=== PATIENT | male | born 1945 | race Caucasian/White ===

== ENCOUNTER 2024-03-04 07:29 | Inpatient (IN) ==
--- NOTE | 2024-03-04 07:42 | Emergency Department Note ---
Impression & Plan Acute hypoxic respiratory failure, Aspiration pneumonia, Sepsis ED Provider Note CHIEF COMPLAINT: Vomiting, shortness of breath. HISTORY OF PRESENT ILLNESS: This 78-year-old male patient with past medical history of Njuyrvt-Jgaar-Vcqqo syndrome, hypertension, aspiration, Coreas's esophagus presents emergency department with fever, nausea and vomiting. Patient states he was not feeling well yesterday, but began vomiting around 10 PM. Patient is state he was "hot" most of the night with a presumed fever. This morning the patient took the temperature and it was 101. Patient admits to shortness of breath with exertion, he does have some positional respiratory symptoms as well. He denies any recent cough. His denies recent illness. REVIEW OF SYSTEMS: A review of systems was performed with positives and pertinent negatives listed in the history of present illness. 10 systems were reviewed and are otherwise negative. ALLERGIES: see below MEDICATIONS: see below PMH: see below SOCIAL HISTORY: see below DDx: Aspiration pneumonia, community-acquired pneumonia, viral etiology such as COVID or influenza, PE, congestive heart failure, acute coronary syndrome among others. PHYSICAL EXAM: Vital signs reviewed. General: Elderly, chronically ill-appearing 78-year-old male, no significant distress. HEENT: No scleral icterus, PERRLA, neck supple. Moist mucous membranes Cardiovascular: Regular rate and rhythm, no extra sounds. Pulmonary: Coarse breath sounds at the bases to auscultation bilaterally, slightly increased work of breathing. Abdomen: Soft, nontender, nondistended, positive bowel sounds. Musculoskeletal: Atraumatic, no peripheral edema. Chronic distal joint changes of hands/feet. Neurologic: Patient awake alert and oriented x 3, speech is clear Skin: Warm, dry, no rash EMERGENCY DEPARTMENT COURSE/MDM: This patient was evaluated and appeared to be in no significant distress. Patient is noted to be febrile. IV access was obtained and laboratory work was drawn. Blood cultures, lactate and procalcitonin were ordered. Chest x-ray is consistent with a right lower lobe infiltrate, possibly aspiration secondary to the patient's recent vomiting. Laboratory work reveals a mild leukopenia with a WBC of 4, elevated procalcitonin with a normal lactate. Patient was given p.o. Tylenol, IV Zosyn and hydrated with normal saline solution. He was initially given a 750 mL bolus of normal saline solution and subsequently 200 mL/h based on ideal body weight. Patient did require nasal cannula oxygen supplementation to maintain oxygen saturations above 90%. Case was discussed with the hospitalist service to evaluate the patient for admission and further management. I did explain the findings and plan to the patient and his at the bedside. Hospitalist will be consulted for admission and further management. MONITORING: An order for cardiac monitoring was placed and the patient is noted to be in a normal sinus rhythm at 77 beats per minute. RADIOLOGY: Chest x-ray to my interpretation reveals evidence of focal lung consolidation at the right base consistent with aspiration. Please see radiologist over read below. EKG: To my interpretation reveals a normal sinus rhythm at 98 bpm. Right bundle branch block. Normal ST segments. QTc of 474. No PVC, no PAC. No previous EKGs available. DISPOSITION: Admission Past Med/Surg History Medical History (Updated 03/06/24 @ 05:19 by Alejandra Heller MD) Osteoarthritis Spinal stenosis Barretts esophagus GERD (gastroesophageal reflux disease) Charcot-Josselin disease Hypertension Anemia Surgical History History of left knee surgery tendon repair at age 12 History of right inguinal hernia repair History of left inguinal hernia repair with left orchiectomy History of colonoscopy History of esophagogastroduodenoscopy (EGD) History of tooth extraction all teeth Family History Other No family history of adverse response to anesthesia Social History Smoking Status: Former smoker Tobacco Type: Cigarettes Smoking End Date: 1969; Second Hand Exposure: No; Do You Dip or Chew Tobacco: No (quit ); Hx Alcohol Use: No Hx Substance Use: No Preferred Language: Welsh Communication Ability: Effective Court Interpreter Required: No Beliefs That Will Affect Care: None Current Living Situation: Family Current Living Situation Comment: Daughter, RAVIN, Feels Safe at Home: Yes Safety Concerns: Feels Safe At This Time Assistive Devices: CPAP, Glasses and Walker Assistive Devices Comment: BLE braces Allergies Allergies Allergy/AdvReac Type Severity Reaction Status Date / Time No Known Allergies Allergy Verified 03/04/24 08:50 Home Meds Home Medications Medication Instructions Recorded Confirmed ascorbic acid (vitamin C) 500 mg 500 mg PO BID 05/29/19 03/04/24 tablet (Vitamin C) atenolol 25 mg tablet 25 mg PO QAM 05/29/19 03/04/24 cholecalciferol (vitamin D3) 25 1,000 unit PO QPM 05/29/19 03/04/24 mcg (1,000 unit) tablet (Vitamin D3) lisinopril 20 1 tab PO QAM 05/29/19 03/04/24 mg-hydrochlorothiazide 25 mg tablet omeprazole 20 mg tablet,delayed 20 mg PO BID 05/29/19 03/04/24 release potassium chloride 10 mEq 10 meq PO BID 05/29/19 03/04/24 tablet,extended release tramadol 50 mg tablet 50 mg PO Q6H PRN Pain 05/29/19 03/04/24 amlodipine 10 mg tablet 10 mg PO QAM 11/30/19 03/04/24 atorvastatin 20 mg tablet 20 mg PO QAM 03/04/24 03/04/24 cyanocobalamin (vitamin B-12) 1,000 mcg IM MONTHLY 03/04/24 03/04/24 1,000 mcg/mL injection solution meloxicam 15 mg tablet 15 mg PO DAILY PRN Pain 03/04/24 03/04/24 pregabalin 75 mg capsule 75 mg PO TID 03/04/24 03/04/24 Results & Data (ED) Vital Signs Vital Signs - 24 hr 03/04/24 07:51 03/04/24 07:51 03/04/24 07:51 Temperature 38.5 C H 38.5 C H Temperature Source Oral Oral Pulse Rate 94 H Pulse Rate [Apical] 94 H Pulse Strength Normal Respiratory Rate 22 22 Respiratory Effort / Characteristics Non-Labored Non-Labored Respiratory Depth Normal Normal Blood Pressure 109/61 Blood Pressure [Right Arm] Blood Pressure Mean 77 Blood Pressure Mean [Right Arm] Pulse Oximetry 87 L 91 87 L Oxygen Delivery Method Room Air Nasal Cannula Room Air Nasal Cannula Oxygen Flow Rate 2 Sepsis Recent Fever Within 48 Hours Yes Sepsis New/Unexplained Change in Mental Status Yes Sepsis Action Taken by Nursing Physician Notified Oxygen Flow Rate - Titration 2 Pulse Oximetry Post Tiitration 91 03/04/24 07:51 03/04/24 08:20 03/04/24 08:34 Temperature Temperature Source Pulse Rate 83 Pulse Rate [Apical] 85 Pulse Strength Respiratory Rate 22 Respiratory Effort / Characteristics Non-Labored Respiratory Depth Normal Blood Pressure Blood Pressure [Right Arm] 123/59 L Blood Pressure Mean Blood Pressure Mean [Right Arm] 80 Pulse Oximetry 91 98 Oxygen Delivery Method Nasal Cannula Nasal Cannula Oxygen Flow Rate 2 2 Sepsis Recent Fever Within 48 Hours Sepsis New/Unexplained Change in Mental Status Sepsis Action Taken by Nursing Oxygen Flow Rate - Titration Pulse Oximetry Post Tiitration 03/04/24 09:17 03/04/24 10:15 Temperature 36.9 C Temperature Source Oral Pulse Rate Pulse Rate [Apical] 77 Pulse Strength Respiratory Rate 20 Respiratory Effort / Characteristics Non-Labored Respiratory Depth Normal Blood Pressure Blood Pressure [Right Arm] 109/57 L Blood Pressure Mean Blood Pressure Mean [Right Arm] 74 Pulse Oximetry 93 Oxygen Delivery Method Room Air Oxygen Flow Rate Sepsis Recent Fever Within 48 Hours Sepsis New/Unexplained Change in Mental Status Sepsis Action Taken by Nursing Oxygen Flow Rate - Titration Pulse Oximetry Post Tiitration Home Medications Current Medication List: was personally reviewed by me Laboratory Data Attestation: I reviewed the patient's lab results. 03/05/24 05:50 03/05/24 05:50 Lab Results 03/04/24 03/04/24 03/04/24 Range/Units 07:42 07:42 07:42 WBC 4.37 L (4.8-10.8) K/ul RBC 5.10 (4.70-6.10) M/uL Hgb 14.5 (14.0-18.0) g/dl Hct 42.1 (42.0-52.0) % MCV 82.5 (80.0-100.0) fL MCH 28.4 (25.0-34.0) pg MCHC 34.4 (32.0-36.0) g/dL RDW Std Deviation 42.8 (36.4-46.3) fL RDW Coeff of Daniel 14.2 (11.5-14.5) % Plt Count (130-400) K/uL MPV (9.4-12.4) fL Immature Gran % (Auto) 0.2 % Neut % (Auto) 83.3 % Lymph % (Auto) 10.3 % [place] % (Auto) 5.3 % Eos % (Auto) 0.2 % Baso % (Auto) 0.7 % Neut # (Auto) 3.64 (1.40-6.50) K/uL Lymph # (Auto) 0.45 L (1.20-3.40) K/uL [place] # (Auto) 0.23 (0.11-0.59) K/uL Eos # (Auto) 0.01 (0.00-0.50) K/uL Baso # (Auto) 0.03 (0.00-0.20) K/uL Immature Gran # (Auto) 0.01 (0.01-0.20) K/uL Platelet Estimate Normal (Normal) Plt Count ,Citrate (130-400) K/uL PT 11.7 (9.0-12.0) Seconds INR 1.1 (0.9-1.1) APTT 27 (21-31) Seconds PTT Ratio 1.0 Sodium 134 L (136-145) mmol/L Potassium 3.5 (3.5-5.1) mmol/L Chloride 101 (98-107) mmol/L Carbon Dioxide 27 (21-32) mmol/L Anion Gap 6 (3-11) BUN 30 H (6-23) mg/dl Creatinine 0.90 (0.6-1.4) mg/dl Est Cr Clr Drug Dosing 52.2 ml/min Est GFR ( Amer) 93.8 ml/min Est GFR (Non-Af Amer) 80.9 ml/min BUN/Creatinine Ratio 33.3 H (10-20) Glucose 84 (70-99(Fasting)) mg/dl Lactate (0.4-2.0) mmol/L Calcium 8.4 L (8.6-10.3) mg/dl Magnesium 1.3 L (1.7-2.4) mg/dl Total Bilirubin 0.9 (0.2-1.0) mg/dl AST 34 (13-39) U/L ALT 32 (7-52) U/L Alkaline Phosphatase 54 (34-104) U/L Troponin I High Sens 14.8 (0-20) pg/ml Total Protein 5.4 L (6.0-8.3) gm/dl Albumin 3.3 L (3.4-5.0) gm/dl Globulin 2.1 L (2.5-4.0) gm/dl Albumin/Globulin Ratio 1.6 (0.9-2) Procalcitonin 2.13 H (0-0.5) ng/ml Nasal Screen MRSA (PCR) (Negative) Adenovirus (PCR) Not Detected (NotDetected) B. pertussis DNA (PCR) Not Detected (NotDetected) B.parapertussis DNA PCR Not Detected (NotDetected) C. pneumoniae DNA (PCR) Not Detected (NotDetected) Coronavirus OC43 (PCR) Not Detected (NotDetected) Coronavirus HKU1 (PCR) Not Detected (NotDetected) Coronavirus 229E (PCR) Not Detected (NotDetected) SARS-CoV-2 (PCR) NEGATIVE Not Detected (Negative) Coronavirus NL63 (PCR) Not Detected (NotDetected) Human Metapneumovir PCR Not Detected (NotDetected) Influenza Type A (PCR) Negative Not Detected (Neg) Influenza Type B (PCR) Negative (Neg) M. pneumoniae (PCR) (NotDetected) Parainfluenza 1 (PCR) (NotDetected) Parainfluenza 2 (PCR) (NotDetected) Parainfluenza 3 (PCR) (NotDetected) Parainfluenza 4 (PCR) (NotDetected) RSV (RT-PCR) (Neg) RSV (PCR) (NotDetected) Entero/Rhino (PCR) (NotDetected) 03/04/24 03/04/24 03/04/24 Range/Units 07:42 09:13 09:40 WBC (4.8-10.8) K/ul RBC (4.70-6.10) M/uL Hgb (14.0-18.0) g/dl Hct (42.0-52.0) % MCV (80.0-100.0) fL MCH (25.0-34.0) pg MCHC (32.0-36.0) g/dL RDW Std Deviation (36.4-46.3) fL RDW Coeff of Daniel (11.5-14.5) % Plt Count (130-400) K/uL MPV (9.4-12.4) fL Immature Gran % (Auto) % Neut % (Auto) % Lymph % (Auto) % [place] % (Auto) % Eos % (Auto) % Baso % (Auto) % Neut # (Auto) (1.40-6.50) K/uL Lymph # (Auto) (1.20-3.40) K/uL [place] # (Auto) (0.11-0.59) K/uL Eos # (Auto) (0.00-0.50) K/uL Baso # (Auto) (0.00-0.20) K/uL Immature Gran # (Auto) (0.01-0.20) K/uL Platelet Estimate (Normal) Plt Count ,Citrate 105 L (130-400) K/uL PT (9.0-12.0) Seconds INR (0.9-1.1) APTT (21-31) Seconds PTT Ratio Sodium (136-145) mmol/L Potassium (3.5-5.1) mmol/L Chloride (98-107) mmol/L Carbon Dioxide (21-32) mmol/L Anion Gap (3-11) BUN (6-23) mg/dl Creatinine (0.6-1.4) mg/dl Est Cr Clr Drug Dosing ml/min Est GFR ( Amer) ml/min Est GFR (Non-Af Amer) ml/min BUN/Creatinine Ratio (10-20) Glucose (70-99(Fasting)) mg/dl Lactate 1.0 (0.4-2.0) mmol/L Calcium (8.6-10.3) mg/dl Magnesium (1.7-2.4) mg/dl Total Bilirubin (0.2-1.0) mg/dl AST (13-39) U/L ALT (7-52) U/L Alkaline Phosphatase (34-104) U/L Troponin I High Sens (0-20) pg/ml Total Protein (6.0-8.3) gm/dl Albumin (3.4-5.0) gm/dl Globulin (2.5-4.0) gm/dl Albumin/Globulin Ratio (0.9-2) Procalcitonin (0-0.5) ng/ml Nasal Screen MRSA (PCR) (Negative) Adenovirus (PCR) (NotDetected) B. pertussis DNA (PCR) (NotDetected) B.parapertussis DNA PCR (NotDetected) C. pneumoniae DNA (PCR) (NotDetected) Coronavirus OC43 (PCR) (NotDetected) Coronavirus HKU1 (PCR) (NotDetected) Coronavirus 229E (PCR) (NotDetected) SARS-CoV-2 (PCR) (Negative) Coronavirus NL63 (PCR) (NotDetected) Human Metapneumovir PCR (NotDetected) Influenza Type A (PCR) (Neg) Influenza Type B (PCR) Not Detected (Neg) M. pneumoniae (PCR) Not Detected (NotDetected) Parainfluenza 1 (PCR) Not Detected (NotDetected) Parainfluenza 2 (PCR) Not Detected (NotDetected) Parainfluenza 3 (PCR) Not Detected (NotDetected) Parainfluenza 4 (PCR) Not Detected (NotDetected) RSV (RT-PCR) Negative (Neg) RSV (PCR) Not Detected (NotDetected) Entero/Rhino (PCR) Not Detected (NotDetected) 03/04/24 Range/Units 10:12 WBC (4.8-10.8) K/ul RBC (4.70-6.10) M/uL Hgb (14.0-18.0) g/dl Hct (42.0-52.0) % MCV (80.0-100.0) fL MCH (25.0-34.0) pg MCHC (32.0-36.0) g/dL RDW Std Deviation (36.4-46.3) fL RDW Coeff of Daniel (11.5-14.5) % Plt Count (130-400) K/uL MPV (9.4-12.4) fL Immature Gran % (Auto) % Neut % (Auto) % Lymph % (Auto) % [place] % (Auto) % Eos % (Auto) % Baso % (Auto) % Neut # (Auto) (1.40-6.50) K/uL Lymph # (Auto) (1.20-3.40) K/uL [place] # (Auto) (0.11-0.59) K/uL Eos # (Auto) (0.00-0.50) K/uL Baso # (Auto) (0.00-0.20) K/uL Immature Gran # (Auto) (0.01-0.20) K/uL Platelet Estimate (Normal) Plt Count ,Citrate (130-400) K/uL PT (9.0-12.0) Seconds INR (0.9-1.1) APTT (21-31) Seconds PTT Ratio Sodium (136-145) mmol/L Potassium (3.5-5.1) mmol/L Chloride (98-107) mmol/L Carbon Dioxide (21-32) mmol/L Anion Gap (3-11) BUN (6-23) mg/dl Creatinine (0.6-1.4) mg/dl Est Cr Clr Drug Dosing ml/min Est GFR ( Amer) ml/min Est GFR (Non-Af Amer) ml/min BUN/Creatinine Ratio (10-20) Glucose (70-99(Fasting)) mg/dl Lactate (0.4-2.0) mmol/L Calcium (8.6-10.3) mg/dl Magnesium (1.7-2.4) mg/dl Total Bilirubin (0.2-1.0) mg/dl AST (13-39) U/L ALT (7-52) U/L Alkaline Phosphatase (34-104) U/L Troponin I High Sens (0-20) pg/ml Total Protein (6.0-8.3) gm/dl Albumin (3.4-5.0) gm/dl Globulin (2.5-4.0) gm/dl Albumin/Globulin Ratio (0.9-2) Procalcitonin (0-0.5) ng/ml Nasal Screen MRSA (PCR) Negative (Negative) Adenovirus (PCR) (NotDetected) B. pertussis DNA (PCR) (NotDetected) B.parapertussis DNA PCR (NotDetected) C. pneumoniae DNA (PCR) (NotDetected) Coronavirus OC43 (PCR) (NotDetected) Coronavirus HKU1 (PCR) (NotDetected) Coronavirus 229E (PCR) (NotDetected) SARS-CoV-2 (PCR) (Negative) Coronavirus NL63 (PCR) (NotDetected) Human Metapneumovir PCR (NotDetected) Influenza Type A (PCR) (Neg) Influenza Type B (PCR) (Neg) M. pneumoniae (PCR) (NotDetected) Parainfluenza 1 (PCR) (NotDetected) Parainfluenza 2 (PCR) (NotDetected) Parainfluenza 3 (PCR) (NotDetected) Parainfluenza 4 (PCR) (NotDetected) RSV (RT-PCR) (Neg) RSV (PCR) (NotDetected) Entero/Rhino (PCR) (NotDetected) Administered Medications Albuterol (Albut/Ipratrop 3mg/0.5mg Neb 3 Ml Vial) 3 ml NEB BIDR [facility]; Protocol Stop: 04/04/24 07:44 Last Admin: 03/05/24 19:06 Dose: 3 ml Documented By: Admin: 03/05/24 08:03 Dose: 3 ml Documented By: JORGE Atenolol (Atenolol 25 Mg Tablet) 25 mg PO [facility] Stop: 04/04/24 08:59 Last Admin: 03/05/24 07:30 Dose: 25 mg Documented By: AISSATOU Atorvastatin Calcium (Atorvastatin 20 Mg Tab) 20 mg PO [facility] Stop: 04/04/24 08:59 Last Admin: 03/05/24 07:30 Dose: 20 mg Documented By: AISSATOU Enoxaparin Sodium (Enoxaparin Inj 40 Mg/0.4 Ml Syr) 40 mg SQ Q24H [facility] Stop: 04/03/24 13:59 Last Admin: 03/05/24 12:49 Dose: 40 mg Documented By: Admin: 03/04/24 14:32 Dose: 40 mg Documented By: AZIZA Guaifenesin (Guaifenesin 600 Mg Tabcr) 600 mg PO Q12 [facility] Stop: 04/03/24 20:59 Last Admin: 03/05/24 19:59 Dose: 600 mg Documented By: JOSE ARMANDO Admin: 03/05/24 07:30 Dose: 600 mg Documented By: Admin: 03/04/24 20:48 Dose: 600 mg Documented By: JOSE ARMANDO Piperacillin Sod/Tazobactam (Sod 4.5 gm/ Dextrose) 100 mls @ 25 mls/hr IV Q8H [facility]; Protocol Stop: 03/11/24 09:59 Last Admin: 03/06/24 00:45 Dose: 25 mls/hr Documented By: JOSE ARMANDO Infusion: 03/05/24 19:47 Dose: Infused Documented By: JOSE ARMANDO Admin: 03/05/24 15:33 Dose: 25 mls/hr Documented By: Infusion: 03/05/24 11:46 Dose: Infused Documented By: Admin: 03/05/24 07:29 Dose: 25 mls/hr Documented By: Infusion: 03/05/24 05:12 Dose: Infused Documented By: JOSE ARMANDO Admin: 03/05/24 00:45 Dose: 25 mls/hr Documented By: JOSE ARMANDO Infusion: 03/04/24 20:48 Dose: Infused Documented By: JOSE ARMANDO Admin: 03/04/24 16:59 Dose: 25 mls/hr Documented By: AZIZA Ondansetron HCl (Ondansetron Inj 2 Mg/Ml 2 Ml Vial) 4 mg IV Q6H PRN PRN Reason: Nausea And Vomiting Stop: 04/03/24 12:56 Last Admin: 03/05/24 09:25 Dose: 4 mg Documented By: AISSATOU Pantoprazole Sodium (Pantoprazole 40 Mg Tab) 40 mg PO BID LILLIE Stop: 04/03/24 20:59 Last Admin: 03/05/24 19:59 Dose: 40 mg Documented By: JOSE ARMANDO Admin: 03/05/24 07:30 Dose: 40 mg Documented By: Admin: 03/04/24 20:48 Dose: 40 mg Documented By: JOSE ARMANDO Pregabalin (Pregabalin 75 Mg Cap) 75 mg PO TID [facility] Stop: 04/03/24 13:59 Last Admin: 03/05/24 19:58 Dose: 75 mg Documented By: JOSE ARMANDO Admin: 03/05/24 12:48 Dose: 75 mg Documented By: Admin: 03/05/24 07:32 Dose: 75 mg Documented By: Admin: 03/04/24 20:47 Dose: 75 mg Documented By: JOSE ARMANDO Admin: 03/04/24 14:33 Dose: 75 mg Documented By: AZIZA Sodium Chloride (Sodium Chlor 7% 4 Ml Neb) 4 ml NEB BIDR [facility] Stop: 04/04/24 07:39 Last Admin: 03/05/24 19:06 Dose: 4 ml Documented By: Admin: 03/05/24 08:03 Dose: 4 ml Documented By: JORGE Tramadol HCl (Tramadol Hcl 50 Mg Tablet) 50 mg PO Q6H PRN PRN Reason: Pain Stop: 04/03/24 10:44 Last Admin: 03/05/24 19:58 Dose: 50 mg Documented By: JOSE ARMANDO Admin: 03/05/24 09:27 Dose: 50 mg Documented By: Admin: 03/04/24 20:47 Dose: 50 mg Documented By: JOSE ARMANDO Vitamin D (Cholecalciferol 25 Mcg (1000 Units) Tab) 25 mcg PO QPM LILLIE Stop: 04/03/24 20:59 Last Admin: 03/05/24 19:59 Dose: 25 mcg Documented By: JOSE ARMANDO Admin: 03/04/24 20:48 Dose: 25 mcg Documented By: JOSE ARMANDO Discontinued Medications Acetaminophen (Acetaminophen 500 Mg Tab) 1,000 mg PO NOW [facility] Stop: 03/04/24 08:12 Last Admin: 03/04/24 08:20 Dose: 1,000 mg Documented By: BRYAN Atenolol (Atenolol 25 Mg Tablet) [facility] Stop: 03/04/24 11:01 Last Admin: 03/04/24 14:10 Dose: 25 mg Documented By: AZIZA Atorvastatin Calcium (Atorvastatin 20 Mg Tab) [facility] Stop: 03/04/24 11:01 Last Admin: 03/04/24 14:10 Dose: 20 mg Documented By: AZIZA Piperacillin Sod/Tazobactam Sod (Zosyn) 4.5 gm in 100 mls @ 200 mls/hr IV NOW ONE Stop: 03/04/24 10:05 Last Infusion: 03/04/24 10:09 Dose: Infused Documented By: Admin: 03/04/24 09:42 Dose: 200 mls/hr Documented By: BRYAN Sodium Chloride (Nss) 500 mls @ 999 mls/hr IV .Q31M ONE Stop: 03/04/24 10:07 Last Infusion: 03/04/24 10:08 Dose: Infused Documented By: Admin: 03/04/24 09:43 Dose: 999 mls/hr Documented By: BRYAN Sodium Chloride (Nss) 250 mls @ 999 mls/hr IV .Q16M ONE Stop: 03/04/24 09:52 Last Infusion: 03/04/24 10:09 Dose: Infused Documented By: Admin: 03/04/24 09:43 Dose: 999 mls/hr Documented By: BRYAN Sodium Chloride (Nss) 1,000 mls @ 200 mls/hr IV .Q5H [facility]ILLIE Stop: 04/03/24 09:44 Last Infusion: 03/04/24 14:00 Dose: Infused Documented By: AZIZA(2) Admin: 03/04/24 09:43 Dose: 200 mls/hr Documented By: BRYAN Magnesium Sulfate/Dextrose (Magnesium Sulfate / D5w) 1 gm in 100 mls @ 50 mls/hr IV Q2H [facility]ILLIE Stop: 03/04/24 16:14 Last Infusion: 03/04/24 16:27 Dose: Infused Documented By: AZIZA(2) Admin: 03/04/24 14:31 Dose: 50 mls/hr Documented By: Infusion: 03/04/24 14:26 Dose: Infused Documented By: AZIZA(2) Admin: 03/04/24 12:26 Dose: 50 mls/hr Documented By: Infusion: 03/04/24 12:15 Dose: Infused Documented By: AZIZA(2) Admin: 03/04/24 10:15 Dose: 50 mls/hr Documented By: BRYAN Lactated Ringer's (Lr) 1,000 mls @ 80 mls/hr IV .[id number] [facility]ILLIE Stop: 04/03/24 12:56 Last Infusion: 03/05/24 08:23 Dose: Infused Documented By: Admin: 03/05/24 01:03 Dose: 80 mls/hr Documented By: JOSE ARMANDO Infusion: 03/05/24 01:03 Dose: Infused Documented By: JOSE ARMANDO Admin: 03/04/24 14:15 Dose: 80 mls/hr Documented By: AZIZA Magnesium Sulfate/Dextrose (Magnesium Sulfate 1gm / D5w Bag) Confirm Administered Dose 1 gm IV .STK-MED ONE Stop: 03/04/24 10:15 Last Admin: 03/04/24 10:19 Dose: Not Given Documented By: BRYAN Pantoprazole Sodium (Pantoprazole 40 Mg Tab) 40 mg PO BID LILLIE Stop: 03/04/24 11:01 Last Admin: 03/04/24 14:10 Dose: 40 mg Documented By: AZIZA Potassium Chloride (Potassium Chloride Pwd 20 Meq Pack) 20 meq PO BID LILLIE Stop: 03/05/24 21:01 Last Admin: 03/05/24 19:59 Dose: 20 meq Documented By: Admin: 03/05/24 09:27 Dose: 20 meq Documented By: LRB Imaging Data Radiologist's Impression: Chest X-Ray 03/04/24 07:39 SINGLE VIEW CHEST CLINICAL HISTORY: Sepsis. FINDINGS: A PA chest radiograph is obtained. No prior studies are available for comparison at the time of dictation. The heart is enlarged noting atherosclerotic calcification of the thoracic aorta. The pulmonary vasculature is noncongested. A hiatal hernia is noted. Airspace consolidation is seen in the right lung base. No large pleural effusion or pneumothorax is seen. The skeletal structures are osteopenic. The bony thorax is grossly intact. Arthritic change is seen in the shoulders. Superior subluxation of the humeral heads suggests chronic bilateral rotator cuff injury. Tiny metallic foreign bodies project over the right lower neck and the left chest. IMPRESSION: 1. Airspace consolidation at the right lung base is typical for pneumonia/aspiration pneumonitis. Clinical correlation will be required and radiographic follow-up to resolution is recommended. 2. Cardiomegaly without radiographic evidence of congestive failure. 3. Hiatal hernia. ACT 112: Negative or not required by law. Electronically signed by: Jordi Gallo M.D. 03/04/2024 8:35 AM Discharge Plan Visit Data Chief Complaint: Illness Stated Complaint: ILLNESS, WEAKNESS, MILD SOB, FEVER, NAUSEA, ED Provider: Alejandra Heller Discharge Problem: Acute hypoxic respiratory failure, Aspiration pneumonia, Sepsis Patient Disposition: Admitted As Inpatient Discharge Instructions Interventions: ED Discharge Assessment Last Done: 03/04/24 12:54 Discharge Problem: Aspiration pneumonia Qualifiers: Aspiration pneumonia type: due to vomit Laterality: right Lung location: lower lobe of lung Qualified Code(s): J69.0 - Pneumonitis due to inhalation of food and vomit Sepsis Qualifiers: Sepsis type: sepsis due to unspecified organism Sepsis acute organ dysfunction status: with acute organ dysfunction Severe sepsis acute organ dysfunction type: acute respiratory failure Acute respiratory failure type: with hypoxia Severe sepsis shock status: without septic shock Qualified Code(s): A41.9 - Sepsis, unspecified organism; R65.20 - Severe sepsis without septic shock; J96.01 - Acute respiratory failure with hypoxia
[2024-03-04] MEDS: ACETAMINOPHEN 500 MG TAB PO STA (08:20)
[2024-03-04 08:25] LABS: Albumin Globulin Ratio 1.6 (0.9-2); Albumin Level 3.3 gm/dl (3.4-5.0); BUN Creatinine Ratio 33.3 (10-20); Bilirubin,Total 0.9 mg/dl (0.2-1.0); Calcium 8.4 mg/dl (8.6-10.3); Creatinine Clr Calc Pharmacy 52.2 ml/min; Est GFR (African American) 93.8 ml/min; Est GFR (Non-African American) 80.9 ml/min; Globulin 2.1 gm/dl (2.5-4.0); Magnesium 1.3 mg/dl (1.7-2.4); Potassium 3.5 mmol/L (3.5-5.1); Total Protein 5.4 gm/dl (6.0-8.3)
[2024-03-04 08:32] LABS: Troponin I High Sensitivity 14.8 pg/ml (0-20)
[2024-03-04 08:35] LABS: Influenza A virus by PCR Negative (Neg); Influenza B virus by PCR Negative (Neg); RSV by PCR Negative (Neg); SARS CoV2 RNA(COVID-19) Ceph NEGATIVE (Negative)
--- NOTE | 2024-03-04 08:37 | XRay Report ---
SINGLE VIEW CHEST CLINICAL HISTORY: Sepsis. FINDINGS: A PA chest radiograph is obtained. No prior studies are available for comparison at the erika e of dictation. The heart is enlarged noting atherosclerotic calcification of the thoracic aorta. The pulmonary vasculature is noncongested. A hiatal hernia is noted. Airspace consolidation is seen in t he right lung base. No large pleural effusion or pneumothorax is seen. The skeletal structures are os teopenic. The bony thorax is grossly intact. Arthritic change is seen in the shoulders. Superior subl uxation of the humeral heads suggests chronic bilateral rotator cuff injury. Tiny metallic foreign star dies project over the right lower neck and the left chest. IMPRESSION: 1. Airspace consolidation at the right lung base is typical for pneumonia/aspiration pneumonitis. Cli nical correlation will be required and radiographic follow-up to resolution is recommended. 2. Cardiomegaly without radiographic evidence of congestive failure. 3. Hiatal hernia. ACT 112: Negative or not required by law. Electronically signed by: Jordi Gallo M.D. 03/04/2024 8:35 AM
[2024-03-04 08:46] LABS: INR 1.1 (0.9-1.1); Partial Thromboplastin Time 27 Seconds (21-31); Prothrombin Time 11.7 Seconds (9.0-12.0)
[2024-03-04 08:58] LABS: Hematocrit (blood only) 42.1 % (42.0-52.0); Hemoglobin 14.5 g/dl (14.0-18.0); Mean Corpuscular Hemoglobin 28.4 pg (25.0-34.0); Mean Corpuscular Hgb Conc 34.4 g/dL (32.0-36.0); Mean Corpuscular Volume 82.5 fL (80.0-100.0); RDW Coefficient of Variation 14.2 % (11.5-14.5); RDW Standard Deviation 42.8 fL (36.4-46.3); White Blood Count 4.37 K/ul (4.8-10.8)
[2024-03-04 08:59] LABS: Basophils # (auto) 0.03 K/uL (0.00-0.20); Basophils % (auto) 0.7 %; Eosinophils # (auto) 0.01 K/uL (0.00-0.50); Eosinophils % (auto) 0.2 %; Immature Granulocytes # (auto) 0.01 K/uL (0.01-0.20); Immature Granulocytes % (auto) 0.2 %; Lymphocytes # (auto) 0.45 K/uL (1.20-3.40); Lymphocytes % (auto) 10.3 %; Monocytes # (auto) 0.23 K/uL (0.11-0.59); Monocytes % (auto) 5.3 %; Neutrophils # (auto) 3.64 K/uL (1.40-6.50); Neutrophils % (auto) 83.3 %; Platelet Estimate Normal (Normal)
[2024-03-04 09:33] LABS: Adenovirus PCR Not Detected (NotDetected); Bordetella parapertussis PCR Not Detected (NotDetected); Bordetella pertussis PCR Not Detected (NotDetected); Chlamydia pneumoniae PCR Not Detected (NotDetected); Coronavirus 229E PCR Not Detected (NotDetected); Coronavirus CoV-2 (COVID19)PCR Not Detected (NotDetected); Coronavirus HKU1 PCR Not Detected (NotDetected); Coronavirus NL63 PCR Not Detected (NotDetected); Coronavirus OC43PCR Not Detected (NotDetected); Human Metapneumovirus PCR Not Detected (NotDetected); Influenza A PCR Not Detected (NotDetected); Influenza B PCR Not Detected (NotDetected); Mycoplasma pneumoniae PCR Not Detected (NotDetected); Parainfluenza Virus 1 PCR Not Detected (NotDetected); Parainfluenza Virus 2 PCR Not Detected (NotDetected); Parainfluenza Virus 3 PCR Not Detected (NotDetected); Parainfluenza Virus 4 PCR Not Detected (NotDetected); Respiratory Syncytial VirusPCR Not Detected (NotDetected); Rhinovirus/Enterovirus PCR Not Detected (NotDetected)
[2024-03-04] MEDS: PIPERACILLIN/TAZOBACTAM 4.5 GM/100 ML BAG IV ONE (09:42)
[2024-03-04] MEDS: SODIUM CHLORIDE 0.9% 500 ML IV ONE (09:43)
[2024-03-04] MEDS: SODIUM CHLORIDE 0.9% 250 ML IV ONE (09:43)
[2024-03-04] MEDS: SODIUM CHLORIDE 0.9% 1,000 ML IV SCH (09:43)
[2024-03-04] MEDS: MAGNESIUM SULFATE / D5W 1 GM/100 ML BAG IV SCH (10:15)
[2024-03-04] MEDS: MAGNESIUM SULFATE 1GM / D5W BAG IV ONE (10:19)
--- NOTE | 2024-03-04 10:31 | History & Physical Report ---
Date of Service March 04, 2024 Assessment & Plan (1) Sepsis: (2) Aspiration pneumonia: (3) Hypertension: (4) CMT (Qtsuwtg-Emxpn-Rvtoh disease): Plan 78-year-old male who presented to ED from home with fever, nausea, vomiting, shortness of breath and found to have aspiration pneumonia Aspiration pneumonia with sepsis- Met SIRS criteria with fever tachycardia with pneumonia as source of infection. WBC 4.3, lactate 1, Procal 2.13. RVP negative. CXR with RLL aspiration PNA. Patient given fluid and antibiotic in the ED. Will continue IV Zosyn, IVF. Check MRSA nares, sputum culture if able to send, REGISTERED RADIOGRAPHER eval. IS/flutter valve, mucinex, nebs prn. If MRSA positive, add vanc. Follow blood clx. F/u imaging to ensure resolution. Hypomagnesemia-repleted IV, recheck in a.m. Hypertension- BP low normal. Continue atenolol. Hold home amlod, lisinopril- HCTZ. 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 PT OT eval. On pregablin tid along with tramadol prn for chronic pain. SONYA on CPAP- continue DVT prophylaxis-subcu Lovenox Code status- full. Discussed at bedside Disposition-admit to [facility] on telemetry Updated at bedside Time spent- approx 75 mins History of Present Illness Chief Complaint: fever, N/V, SOB Primary Care Provider: Julia Robert PA-C 78-year-old male with history of hypertension, Yygxlqjy-Yowfy-Dshwx disease, GERD/Coreas's esophagus, spinal stenosis, OA, SONYA on CPAP, who presents to the ED from home with fever, nausea vomiting and shortness of breath which started last night. States he was in his usual state of health until last night when he had nausea with multiple episodes of vomiting, felt hot and short of breath for which he came to the ED. In the ED, he was febrile and mildly tachycardic. WBC 4.3, procal 2, lactate 1. CXR with right aspiration PNA. Given IVF, zosyn and supplemental oxygen, and hospitalist service was consulted for admission. During my encounter, he was lying comfortably in bed with NC. No distress. at bedside. Denies any prior PNA. Denies any choking or aspiration episodes. Does not smoke or drink alcohol. Denies any known heart or lung disease. Denies any history of VTE or bleeding issues. Allergies Allergy/AdvReac Type Severity Reaction Status Date / Time No Known Allergies Allergy Verified 03/04/24 08:50 Home Medications Medication Instructions Recorded Confirmed Type ascorbic acid (vitamin C) 500 mg 500 mg PO BID 05/29/19 03/04/24 History tablet (Vitamin C) atenolol 25 mg tablet 25 mg PO QAM 05/29/19 03/04/24 History cholecalciferol (vitamin D3) 25 1,000 unit PO QPM 05/29/19 03/04/24 History mcg (1,000 unit) tablet (Vitamin D3) lisinopril 20 1 tab PO QAM 05/29/19 03/04/24 History mg-hydrochlorothiazide 25 mg tablet omeprazole 20 mg tablet,delayed 20 mg PO BID 05/29/19 03/04/24 History release potassium chloride 10 mEq 10 meq PO BID 05/29/19 03/04/24 History tablet,extended release tramadol 50 mg tablet 50 mg PO Q6H PRN Pain 05/29/19 03/04/24 History amlodipine 10 mg tablet 10 mg PO QAM 11/30/19 03/04/24 History atorvastatin 20 mg tablet 20 mg PO QAM 03/04/24 03/04/24 History cyanocobalamin (vitamin B-12) 1,000 mcg IM MONTHLY 03/04/24 03/04/24 History 1,000 mcg/mL injection solution meloxicam 15 mg tablet 15 mg PO DAILY PRN Pain 03/04/24 03/04/24 History pregabalin 75 mg capsule 75 mg PO TID 03/04/24 03/04/24 History Past Med/Surg History Medical History (Updated 03/04/24 @ 11:00 by German Quintanilla MD) Osteoarthritis Spinal stenosis Barretts esophagus GERD (gastroesophageal reflux disease) Charcot-Josselin disease Hypertension Anemia Surgical History History of left knee surgery tendon repair at age 12 History of right inguinal hernia repair History of left inguinal hernia repair with left orchiectomy History of colonoscopy History of esophagogastroduodenoscopy (EGD) History of tooth extraction all teeth Family History Other No family history of adverse response to anesthesia Social History Smoking Status: Never smoker Second Hand Exposure: No; Do You Dip or Chew Tobacco: No (quit 1990s); Hx Alcohol Use: No Hx Substance Use: No Preferred Language: Latvian Communication Ability: Effective Echo Technologist Required: No Beliefs That Will Affect Care: None Current Living Situation: Spouse Feels Safe at Home: Yes Assistive Devices: Denture - Upper, Denture - Lower and Glasses Review of Systems Review of Systems: All systems reviewed & are unremarkable except as noted in Subjective Physical Exam Physical Exam: General: Lying comfortably in bed, not in distress, on room air HEENT: EOMI, CELINE, MMM Chest: Fair breath sounds with crackles on lower half of lungs bilaterally CVS: Regular rate and rhythm, normal heart sounds, no murmur Abdomen: Soft, non tender, not distended, normal bowel sounds Neuro: Awake, alert, oriented, conversing well, non focal Extremities: Chronic LE edema. Deformities noted from his CMT Results & Data Results & Data Vital Signs (Past 12 Hours) Vital Signs Temp Pulse Pulse Resp BP BP Pulse Ox 03/04/24 10:15 77 20 109/57 L 93 03/04/24 09:17 36.9 C 03/04/24 08:34 83 03/04/24 08:20 85 22 123/59 L 98 03/04/24 07:51 91 03/04/24 07:51 87 L 03/04/24 07:51 38.5 C H 94 H 22 91 03/04/24 07:51 38.5 C H 94 H 22 109/61 87 L O2 Del Method O2 Flow Rate 03/04/24 10:15 Room Air 03/04/24 09:17 03/04/24 08:34 03/04/24 08:20 Nasal Cannula 2 03/04/24 07:51 Nasal Cannula 2 03/04/24 07:51 Room Air, Nasal Cannula 03/04/24 07:51 Nasal Cannula 2 03/04/24 07:51 Room Air Laboratory Results Short CBC 03/04/24 Range/Units 07:42 WBC 4.37 L (4.8-10.8) K/ul Hgb 14.5 (14.0-18.0) g/dl Hct 42.1 (42.0-52.0) % Plt Count (130-400) K/uL BMP 03/04/24 07:42 Sodium 134 L Potassium 3.5 Chloride 101 Carbon Dioxide 27 BUN 30 H Creatinine 0.90 Glucose 84 Calcium 8.4 L Liver Function 03/04/24 Range/Units 07:42 Total Bilirubin 0.9 (0.2-1.0) mg/dl AST 34 (13-39) U/L ALT 32 (7-52) U/L Alkaline Phosphatase 54 (34-104) U/L Albumin 3.3 L (3.4-5.0) gm/dl Diagnostic Findings Chest X-Ray 03/04/24 07:39 SINGLE VIEW CHEST CLINICAL HISTORY: Sepsis. FINDINGS: A PA chest radiograph is obtained. No prior studies are available for comparison at the time of dictation. The heart is enlarged noting atherosclerotic calcification of the thoracic aorta. The pulmonary vasculature is noncongested. A hiatal hernia is noted. Airspace consolidation is seen in the right lung base. No large pleural effusion or pneumothorax is seen. The skeletal structures are osteopenic. The bony thorax is grossly intact. Arthritic change is seen in the shoulders. Superior subluxation of the humeral heads suggests chronic bilateral rotator cuff injury. Tiny metallic foreign bodies project over the right lower neck and the left chest. IMPRESSION: 1. Airspace consolidation at the right lung base is typical for pneumonia/aspiration pneumonitis. Clinical correlation will be required and radiographic follow-up to resolution is recommended. 2. Cardiomegaly without radiographic evidence of congestive failure. 3. Hiatal hernia. ACT 112: Negative or not required by law. Electronically signed by: Jordi Gallo M.D. 03/04/2024 8:35 AM
[2024-03-04] MEDS ORDERED: ALBUT/IPRATROP 3MG/0.5MG NEB 3 ML VIAL NEB PRN (12:57)
[2024-03-04] MEDS ORDERED: ACETAMINOPHEN 325 MG TAB PO PRN (12:57)
[2024-03-04 13:08] LABS: Appearance Urine Clear (Clear); Bilirubin Urine Negative (Negative); Blood Urine Negative (Negative); Color Urine Yellow; Glucose Urine UA Negative (Negative); Ketones Urine Trace (Negative); Leukocyte Esterase Urine Negative (Negative); Nitrite Urine Negative (Negative); Protein Urine Negative (Negative); Specific Gravity Urine 1.019 (1.000-1.030); Urobilinogen Urine Negative (Negative)
[2024-03-04] MEDS: PANTOprazole 40 MG TAB PO SCH ×2 (14:10→20:48)
[2024-03-04] MEDS: ATORVASTATIN 20 MG TAB PO SCH (14:10)
[2024-03-04] MEDS: ATENOLOL 25 MG TABLET PO SCH (14:10)
[2024-03-04] MEDS: LACTATED RINGER'S 1,000 ML IV SCH (14:15)
[2024-03-04] MEDS: ENOXAPARIN INJ 40 MG/0.4 ML SYR SQ SCH (14:32)
[2024-03-04] MEDS: PREGABALIN 75 MG CAP PO SCH (14:33)
[2024-03-04] MEDS: PIPERACILLIN/TAZOBACTAM 4.5 GM in DEXTROSE 5% MINI-B 100 ML IV SCH (16:59)
[2024-03-04] MEDS: traMADol HCL 50 MG TABLET PO PRN (20:47)
[2024-03-04] MEDS: guaiFENesin 600 MG TABCR PO SCH (20:48)
[2024-03-04] MEDS: CHOLECALCIFEROL 25 MCG (1000 UNITS) TAB PO SCH (20:48)
--- OUTSIDE RECORDS SUMMARY | 2024-03-05 05:31 | External Medical Summary | Summary of Care ---
Author Name Unknown Organization [facility] Address [address] [facility] [place] [address] Phone [phone] Care Team Providers Care Adult Caregiver Name Role Phone Julia Robert PA-C Primary Care Provider + Reason for Visit * Reason Comments Medication Administration Encounter Details Date Type Department Care Team ([facility] Contact Info) Description 02/26/2024 11:00 AM EDT Nurse Only Ancillary [address] [phone] [place], Nurse [address] [address] Medication Administration Allergies No known active allergiesdocumented as of this encounter (statuses as of 02/26/2024) Medications Medication Sig Dispensed Refills Start Date End Date Status Cholecalciferol (VITAMIN D) 1000 units TabletIndications: from in clinic Take 1 Tablet by mouth every afternoon. 0 Active Aspirin EC 81 MG Oral Tablet Delayed Release Take 1 Tablet by mouth in the morning. 0 11/07/2022 Active amLODIPine Besylate 10 MG Oral Tablet (Norvasc)Indicatio ns:HTN, goal below 140/90 TAKE ONE TABLET BY MOUTH EVERY DAY 90 Tablet 2 04/30/2023 04/29/2024 Active Lisinopril-hydroCH LOROthiazide 20-25 MG Oral TabletIndications: HTN, goal below 140/90 TAKE ONE TABLET BY MOUTH EVERY MORNING 90 Tablet 3 09/27/2023 09/26/2024 Active CPAP every night at bedtime. 0 Active Atenolol 25 MG Oral Tablet (Tenormin)Indicati ons:HTN, goal below 140/90 TAKE ONE TABLET BY MOUTH EVERY MORNING 90 Tablet 3 11/25/2023 11/24/2024 Active Meloxicam 15 MG Oral Tablet (Mobic)Indications :Generalized osteoarthritis,Chr onic neck pain,Other spondylosis, lumbar region TAKE ONE TABLET BY MOUTH EVERY DAY NEEDED FOR MODERATE PAIN 100 Tablet 1 12/14/2023 12/13/2024 Active Atorvastatin Calcium 20 MG Oral Tablet (Lipitor)Indicatio ns:Hyperlipidemia with target LDL less than 100 TAKE ONE TABLET BY MOUTH EVERY MORNING 90 Tablet 3 01/14/2024 Active Pregabalin 75 MG Oral Capsule (Lyrica) Take 1 Capsule by mouth in the morning and 1 Capsule at noon and 1 Capsule before bedtime. 90 Capsule 2 02/17/2024 Active Omeprazole 20 MG Oral Capsule Delayed Release (PriLOSEC)Indicati ons:Coreas's esophagus without dysplasia TAKE ONE CAPSULE BY MOUTH TWICE A DAY ONE HOUR BEFORE A MEAL DIRECTED 180 Capsule 1 02/23/2024 02/22/2025 Active Potassium Chloride Tessa ER 10 MEQ Oral Tablet Extended ReleaseIndications :Hypokalemia TAKE ONE TABLET BY MOUTH TWICE A DAY 180 Tablet 1 02/23/2024 02/22/2025 Active traMADol HCl 50 MG Oral Tablet (Ultram)Indication s:Generalized osteoarthritis,Chr onic neck pain,Other spondylosis, lumbar region Take 1 Tablet by mouth every 6 hours as needed for Pain, Moderate. TAKE 1 TABLET BY MOUTH EVERY 6 HOURS, NEEDED FOR MODERATE PAIN. 60 Tablet 2 02/25/2024 Active Hospital, Clinic, or Other Facility Administered Medication Ordered Dose Route Frequency Start Date End Date Status vitamin b-12 (Cyanocobalamin) inj 1,000 mcgIndications:B12 deficiency 1000 mcg IM [id number] 10/30/2023 09/30/2024 Active vitamin b-12 (Cyanocobalamin) inj 1,000 mcgIndications:B12 deficiency 1000 mcg IM [id number] 10/30/2023 09/30/2024 Active documented as of this encounter (statuses as of 02/26/2024) Active Problems Problem Noted Date Diagnosed Date SONYA (obstructive sleep apnea) 01/25/2023 Aortic root enlargement 10/19/2022 Aortic valve regurgitation 10/19/2022 Hyperlipidemia with target LDL less than 100 Other spondylosis, lumbar region 05/03/2021 Generalized osteoarthritis 08/02/2020 Vitamin D deficiency 08/02/2020 B12 deficiency 11/19/2019 Chronic neck pain 07/30/2019 Charcot Josselin Tooth muscular atrophy 07/30/2019 Chronic blood loss anemia 03/01/2019 Coreas's esophagus without dysplasia 05/13/2018 AK (actinic keratosis) 04/17/2016 HTN, goal below 140/90 09/15/2009 Hereditary and idiopathic peripheral neuropathy 07/07/2003 Tabes dorsalis 05/29/2002 documented as of this encounter (statuses as of 02/26/2024) Resolved Problems Problem Noted Date Diagnosed Date Resolved Date Gastroesophageal reflux disease 08/02/2020 08/02/2020 Rheumatoid arthritis 07/30/2019 020 Personal history of other ma lignant neoplasm of skin 12/21/2014 07/30/2019 Overview: BCC (medial L upper chest) Ankle joint pain 09/01/2014 01/22/2019 Wrist pain 09/01/2014 01/22/2019 Hypokalemia 09/12/2012 08/16/2021 Personal history of malignan t neoplasm of skin 02/06/2010 04/17/2016 Overview: History Basal Cell Carcinoma L medial upper chest/173.5 Seborrheic dermatitis 02/01/20102018 Overview: ICD-10 update of inactive term ADVANCE DIRECTIVE INFORMATION 06/19/2005 07/30/2019 Overview: No, Advance Directive brochure given to patient at prior appointment. documented as of this encounter (statuses as of 02/26/2024) Immunizations Name Administration Dates Next Due COVID-19 mRNA, LNP-s, No Pre serve, 2-Dose Series (Moderna) 12/31/2020,11/24/2020 COVID-19, mRNA, LNP-s, PF, B ooster, 100mcg/0.5mg (Moderna) 05/04/2022,09/06/2021 Covid-19, Mrna, Lnp-s, Pf, B ivalent, 30 Mcg, IM, 12 yrs and above (Pfizer) 08/22/2022 Pneumococcal Conjugate Vacc, 13 Valent (Prevnar) 10/21/2015 Pneumococcal Polysaccharide PPV23 (Pneumovax) 05/29/2017,06/14/2006 Season Influenza, Quad, PF, Adjuvanted, 65+ Yrs, IM (FLUAD) 07/06/2020 Seasonal Influenza Virus Vac cine, Unspecified Formulation 08/08/2022,07/19/2021,07/06/2020,07/30,07/30/2018,09/04/2017,08/09/2016 ,07/27/2015,07/28/2014,08/04/2013,07/05,08/07/2011,07/24/2010, 9,08/13/2008,08/25/2007,09/27/2006,,08/07/2004,10/08/2003,08/18/19 96 Seasonal Influenza, PF, 6 M & above, IM , (FluLaval or Fluzone) 07/30/2018,09/04/2017 Seasonal Influenza, Quadriva lent Hd (Fluzone Hd) 07/31/2023,08/08/2022,07/19/2021 Seasonal Influenza, Quadriva lent, No Preserve, IM 08/09/2016 Seasonal Influenza, Split, I IV3, With Preserve, Inj 07/27/2015,07/28/2014,08/04/2013,07/18,08/07/2011,07/24/2010,08/15/2009 ,08/13/2008,08/25/2007,09/27/2006 Seasonal Influenza, Trivalen t, Adjuvanted, 65+ yrs 07/30/2019 TD, Preservative Free 01/20/2010 TDAP (age 10 and older)(Boostrix) 05/03/2015 Varicella Zoster Vaccine (Adult) 05/03/2014 Zoster Vaccine Recombinant (Shingrix) 04/20/2020 ,11/19/2019 documented as of this encounter Social History Tobacco Use Types Packs/Day Years Used Date Smoking Tobacco: Former Cigarettes 1 10 Smokeless Tobacco: Former Snuff Quit: 11/04/1973 Comments:quit cigarettes in 1973 Alcohol Use Standard Drinks/Week Comments No 0 (1 standard drink = 0.6 oz pur e alcohol) PHQ-2 Answer Date Recorded PHQ-2 Score 0 08/02/2020 Hunger Vital Sign Answer Date Recorded Within the past 12 months, y ou worried that your food would run out before you got the money to buy more. Never true 11/23/19 24 Within the past 12 months, t he food you bought just didn't last and you didn't have money to get more. Never true 11/23/2023 Sex and Gender Information Value Date Recorded Sex Assigned at Male 08/22/2020 9:21 AM EDT Gender Identity Male 08/22/2020 9:21 AM EDT Sexual Orientation Straight 08/22/2020 9: 21 AM EDT Job Start Date Occupation Industry Not on file Not on file Not on file documented as of this encounter Functional Status Functional Status Response Date of Assess ment Are you deaf or do you have serious difficulty h earing? No 05/12/2015 Are you blind or do you have serious difficulty seeing, even when wearing glasses? No 05/12/2015 Do you have serious difficul ty walking or climbing stairs? (5 years old or older) Yes 05/12/2015 Do you have difficulty dress ing or bathing? (5 years old or older) No 05/12/2015 Because of a physical, menta l, or emotional condition, do you have difficulty doing errands alone such as visiting a doctor s office or shopping? (15 years old or older) Yes 05/12/20 15 Cognitive Status Response Date of Assessm ent Because of a physical, menta l, or emotional condition, do you have serious difficulty concentrating, remembering, or making decisions? (5 years old or older) Yes 05/12/2015 documented as of this encounter Nursing Notes * Aislinn Chisholm LPN - 02/26/2024 11:08 AM EDT The patient has been properly identified by confirmation of name and date of . B-12 Pre-Administration Time Out Procedure Performed: Yes Patient Identified (Ask Name/Date of ): Yes Does the patient have a fever greater than 101 degrees today? No Patient allergic to latex? No Has the patient ever fainted after receiving an injection? No VFC Stock: No Injection(s) verified: Yes, Injection Name: b-12 Verified Side and Site: Yes Verified Shot(s) with Parent(s)/Patient: Yes documented in this encounter Plan of Treatment Upcoming Encounters Date Type Department Care Team (Late st Contact Info) Description 03/04/2024 11:00 AM EDT Telemedicine [facility] [address] [facility] [facility] [place] [address] Nessa Esposito PA-C [address] [facility] [place] [address] 03/06/2024 9:10 AM EDT Laboratory Laboratory Patient Service [address] [phone] [address] 03/11/2024 10:00 AM EDT [facility] [address] [place] [address] Akash Bauman MD [address] [place], [place] [id number] 03/13/2024 10:00 AM EDT Office Visit [facility] [address] [place] [phone] Julia Robert PA-C [address] [place] [address] 03/18/2024 1:00 PM EDT Office Visit [facility] [address] [facility] [place] [phone] Birgit Jeronimo, DO [address] [place] [address] Scheduled Procedures Name Priority Associated Diagnoses Date/Ti me ESOPHAGOGASTRODUODENOSCOPY ( EGD), FLEXIBLE, TRANSORAL, DIAGNOSTIC Recall Coreas's esophagus with esophagitis Health Maintenance Due Date Last Done Comments Depression Screening 08/02/2021 08/02/2020, 07/30/2018 (Course Completed) COVID-19 Vaccine (2022- season) 2023 08/22/2022, 05/04/2022, 09/06/2021, Additional history exists GFR 07/24/2024 07/24/2023, 12/2021, 10/04/2021, Additional history exists DTaP,Tdap,and Td Vaccines (2 - Td or Tdap) 05/03/2025 05/03/2015, 01/20/2010 Albumin/Creatinine Ratio 09/05/2025 022, 10/04/2021, 11/27/2017 Coreas's Esophagus Surveilance 11/13/2026 11/13/2023, 11/13/2023 Pneumococcal Vaccine: 65+ Years Completed 05/29/2017, 10/21/2015, 06/14/2006 Zoster Vaccines Completed 04/20/2020, 11/04, 05/03/2014 Influenza Vaccine (FLU shot) Completed , 08/08/2022, 08/08/2022, Additional history exists GARDASIL-HPV IMMUNIZATION SERIES Aged Out No longer eligible based on patient's age to complete this topic Hepatitis B Aged Out No longer eligi ble based on patient's age to complete this topic MENINGOCOCCAL (MENACTRA/MENVEO) Aged Out No longer eligible based on patient's age to complete this topic documented as of this encounter Medical Devices Not on filedocumented as of this encounter Administered Medications Active Administered Medications - up to 3 most recent administrations Medication Order MAR Action Action Date Dose Rate Site vitamin b-12 (Cyanocobalamin) inj 1,000 mcg 1,000 mcg, Intramuscular, [id number], First dose on Sat10/30/23 at 1115, Last dose on Sat09/02/24 at 1115, For 12 doses Given 02/26/2024 11:07 AM EDT 1,000 mcg Deltoid Left Upper Given 01/22/2024 10:51 AM EDT 1,000 mcg D eltoid Left Upper Given 12/18/2023 9:57 AM EST 1,000 mcg De ltoid Left Upper documented in this encounter Care Teams Adult Caregiver Relationship Specialty Start Date End Date Julia Robert PA-C [address] [place] [address] [place] [address] PCP - General Physician Wind Up Worker 05/11/19 documented as of this encounter
--- OUTSIDE RECORDS SUMMARY | 2024-03-05 05:31 | External Medical Summary | Summary of Care ---
Author Name Unknown Organization [facility] Address [address] [place] [address] Phone [phone] Care Team Providers Care Manager Culture Name Role Phone Lubna Mckeon PA-C Primary Care Provider + Reason for Referral * Medication Prior Authorization - Closed Specialty Diagnoses / Procedures Referred By Contleon t Referred To Contact Diagnoses Generalized osteoarthritis Chronic neck pain Other spondylosis, lumbar region Lubna Mckeon PA-C [address] [place] [address] Referral ID Status Reason Start Date Expiration Date Visits Re quested Visits Authorized [id number] Closed 999 999 Reason for Visit * Reason Onset Date Comments Medication Refill 02/23/2024 Encounter Details Date Type Department Care Team ([facility] st Contact Info) Description 02/23/2024 Refill Family Practice [facility] [address] [place] [phone] Lubna Mckeon PA-C [address] [place] [address] [place] [address] Generalized osteoarthritis; Chronic neck pain; Other spondylosis, lumbar region Allergies No known active allergiesdocumented as of this encounter (statuses as of 02/25/2024) Medications Medication Sig Dispensed Refills Start Date End Date Status Cholecalciferol (VITAMIN D) 1000 units TabletIndication s:from [place] clinic Take 1 Tablet by mouth every afternoon. 0 Active Aspirin EC 81 MG Oral Tablet Delayed Release Take 1 Tablet by mouth in the morning. 0 11/07/2022 Active amLODIPine Besylate 10 MG Oral Tablet (Norvasc)Indicat ions:HTN, goal below 140/90 TAKE ONE TABLET BY MOUTH EVERY DAY 90 Tablet 2 04/30/2023 04/29/2024 Active Lisinopril-hydro CHLOROthiazide 20-25 MG Oral TabletIndication s:HTN, goal below 140/90 TAKE ONE TABLET BY MOUTH EVERY MORNING 90 Tablet 3 09/27/2023 09/26/2024 Active CPAP every night at bedtime. 0 Active Atenolol 25 MG Oral Tablet (Tenormin)Indica tions:HTN, goal below 140/90 TAKE ONE TABLET BY MOUTH EVERY MORNING 90 Tablet 3 11/25/2023 11/24/2024 Active Meloxicam 15 MG Oral Tablet (Mobic)Indicatio ns:Generalized osteoarthritis,C hronic neck pain,Other spondylosis, lumbar region TAKE ONE TABLET BY MOUTH EVERY DAY NEEDED FOR MODERATE PAIN 100 Tablet 1 12/14/2023 12/13/2024 Active Atorvastatin Calcium 20 MG Oral Tablet (Lipitor)Indicat ions:Hyperlipide ajith with target LDL less than 100 TAKE ONE TABLET BY MOUTH EVERY MORNING 90 Tablet 3 01/14/2024 Active Pregabalin 75 MG Oral Capsule (Lyrica) Take 1 Capsule by mouth in the morning and 1 Capsule at noon and 1 Capsule before bedtime. 90 Capsule 2 02/17/2024 Active Omeprazole 20 MG Oral Capsule Delayed Release (PriLOSEC)Indica tions:Coreas's esophagus without dysplasia TAKE ONE CAPSULE BY MOUTH TWICE A DAY ONE HOUR BEFORE A MEAL DIRECTED 180 Capsule 1 02/23/2024 02/22/2025 Active Potassium Chloride Tessa ER 10 MEQ Oral Tablet Extended ReleaseIndicatio ns:Hypokalemia TAKE ONE TABLET BY MOUTH TWICE A DAY 180 Tablet 1 02/23/2024 02/22/2025 Active traMADol HCl 50 MG Oral Tablet (Ultram)Indicati ons:Generalized osteoarthritis,C hronic neck pain,Other spondylosis, lumbar region Take 1 Tablet by mouth every 6 hours as needed for Pain, Moderate. TAKE 1 TABLET BY MOUTH EVERY 6 HOURS, NEEDED FOR MODERATE PAIN. 60 Tablet 2 02/25/2024 Active traMADol HCl 50 MG Oral Tablet (Ultram)Indicati ons:Generalized osteoarthritis,C hronic neck pain,Other spondylosis, lumbar region Take 1 Tablet by mouth every 6 hours as needed for Pain, Moderate. TAKE 1 TABLET BY MOUTH EVERY 6 HOURS, NEEDED FOR MODERATE PAIN. 60 Tablet 2 12/26/2023 02/23/2024 Discontinued (Refill) Hospital, Clinic, or Other Facility Administered Medication Ordered Dose Route Frequency Start Date End Date Status vitamin b-12 (Cyanocobalamin) inj 1,000 mcgIndications:B12 deficiency 1000 mcg IM [id number] 10/30/2023 09/30/2024 Active vitamin b-12 (Cyanocobalamin) inj 1,000 mcgIndications:B12 deficiency 1000 mcg IM [id number] 10/30/2023 09/30/2024 Active documented as of this encounter (statuses as of 02/25/2024) Active Problems Problem Noted Date Diagnosed Date [...] as of this encounter (statuses as of 02/25/2024) Resolved Problems Problem Noted Date Diagnosed Date [...] as of this encounter (statuses as of 02/25/2024) Immunizations Name Administration Dates Next Due COVID-19 [...] Yes 05/12/2015 documented as of this encounter Miscellaneous Notes * Telephone Encounter - Lubna Mckeon PA-C - 02/25/2024 2:11 PM EDTSigned Prescriptions: Disp Refills traMADol HCl 50 MG Oral Tablet (Ultram) 60 Tab*2 Sig: Take 1 Tablet by mouth every 6 hours as needed for Pain, Moderate. TAKE 1 TABLET BY MOUTH EVERY 6 HOURS, NEEDED FOR MODERATE PAIN. Authorizing Provider: LUBNA MCKEON * Telephone Encounter - Michael Powell [facility] - 02/24/2024 5:47 PM EDT Pending Prescriptions: Disp Refills traMADol HCl 50 MG Oral Tablet (Ultram) 60 Tab*2 Sig: Take 1 Tablet by mouth every 6 hours as needed for Pain, Moderate. TAKE 1 TABLET BY MOUTH EVERY 6 HOURS, NEEDED FOR MODERATE PAIN. * Telephone Encounter - Michael Powell RPh - 02/24/2024 5:46 PM EDT I have reviewed the patients controlled substance dispensing history in the Prescription Drug Monitoring Program in compliance with the [facility] regulations before prescribing a controlled substance. PDMP checked on 02/24/2024. Pending Prescriptions: Disp Refills traMADol HCl 50 MG Oral Tablet (Ultram) 60 Tab*2 Sig: Take 1 Tablet by mouth every 6 hours as needed for Pain, Moderate. TAKE 1 TABLET BY MOUTH EVERY 6 HOURS, NEEDED FOR MODERATE PAIN. Last Visit: 11/27/2023 (in office), Visit date not found (telemedicine) Next Visit: 03/13/2024 Date medication was last filled: 02/07/2024 Date medication is due for refill: 02/21/2024 Pharmacy: [facility] [id number] Is this request for a controlled substance? Yes and Urine Drug Screen Not completed Toxicology results: Results for orders placed or performed in visit on 01/27/19 OPIOIDS/BENZO COMPLIANCE MONITORING W/INTERP Result Value COMPLIANCE INTERP (NOTE) URINE DRUG SCREEN RESULT Amphetamine NEGATIVE Barbiturates NEGATIVE Benzodiazepines NEGATIVE Cannabinoids NEGATIVE Cocaine Metabolite NEGATIVE METHADONE METABOLITE NEGATIVE Morphine / Codeine NEGATIVE OXYCODONE NEGATIVE COMMENT THE ABOVE SCREENING RESULTS ARE PRESUMPTIVE AND CAN ONLY BE USED FOR MEDICAL PURPOSES. CONFIRMATORY TESTING IS AVAILABLE UPON REQUEST. Cutoff Concentration URINE VALID INTERP NORMAL CREATININE GERSON 68 Please approve if appropriate. Thank you, Derick Powell, PharmD Clinical Pharmacist [facility] ([facility]) 02/24/24 5:47 PM [phone] documented in this encounter Plan of Treatment Upcoming Encounters Date Type Department Care Team ([facility] st Contact Info) Description 02/26/2024 11:00 AM EDT Nurse Only Ancillary [facility], [place] [address] [place] [address] [place] [address] Sabrina, Nurse [facility] [address] [address] 03/04/2024 11:00 AM EDT Telemedicine Interventional Pain Center, [facility] 132 [facility] [place] [address] Nessa Esposito PA-C 132 [facility] [place] [address] 03/06/2024 9:10 AM EDT Laboratory Laboratory Patient Service [facility] [address] [place] [address] [address] 03/11/2024 10:00 AM EDT Office Visit Neurology, [place] [address] [place] [address] Akash Bauman MD [address] [place] [address] 03/13/2024 10:00 AM EDT Office Visit Family [address] [address] Lubna Mckeon PA-C [address] [place] [address] 03/18/2024 1:00 PM EDT Office Visit Sleep Disorders Ctr [facility] 132 [facility] [place] [address] Birgit Jeronimo DO 132 [facility] [place] [address] Scheduled Procedures Name Priority Associated Diagnoses Date/Ti me ESOPHAGOGASTRODUODENOSCOPY ( EGD), FLEXIBLE, TRANSORAL, DIAGNOSTIC Recall Coreas's esophagus with esophagitis Health Maintenance Due Date Last Done Comments Depression Screening 08/02/2021 08/02/2020, 07/30/2018 (Course Completed) COVID-19 Vaccine ( season) 2023 08/22/2022, 05/04/2022, 09/06/2021, Additional history [...] Not on filedocumented as of this encounter Visit Diagnoses Diagnosis Generalized osteoarthritis Generalized osteoarthrosis, unspecified site Chronic neck pain Cervicalgia Other spondylosis, lumbar region documented in this encounter Care Teams Manager Culture Relationship Specialty Start Date End Date Lubna Mckeon PA-C [address] [place] [address] PCP - General Physician Counter Supply Worker 05/11/19 documented as of this encounter
--- OUTSIDE RECORDS SUMMARY | 2024-03-05 05:31 | External Medical Summary | Summary of Care ---
Author Name Unknown Organization [facility] Address [address] [facility] [address] Phone [phone] Care Team Providers Care Cafe Or Restaurant Manager Name Role Phone Julia Robert PA-C Primary Care Provider + Reason for Visit * Reason Onset Date Comments Follow Up 10/25/2023 Encounter Details Date Type Department Care Team (Late st Contact Info) Description 10/25/2023 Telephone Interventional [facility] [address] [place] [address] Nessa Esposito PA-C [address] [place] [address] Follow Up Allergies No known active allergiesdocumented as of this encounter (statuses as of 01/24/2024) Medications Medication Sig Dispensed Refills Start Date End Date Status Cholecalciferol (VITAMIN D) 1000 units TabletIndications: from tn clinic Take 1 Tablet by mouth every afternoon. 0 Active Aspirin EC 81 MG Oral Tablet Delayed Release Take 1 Tablet by mouth in the morning. 0 11/07/2022 Active amLODIPine Besylate 10 MG Oral Tablet (Norvasc)Indicatio ns:HTN, goal below 140/90 TAKE ONE TABLET BY MOUTH EVERY DAY 90 Tablet 2 04/30/2023 04/29/2024 Active Omeprazole 20 MG Oral Capsule Delayed Release (PriLOSEC)Indicati ons:Coreas's esophagus without dysplasia TAKE ONE CAPSULE BY MOUTH TWICE A DAY ONE HOUR BEFORE A MEAL DIRECTED 180 Capsule 1 08/26/2023 08/25/2024 Active Potassium Chloride Tessa ER 10 MEQ Oral Tablet Extended ReleaseIndications :Hypokalemia TAKE ONE TABLET BY MOUTH TWICE A DAY 180 Tablet 1 08/26/2023 08/25/2024 Active Lisinopril-hydroCH LOROthiazide 20-25 MG Oral TabletIndications: HTN, goal below 140/90 TAKE ONE TABLET BY MOUTH EVERY MORNING 90 Tablet 3 09/27/2023 09/26/2024 Active documented as of this encounter (statuses as of 01/24/2024) Active Problems Problem Noted Date Diagnosed Date [...] as of this encounter (statuses as of 01/24/2024) Resolved Problems Problem Noted Date Diagnosed Date [...] as of this encounter (statuses as of 01/24/2024) Immunizations Name Administration Dates Next Due COVID-19 mRNA, LNP-s, No Pre serve, 2-Dose Series (Moderna) 12/31/2020,11/24/2020 COVID-19, mRNA, LNP-s, PF, B ooster, 100mcg/0.5mg (Moderna) 05/04/2022,09/06/2021 Covid-19, Mrna, Lnp-s, Pf, B ivalent, 30 Mcg, IM, 12 yrs and above (Podotree) 08/22/2022 Pneumococcal Conjugate Vacc, 13 Valent (Prevnar) [...] encounter Miscellaneous Notes * Telephone Encounter - Nessa Clifton PA-C - 10/25/2023 1:02 PM EST Spoke to patient regarding possible LESI. CT from [facility] is available. Significant scoliotic curvature with diffuse DDD. Discussed MISHA using fluoroscopy. Risks including, but not limited to, bleeding, infection, worsening pain, failure to alleviate pain, nerve injury and possible steroid side effects were reviewed. 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 Can continue baby aspirin. Due to severity and duration of symptoms, will schedule right interlaminar MISHA L5/S1 versus caudal MISHA. Follow up six weeks after procedure. Continues PT. Total call duration four minutes. documented in this encounter Plan of Treatment Upcoming Encounters Date Type Department Care Team ([facility] st Contact Info) Description 02/26/2024 11:00 AM EDT Nurse Only Ancillary [address] [phone] Sabrina Nurse [address] [address] 03/04/2024 11:00 AM EDT Telemedicine Interventional [facility], [facility] [address] [place] [address] Nessa Esposito PA-C [address] [place] [address] 03/06/2024 9:10 AM EDT Laboratory Laboratory Patient Service [address] [phone] [place], Lab [address] [place] [address] 03/11/2024 10:00 AM EDT Office Visit Neurology, [place] [address] [place] [address] Akash Bauman MD [address] [place] [address] 03/13/2024 10:00 AM EDT Office Visit [facility] [address] [place] [address] Julia Robert PA-C [address] [place] [address] 03/18/2024 1:00 PM EDT Office Visit Sleep Disorders Ctr [facility] [address] [place] [address] Birgit Jeronimo DO [address] [place] [address] Scheduled Orders Name Type Priority Associated Diagnoses Orde r Schedule INJECT DX/THER SUBSTANCE INTERLAMINAR LUMBAR/SACRAL W IMAGE GUIDE Procedures Routine Lumbar radicular pain Scoliosis of thoracolumbar spine, unspecified scoliosis type Expected: 11/08/2023, Expires: 11/25/2024 Scheduled Procedures Name Priority Associated Diagnoses Date/Ti [...] as of this encounter Visit Diagnoses Diagnosis Lumbar radicular pain- Primary Thoracic or lumbosacral neuritis or radiculitis, unspecified Scoliosis of thoracolumbar spine, unspecified scoliosis type documented in this encounter Care Teams Cafe Or Restaurant Manager Relationship Specialty Start Date End Date Julia Robert PA-C [address] [place] [address] PCP - General Physician Insurance Claims Representative 05/11/19 documented as of this encounter
--- OUTSIDE RECORDS SUMMARY | 2024-03-05 05:31 | External Medical Summary | Summary of Care ---
Author Name Unknown Organization [facility] Address [address] [place] [address] Phone [phone] Care Team Providers Care Aviation Project Manager Name Role Phone Lubna Robert PA-C Primary Care Provider + Reason for Visit * Reason Comments Medication Refill Encounter Details Date Type Department Care Team ([facility] st Contact Info) Description 02/22/2024 Refill Family [facility] [address] [place] [address] Lubna Robert PA-C [address] [place] [phone] Coreas's esophagus without dysplasia; Hypokalemia Allergies No known active allergiesdocumented as of this encounter (statuses as of 02/23/2024) Medications Medication Sig Dispensed Refills Start Date End Date Status Cholecalciferol (VITAMIN D) 1000 units TabletIndication s:from [facility] clinic Take 1 Tablet by mouth every [...] PAIN 100 Tablet 1 12/14/2023 12/13/2024 Active traMADol HCl 50 MG Oral Tablet (Ultram)Indicati ons:Generalized osteoarthritis,C hronic neck pain,Other spondylosis, lumbar region Take 1 Tablet by mouth every 6 hours as needed for Pain, Moderate. TAKE 1 TABLET BY MOUTH EVERY 6 HOURS, NEEDED FOR MODERATE PAIN. 60 Tablet 2 12/26/2023 Active Atorvastatin Calcium 20 MG Oral Tablet [...] DAY 180 Tablet 1 02/23/2024 02/22/2025 Active Omeprazole 20 MG Oral Capsule Delayed Release (PriLOSEC)Indica tions:Coreas's esophagus without dysplasia TAKE ONE CAPSULE BY MOUTH TWICE A DAY ONE HOUR BEFORE A MEAL DIRECTED 180 Capsule 1 08/26/2023 02/22/2024 Discontinued (Refill) Potassium Chloride Tessa ER 10 MEQ Oral Tablet Extended ReleaseIndicatio ns:Hypokalemia TAKE ONE TABLET BY MOUTH TWICE A DAY 180 Tablet 1 08/26/2023 02/22/2024 Discontinued (Refill) Hospital, Clinic, or Other Facility Administered Medication Ordered Dose Route Frequency Start Date End Date Status vitamin b-12 (Cyanocobalamin) inj 1,000 mcgIndications:B12 deficiency 1000 mcg IM [id number] 10/30/2023 09/30/2024 Active vitamin b-12 (Cyanocobalamin) inj 1,000 mcgIndications:B12 deficiency 1000 mcg IM [id number] 10/30/2023 09/30/2024 Active documented as of this encounter (statuses as of 02/23/2024) Active Problems Problem Noted Date Diagnosed Date [...] as of this encounter (statuses as of 02/23/2024) Resolved Problems Problem Noted Date Diagnosed Date [...] as of this encounter (statuses as of 02/23/2024) Immunizations Name Administration Dates Next Due COVID-19 [...] encounter Miscellaneous Notes * Telephone Encounter - Jeni Moses RPh - 02/23/2024 8:28 AM EDT Signed Prescriptions: Disp Refills Omeprazole 20 MG Oral Capsule Delayed Rele*180 Ca*1 Sig: TAKE ONE CAPSULE BY MOUTH TWICE A DAY ONE HOUR BEFORE A MEAL DIRECTED Authorizing Provider: LUBNA ROBERT Ordering User: JENI MOSES Potassium Chloride Tessa ER 10 MEQ Oral Tab*180 Ta*1 Sig: TAKE ONE TABLET BY MOUTH TWICE A DAY Authorizing Provider: LUBNA ROSA Ordering User: JENI MOSES * Telephone Encounter - 02/22/2024 12:14 AM EDTPending Prescriptions: Disp Refills Omeprazole 20 MG Oral Capsule Delayed Rele*180 Ca*1 Sig: TAKE ONE CAPSULE BY MOUTH TWICE A DAY ONE HOUR BEFORE A MEAL DIRECTED Potassium Chloride Tessa ER 10 MEQ Oral Tab*180 Ta*1 Sig: TAKE ONE TABLET BY MOUTH TWICE A DAY documented in this encounter Plan of Treatment Upcoming Encounters Date Type Department Care Team ([facility] Contact Info) Description 02/26/2024 11:00 AM EDT Nurse Only Ancillary Meaghan Chakraborty [address] [place] [address] [place] [address] [place], Nurse [address] [address] 03/04/2024 11:00 AM EDT Telemedicine Interventional Pain Center, [facility] 132 [facility] [place] [address] Nessa Esposito PA-C 132 [facility] [place] [address] 03/06/2024 9:10 AM EDT Laboratory Laboratory Patient Service [address] [address] Sabrina, Lab [address] [address] 03/11/2024 10:00 AM EDT Office Visit Neurology, [place] [address] [place] [address] Akash Bauman MD [address] [place] [address] 03/13/2024 10:00 AM EDT Office Visit [address] [address] Lubna Robert PA-C [address] [place] [address] 03/18/2024 1:00 PM EDT Office Visit Sleep Disorders Ctr [facility] 132 [facility] [place] [address] Birgit Jeronimo DO 132 [facility] [place] [address] Scheduled Procedures Name Priority Associated Diagnoses Date/Ti [...] as of this encounter Visit Diagnoses Diagnosis Coreas's esophagus without dysplasia Coreas's esophagus Hypokalemia Hypopotassemia documented in this encounter Care Teams Aviation Project Manager Relationship Specialty Start Date End Date Lubna Robert PA-C [address] [place] [address] PCP - General Physician Grinder Operator Automatic 05/11/19 documented as of this encounter
--- OUTSIDE RECORDS SUMMARY | 2024-03-05 05:31 | External Medical Summary | Summary of Care ---
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 Or is this a follow up with established provider? Specialist Where should this appointment be scheduled? [facility] Reason for Visit * Reason Onset Date Comments Referral Requested by Specialist 02/26/2024 [facility] referral request Encounter Details Date Type Department Care Team ([facility] Contact Info) Description 02/26/[address] [phone] Julia Robert PA-C 68 [facility] [place] [address] Referral Requested by Specialist (Erasmo refe... Allergies No known active allergiesdocumented as of this encounter (statuses as of 02/26/2024) Medications Medication Sig Dispensed Refills Start Date End Date Status Cholecalciferol (VITAMIN D) 1000 units TabletIndications: from [facility] Take 1 Tablet by mouth every afternoon. [...] inj 1,000 mcgIndications:B12 deficiency 1000 mcg IM [id number] 10/30/2023 09/30/2024 Active vitamin b-12 (Cyanocobalamin) inj 1,000 mcgIndications:B12 deficiency 1000 mcg IM [id number] 10/30/2023 09/30/2024 Active documented as of this [...] encounter Miscellaneous Notes * Telephone Encounter - Erasmo Neuro Referral - 02/26/2024 8:05 AM EDT Your patient has an upcoming Neurology appointment. Their insurance requires an active referral be on file. Please sign pended referral order to ensure we comply with insurance requirements. Please do not reply to sender, this is an automated message. The mailbox is not monitored." documented in this encounter Plan of Treatment Upcoming Encounters Date Type Department Care Team ([facility] st Contact Info) Description 02/26/2024 11:00 AM EDT Nurse Only Ancillary [address] [address] Sabrina, Nurse [address] [address] 03/04/2024 11:00 AM EDT Telemedicine Interventional Pain Center, [facility] [address] [place] [address] Nessa Esposito PA-C [address] [place] [address] 03/06/2024 9:10 AM EDT Laboratory Laboratory Patient Service [address] [address] [place], Lab [address] [place] [address] 03/11/2024 10:00 AM EDT Office Visit Neurology, [place] [address] [place] [address] Akash Bauman MD [address] [place], [place] [phone] 03/13/2024 10:00 AM EDT Office Visit Family [facility] [address] [place] [address] Julia Robert PA-C [address] [place] [address] 03/18/2024 1:00 PM EDT Office Visit [facility] Disorders Ctr [facility] [place] [phone] Birgit Jeronimo, [address] [place] [address] Scheduled Procedures Name Priority Associated Diagnoses Date/Ti me ESOPHAGOGASTRODUODENOSCOPY ( EGD), FLEXIBLE, TRANSORAL, DIAGNOSTIC Recall Coreas's esophagus with esophagitis Scheduled Referrals Name Type Priority Associated Diagnoses Orde r Schedule NEUROLOGY REFERRAL OP Referral Within 30 days (routine) 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 Ordered: 02/26/2024 Health Maintenance Due Date Last Done Comments Depression Screening 08/02/2021 08/02/2020, 07/30/2018 (Course Completed) COVID-19 Vaccine ( season) 2023 08/22/2022, 05/04/2022, 09/06/2021, Additional history exists GFR 07/24/2024 07/24/2023, 1112/2021, 10/04/2021, Additional history exists DTaP,Tdap,and Td Vaccines [...] as of this encounter Visit Diagnoses Diagnosis Hereditary and idiopathic peripheral neuropathy- Primary Unspecified hereditary and idiopathic peripheral neuropathy 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
--- OUTSIDE RECORDS SUMMARY | 2024-03-05 05:32 | External Medical Summary | Summary of Care ---
Author Name Unknown Organization [facility] Address [address] [place] [address] Phone [phone] Care Team Providers Care Pick And Shovel Man Name Role Phone Julia Robert PA-C Primary Care Provider + Reason for Visit * Reason Onset Date Comments Advice 10/07/2023 Encounter Details Date Type Department Care Team ([facility] st Contact Info) Description 10/07/2023 Telephone Family [facility] [address] [place] [address] Julia Robert PA-C [address] [place] [address] [phone] Advice Allergies No known active allergiesdocumented as of this encounter (statuses as of 01/06/2024) Medications Medication Sig Dispensed Refills Start Date End Date Status Cholecalciferol (VITAMIN D) 1000 units TabletIndication s:from [place] [facility] Take 1 Tablet by mouth every afternoon. 0 Active Aspirin EC 81 MG Oral Tablet Delayed Release Take 1 Tablet by mouth in the morning. 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 To bilateral ankles for 4 weeks 45 g 0 2 12/16/19 24 Discontinued Meloxicam 15 MG Oral TabletIndication s:Generalized osteoarthritis,C hronic neck pain,Other spondylosis, lumbar region TAKE ONE TABLET BY MOUTH EVERY DAY NEEDED FOR MODERATE PAIN 100 Tablet 1 3 12/14/19 24 Discontinued(Ref ill) Atenolol 25 MG Oral Tablet (Tenormin)Indica tions:HTN, goal below 140/90 TAKE ONE TABLET BY MOUTH EVERY MORNING 90 Tablet 3 2 11/24/19 24 Discontinued(Ref ill) Pregabalin 50 MG Oral Capsule (Lyrica)Indicati ons:Charcot Josselin Tooth muscular atrophy,Chronic neck pain,Other spondylosis, lumbar region,Hereditar y and idiopathic peripheral neuropathy Take 1 Capsule by mouth in the morning and 1 Capsule at noon and 1 Capsule before bedtime. 90 Capsule 2 3 10/29/20 23 Discontinued(Ref ill) traMADol HCl 50 MG Oral Tablet (Ultram)Indicati ons:Generalized osteoarthritis,C hronic neck pain,Other spondylosis, lumbar region Take 1 Tablet by mouth every 6 hours as needed for Pain, Moderate. TAKE 1 TABLET BY MOUTH EVERY 6 HOURS, NEEDED FOR MODERATE PAIN. 60 Tablet 2 3 11/05/19 24 Discontinued(Ref ill) documented as of this encounter (statuses as of 01/06/2024) Active Problems Problem Noted Date Diagnosed Date [...] as of this encounter (statuses as of 01/06/2024) Resolved Problems Problem Noted Date Diagnosed Date [...] as of this encounter (statuses as of 01/06/2024) Immunizations Name Administration Dates Next Due COVID-19 [...] encounter Miscellaneous Notes * Telephone Encounter - Bere Brown OSA - 10/07/2023 11:53 AM EST Patient has been notified of the message. Patient has no further questions. documented in this encounter Plan of Treatment Upcoming Encounters Date Type Department Care Team (Latest Contact Info) Description 01/07/2024 11:20 AM EST Hospital Encounter OR [facility], Operating Room [facility] [address] [place] [phone] Rich Barriga, [address] [place] [phone] 01/07/2024 11:20 AM EST - 01/07/2024 11:45 AM EST Surgery OR [facility], Operating Room [facility] [address] [place] [phone] Rich Barriga, [address] [place] [phone] INJECTION SPINE LUMBAR OR SACRAL 03/06/2024 9:10 AM EDT Laboratory Laboratory Patient Service [address] [phone] [address] 03/11/2024 10:00 AM EDT Office Visit Neurology, [place] [address] [place] [address] Akash Bauman MD [address] [place] [address] 03/13/2024 10:00 AM EDT Office Visit [facility] [address] [place] [phone] Julia Robert PA-C [address] [place] [address] [phone] 03/18/2024 1:00 PM EDT Office Visit [facility] [address] [place] [address] Birgit Jeronimo DO [address] [place] [address] Scheduled Procedures Name Priority Associated Diagnoses Date/Ti me INJECTION SPINE LUMBAR OR SACRAL Lumbar radiculopathy 01/07/2024 11:20 AM EST ESOPHAGOGASTRODUODENOSCOPY ( EGD), FLEXIBLE, TRANSORAL, DIAGNOSTIC Recall [...] Not on filedocumented as of this encounter Care Teams Pick And Shovel Man Relationship Specialty Start Date End Date Julia Robert PA-C [address] [place], [place] [address] [phone] PCP - General Physician Welder/Installer 05/11/19 documented as of this encounter
--- OUTSIDE RECORDS SUMMARY | 2024-03-05 05:32 | External Medical Summary | Summary of Care ---
Author Name Unknown Organization [facility] Address [address] [place] [address] Phone [phone] Care Team Providers Care Manager Outreach Name Role Phone Julia Robert PA-C Primary Care Provider + Reason for Visit * Reason Comments Medication Administration B12 Encounter Details Date Type Department Care Team ([facility] Contact Info) Description 01/22/2024 11:00 AM EDT Nurse Only Ancillary [address] [address] Have, Nurse [address] [address] Medication Administration (B12) Allergies No known active allergiesdocumented as of this encounter (statuses as of 01/22/2024) Medications Medication Sig Dispensed Refills Start Date End Date Status Cholecalciferol (VITAMIN D) 1000 units TabletIndications: [place] [facility] Take 1 Tablet by mouth every [...] MORNING 90 Tablet 3 09/27/2023 09/26/2024 Active Pregabalin 50 MG Oral Capsule (Lyrica)Indication s:Charcot Josselin Tooth muscular atrophy,Chronic neck pain,Other spondylosis, lumbar region,Hereditary and idiopathic peripheral neuropathy Take 1 Capsule by mouth in the morning and 1 Capsule at noon and 1 Capsule before bedtime. 90 Capsule 2 10/30/2023 Active CPAP every night at bedtime. 0 [...] EVERY MORNING 90 Tablet 3 01/14/2024 Active Hospital, Clinic, or Other Facility Administered Medication Ordered Dose Route Frequency Start Date End Date Status vitamin b-12 (Cyanocobalamin) inj 1,000 mcgIndications:B12 deficiency 1000 mcg IM [id number] 10/30/2023 09/30/2024 Active vitamin b-12 (Cyanocobalamin) inj 1,000 mcgIndications:B12 deficiency 1000 mcg IM [id number] 10/30/2023 09/30/2024 Active documented as of this encounter (statuses as of 01/22/2024) Active Problems Problem Noted Date Diagnosed Date [...] as of this encounter (statuses as of 01/22/2024) Resolved Problems Problem Noted Date Diagnosed Date [...] as of this encounter (statuses as of 01/22/2024) Immunizations Name Administration Dates Next Due COVID-19 [...] on file documented as of this encounter Last Filed Vital Signs Vital Sign Reading Time Taken Comments Blood Pressure 110/62 01/22/2024 10:57 AM EDT Pulse - - Temperature - - Respiratory Rate - - Oxygen Saturation - - Inhaled Oxygen Concentration - - Weight - - Height - - Body Mass Index - - documented in this encounter Functional Status Functional Status Response [...] Yes 05/12/2015 documented as of this encounter Progress Notes * Khadra Jernigan LPN - 01/22/2024 10:59 AM EDT Patient was here for a B12 injection and asked to have his BP checked as his one at home has been saying it is high. Patient is having no symptoms. BP was in normal range. documented in this encounter Nursing Notes * Khadra Jernigan LPN - 01/22/2024 10:56 AM EDT The patient has been properly identified by confirmation of name and date of . Chief Complaint Patient presents with Medication Administration B12 Pre-Administration Time Out Procedure Performed: Yes Patient Identified (Ask Name/Date of ): Yes Does the patient have a fever greater than 101 degrees today? No Patient allergic to latex? No Has the patient ever fainted after receiving an injection? No VFC Stock: No Injection(s) verified: Yes, Injection Name: B12 Verified Side and Site: Yes Verified Shot(s) with Parent(s)/Patient: Yes documented in this encounter Plan of Treatment Upcoming Encounters Date Type Department Care Team ([facility] Contact Info) Description 02/26/2024 11:00 AM EDT [facility] [address] [place] [address] [place] [phone] Sabrina, Nurse [facility] [address] [place] [address] [place] [address] 03/04/2024 11:00 AM EDT Telemedicine Interventional Pain Center, [facility] [address] [place] [address] Nessa Esposito PA-C [address] [place] [address] 03/06/2024 9:10 AM EDT Laboratory Laboratory Patient Service [facility] [address] [place] [address] [place] [id number] [place] [address] 03/11/2024 10:00 AM EDT Office Visit Neurology, [place] [address] [place] [address] Akash Bauman MD [address] [place] [address] 03/13/2024 10:00 AM EDT Office Visit [facility] [address] [place] [address] Julia Robert PA-C [address] [place] [address] 03/18/2024 1:00 PM EDT Office Visit [facility] [address] [place] [address] Birgit Jeronimo DO [address] [place] [address] Scheduled Procedures Name Priority Associated Diagnoses Date/Ti [...] (Cyanocobalamin) inj 1,000 mcg 1,000 mcg, Intramuscular, [id number], First dose on Sat10/30/23 at 1115, Last dose on Sat09/02/24 at 1115, For 12 doses Given 01/22/2024 10:51 AM EDT 1,000 mcg Deltoid Left Upper Given 12/18/2023 9:57 AM EST 1,000 mcg De ltoid Left Upper Given 11/15/2023 9:53 AM EST 1,000 mcg De ltoid Left Upper documented in this encounter Care Teams Manager Outreach Relationship Specialty Start Date End Date Julia Robert PA-C [address] [place] [address] [phone] PCP - General Physician Sorter Lumber Straightener 05/11/19 documented as of this encounter
--- OUTSIDE RECORDS SUMMARY | 2024-03-05 05:32 | External Medical Summary | Summary of Care ---
Author Name Unknown Organization [facility] Address [address] [place] [address] Phone [phone] Care Team Providers Care Wood Strip Block Floor Installer Name Role Phone Lubna Mckeon PA-C Primary Care Provider + Reason for Visit * Reason Comments Medication Refill Encounter Details Date Type Department Care Team (Late st Contact Info) Description 01/22/2024 Refill Family Practice [address] [phone] Marianne Syed MD [address] [place] [phone] Charcot Josselin Tooth muscular atrophy; Chronic neck pain; Other spondylosis, lumbar region; Hereditary and idiopathic peripheral neuropathy Allergies No known active allergiesdocumented as of this encounter (statuses as of 01/22/2024) Medications Medication Sig Dispensed Refills Start Date End Date Status Cholecalciferol (VITAMIN D) 1000 units TabletIndication s:from ct clinic Take 1 Tablet by mouth every [...] DAY 180 Tablet 1 08/26/2023 08/25/2024 Active Lisinopril-hydro CHLOROthiazide 20-25 MG Oral TabletIndication [...] MORNING 90 Tablet 3 01/14/2024 Active Pregabalin 50 MG Oral Capsule (Lyrica)Indicati ons:Charcot Josselin Tooth muscular atrophy,Chronic neck pain,Other spondylosis, lumbar region,Hereditar y and idiopathic peripheral neuropathy Take 1 Capsule by mouth in the morning and 1 Capsule at noon and 1 Capsule before bedtime. 90 Capsule 2 01/22/2024 Active Pregabalin 50 MG Oral Capsule (Lyrica)Indicati ons:Charcot Josselin Tooth muscular atrophy,Chronic neck pain,Other spondylosis, lumbar region,Hereditar y and idiopathic peripheral neuropathy Take 1 Capsule by mouth in the morning and 1 Capsule at noon and 1 Capsule before bedtime. 90 Capsule 2 10/30/2023 01/22/2024 Discontinued (Refill) Hospital, Clinic, or Other Facility Administered Medication Ordered Dose Route Frequency Start Date End Date Status vitamin b-12 (Cyanocobalamin) inj 1,000 mcgIndications:B12 deficiency 1000 mcg IM [id number] 10/30/2023 09/30/2024 Active vitamin b-12 (Cyanocobalamin) inj 1,000 mcgIndications:B12 deficiency 1000 mcg IM [id number] 10/30/2023 09/30/2024 Active documented as of this [...] 30 Mcg, IM, 12 yrs and above ([place]) 08/22/2022 Pneumococcal Conjugate Vacc, 13 Valent (Prevnar) [...] Telephone Encounter - Lubna Mckeon PA-C - 01/22/2024 7:14 PM EDTSigned Prescriptions: Disp Refills Pregabalin 50 MG Oral Capsule (Lyrica) 90 Cap*2 Sig: Take 1 Capsule by mouth in the morning and 1 Capsule at noon and 1 Capsule before bedtime. Authorizing Provider: LUBNA MCKEON * Telephone Encounter - Derik Lara [facility] - 01/22/2024 3:53 PM EDTPending Prescriptions: Disp Refills Pregabalin 50 MG Oral Capsule (Lyrica) 90 Cap*2 Sig: Take 1 Capsule by mouth in the morning and 1 Capsule at noon and 1 Capsule before bedtime. * Telephone Encounter - Derik Lara [facility] - 01/22/2024 3:52 PM EDT I have reviewed the patients controlled substance dispensing history in the Prescription Drug Monitoring Program in compliance with the [facility] regulations before prescribing a controlled substance. PDMP checked on 01/22/2024. Pending Prescriptions: Disp Refills Pregabalin 50 MG Oral Capsule (Lyrica) 90 Cap*2 Sig: Take 1 Capsule by mouth in the morning and 1 Capsule at noon and 1 Capsule before bedtime. Last Visit: 11/27/2023 (in office), Visit date not found (telemedicine) Next Visit: 03/13/2024 Date medication was last filled: 12/25/23 Date medication is due for refill: 01/23/24 Pharmacy: [facility] Is this request for a controlled substance? [...] GERSON 68 Please approve if appropriate. Thank You, Derik Tafoya [facility] Clinical Pharmacist Centralized Clinical Pharmacy Services ([facility]PS) (formerly Telepharmacy) 01/22/2024, 3:52 PM documented in this encounter Plan of Treatment Upcoming Encounters Date Type Department Care Team ([facility] Contact Info) Description 02/26/2024 11:00 AM EDT Nurse Only Ancillary [address] [phone] [place], Nurse [address] [address] 03/04/2024 11:00 AM EDT Telemedicine Interventional Pain Center, [facility] 132 [facility] [place] [address] Nessa Esposito PA-C [address] [place] [address] 03/06/2024 9:10 AM EDT Laboratory Laboratory Patient Service Center, [place] [address] [place] [address] Sabrina, [place] [address] [place] [address] 03/11/2024 10:00 AM EDT Office Visit Neurology, [place] [address] [place] [address] Akash Bauman MD [address] [place] [address] 03/13/2024 10:00 AM EDT Office Visit [facility] [address] [place] [address] Lubna Mckeon PA-C [address] [place] [address] 03/18/2024 1:00 PM EDT Office Visit [facility] Disorders Ctr [facility] [address] [facility] [place] [address] Birgit Jeronimo DO [address] [facility] [place] [address] Scheduled Procedures Name Priority Associated Diagnoses Date/Ti [...] as of this encounter Visit Diagnoses Diagnosis 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
--- OUTSIDE RECORDS SUMMARY | 2024-03-05 05:32 | External Medical Summary | Summary of Care ---
Author Name Unknown Organization [facility] Address [address] [place] [address] Phone [phone] Care Team Providers Care Realty Loan Specialist Name Role Phone Lubna Mckeon PA-C Primary Care Provider + Reason for Visit * Reason Comments Medication Refill Encounter Details Date Type Department Care Team ([facility] st Contact Info) Description 01/13/2024 Refill Family [address] [address] Lubna Mckeon PA-C [address] [place] [phone] Hyperlipidemia with target LDL less than 100 Allergies No known active allergiesdocumented as of this encounter (statuses as of 01/14/2024) Medications Medication Sig Dispensed Refills Start Date End Date Status Cholecalciferol (VITAMIN D) 1000 units TabletIndication s:from [facility] Take 1 Tablet by mouth every [...] 09/26/2024 Active Pregabalin 50 MG Oral Capsule (Lyrica)Indicati [...] EVERY MORNING 90 Tablet 3 01/14/2024 Active Atorvastatin Calcium 20 MG Oral Tablet (Lipitor)Indicat ions:Hyperlipide ajith with target LDL less than 100 TAKE ONE TABLET BY MOUTH EVERY MORNING 90 Tablet 3 01/25/2023 01/13/2024 Discontinued (Refill) Hospital, Clinic, or Other Facility Administered Medication Ordered Dose Route Frequency Start Date End Date Status vitamin b-12 (Cyanocobalamin) inj 1,000 mcgIndications:B12 deficiency 1000 mcg IM [id number] 10/30/2023 09/30/2024 Active vitamin b-12 (Cyanocobalamin) inj 1,000 mcgIndications:B12 deficiency 1000 mcg IM [id number] 10/30/2023 09/30/2024 Active documented as of this encounter (statuses as of 01/14/2024) Active Problems Problem Noted Date Diagnosed Date [...] as of this encounter (statuses as of 01/14/2024) Resolved Problems Problem Noted Date Diagnosed Date [...] as of this encounter (statuses as of 01/14/2024) Immunizations Name Administration Dates Next Due COVID-19 [...] encounter Miscellaneous Notes * Telephone Encounter - Annie Atkins [facility] - 01/14/2024 8:20 AM EDTSigned Prescriptions: Disp Refills Atorvastatin Calcium 20 MG Oral Tablet (Li*90 Tab*3 Sig: TAKE ONE TABLET BY MOUTH EVERY MORNINGAuthorizing Provider: LUBNA MCKEON User: ANNIE ATKINS documented in this encounter Plan of Treatment Upcoming Encounters Date Type Department Care Team ([facility] st Contact Info) Description 01/22/2024 11:00 AM EDT Nurse Only Ancillary [address] [phone] Sabrina Nurse [address] [address] 02/26/2024 11:00 AM EDT Nurse Only Ancillary [address] [phone] Sabrina, Nurse [address] [address] 03/04/2024 11:00 AM EDT Telemedicine Interventional Pain Center, [facility] 132 [facility] [place] [address] Nessa Esposito PA-C [address] [place] [address] 03/06/2024 9:10 AM EDT Laboratory Laboratory Patient Service Center, [place] [address] [place] [address] [place], [address] [place] [address] 03/11/2024 10:00 AM EDT Office Visit Neurology, [place] [address] [place] [address] Akash Bauman MD [address] [place], [place] [phone] 03/13/2024 10:00 AM EDT Office Visit [facility] [address] [place] [address] Lubna Mckeon PA-C [address] [place] [address] 03/18/2024 1:00 PM EDT Office Visit Sleep Disorders [facility]tr [facility] [address] [place] [address] Birgit Jeronimo DO [address] [place] [address] Scheduled Procedures Name Priority Associated Diagnoses [...] as of this encounter Visit Diagnoses Diagnosis Hyperlipidemia with target LDL less than 100 Other and unspecified hyperlipidemia documented in this encounter Care Teams Realty Loan Specialist Relationship Specialty Start Date End Date Lubna Mckeon PA-C [address] [place] [address] [place] [address] PCP - General Physician Drywall Hanger Helper 05/11/19 documented as of this encounter
--- OUTSIDE RECORDS SUMMARY | 2024-03-05 05:32 | External Medical Summary | Summary of Care ---
Author Name Unknown Organization [facility] Address [address] [facility] [place] [address] Phone [phone] Care Team Providers Care Senior Center Manager Name Role Phone Julia Robert PA-C Primary Care Provider + Reason for Visit * Auth/Cert Specialty Diagnoses / Procedures Referred By Manish t Referred To Contact Diagnoses Lumbar radiculopathy Lumbar radiculopathy [M54.16] Procedures INJECT DX/THER SUBSTANCE INTERLAMINAR LUMBAR/SACRAL W IMAGE GUIDE INJECTION SPINE LUMBAR OR SACRAL Referral ID Status Reason Start Date Expiration Date Visits Re quested Visits Authorized [id number] Encounter Details Date Type Department Care Team (Latest Contact Info) Description 01/07/2024 10:27 AM EST - 01/07/2024 12:07 PM EST Hospital Encounter [facility], Operating Room [facility] [address] [place] [phone] Rich Barriga DO [address] [place] [address] Discharge Disposition: Home - Self Care Allergies No known active allergiesdocumented as of this encounter (statuses as of 01/08/2024) Medications Medication Sig Dispensed Refills Start Date End Date Status Cholecalciferol (VITAMIN D) 1000 units TabletIndications: from [facility] Take 1 Tablet by mouth every afternoon. 0 Active Aspirin EC 81 MG Oral Tablet Delayed Release Take 1 Tablet by mouth in the morning. 0 11/07/2022 Active amLODIPine Besylate 10 MG Oral Tablet (Norvasc)Indicatio ns:HTN, goal below 140/90 TAKE ONE TABLET BY MOUTH EVERY DAY 90 Tablet 2 04/30/2023 04/29/2024 Active Atorvastatin Calcium 20 MG Oral Tablet (Lipitor)Indicatio ns:Hyperlipidemia with target LDL less than 100 TAKE ONE TABLET BY MOUTH EVERY MORNING 90 Tablet 3 01/25/2023 01/25/2024 Active Omeprazole 20 MG Oral Capsule Delayed [...] MODERATE PAIN. 60 Tablet 2 12/26/2023 Active documented as of this encounter (statuses as of 01/08/2024) Active Problems Problem Noted Date Diagnosed Date [...] as of this encounter (statuses as of 01/08/2024) Resolved Problems Problem Noted Date Diagnosed Date [...] as of this encounter (statuses as of 01/08/2024) Immunizations Name Administration Dates Next Due COVID-19 [...] Sign Reading Time Taken Comments Blood Pressure 144/75 01/07/2024 11:59 AM EST Pulse 55 01/07/2024 11:59 AM EST Temperature 36.5 C (97.7 F) 01/07/2024 11:[address] Respiratory Rate 16 01/07/2024 11:59 AM EST Oxygen Saturation 98% 01/07/2024 11:59 AM EST Inhaled Oxygen Concentration - - Weight 55.8 kg (123 lb) 01/07/2024 10:48 AM EST Height 165.1 cm (5' 5") 01/07/2024 10:48 AM EST Body Mass Index 20.47 01/07/2024 10:48 AM EST documented in this encounter Functional Status Functional [...] Yes 05/12/2015 documented as of this encounter Discharge Instructions * Discharge Instr - AVS* Rich Barriga DO - 01/07/2024 11:55 AM EST [facility] [address] [place] [address] Discharge Date: 01/07/2024 You may call [facility] at [phone] during business hours. For after-hours emergencies call 911. Your attending physician at the time of your discharge was: Rich [facility]iga DO [address] [facility] [address] The information below provides you with the instructions and the list of medications you need to betaking following discharge from the hospital. If you have any questions, please ask before leaving.Please carry this letter with you when you see your doctor in the clinic. Diet: Resume your normal diet If you are diabetic, follow your blood sugars closely for next 2-3 days as they are likely to be elevated. If you are having difficulty controlling your blood sugars call your family doctor or the physician that treats your diabetes. Activity: Do not engage in strenuous activity today Resume your normal activities tomorrow Do not soak in water for 24 hours. No swimming, hot tub or bath but showering is allowed. Do not use heat on the injection site for 24 hours. If uncomfortable ice may be helpful. Some injections may make your arms or legs weak for a few hours. Be extremely careful when walking or changing positions that you do not fall. Have someone assist you for the next 6 hours. If weakness or numbness becomes progressive CALL IMMEDIATELY or GO TO THE NEAREST EMERGENCY ROOM Keep a diary of your pain until seen in the office to help us determine how effective the injectionwas Do not restart physical therapy or chiropractic manipulation until 48 hours after your injection Call : If weakness or numbness suddenly becomes worse or become progressive If the injection site becomes red, swollen, warm to the touch, begins to bleed or drain fluid, or is excessively painful. If you have any questions Medications: Resume all the medications you were taking prior to your injection. Resume your anticoagulants tomorrow unless otherwise instructed by your family physician, supervisor yard or the anticoagulation clinic. Additional Instructions: None Driving: You may resume driving in 12-24 hours if no weakness is noted . Date you may return to work or school: N/A Follow Up: Follow-up with Dr. Barriga or Nessa Esposito PA-C in 6-8 weeks via telehealth or in- person appointment per your preference. documented in this encounter Progress Notes * Rich Barriga DO - 01/07/2024 11:55 AM EST [facility] [place] [address] [facility] [phone] OUTPATIENT SURGERY DISCHARGE SUMMARY NOTE Name: Randall Purvis Location: OR [facility]/[place] Date: 01/07/2024 Time: 11:55 AM Surgery Date: 01/07/2024 Procedure: Procedure(s): INJECTION SPINE LUMBAR OR SACRAL No laterality found for procedure #1 Surgeon: Surgeon(s): Rich Barriga DO Discharge Diagnosis: lumbar radicular pain After examination of this patient, I have determined he is ready for discharge to home when the patient meets criteria. Discharge instructions were given to the patient. Rich Barriga DO OR [facility], Operating Room [facility] [address] [facility] [place] [phone] documented in this encounter H&P Notes * Rich Barriga DO - 01/07/2024 11:25 AM EST Interventional Pain H&P Subjective: History of Present Illness: Randall Purvis is a 78 year old year-old male with a past medical history significant for lumbar radicular pain who is presenting for caudal MISHA to improve his pain and function. his pain is essentially unchanged since our last office visit with him. ASA 3 AW nml Review of Systems: A focused 12-pt ROS were of reviewed with the patient including difficulty with sleep, snoring, aspiration history, dysphagia, stomach pain, nausea and vomiting, severe headaches, confusion, open skin lesions or wounds, chest pain, shortness of breath, excessive thirst, somnolence, dysuria, incomplete bladder emptying, easy bruising, recent clotting problems or bleeding, depression or rushed thoughts unless noted previously. Review of patient's allergies indicates: No Known Allergies Medications, Past Medical History, Past Surgical History reviewed and documented in Epic. See detailed report if needed. Pertinent Labs/Test Results: No results found for: "INR" No results found for: "CREATININE" Hemoglobin A1C (%) Date Value 08/22/2020 4.9 Lab Results Component Value Date/Time AMPHETAMINES - [facility] NEGATIVE 01/27/2019 09:22 AM BARBITURATES - [facility] NEGATIVE 01/27/2019 09:22 AM BENZODIAZEPINES - [facility] NEGATIVE 01/27/2019 09:22 AM METHADONE METABOLITE NEGATIVE 01/27/2019 09:22 AM OXYCODONE NEGATIVE 01/27/2019 09:22 AM CANNABINOIDS - [facility] NEGATIVE 01/27/2019 09:22 AM URINE DRUG SCREEN RESULT 01/27/2019 09:22 AM URINE VALID INTERP NORMAL 01/27/2019 09:22 AM Imaging: I personally reviewed the imaging and my findings were . RADIOLOGY EXAM - CT (IMAGES ONLY, NO REPORT) This is an imaging study not interpreted or resulted by a [employer] or [employer] contracted radiologist. Objective Physical Exam: Vital Signs: BP 132/66 | Pulse 58 | Temp 36.5 C (97.7 F) (Tympanic) | Resp 18 | Ht 1.651 m (5' 5") | Wt 55.8 kg (123 lb) | SpO2 98% | BMI 20.47 kg/m | BSA 1.6 m Body mass index is 20.47 kg/m. General: No apparent distress. Eyes: pupils equal and round, sclera white, pupils midsize. ENT: mucous membranes moist Resp: Non-labored breathing CV: Extremities warm and well-perfused. Psych: Oriented; affect warm, insight tgood. Skin: No rashes or lesions appreciated on exposed skin Neuromuscular Exam: Facet loading neg, SLR pos, TTT over lumbar spine Assessment: Randall is a 78 year old year-old male with: Lumbar radicular pain Plan: The patient is undergoing caudal MISHA today to alleviate his pain and improve his function. The risks, benefits and alternatives to the procedure were reviewed at length and the patient was provided the opportunity to ask questions which were answered to their voiced understanding. Following this comprehensive discussion, the patient opted to proceed. The patient was consented to the procedure following this comprehensive conversation. Rich Barriga DO OR [facility], Operating Room [address] [address] documented in this encounter Nursing Notes * Meghan Morris RN - 01/07/2024 12:06 PM EST Visited by Dr Barriga. Verbalized understanding of discharge directions. Ready for discharge to home. * Lisa Deng RN - 01/07/2024 11:55 AM EST Band aid applied to area. Patient transferred to PACU 11 via wheelchair * Lisa Deng RN - 01/07/2024 11:42 AM EST Patient tolerating pain management injection well. * Meghan Morris RN - 01/07/2024 11:02 AM EST Patient agrees with listed procedure, consent to be signed. documented in this encounter OR Notes * OR Surgeon - Rich Barriga DO - 01/07/2024 11:54 AM EST CAUDAL EPIDURAL STEROID INJECTION DATE: 01/07/2024 ATTENDING: Rich Barriga DO PREOPERATIVE DIAGNOSIS: Lumbosacral spondylosis and radiculopathy POSTOPERATIVE DIAGNOSIS: Lumbosacral spondylosis and radiculopathy PROCEDURE PERFORMED: Caudal epidural steroid injection. Fluoroscopic guidance for precise needle guidance. ANESTHESIA: Local anesthesia with 1% lidocaine. MONITORS: Automatic blood pressure cuff, pulse oximetry, and ECG INDICATIONS: As you know, Randall Purvis is a very pleasant 78 year old year-old patient with a history of lumbar radicular pain. I am providing him a caudal epidural steroid injection today to alleviate his pain and improve his function. There was no dental assistant instructor, EBL or drains placed during this procedure. MEDICATIONS: No current facility-administered medications for this encounter. ALLERGY: Review of patient's allergies indicates: No Known Allergies REVIEW OF SYSTEMS: Negative for fever, chills, chest pain, SOB, bleeding abnormalities, nausea, vomiting, diarrhea, edema, or new rashes. FOCUSED PHYSICAL EXAMINATION: The patient is awake, alert, oriented, and is in no acute distress. Vital signs are stable. The patient is afebrile. The rest of the physical examination is essentially unchanged from the patients recent visit to our office. We explained the procedure to the patient, including the risks, benefits and alternatives to the procedure. The patient verbalized understanding and was willing to proceed. PROCEDURE IN DETAIL: An informed consent was obtained. The patient was taken to the procedure room and was positively identified by the staff and the attending physician. The patient was positioned prone on the procedure bed. Vital signs were monitored as above and remained stable throughout the procedure. The skin over the sacral hiatus was prepped and draped in a standard sterile fashion. A surgical pause (time-out) was performed and was agreed upon by the members of the team. Fluoroscopy wasused to identify the sacral hiatus. The skin and subcutaneous tissues were anesthetized using 1% lidocaine and 25-gauge 1-1/2 inch needle. An 25-gauge 3.5-cm needle was inserted and advanced into thesacral hiatus under fluoroscopic guidance. After the needle passed through the sacrococcygeal ligament the hub of the needle was lowered and the needle was advanced into the sacral epidural space. After negative aspiration for blood and CSF, 3 mL of iohexol radiopaque dye was slowly injected. This demonstrated posterior epidural spread of radiopaque dye. After additional negative aspiration, 80 mg of Kenalog diluted in 1 mL of normal saline and 2 mL of 1% lidocaine were injected into the epidural space. All needles were withdrawn. The patient tolerated the procedure well. COMPLICATIONS: None. DISPOSITION: 1. Return to clinic in 1-2 months for follow-up evaluation, sooner as needed. 2. Resume activity as tolerated. 3. Patient can drive after 12-24 hours if no weakness noted. Rich Barriga DO OR [facility], Operating Room [facility] [address] [facility] [place] [address] documented in this encounter Plan of Treatment Upcoming Encounters Date Type Department Care Team (Late st Contact Info) Description 03/04/2024 11:00 AM EDT Telemedicine Interventional Pain Center, [facility] [address] [facility] [place] [address] Nessa Esposito PA-C [address] [facility] [place] [address] 03/06/2024 9:10 AM EDT Laboratory Laboratory Patient Service [address] [phone] [address] [address] 03/11/2024 10:00 AM EDT Office Visit Neurology, [place] [address] [place] [address] Akash Bauman MD [address] [place] [address] 03/13/2024 10:00 AM EDT Office Visit [facility] [address] [place] [phone] Julia Robert PA-C [address] [facility] [place] [address] 03/18/2024 1:00 PM EDT Office Visit [facility] [address] [place] [phone] Birgit Jeronimo, [address] [place] [address] Scheduled Procedures Name Priority Associated Diagnoses Date/Ti [...] Not on filedocumented as of this encounter Procedures Procedure Name Priority Date/Time Associated Diagnosis Comments FLUORO INTERVENTIONAL PAIN PROCEDURE NONBILLABLE Routine 01/07/2024 11:56 AM EST documented in this encounter Results * FLUORO INTERVENTIONAL PAIN PROCEDURE NONBILLABLE (01/07/2024 11:56 AM EST) Narrative Scheduling, Silent - 01/07/2024 11:57 AM EST This procedure will not be read by a Radiologist. Please see operative note. Rich DON FLUOROSCOPY documented in this encounter Administered Medications Inactive Administered Medications - up to 3 most recent administrations Medication Order MAR Action Action Date Dose Rate Site Iohexol (Omnipaque 180) inj 1 mL 1 mL, Intravenous, ONCE, On 01/07/24 at 1130, For 1 dose, Pre-Op Given 01/07/2024 11:43 AM EST 3 mL lidocaine 1 % inj 20 mg 20 mg (2 mL), Subcutaneous, ONCE, On 01/07/24 at 1130, For 1 dose, Pre-Op Given 01/07/2024 11:40 AM EST 5 mL Other-Specify Triamcinolone Acetonide (Kenalog) 40 MG/ML inj 40 mg 40 mg, Injection, ONCE, On 01/07/24 at 1130, For 1 dose, Pre-Op Given 01/07/2024 11:51 AM EST 80 mg documented in this encounter Active and Recently Administered Medications Times are shown in EST. Scheduled Medication Order 01/05/2024 01/06/2024 01/07/2024 Iohexol (Omnipaque 180) inj 1 mL (COMPLETED) 1 mL, Intravenous, ONCE, On 01/07/24 at 1130, For 1 dose, Pre-Op 1143 (Given - Provid er: Lisa Deng RN - Comment: CAUDAL) lidocaine 1 % inj 20 mg (COMPLETED) 20 mg (2 mL), Subcutaneous, ONCE, On 01/07/24 at 1130, For 1 dose, Pre-Op 1140 (Given - Provid er: Lisa Deng RN - Comment: CAUDAL) Triamcinolone Acetonide (Kenalog) 40 MG/ML inj 40 mg (COMPLETED) 40 mg, Injection, ONCE, On Sat01/07/24 at 1130, For 1 dose, Pre-Op 1151 (Given - Provid er: Lisa Deng RN) documented in this encounter Care Teams Senior Center Manager Relationship Specialty Start Date End Date Julia Robert PA-C [address] [place], [place] [address] [id number] PCP - General Physician Fryer Operator 05/11/19 documented as of this encounter
--- OUTSIDE RECORDS SUMMARY | 2024-03-05 05:33 | External Medical Summary | Summary of Care ---
Author Name Unknown Organization [facility] Address [address] [facility] [address] Phone [phone] Care Team Providers Care Ceramics Artist Name Role Phone Julia Robert PA-C Primary Care Provider + Encounter Details Date Type Department Care Team ([facility] st Contact Info) Description 01/03/2024 Documentation Physical Therapy [address] [place] [address] Guadalupe Hayden, PT [address] [place] [address] Allergies No known active allergiesdocumented as of this encounter (statuses as of 01/03/2024) Medications Medication Sig Dispensed Refills Start Date End Date Status Cholecalciferol (VITAMIN D) 1000 units TabletIndications: [facility] Take 1 Tablet by mouth every [...] MODERATE PAIN. 60 Tablet 2 12/26/2023 Active Hospital, Clinic, or Other Facility Administered Medication Ordered Dose Route Frequency Start Date End Date Status vitamin b-12 (Cyanocobalamin) inj 1,000 mcgIndications:B12 deficiency 1000 mcg IM [id number] 10/30/2023 09/30/2024 Active vitamin b-12 (Cyanocobalamin) inj 1,000 mcgIndications:B12 deficiency 1000 mcg IM [id number] 10/30/2023 09/30/2024 Active documented as of this encounter (statuses as of 01/03/2024) Active Problems Problem Noted Date Diagnosed Date [...] as of this encounter (statuses as of 01/03/2024) Resolved Problems Problem Noted Date Diagnosed Date [...] as of this encounter (statuses as of 01/03/2024) Immunizations Name Administration Dates Next Due COVID-19 [...] Yes 05/12/2015 documented as of this encounter Plan of Treatment Upcoming Encounters Date Type Department Care Team (Latest Contact Info) Description 01/07/2024 11:20 AM EST Hospital Encounter [facility], Operating Room [facility] [address] [place] [phone] Rich Barriga, DO [address] [place] [phone] 01/07/2024 11:20 AM EST - 01/07/2024 11:45 AM EST Surgery OR [facility], Operating Room [facility] [address] [place] [phone] Rich Barriga, DO [address] [place] [phone] INJECTION SPINE LUMBAR OR SACRAL 03/06/2024 9:10 AM EDT Laboratory Laboratory Patient Service [address] [phone] [address] 03/11/2024 10:00 AM EDT Office Visit Neurology, [place] [address] [place] [address] Akash Bauman MD [address] [place], [place] [id number] 03/13/2024 10:00 AM EDT Office Visit [address] [phone] Julia Robert PA-C [address] [place] [address] 03/18/2024 1:00 PM EDT [facility] [address] [place] [phone] Birgit Jeronimo, DO [address] [place] [address] Scheduled Procedures Name Priority Associated Diagnoses Date/Ti [...] filedocumented as of this encounter Care Teams Ceramics Artist Relationship Specialty Start Date End Date Julia Robert PA-C [address] [place] [address] [place] [address] PCP - General Physician Extrusion Die Repair Manager 05/11/19 documented as of this encounter
--- OUTSIDE RECORDS SUMMARY | 2024-03-05 05:33 | External Medical Summary | Summary of Care ---
Author Name Unknown Organization [facility] Address [address] [facility] [place] [address] Phone [phone] Care Team Providers Care Foot Specialist Name Role Phone Julia Robert PA-C Primary Care Provider + Reason for Referral * Precert (Within 10 days (routine)) - Authorized Specialty Diagnoses / Procedures Referred By Contleon t Referred To Contact Cardiac Studies Diagnoses Moderate aortic insufficiency Enlarged aorta (HCC) Procedures ECHO, COMPLETE (2D), TRANS-THORACIC Karina Vee CRNP [address] [place] [address] Referral ID Status Reason Start Date Expiration Date V isits Requested Visits Authorized [id number] Authorized Precert 01/04/2025 999 999 Reason for Visit * Reason Comments Follow Up Encounter Details Date Type Department Care Team (Late st Contact Info) Description 01/03/2024 11:00 AM EST Office Visit Cardiology, [facility] [address] [place] [address] Karina Vee CRNP [address] [place] [address] Moderate aortic insufficiency*; Enlarged aorta (HCC); Abnormal echocardiogram; HTN, goal below 140/90; RBBB (right bundle branch block); Dyslipidemia, goal LDL below 70; Charcot Josselin Tooth muscular atrophy Allergies No known active allergiesdocumented as of this encounter (statuses as of 01/03/2024) Medications Medication Sig Dispensed Refills Start Date End Date Status Cholecalciferol (VITAMIN D) 1000 units TabletIndications: [facility] Take 1 Tablet by mouth every [...] inj 1,000 mcgIndications:B12 deficiency 1000 mcg IM [id number] 10/30/2023 09/30/2024 Active vitamin b-12 (Cyanocobalamin) inj 1,000 mcgIndications:B12 deficiency 1000 mcg IM [id number] 10/30/2023 09/30/2024 Active documented as of this [...] 10 Smokeless Tobacco: Former Snuff Quit: 11/04/1973 Tobacco Cessation:Counseling Given: Not Answered Comments:quit cigarettes in 1973 Alcohol Use Standard [...] Sign Reading Time Taken Comments Blood Pressure 124/74 01/03/2024 10:42 AM EST Pulse 56 01/03/2024 10:42 AM EST Temperature - - Respiratory Rate - - Oxygen Saturation 99% 01/03/2024 10:42 AM EST Inhaled Oxygen Concentration - - Weight 55.8 kg (123 lb) 01/03/2024 10:42 AM EST Height - - Body Mass Index 20.47 12/06/2023 11:16 AM EST documented in this encounter Functional [...] as of this encounter Progress Notes * Karina Vee CRNP - 01/03/2024 11:00 AM EST Cardiology Outpatient Visit 01/03/2024 Primary Explosion Welder: WESLEY Past medical history: Abnormal echo with small-sized apical wall motion abnormality and RV dilation with normal systolic function, 10/2022 Improved imaging noted 01/01/2023- no WMA or RV dilation noted. Enlarged aortic root measuring 4.2 cm per echo 10/2022, 12/2022 Hypertension Moderate aortic insufficiency Coreas's esophagus Hyperlipidemia Charcot josselin tooth muscular atrophy RBBB SONYA, on CPAP. HPI 78-year-old male presenting to the cardiology office today in routine follow-up. Was last evaluatedby the undersigned approximately 1 year ago. Patient was initially referred due to findings of a new murmur. Echocardiogram revealed a normal LVEF of 55-59% however there was a small-sized apical wall motion abnormality with hypokinesis of the segments. The right ventricle was moderately dilated with normal systolic function. Moderate AI noted. Aortic root measuring at 4.2 cm, ascending aorta measuring up to 3.5 cm-- however imaging was poor and a repeat showed resolution in wall motion abnormalities. Most recent echo dated 12/27/2023 showed a normal LVEF without wall motion abnormalities. Aortic root was mildly enlarged at 4.3 cm, stable. Today the patient presents accompanied by his . From a cardiac standpoint he is feeling well. No chest pain, shortness of breath, palpitations, dizziness, syncope or near syncope. No orthopnea, PND, or increased lower extremity edema. No fever, chills, cough, hematochezia, melena, or hemoptysis. Ambulates with a wheeled walker or a cane. Wears braces on his legs. Patient is compliant with all medications, and offers no side effects. Current Outpatient Medications Medication Sig Dispense Refill Cholecalciferol (VITAMIN D) 1000 units Tablet Take 1 Tablet by mouth every afternoon. Aspirin EC 81 MG Oral Tablet Delayed Release Take 1 Tablet by mouth in the morning. amLODIPine Besylate 10 MG Oral Tablet (Norvasc) TAKE ONE TABLET BY MOUTH EVERY DAY 90 Tablet 2 Atorvastatin Calcium 20 MG Oral Tablet (Lipitor) TAKE ONE TABLET BY MOUTH EVERY MORNING 90 Tablet 3 Omeprazole 20 MG Oral Capsule Delayed Release (PriLOSEC) TAKE ONE CAPSULE BY MOUTH TWICE A DAY ONE HOUR BEFORE A MEAL DIRECTED 180 Capsule 1 Potassium Chloride Tessa ER 10 MEQ Oral Tablet Extended Release TAKE ONE TABLET BY MOUTH TWICE A [id number] Tablet 1 Lisinopril-hydroCHLOROthiazide 20-25 MG Oral Tablet TAKE ONE TABLET BY MOUTH EVERY MORNING 90 Tablet 3 Pregabalin 50 MG Oral Capsule (Lyrica) Take 1 Capsule by mouth in the morning and 1 Capsule at noonand 1 Capsule before bedtime. 90 Capsule 2 CPAP every night at bedtime. Atenolol 25 MG Oral Tablet (Tenormin) TAKE ONE TABLET BY MOUTH EVERY MORNING 90 Tablet 3 Meloxicam 15 MG Oral Tablet (Mobic) TAKE ONE TABLET BY MOUTH EVERY DAY NEEDED FOR MODERATE PAIN 100 Tablet 1 traMADol HCl 50 MG Oral Tablet (Ultram) Take 1 Tablet by mouth every 6 hours as needed for Pain, Moderate. TAKE 1 TABLET BY MOUTH EVERY 6 HOURS, NEEDED FOR MODERATE PAIN. 60 Tablet 2 Current Facility-Administered Medications Medication Dose Route Frequency Provider Last Rate Last Admin vitamin b-12 (Cyanocobalamin) inj 1,000 mcg 1,000 mcg Intramuscular Q4 Weeks Kaitlin Moseley PA-C 1,000 mcg at 10/30/23 1112 vitamin b-12 (Cyanocobalamin) inj 1,000 mcg 1,000 mcg Intramuscular Q4 Weeks Werner Sheppard PA-C1,000 mcg at 12/18/23 0957 Past Medical History: Diagnosis Date HTN, goal to be determined started meds in about 1993 Tabes dorsalis gidounw-Aunuk-Lpklg Past Surgical History: Procedure Laterality Date EGD, FLEXIBLE, DIAGNOSTIC 11/13/2023 large hiatal hernia/biopsies show Coreas's esophagitis/recall 1 year/ESOPHAGOGASTRODUODENOSCOPY (EGD), FLEXIBLE, TRANSORAL, DIAGNOSTIC performed by Jose Lovelace MD at ENDOSCOPY [facility] HEMORRHOIDECTOMY,EXTERNAL, 2 + COLUMNS 11/04/2002 L-/S-SPINE PARAVERTEBRAL FACET INJ,1 LEVEL 09/13/2023 L-/S-SPINE PARAVERTEBRAL FACET INJ, 1 LEVEL performed by Rich Barriga DO at OR [facility] L-/S-SPINE PARAVERTEBRL FACET INJ,2 LEVELS 09/13/2023 L-/S-SPINE PARAVERTEBRAL FACET INJ, 2 LEVELS performed by Rich Barriga DO at OR [facility] L-/S-SPINE PARAVERTEBRL FACET INJ,3 LEVELS 09/13/2023 L-/S-SPINE PARAVERTEBRAL FACET INJ, 3 OR MORE LEVELS performed by Rich Barriga DO at OR [facility] REMOVAL OF HYDROCELE, UNILATERAL 11/04/2001 and removal of testicle, on the right REPAIR OF HYDROCELE 11/04/1973 and hernia repair REPAIR OF KNEE LIGAMENTS 11/04/1956 Social History Tobacco Use Smoking status: Former Current packs/day: 1.00 Average packs/day: 1 pack/day for 10.0 years (10.0 ttl pk-yrs) Types: Cigarettes Smokeless tobacco: Former Types: Snuff Quit date: 11/04/1973 Tobacco comments: quit cigarettes in 1973 Vaping Use Vaping Use: Never used Substance Use Topics Alcohol use: No Drug use: No Review of patient's allergies indicates: No Known Allergies Review of Systems: See HPI for pertinent positives. All others negative, other than those noted in HPI. Physical Exam BP 124/74 | Pulse 56 | Wt 55.8 kg (123 lb) | SpO2 99% | BMI 20.47 kg/m | BSA 1.6 m General: No acute distress. A+Ox3. HEENT: Normocephalic. Atraumatic. Conjunctiva and sclera clear. NECK: No carotid bruits. No JVD. Carotid upstrokes are brisk. Heart: RRR. S1 and S2 noted. +2/6 diastolic murmur. Lungs: Clear to auscultation. No wheezes, rhonchi, rales. Abdomen: Normal bowel sounds. Soft. Nontender. No masses or organomegaly. No abdominal bruits. Extremities: No edema. BL foot braces. No clubbing or cyanosis. Pulses: radial=2/4, posterior tibial=2/4, dorsalis pedis = 2/4. NEURO: No focal deficits. PSYCH: Normal. Lab data/imaging study review: Echo 12/27/2023 The examination is adequate to evaluate the referral indication. The qualitative LV ejection fraction is 60-64% (normal). The left ventricular wall motion is normal. The left ventricular diastolic function is mildly abnormal (grade I). The aortic valve has three leaflets. Mild aortic valve sclerosis is present. Mild to moderate aortic regurgitation. Mild tricuspid regurgitation is present. There is no evidence of pulmonary hypertension. The aortic root is mildly enlarged, 4.3 cm. Compared to study dated January 01, 2023, aortic root diameter has mildly increased, previously measuring 4.2 cm Echo 01/01/2023 The examination is adequate to evaluate the referral indication. The left ventricular wall motion is normal. Left ventricular apical trabeculae are noted. Calculated LV ejection Fraction = 63% (bi-plane method of discs). The right ventricular systolic function is normal as assessed by tricuspid annular plane systolic excursion (TAPSE) (normal >1.7cm). The left ventricular diastolic function is mildly abnormal (grade I). The aortic valve has three leaflets. The aortic valve is mildly calcified. Aortic stenosis is absent. Moderate aortic valve regurgitation is present. Mild mitral regurgitation is present. Mild tricuspid regurgitation is present. The aortic root is mildly enlarged (4.2 cm). Compared to the images obtained at the time of the prior study dated 10/10/22, the left ventricular apex is better visualized in the present study. No wall motion abnormalities noted. Zio 11/07/2022 Patient had a min HR of 44 bpm, max HR of 139 bpm, and avg HR of 62 bpm. Predominant underlying rhythm was Sinus Rhythm. Bundle Branch Block/IVCD was present. 67 Supraventricular Tachycardia runs occurred, the run with the fastest interval lasting 9 beats with a max rate of 139 bpm, the longest lasting 12.3 secs with an avg rate of 124 bpm. Isolated SVEs were rare (<1.0%), SVE Couplets were rare (<1.0%), and SVE Triplets were rare (<1.0%). Isolated VEs were rare (<1.0%), and no VE Couplets or VE Triplet were present. The patient submitted two event markers which correlated with sensed atrial ectopic beats Echo 10/2022 The examination is adequate to evaluate the referral indication. The qualitative LV ejection fraction is 55-59% (normal). There is a small sized apical wall motion abnormality with hypokinesis of the segments. The right ventricular cavity is moderately dilated. The right ventricular systolic function is qualitatively normal. Moderate aortic valve regurgitation is present. The aortic root is mildly enlarged (4.2 cm). There is no previous study available for comparison. Impression/Plan: This is a 78 year old male who is being evaluated in the cardiology office for ongoing care/risk management for the below diagnoses. 1. Abnormal echocardiogram -Abnormal echo with small-sized apical wall motion abnormality and RV dilation with normal systolicfunction, 10/2022. -Results resolved per echo dated 01/01/2023, likely imaging discrepancy on prior echo 2. Moderate aortic insufficiency Moderate AI noted on echo, 10/2022- volume status well compensated. Stable per echo 12/2022 and 2023 1. Plan on repeating resting echocardiogram in 1 year prior to follow-up to reassess aortic insufficiency degree. 3. Enlarged aorta (HCC) The aortic root is mildly enlarged per echo (4.2 cm)- stable per echo 12/2022 Per current guidelines aortic root and ascending aortic aneurysm should be screened yearly 1 ranging between 3.5 and 4.4 cm. Once the aneurysm dilates between 4.5-5.[address] should be every 6 months. In the setting of asymptomatic sporadic thoracic aortic aneurysm, prophylactic repair is recommended when the end-diastolic aorta diameter is > 5.5 cm or aortic size index (aortic diameter [cm] divided by body surface area [m2]) =2.75 cm/m2. Another indication for elective thoracic aortic aneurysm repair would be any asymptomatic thoracic aortic aneurysm with rapid expansion =5 mm per year. To reduce the risk of aneurysm expansion good blood pressure control should be utilized. Goal bloodpressure should be between 105-120 systolic. 1. (+) RAMON/ARB, continue lisinopril-hydrochlorothiazide 20-25 mg daily 2. (+) BB, continue atenolol 25 mg daily 3. (+) statin, continue atorvastatin 20 mg daily 4. Avoid heavy lifting and baring down. 5. Will anticipate yearly aortic screenings via echo 4. HTN, goal below 140/90 Well controlled. Continue lisinopril-hydrochlorothiazide, amlodipine, and atenolol as ordered. 5. Dyslipidemia, goal LDL below 70 LDL 49. 1. Continue atorvastatin 20 mg daily 6. RBBB (right bundle branch block) 7. Charcot Josselin Tooth muscular atrophy There is clinical correlation between Yghdejm-Wxdjq-Ntnfp disease and conduction system abnormalities throughout the progression of the disease. -No concerning dysrhythmias noted on prior Zio monitor. 1. Patient educated on signs and symptoms of worsening conduction system disease and when to call the office versus go to the emergency department. The patient agrees to the above plan and will call with additional questions or concerns. ER with all emergencies advised. Follow-up: Return in about 1 year (around 01/02/2025). | Check-out note: Echo same day as follow up in 1 year. I spent a total of 30 minutes on the date of service in preparation, delivery, and documentation ofthe care provided to Randall Purvis excluding any time spent in the performance of separately billed services. YANDY Rosario, Department of Cardiology This chart was completed in part utilizing [employer] Speech Voice Recognition Software. Grammatical errors, random word insertions, prounoun errors, and incomplete sentences are an occasional consequence of this system due to software limitations, ambient noise, and hardware issues. Any formal questions or concerns about the content, text, or information contained within the body of this dictation should be directly addressed to the provider for clarification. documented in this encounter Nursing Notes * Yany Vail CMA - 01/03/2024 10:41 AM EST Examination Room: 3 Name: Randall Purvis Date of : (1945) Reason for Visit: 1 yr Interim Hospitalization(s): none Problems/Concerns: denied Chest Pain/SOB: denied My [facility] is a way you can talk to your provider online through e-mail. Would you like to sign up? I can activate it for you? ALREADY ACTIVE Patient was instructed to not get up on the exam table until directed and assisted by their provider; patient is to remain seated in the chair/ wheelchair/ exam table for fall prevention and safety reasons. Patient is aware to have assistance to step down off exam table with personnel. Patient voiced full comprehension of instructions. documented in this encounter Plan of Treatment Upcoming Encounters Date Type Department Care Team (Latest Contact Info) Description 01/03/2024 2:45 PM EST Rehab Services Physical Therapy [address] [place] [phone] Spring Puckett, [address] [place] [address] 01/07/2024 11:20 AM EST Hospital Encounter OR [facility], Operating Room [facility] [address] [place] [phone] Rich Barriga, [address] [place] [phone] 01/07/2024 11:20 AM EST - 01/07/2024 11:45 AM EST Surgery OR [facility], Operating Room [facility] [address] [place] [phone] Rich Barriga, [address] [place] [phone] INJECTION SPINE LUMBAR OR SACRAL 03/06/2024 9:10 AM EDT Laboratory Laboratory Patient Service [facility] [address] [place] [phone] Sabrina, [facility] [address] [place] [address] 03/11/2024 10:00 AM EDT Office Visit Neurology, [place] [address] [place] [address] Akash Bauman MD [address] [place], [place] [id number] 03/13/2024 10:00 AM EDT Office Visit [facility] [address] [place] [address] Julia Robert PA-C [address] [place] [address] 03/18/2024 1:00 PM EDT Office Visit [facility] [address] [facility] [place] [phone] Birgit Jeronimo DO [address] [facility] [place] [address] Scheduled Orders Name Type Priority Associated Diagnoses Orde r Schedule ECHO, COMPLETE (2D), TRANS-THORACIC Echocardiology Routine Moderate aortic insufficiency Enlarged aorta (HCC) Expected: 01/04/2025, Expires: 02/02/2026 Scheduled Procedures Name Priority Associated Diagnoses Date/Ti me INJECTION SPINE LUMBAR OR SACRAL Lumbar radiculopathy 01/07/2024 11:20 AM EST ESOPHAGOGASTRODUODENOSCOPY ( EGD), FLEXIBLE, TRANSORAL, DIAGNOSTIC Recall Coreas's esophagus with esophagitis Health Maintenance Due Date Last Done Comments Depression Screening 08/02/2021 08/02/2020, 07/30/2018 (Course Completed) COVID-19 Vaccine (6 - 2023- season) 2023 08/22/2022, 05/04/2022, 09/06/2021, Additional history [...] as of this encounter Visit Diagnoses Diagnosis Moderate aortic insufficiency- Primary Aortic valve disorders Enlarged aorta (HCC) Other specified disorders of arteries and arterioles Abnormal echocardiogram Nonspecific (abnormal) findings on radiological and other examination of other intrathoracic organs HTN, goal below 140/90 Unspecified essential hypertension RBBB (right bundle branch block) Right bundle branch block Dyslipidemia, goal LDL below 70 Other and unspecified hyperlipidemia Charcot Josselin Tooth muscular atrophy Peroneal muscular atrophy Lumbar radiculopathy Thoracic or lumbosacral neuritis or radiculitis, unspecified documented in this encounter Care Teams Foot Specialist Relationship Specialty Start Date End Date Julia Robert PA-C [address] [place] [address] PCP - General Physician Wrist Hemmer 05/11/19 documented as of this encounter"
--- OUTSIDE RECORDS SUMMARY | 2024-03-05 05:33 | External Medical Summary | Summary of Care ---
Author Name Unknown Organization [facility] Address [address] [place] [address] Phone [phone] Care Team Providers Care Can Maker Name Role Phone Julia Robert PA-C Primary Care Provider + Reason for Visit * Reason Comments Pain R hip Limited Range Of Motion R hip Muscle Weakness R hip * Evaluate & Treat - Unlimited Visits (Within 10 days (routine)) - Authorized Specialty Diagnoses / Procedures Referred By Manish hunt Referred To Contact Physical Medicine And Rehab Diagnoses Hamstring tendinitis at origin Instability of hip joint, right Yeison Mason MD [address] [place] [address] Referral ID Status Reason Start Date Expiration Date Visits Requested Visits Authorized [id number] Authorized Specialty Services Required 3 02/02/2024 999 [id number] Encounter Details Date Type Department Care Team (Latest Contact Info) Description 01/03/2024 2:45 PM EST Rehab Services Physical Therapy [address] [place] [address] Spring Puckett PTA [address] [place] [address] [address] [place] [address] Instability of right hip joint*; Enthesopathy of right hip region; Muscle weakness; Impaired functional mobility, balance, gait, and endurance Allergies No known active allergiesdocumented as of this encounter (statuses as of 01/03/2024) Medications Medication Sig Dispensed Refills Start Date End Date Status Cholecalciferol (VITAMIN D) 1000 units TabletIndications: from [facility] Take 1 Tablet by mouth every [...] inj 1,000 mcgIndications:B12 deficiency 1000 mcg IM [id number] 10/30/2023 09/30/2024 Active vitamin b-12 (Cyanocobalamin) inj 1,000 mcgIndications:B12 deficiency 1000 mcg IM [id number] 10/30/2023 09/30/2024 Active documented as of this [...] as of this encounter Progress Notes * Spring Puckett, BUDGET SPECIALIST - 01/03/2024 2:56 PM EST Outpatient Physical Therapy Daily Progress Note Physical Therapy [address] [address] Patient Name: Randall Purvis Date of : 1945 Age: [age] year old Date: 01/03/2024 Start of Care: 10/22/2023 Plan of Care Expiration Date: 01/03/2024 Visit Number: [id number] Subjective: Patient reports his right hip continues to bother him. States he has had a busy week with appts and feels more fatigued this afternoon. Pt rates his pain a 4/10 today. States he got a CT scan done earlier this week but is still not sure of the results. Pt states he hip pain increases depending on what he is doing. States he has increased pain with walking, standing, and ramp/uneven ping faces. Pt states he continues to work on his exercises at home. States he is going to have injection done next week and is hopeful this will help with his pain. Objective: Pt completed 55 minutes of B LE strengthening and balance training. See below for details. Performed today Exercise Sets/repetitions Part of HEP Comments N Hooklying clamshell: DL, SL 20x each, red Y N Supine marches 20x, red Y N Bridging 2x10 Y N SAQ 1.5#, 20x N N LAQ: alt L/R 2x10, green Y N Seated Marching 2x10, green Y N Seated Ball Squeeze 20x Y Y Seated hip abduction Green, 20x Y Y Sit to stands 17x Y Y Seated Hamstring Curl 2x10, green Y Y Standing hip flexion with knee extension: B 2x10 each Y Y Standing Marching: alt L/R 2x10 each Y Y Standing Hip Abd: B 2x10 each Y Y Standing Hip ext 2x10 each Y Y Romberg stance: EC on foam [id number] each Y w/ slight R toe out Y Step Ups 6", 15x Y Y TKEs 20x, green N Y Side Stepping at counter 4 x 10' Y Y Forward/Backward walking at counter 4 x 10' Y Y Tandem Walking at counter 4 x 10' Y Treatment completed under the in-direct supervision of Guadalupe Hayden PT. Assessment: Patient returns to PT with no new complaints. Pt has increased pain to the right hip today which could be related to busy week and appt being in the afternoon. Pt has instability and decreased strength of the hip that can contribute to sxs and pain. Pt has been doing well with standing exercises but does fatigue quickly. Pt requires rest breaks in between his exercises due to fatigue and soreness. Pt requires CG-min assist with standing and balance exercises for his safety. Pt has improved greatly with his exercises and has good carryover of exercises. Pts HEP was updated today. At this point pt has made good progress with PT but continues to have right hip pain. Pt has reached maximal PT improvements and is discharged to HEP for self maintenance. Pt is in agreement with plan. Plan: Discharge to HEP. UNTIMED SERVICES: 0 MINUTES TIMED SERVICES: 55 MINUTES TOTAL TIMES: 55 MINUTES Spring Puckett PTA 01/03/2024 2:56 PM documented in this encounter Plan of Treatment Upcoming Encounters Date Type Department Care Team (Latest Contact Info) Description 01/07/2024 11:20 AM EST Hospital Encounter [facility], Operating Room [facility] [address] [place] [phone] Rich Barriga, [address] [place] [phone] 01/07/2024 11:20 AM EST - 01/07/2024 11:45 AM EST Surgery OR [facility], Operating Room [facility] [address] [place] [phone] Rich Barriga, DO [address] [place] [address] INJECTION SPINE LUMBAR OR SACRAL 03/06/2024 9:10 AM EDT Laboratory Laboratory Patient Service [facility] [address] [place] [address] [place] [address] [place] [address] 03/11/2024 10:00 AM EDT Office Visit [facility] [address] [place] [address] Akash Bauman MD [address] [place], [place] [phone] 03/13/2024 10:00 AM EDT Office Visit [facility] [address] [place] [address] Julia Robert PA-C [address] [place] [address] 03/18/2024 1:00 PM EDT Office Visit [facility] [address] [place] [phone] Birgit Jeronimo, DO [address] [place] [address] Scheduled Procedures Name Priority Associated Diagnoses Date/Ti [...] as of this encounter Visit Diagnoses Diagnosis Instability of right hip joint- Primary Enthesopathy of right hip region Muscle weakness Muscle weakness (generalized) Impaired functional mobility, balance, gait, and endurance Lumbar radiculopathy Thoracic or lumbosacral neuritis or radiculitis, unspecified documented in this encounter Care Teams Can Maker Relationship Specialty Start Date End Date Julia Robert PA-C [address] [place] [address] [place] [address] PCP - General Physician Razor Sharpener 05/11/19 documented as of this encounter
--- OUTSIDE RECORDS SUMMARY | 2024-03-05 05:33 | External Medical Summary | Summary of Care ---
Author Name Unknown Organization [facility] Address [address] [place] [address] Phone [phone] Care Team Providers Care Full Roll Inspector Name Role Phone Julia Robert PA-C Primary Care Provider + Encounter Details Date Type Department Care Team (Late st Contact Info) Description 01/02/2024 Telephone Neurology [facility] [address] [place] [address] Akash Bauman MD [address] [place] [address] Allergies No known active allergiesdocumented as of this encounter (statuses as of 01/06/2024) Medications Medication Sig Dispensed Refills Start Date End Date Status Cholecalciferol (VITAMIN D) 1000 units TabletIndications: from [facility] Take 1 Tablet by mouth every [...] inj 1,000 mcgIndications:B12 deficiency 1000 mcg IM [id number] 10/30/2023 09/30/2024 Active vitamin b-12 (Cyanocobalamin) inj 1,000 mcgIndications:B12 deficiency 1000 mcg IM [id number] 10/30/2023 09/30/2024 Active documented as of this [...] encounter Miscellaneous Notes * Telephone Encounter - Marsha Jain LPN - 01/02/2024 8:[address] report received in [place]. Faxed to [place] at [phone]. documented in this encounter Plan of Treatment Upcoming Encounters Date Type Department Care Team (Latest Contact Info) Description 01/07/2024 11:20 AM EST Hospital Encounter OR O[facility], Operating Room [facility] [address] [place] [phone] Rich Barriga, DO [address] [place] [phone] 01/07/2024 11:20 AM EST - 01/07/2024 11:45 AM EST Surgery OR O[facility], Operating Room [facility] [address] [place] [phone] Rich Barriga, DO [address] [place] [phone] INJECTION SPINE LUMBAR OR SACRAL 03/06/2024 9:10 AM EDT Laboratory Laboratory Patient Service [address] [phone] [address] 03/11/2024 10:00 AM EDT Office Visit Neurology, [place] [address] [place] [address] Akash Bauman MD [address] [place] [address] 03/13/2024 10:00 AM EDT Office Visit [address] [phone] Julia Robert PA-C [address] [place] [address] 03/18/2024 1:00 PM EDT Office Visit Sleep Disorders Ctr [facility] [address] [place] [phone] Birgit Jeronimo, [address] [place] [address] Scheduled Procedures Name Priority Associated Diagnoses Date/Ti [...] filedocumented as of this encounter Care Teams Full Roll Inspector Relationship Specialty Start Date End Date Julia Robert PA-C [address] [place] [phone] PCP - General Physician Adjustment Examiner 05/11/19 documented as of this encounter
--- OUTSIDE RECORDS SUMMARY | 2024-03-05 05:33 | External Medical Summary | Summary of Care ---
Author Name Unknown Organization [facility] Address [address] [facility] [place] [address] Phone [phone] Care Team Providers Care Assistant To The Ceo Name Role Phone Julia Robert PA-C Primary Care Provider + Encounter Details Date Type Department Care Team (Late st Contact Info) Description 01/01/2024 Result Scan Unspecified Department <No scans attached> Allergies No known active allergiesdocumented as of this encounter (statuses as of 01/02/2024) Medications Medication Sig Dispensed Refills Start Date End Date Status Cholecalciferol (VITAMIN D) 1000 units TabletIndications: from [facility] Take 1 Tablet by mouth every [...] inj 1,000 mcgIndications:B12 deficiency 1000 mcg IM [id number] 10/30/2023 09/30/2024 Active vitamin b-12 (Cyanocobalamin) inj 1,000 mcgIndications:B12 deficiency 1000 mcg IM [id number] 10/30/2023 09/30/2024 Active documented as of this encounter (statuses as of 01/02/2024) Active Problems Problem Noted Date Diagnosed Date [...] as of this encounter (statuses as of 01/02/2024) Resolved Problems Problem Noted Date Diagnosed Date [...] as of this encounter (statuses as of 01/02/2024) Immunizations Name Administration Dates Next Due COVID-19 [...] Care Team (Latest Contact Info) Description 01/03/2024 11:00 AM EST Office Visit Cardiology, [facility] [address] [place] [address] Karina Vee CRNP [address] [place] [address] 01/03/2024 2:45 PM EST Rehab Services Physical Therapy [facility] [address] [facility] [address] [place] [address] Spring Puckett PTA [address] [facility] [place] [address] [place] [address] 01/07/2024 11:20 AM EST Hospital Encounter OR [facility], Operating Room [facility] [address] [place] [phone] Rich Barriga, DO [address] [place] [phone] 01/07/2024 11:20 AM EST - 01/07/2024 11:45 AM EST Surgery OR [facility], Operating Room [facility] [address] [place] [phone] Rich Barriga, DO [address] [place] [address] INJECTION SPINE LUMBAR OR SACRAL 03/06/2024 9:10 AM EDT Laboratory Laboratory [facility], [address] [address] [facility] [address] [place] [address] 03/11/2024 10:00 AM EDT Office Visit Neurology, [place] [address] [place] [address] Akash Bauman MD [address] [place], [place] [phone] 03/13/2024 10:00 AM EDT Office Visit [facility] [address] [place] [phone] Julia Robert PA-C [address] [place] [address] 03/18/2024 1:00 PM EDT Office Visit Sleep Disorders Ctr [facility] [address] [place] [phone] Kandace Birgit Higginbothamt, [address] [place] [address] Scheduled Procedures Name Priority Associated Diagnoses Date/Ti [...] Procedure Name Priority Date/Time Associated Diagnosis Comments RADIOLOGY SCANNED RESULT 01/01/2024 documented in this encounter Results * RADIOLOGY SCANNED RESULT (01/01/2024) 01/01/2024 No Physician Data Unknown DIAGNOSTIC RAD IOLOGY SERVICES documented in this encounter Care Teams Assistant To The Ceo Relationship Specialty Start Date End Date Julia Robert PA-C [address] [place] [address] PCP - General Physician Hospital Chief Executive Officer 05/11/19 documented as of this encounter
--- OUTSIDE RECORDS SUMMARY | 2024-03-05 05:34 | External Medical Summary | Summary of Care ---
Author Name Unknown Organization [facility] Address [address] [place] [address] Phone [phone] Care Team Providers Care Early Childhood Education Instructor Name Role Phone Julia Robert PA-C Primary [...] of hip joint, right Yeison Mason MD [address] [place] [id number] Referral ID Status Reason Start Date Expiration Date Visits Requested Visits Authorized [id number] Authorized Specialty Services Required 3 02/02/2024 [id number] Encounter Details Date Type Department Care Team (Latest Contact Info) Description 01/01/2024 10:45 AM EST Rehab Services Physical Therapy [address] [place] [phone] Spring Puckett PTA [address] [place] [address] [address] [place] [address] Instability of right hip joint*; Enthesopathy of right hip region; Muscle weakness; Impaired functional mobility, balance, gait, and endurance Allergies No known active allergiesdocumented as of this encounter (statuses as of 01/01/2024) Medications Medication Sig Dispensed Refills Start Date End Date Status Cholecalciferol (VITAMIN D) 1000 units TabletIndications: from [facility] Take 1 Tablet by mouth every afternoon. [...] inj 1,000 mcgIndications:B12 deficiency 1000 mcg IM [id number] 10/30/2023 09/30/2024 Active vitamin b-12 (Cyanocobalamin) inj 1,000 mcgIndications:B12 deficiency 1000 mcg IM [id number] 10/30/2023 09/30/2024 Active documented as of this encounter (statuses as of 01/01/2024) Active Problems Problem Noted Date Diagnosed Date [...] as of this encounter (statuses as of 01/01/2024) Resolved Problems Problem Noted Date Diagnosed Date [...] as of this encounter (statuses as of 01/01/2024) Immunizations Name Administration Dates Next Due COVID-19 [...] this encounter Progress Notes * Spring Puckett, [employer] COMMUNICATIONS SERGEANT - 01/01/2024 10:50 AM EST Outpatient Physical Therapy Daily Progress Note Physical Therapy [address] [address] Patient Name: Randall Purvis Date of : 1945 Age: [age] year old Date: 01/01/2024 Start of Care: 10/22/2023 Plan of Care Expiration Date: 01/03/2024 Visit Number: [id number] Subjective: Patient states his R hip pain is a 3/10 today and is feeling pretty good. States he feels like he has been walking better with his cane. States he continues to get sore after PT appts butfeels better after he rests at home. Pt states he has been working on his exercises at home. Stateshe will be getting a CT scan of his R hip today. Objective: Pt completed 55 minutes of B [...] Y Y Standing Hip ext 2x10 each N Y Romberg stance: EC on foam [id number] each Y w/ slight R toe out Y Step Ups 6", 15x Y Y TKEs 20x, green N Y Side Stepping at counter 4 x 10' N Y Forward/Backward walking at counter 4 x 10' N Y Tandem Walking at counter 4 x 10' N Treatment completed under the in-direct supervision of Guadalupe Hayden PT. Assessment: Patient presents to PT with continued right hip pain and weakness. 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 Pt has made good improvements since starting PT. Pt is walking better with his cane around the house and seems to have improved endurance. Pt still lacking strength and stability of the R hip. Pt challenged with standing exercises due to fatigue and soreness. Pt requires rest breaks throughout his exercises. Progressed exercises with tandem walking. Pt was challenged with this when holding on to the counter top with his right hand. Pt requires spv-min assist with standing and balance exercises for his safety. Pt had soreness at the end of treatment. Pt will have one more visit of PT and then discharge to [facility]. Plan: Discharge next visit. UNTIMED SERVICES: 0 MINUTES TIMED SERVICES: 55 MINUTES TOTAL TIMES: 55 MINUTES Spring Puckett PTA 01/01/2024 10:53 AM documented in this encounter Plan of Treatment Upcoming Encounters Date Type Department Care Team (Latest Contact Info) Description 01/03/2024 11:00 AM EST Office Visit Cardiology, [facility] [place] [address] Karina Vee CRNP [address] [place] [address] 01/03/2024 2:45 PM EST Rehab Services Physical Therapy [address] [place] [address] Spring Puckett PTA [address] [place] [address] 01/07/2024 11:20 AM EST Hospital Encounter OR [facility], Operating Room [facility] [address] [place] [phone] Rich Barriga, DO [address] [place] [phone] 01/07/2024 11:20 AM EST - 01/07/2024 11:45 AM EST Surgery OR [facility], Operating Room [facility] [address] [place] [phone] Rich Barriga, DO [address] [place] [phone] INJECTION SPINE LUMBAR OR SACRAL 03/06/2024 9:10 AM EDT Laboratory Laboratory Patient Service [address] [phone] [address] 03/11/2024 10:00 AM EDT Office Visit Neurology, [place] [address] [place] [address] Akash Bauman MD [address] [place], [place] [phone] 03/13/2024 10:00 AM EDT Office Visit [facility] [address] [place] [phone] Julia Robert PA-C [address] [place] [address] 03/18/2024 1:00 PM EDT Office Visit Sleep Disorders Ctr [facility] [address] [place] [phone] Birgit Jeronimo, DO [address] [place] [address] Scheduled Procedures Name Priority Associated Diagnoses Date/Ti [...] unspecified documented in this encounter Care Teams Early Childhood Education Instructor Relationship Specialty Start Date End Date Julia Robert PA-C [address] [place], [place] [address] [phone] PCP - General Physician Aviation Technician 05/11/19 documented as of this encounter
[2024-03-05 06:28] LABS: Hemoglobin 11.8 g/dl (14.0-18.0); Mean Corpuscular Hemoglobin 28.2 pg (25.0-34.0); Mean Corpuscular Hgb Conc 33.7 g/dL (32.0-36.0); Mean Corpuscular Volume 83.5 fL (80.0-100.0); Mean Platelet Volume 10.4 fL (9.4-12.4); Platelet Count 99 K/uL (130-400); RDW Coefficient of Variation 14.6 % (11.5-14.5); RDW Standard Deviation 44.2 fL (36.4-46.3); Red Blood Count 4.19 M/uL (4.70-6.10); White Blood Count 8.65 K/ul (4.8-10.8)
[2024-03-05 07:20] LABS: BUN Creatinine Ratio 24.4 (10-20); Calcium 7.8 mg/dl (8.6-10.3); Est GFR (African American) 95.6 ml/min; Est GFR (Non-African American) 82.5 ml/min; Magnesium 1.8 mg/dl (1.7-2.4); Potassium 3.1 mmol/L (3.5-5.1)
[2024-03-05] MEDS: ATORVASTATIN 20 MG TAB PO SCH (07:30)
[2024-03-05] MEDS: ATENOLOL 25 MG TABLET PO SCH (07:30)
[2024-03-05] MEDS: ALBUT/IPRATROP 3MG/0.5MG NEB 3 ML VIAL NEB SCH (08:03)
[2024-03-05] MEDS: SODIUM CHLOR 7% 4 ML NEB NEB SCH (08:03)
[2024-03-05] MEDS: ONDANSETRON INJ 2 MG/ML 2 ML VIAL IV PRN (09:25)
[2024-03-05] MEDS: POTASSIUM CHLORIDE PWD 20 MEQ PACK PO SCH (09:27)
--- NOTE | 2024-03-05 13:33 | Hospitalist Progress Note ---
Date of Service March 05, 2024 Assessment & Plan (1) Sepsis: (2) Aspiration pneumonia: (3) Hypertension: (4) CMT (Zlhsfnz-Ivaey-Ryrom disease): Plan 78-year-old male who presented to ED from home with fever, nausea, vomiting, shortness of breath and found to have aspiration pneumonia Aspiration pneumonia with sepsis Met SIRS criteria with fever tachycardia with pneumonia as source of infection. WBC 4.3, lactate 1, Procal 2.13. RVP negative. CXR on admission personally reviewed; right lower lobe infiltrate. MRSA nares -ve Continue with Zosyn Swallow evaluation Hypertonic saline and DuoNebs for airway clearance. IS/flutter valve, mucinex, Nebs prn PT OT eval Hypomagnesemia-serum magnesium of 1.3. Repleted. Hypertension- BP low normal. Continue atenolol. Holding home amlod, lisinopril- HCTZ. 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 PT OT eval. On pregablin tid along with tramadol prn for chronic pain. SONYA on CPAP- continue DVT prophylaxis-subcu Lovenox Code status- full. Disposition-admit to [facility] on telemetry Time spent evaluating patient, direct bedside care, chart review, placing orders, interpretation of diagnostic studies, discussion with consultants, patient, and family members, as well as other required patient management activities is 50 minutes Please note the above document was generated using voice recognition software. It may contain grammatical, syntax or spelling errors. Any formal questions or concerns about the content, text or information contained within the body of this dictation should be directly addressed to the provider for clarification Admission and Anticipated Discharge Date Admission Date: March 04, 2024 Subjective Patient seen and examined at bedside. He is saturating well in room air presently Reports tiredness and fatigue. Review of Systems Review of Systems: All systems reviewed & are unremarkable except as noted in Subjective Physical Exam Physical Exam: General: Lying comfortably in bed, not in distress, on room air HEENT: EOMI, CELINE, MMM Chest: left lung crackles CVS: Regular rate and rhythm, normal heart sounds, no murmur Abdomen: Soft, non tender, not distended, normal bowel sounds Neuro: Awake, alert, oriented, conversing well, non focal Extremities: Chronic LE edema. Deformities noted from his CMT Results & Data Results & Data Vital Signs (Past 12 Hours) Vital Signs Temp Pulse Pulse Pulse Resp BP Pulse Ox 03/05/24 11:46 37.1 C 74 17 97/59 L 90 03/05/24 08:04 71 18 89 L 03/05/24 08:03 36.7 C 65 17 140/63 90 03/05/24 03:09 36.7 C 68 18 114/68 99 03/05/24 02:44 64 21 98 O2 Del Method O2 Flow Rate 03/05/24 11:46 Room Air 03/05/24 08:04 Room Air 03/05/24 08:03 Room Air 03/05/24 03:09 CPAP 03/05/24 02:44 2
[2024-03-06 08:02] LABS: Basophils # (auto) 0.01 K/uL (0.00-0.20); Basophils % (auto) 0.1 %; Eosinophils # (auto) 0.04 K/uL (0.00-0.50); Eosinophils % (auto) 0.6 %; Hematocrit (blood only) 34.2 % (42.0-52.0); Hemoglobin 11.6 g/dl (14.0-18.0); Immature Granulocytes # (auto) 0.04 K/uL (0.01-0.20); Immature Granulocytes % (auto) 0.6 %; Lymphocytes # (auto) 1.15 K/uL (1.20-3.40); Mean Corpuscular Hemoglobin 28.2 pg (25.0-34.0); Mean Corpuscular Hgb Conc 33.9 g/dL (32.0-36.0); Mean Corpuscular Volume 83.2 fL (80.0-100.0); Mean Platelet Volume 10.6 fL (9.4-12.4); Monocytes # (auto) 0.44 K/uL (0.11-0.59); Monocytes % (auto) 6.1 %; Neutrophils # (auto) 5.49 K/uL (1.40-6.50); Neutrophils % (auto) 76.6 %; Platelet Count 87 K/uL (130-400); RDW Coefficient of Variation 14.6 % (11.5-14.5); RDW Standard Deviation 44.2 fL (36.4-46.3); Red Blood Count 4.11 M/uL (4.70-6.10); White Blood Count 7.17 K/ul (4.8-10.8)
[2024-03-06 08:57] LABS: Calcium 8.2 mg/dl (8.6-10.3); Est GFR (Non-African American) 66.4 ml/min; Potassium 3.5 mmol/L (3.5-5.1)
[2024-03-06 09:03] LABS: BUN Creatinine Ratio 18.9 (10-20)
[2024-03-06] MEDS: LISINOPRIL/HCTZ 20/25MG 1 TAB PO SCH (10:35)
[2024-03-06] MEDS: POTASSIUM CHLORIDE CRTAB 20 MEQ TABCR PO STA (10:35)
[2024-03-06] MEDS: AMPICILLIN/SULBACTAM SOD 3,000 MG in SODIUM CHLOR 0.9% MINI-B 100 ML IV SCH (16:11)
--- NOTE | 2024-03-06 16:44 | Hospitalist Progress Note ---
Date of Service March 06, 2024 Assessment & Plan (1) Sepsis: (2) Aspiration pneumonia: (3) Hypertension: (4) CMT (Sxktjqk-Tukzg-Uxgsk disease): Plan 78-year-old male who presented to ED from home with fever, nausea, vomiting, shortness of breath and found to have aspiration pneumonia Aspiration pneumonia with sepsis Met SIRS criteria with fever tachycardia with pneumonia as source of infection. WBC 4.3, lactate 1, Procal 2.13. RVP negative. CXR on admission - right lower lobe infiltrate. MRSA nares -ve Continue with Zosyn 5 --> unasyn 5/. Swallow evaluation, appreciate recs. Hypertonic saline and DuoNebs for airway clearance. IS/flutter valve, mucinex, Nebs prn PT OT eval Hypomagnesemia-monitor and replete. Hypertension- BP low normal. Continue atenolol. Held home amlod, lisinopril- HCTZ. Resume HCTZ lisinopril today, gradually resume other medication. 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 PT OT eval. On pregablin tid along with tramadol prn for chronic pain. SONYA on CPAP- continue DVT prophylaxis-subcu Lovenox Code status- full. Disposition-admit to [facility] on telemetry, cm assisting w/ dc plan. Please note the above document was generated using voice recognition software. It may contain grammatical, syntax or spelling errors. Any formal questions or concerns about the content, text or information contained within the body of this dictation should be directly addressed to the provider for clarification Admission and Anticipated Discharge Date Admission Date: March 04, 2024 Subjective Patient seen and examined at bedside. He is saturating well in room air presently Reports feeling better. denies any complaints. Physical Exam Physical Exam: General: Lying comfortably in bed, not in distress, on room air HEENT: EOMI, CELINE, MMM Chest: left lung crackles CVS: Regular rate and rhythm, normal heart sounds, no murmur Abdomen: Soft, non tender, not distended, normal bowel sounds Neuro: Awake, alert, oriented, conversing well, non focal Extremities: Chronic LE edema. Deformities noted from his CMT Results & Data Results & Data Vital Signs (Past 12 Hours) Vital Signs Temp Pulse Pulse Resp BP Pulse Ox O2 Del Method 03/06/24 15:35 80 03/06/24 15:10 36.7 C 74 18 150/71 H 92 Room Air 03/06/24 10:56 36.9 C 77 18 110/68 92 Room Air 03/06/24 07:38 36.6 C 67 18 145/69 H 100 Room Air 03/06/24 07:13 75 14 99 Room Air 03/06/24 07:00 80 (1) Sepsis Acute respiratory failure type: with hypoxia Sepsis acute organ dysfunction status: with acute organ dysfunction Sepsis type: sepsis due to unspecified organism Severe sepsis acute organ dysfunction type: acute respiratory failure Severe sepsis shock status: without septic shock Qualified Code(s): A41.9 - Sepsis, unspecified organism; R65.20 - Severe sepsis without septic shock; J96.01 - Acute respiratory failure with hypoxia (2) Aspiration pneumonia Aspiration pneumonia type: due to vomit Laterality: right Lung location: lower lobe of lung Qualified Code(s): J69.0 - Pneumonitis due to inhalation of food and vomit
--- OUTSIDE RECORDS SUMMARY | 2024-03-06 20:39 | External Medical Summary | Summary of Care ---
Author Name Unknown Organization [facility] [address] [facility] [address] Phone [phone] Care Team Providers Care Allocations Clerk Name Role Phone Julia Robert PA-C Primary Care Provider + Reason for Visit * Reason Comments Follow Up LESI Encounter Details Date Type Department Care Team (Late st Contact Info) Description 03/04/2024 11:00 AM EDT Telemedicine Interventional Pain Center, [facility] [address] [place] [address] Nessa Esposito PA-C [address] [place] [address] Lumbar radicular pain* Allergies No known active allergiesdocumented as of this encounter (statuses as of 03/04/2024) Medications Medication Sig Dispensed Refills Start Date End Date Status Cholecalciferol (VITAMIN D) 1000 units TabletIndications: from [facility] Take 1 Tablet by mouth every afternoon. 0 Active Aspirin EC 81 MG Oral Tablet Delayed Release Take 1 Tablet by mouth in the morning. 0 11/07/2022 Active Lisinopril-hydroCH LOROthiazide 20-25 MG Oral TabletIndications: [...] MODERATE PAIN. 60 Tablet 2 02/25/2024 Active amLODIPine Besylate 10 MG Oral Tablet (Norvasc)Indicatio ns:HTN, goal below 140/90 TAKE ONE TABLET BY MOUTH EVERY DAY 90 Tablet 2 02/28/2024 02/27/2025 Active Hospital, Clinic, or Other Facility Administered Medication Ordered Dose Route Frequency Start Date End Date Status vitamin b-12 (Cyanocobalamin) inj 1,000 mcgIndications:B12 deficiency 1000 mcg IM [id number] 10/30/2023 09/30/2024 Active vitamin b-12 (Cyanocobalamin) inj 1,000 mcgIndications:B12 deficiency 1000 mcg IM [id number] 10/30/2023 09/30/2024 Active documented as of this encounter (statuses as of 03/04/2024) Active Problems Problem Noted Date Diagnosed Date [...] as of this encounter (statuses as of 03/04/2024) Resolved Problems Problem Noted Date Diagnosed Date [...] as of this encounter (statuses as of 03/04/2024) Immunizations Name Administration Dates Next Due COVID-19 [...] as of this encounter Progress Notes * Nessa Esposito PA-C - 03/04/2024 11:03 AM EDT Name: Randall Purvis Date: 03/04/2024 Patient schedule for telephone follow up regarding caudal MISHA on 01/07/24. Unable to connect with patient as he is being admitted for pneumonia. Spoke briefly with family member. Will try to reconnectwith him next week hopefully once discharged. Nessa Esposito PA-C 03/04/2024 documented in this encounter Plan of Treatment Upcoming Encounters Date Type Department Care Team ([facility] st Contact Info) Description 03/06/2024 9:10 AM EDT Laboratory Laboratory Patient Service [address] [address] [address] [address] 03/11/2024 10:00 AM EDT Office Visit Neurology, [place] [address] [place] [phone] Akash Bauman MD [address] [place], [place] [phone] 03/13/2024 10:00 AM EDT Office Visit [address] [phone] Julia Robert PA-C [address] [place] [address] 03/18/2024 1:00 PM EDT Office Visit Sleep Disorders Ctr [facility] [address] [place] [phone] Birgit Jeronimo, [address] [place] [phone] 04/01/2024 10:40 AM EDT Nurse Only Ancillary [address] [phone] Sabrina, Nurse [address] [address] 05/06/2024 10:00 AM EDT Nurse Only Ancillary [facility] [address] [facility] [place] [phone] [place], Nurse [facility] [address] [place] [address] Scheduled Procedures Name Priority Associated Diagnoses Date/Ti [...] unspecified documented in this encounter Care Teams Allocations Clerk Relationship Specialty Start Date End Date Julia Robert PA-C [address] [place] [address] [place] [address] PCP - General Physician [place] A Driver 05/11/19 documented as of this encounter
--- NOTE | 2024-03-06 21:58 | Communication Note ---
Date of Service: March 06, 2024 Patient had a fall after losing balance as per RN. No head trauma, no syncope, LOC. Skin tear on right arm with small amount of bleeding. No deep pain on right arm as per RN. Ap Traumatic right arm wound Hold Lovenox for now
[2024-03-06 22:50] LABS: Basophils # (auto) 0.02 K/uL (0.00-0.20); Basophils % (auto) 0.2 %; Eosinophils # (auto) 0.01 K/uL (0.00-0.50); Eosinophils % (auto) 0.1 %; Hematocrit (blood only) 35.4 % (42.0-52.0); Hemoglobin 11.8 g/dl (14.0-18.0); Immature Granulocytes # (auto) 0.07 K/uL (0.01-0.20); Immature Granulocytes % (auto) 0.8 %; Lymphocytes # (auto) 0.74 K/uL (1.20-3.40); Lymphocytes % (auto) 8.3 %; Mean Corpuscular Hemoglobin 28.1 pg (25.0-34.0); Mean Corpuscular Hgb Conc 33.3 g/dL (32.0-36.0); Mean Corpuscular Volume 84.3 fL (80.0-100.0); Mean Platelet Volume 10.7 fL (9.4-12.4); Monocytes # (auto) 0.69 K/uL (0.11-0.59); Monocytes % (auto) 7.8 %; Neutrophils # (auto) 7.36 K/uL (1.40-6.50); Neutrophils % (auto) 82.8 %; Platelet Count 110 K/uL (130-400); RDW Coefficient of Variation 14.4 % (11.5-14.5); RDW Standard Deviation 44.2 fL (36.4-46.3); White Blood Count 8.89 K/ul (4.8-10.8)
[2024-03-06] MEDS: MAGNESIUM SULFATE / D5W 1 GM/100 ML BAG IV ONE (22:50)
[2024-03-06] MEDS: NSS + 20MEQ KCL 20 MEQ/1,000 ML BAG IV ONE (23:27)
[2024-03-07] MEDS: MAGNESIUM SULFATE / D5W 1 GM/100 ML BAG IV ONE (00:43)
[2024-03-07 06:58] LABS: Hematocrit (blood only) 35.2 % (42.0-52.0); Hemoglobin 11.7 g/dl (14.0-18.0); Mean Corpuscular Hgb Conc 33.2 g/dL (32.0-36.0); Mean Corpuscular Volume 84.2 fL (80.0-100.0); Mean Platelet Volume 10.8 fL (9.4-12.4); Platelet Count 102 K/uL (130-400); RDW Coefficient of Variation 14.5 % (11.5-14.5); RDW Standard Deviation 44.2 fL (36.4-46.3); Red Blood Count 4.18 M/uL (4.70-6.10); White Blood Count 5.81 K/ul (4.8-10.8)
[2024-03-07 07:40] LABS: BUN Creatinine Ratio 16.2 (10-20); Calcium 8.1 mg/dl (8.6-10.3); Creatinine Clr Calc Pharmacy 49.9 ml/min; Est GFR (African American) 83.6 ml/min; Est GFR (Non-African American) 72.1 ml/min; Phosphorus 2.5 mg/dl (2.5-4.9); Potassium 4.1 mmol/L (3.5-5.1)
[2024-03-07] MEDS: amLODIPine BESYLATE 5 MG TAB PO SCH (10:30)
[2024-03-07] MEDS ORDERED: CALCIUM CARBONATE 500 MG CHEWABLE TAB PO PRN (13:21)
--- NOTE | 2024-03-07 16:37 | Hospitalist Progress Note ---
Date of Service March 07, 2024 Assessment & Plan (1) Sepsis: (2) Aspiration pneumonia: (3) Hypertension: (4) CMT (Snqaqwe-Hlzgq-Uxgix disease): Plan 78-year-old male who presented to ED from home with fever, nausea, vomiting, shortness of breath and found to have aspiration pneumonia Aspiration pneumonia with sepsis Met SIRS criteria with fever tachycardia with pneumonia as source of infection. WBC 4.3, lactate 1, Procal 2.13. RVP negative. CXR on admission - right lower lobe infiltrate. MRSA nares -ve Continue with Zosyn 03/04 --> unasyn 03/06. Swallow evaluation, appreciate recs. Hypertonic saline and DuoNebs for airway clearance. IS/flutter valve, mucinex, Nebs prn PT OT eval Hypomagnesemia-monitor and replete. Hypertension- c/w home meds. 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 PT OT eval. On pregablin tid along with tramadol prn for chronic pain. SONYA on CPAP- continue DVT prophylaxis-subcu Lovenox on hold, will likely rsume in am if HnH stable (fall 03/06 evenign). Code status- full. Disposition-admit to [facility] on telemetry, cm assisting w/ dc plan. pt would like to go to rehab. Please note the above document was generated using voice recognition software. It may contain grammatical, syntax or spelling errors. Any formal questions or concerns about the content, text or information contained within the body of this dictation should be directly addressed to the provider for clarification Admission and Anticipated Discharge Date Admission Date: March 04, 2024 Subjective Patient seen and examined at bedside. He is saturating well in room air presently Reports feeling better. denies any complaints. Overnight had a fall, reports soft landing on buttocks, denies hitting head or loss of consciousness. Denies increased pain in his hips. Physical Exam Physical Exam: General: Lying comfortably in bed, not in distress, on room air HEENT: EOMI, CELINE, MMM Chest: left lung crackles CVS: Regular rate and rhythm, normal heart sounds, no murmur Abdomen: Soft, non tender, not distended, normal bowel sounds Neuro: Awake, alert, oriented, conversing well, non focal Extremities: Chronic LE edema. Deformities noted from his CMT Results & Data Results & Data Vital Signs (Past 12 Hours) Vital Signs Temp Pulse Pulse Resp BP Pulse Ox O2 Del Method 03/07/24 16:04 84 03/07/24 15:14 36.7 C 78 18 134/67 92 Room Air 03/07/24 12:18 37.0 C 90 18 134/72 93 Room Air 03/07/24 08:00 Room Air 03/07/24 07:49 36.6 C 80 18 158/73 H 96 Room Air 03/07/24 07:30 67 16 98 Room Air 03/07/24 07:27 71 (1) Sepsis Acute respiratory failure type: with hypoxia Sepsis acute organ dysfunction status: with acute organ dysfunction Sepsis type: sepsis due to unspecified organism Severe sepsis acute organ dysfunction type: acute respiratory failure Severe sepsis shock status: without septic shock Qualified Code(s): A41.9 - Sepsis, unspecified organism; R65.20 - Severe sepsis without septic shock; J96.01 - Acute respiratory failure with hypoxia (2) Aspiration pneumonia Aspiration pneumonia type: due to vomit Laterality: right Lung location: lower lobe of lung Qualified Code(s): J69.0 - Pneumonitis due to inhalation of food and vomit
[2024-03-08 03:59] LABS: Hematocrit (blood only) 32.6 % (42.0-52.0); Hemoglobin 10.9 g/dl (14.0-18.0); Mean Corpuscular Hemoglobin 27.9 pg (25.0-34.0); Mean Corpuscular Hgb Conc 33.4 g/dL (32.0-36.0); Mean Corpuscular Volume 83.6 fL (80.0-100.0); Platelet Count 135 K/uL (130-400); RDW Coefficient of Variation 14.2 % (11.5-14.5); RDW Standard Deviation 43.6 fL (36.4-46.3); White Blood Count 5.62 K/ul (4.8-10.8)
[2024-03-08 04:21] LABS: Creatinine Clr Calc Pharmacy 58.8 ml/min; Est GFR (African American) 96.5 ml/min; Est GFR (Non-African American) 83.3 ml/min
--- NOTE | 2024-03-08 16:20 | Hospitalist Progress Note ---
Date of Service March 08, 2024 Assessment & Plan (1) Sepsis: (2) Aspiration pneumonia: (3) Hypertension: (4) CMT (Ntfjocj-Qlkod-Zlonk disease): Plan 78-year-old male who presented to ED from home with fever, nausea, vomiting, shortness of breath and found to have aspiration pneumonia Aspiration pneumonia with sepsis Met SIRS criteria with fever tachycardia with pneumonia as source of infection. WBC 4.3, lactate 1, Procal 2.13. RVP negative. CXR on admission - right lower lobe infiltrate. MRSA nares -ve Continue with Zosyn 03/04 --> unasyn 5/. Swallow evaluation, appreciate recs. Hypertonic saline and DuoNebs for airway clearance. IS/flutter valve, mucinex, Nebs prn PT OT eval Hypomagnesemia-monitor and replete. Hypertension- c/w home meds. 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 PT OT eval. On pregablin tid along with tramadol prn for chronic pain. SONYA on CPAP- continue DVT prophylaxis-subcu Lovenox Code status- full. Disposition-to [facility], assisting w/ dc plan. pt would like to go to rehab. Please note the above document was generated using voice recognition software. It may contain grammatical, syntax or spelling errors. Any formal questions or concerns about the content, text or information contained within the body of this dictation should be directly addressed to the provider for clarification Admission and Anticipated Discharge Date Admission Date: March 04, 2024 Subjective Patient seen and examined at bedside. He is saturating well in room air presently Reports feeling better. denies any complaints. Denies increased pain in his hips. Physical Exam Physical Exam: General: Lying comfortably in bed, not in distress, on room air HEENT: EOMI, CELINE, MMM Chest: left lung crackles CVS: Regular rate and rhythm, normal heart sounds, no murmur Abdomen: Soft, non tender, not distended, normal bowel sounds Neuro: Awake, alert, oriented, conversing well, non focal Extremities: Chronic LE edema. Deformities noted from his CMT Results & Data Results & Data Vital Signs (Past 12 Hours) Vital Signs Temp Pulse Pulse Resp BP Pulse Ox O2 Del Method 03/08/24 15:30 Room Air 03/08/24 15:23 36.8 C 73 14 154/84 H 96 Room Air 03/08/24 11:23 36.5 C 75 18 149/70 H 95 Room Air 03/08/24 08:00 Room Air 03/08/24 07:42 36.7 C 83 18 157/67 H 94 Room Air 03/08/24 07:37 70 03/08/24 07:09 70 16 95 Room Air (1) Sepsis Acute respiratory failure type: with hypoxia Sepsis acute organ dysfunction status: with acute organ dysfunction Sepsis type: sepsis due to unspecified organism Severe sepsis acute organ dysfunction type: acute respiratory failure Severe sepsis shock status: without septic shock Qualified Code(s): A41.9 - Sepsis, unspecified organism; R65.20 - Severe sepsis without septic shock; J96.01 - Acute respiratory failure with hypoxia (2) Aspiration pneumonia Aspiration pneumonia type: due to vomit Laterality: right Lung location: lower lobe of lung Qualified Code(s): J69.0 - Pneumonitis due to inhalation of food and vomit
[2024-03-08] MEDS: ADVANCED PROBIOTIC 625 MG CAPSULE PO SCH (18:11)
--- NOTE | 2024-03-08 18:43 | Electrocardiogram Report ---
Test Reason : Blood Pressure : / mmHG Vent. Rate : 098 BPM Atrial Rate : 098 BPM P-R Int : 184 ms QRS Dur : 144 ms QT Int : 372 ms P-R-T Axes : 070 083 060 degrees QTc Int : 474 ms Normal sinus rhythm Right bundle branch block Abnormal ECG No previous ECGs available Confirmed by Gerardo Danielson ([id number]) on 03/08/2024 6:42:47 PM Referred By: Julia Robert Confirmed By:Gerardo Danielson
[2024-03-09 07:22] LABS: Hematocrit (blood only) 32.9 % (42.0-52.0); Mean Corpuscular Hemoglobin 27.9 pg (25.0-34.0); Mean Corpuscular Hgb Conc 33.4 g/dL (32.0-36.0); Mean Corpuscular Volume 83.5 fL (80.0-100.0); Mean Platelet Volume 10.1 fL (9.4-12.4); Platelet Count 140 K/uL (130-400); RDW Standard Deviation 43.2 fL (36.4-46.3); Red Blood Count 3.94 M/uL (4.70-6.10); White Blood Count 5.34 K/ul (4.8-10.8)
--- NOTE | 2024-03-09 09:36 | XRay Report ---
XR chest 1V portable HISTORY: follow up CXR. SOB . COMPARISON: Chest 03/04/2024. FINDINGS: No pneumothorax. The cardiac silhouette remains mildly enlarged. There is a large hiatus he rnia again noted. Small bilateral pleural effusions and bibasilar densities are noted. The right lung airspace opacity has improved. No evidence for pulmonary edema. No acute fractures. Degenerative darren nges again noted within the shoulders. IMPRESSION: 1. Improved aeration within the right lung suggestive of a resolving pneumonia or asymmetric edema. 2. Small bilateral pleural effusions have slightly progressed. 3. Patchy bibasilar densities are noted. This may represent atelectasis or pneumonia. 4. Hiatal hernia again noted. ACT 112: Negative or not required by law. Electronically signed by: Corby Eden M.D. 03/09/2024 9:35 AM
--- NOTE | 2024-03-09 15:05 | Discharge Summary ---
Date of Service March 09, 2024 Admission HPI Per Admitting Provider 78-year-old male with history of hypertension, Zipsslvj-Zbcgu-Kfubf disease, GERD/Coreas's esophagus, spinal stenosis, OA, SONYA on CPAP, who presents to the ED from home with fever, nausea vomiting and shortness of breath which started last night. States he was in his usual state of health until last night when he had nausea with multiple episodes of vomiting, felt hot and short of breath for which he came to the ED. In the ED, he was febrile and mildly tachycardic. WBC 4.3, procal 2, lactate 1. CXR with right aspiration PNA. Given IVF, zosyn and supplemental oxygen, and hospitalist service was consulted for admission. During my encounter, he was lying comfortably in bed with NC. No distress. at bedside. Denies any prior PNA. Denies any choking or aspiration episodes. Does not smoke or drink alcohol. Denies any known heart or lung disease. Denies any history of VTE or bleeding issues. Admission Exam Per Admitting Provider General: Lying comfortably in bed, not in distress, on room air HEENT: EOMI, CELINE, MMM Chest: Fair breath sounds with crackles on lower half of lungs bilaterally CVS: Regular rate and rhythm, normal heart sounds, no murmur Abdomen: Soft, non tender, not distended, normal bowel sounds Neuro: Awake, alert, oriented, conversing well, non focal Extremities: Chronic LE edema. Deformities noted from his [facility] Principal Diagnosis Aspiration pneumonia with sepsis Discharge Exam General: sitting up comfortably in bed, not in distress, on room air HEENT: EOMI, CELINE, MMM Chest: left lung crackles improved CVS: Regular rate and rhythm, normal heart sounds, no murmur Abdomen: Soft, non tender, not distended, normal bowel sounds Neuro: Awake, alert, oriented, conversing well, non focal Extremities: Chronic LE edema. Deformities noted from his [facility] Discharge Data Allergies Allergy/AdvReac Type Severity Reaction Status Date / Time No Known Allergies Allergy Verified 03/04/24 08:50 Consultations 03/04/24 10:30 ED Decision to Admit Stat Hospital Course (1) Sepsis: (2) Aspiration pneumonia: (3) Hypertension: (4) CMT (Nsetruj-Ktauu-Goups disease): Plan 78-year-old male who presented to ED from home with fever, nausea, vomiting, shortness of breath and found to have aspiration pneumonia. He was managed for the following: Aspiration pneumonia with sepsis Met SIRS criteria with fever tachycardia with pneumonia as source of infection. WBC 4.3, lactate 1, Procal 2.13. RVP negative. CXR on admission - right lower lobe infiltrate. MRSA nares -ve Continue with Zosyn 5/ --> unasyn 5/3. Swallow evaluation, appreciate recs. Repeat CXR with improvement. Continue with Mucinex, p.o. antibiotic on discharge. Continue with home health. Hypomagnesemia-monitor and replete. Hypertension- c/w home meds. 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 PT OT eval. On pregablin tid along with tramadol prn for chronic pain. SONYA on CPAP- continue DVT prophylaxis-subcu Lovenox Code status- full. Patient was declined rehab by his insurance. Patient would like to go home with home health. He is being discharged with following instructions at the point of discharge: Follow-up with your primary care physician within a week time and likely you will need labs CBC/CMP/magnesium/phosphorus. You will be discharged on antibiotic to complete the course for aspiration pneumonia. Probiotics will be added. Continue with home health PT/OT. Take your medications as prescribed. Please make sure that you are able to get your medications today by calling your pharmacy before you leave the hospital so that your treatment continuity is not broken. Please note the above document was generated using voice recognition software. It may contain grammatical, syntax or spelling errors. Any formal questions or concerns about the content, text or information contained within the body of th is dictation should be directly addressed to the provider for clarification Home Health Attestation I certify that this patient is under my care and that I, or a physicians hotel assistant manager working with me, had a face to-face encounter that meets the home health [id number] encounter requirements with this patient. The encounter with the patient was in whole, or in part, for the following medical condition, which is the primary reason for home health care (list medical condition): I certify that, based on my findings, the following services are medically necessary home health services: My clinical findings support the need for the above services because: Further, I certify that my clinical findings support that this patient is homebound (i.e. absences from home require considerable and taxing effort and are for medical reasons or buddhism services or infrequently or of short duration when for other reasons) because: Certification for Home Health Services: Based on the above findings, I certify that this patient is confined to the home and needs intermittent fdc care, physical therapy and/or speech therapy or continues to need occupational therapy. The patient is under my care, and I have initiated the establishment of the plan of care. This patient will be followed by a physician who will periodically review the plan of care. Total Time Total Time Spent Total Time Spent (In Minutes): 45 Discharge Plan Discharge Items Patient Disposition: Home - Home Health Services Reason For Visit: FEVER, N/V, SOB Discharge Diagnosis: Aspiration pneumonia with sepsis Activity: Resume your previous activity Non-emergency contact: Primary Care Provider Call non-emergency contact if: you have any medication questions Follow-up/Referrals: Julia Robert PA-C [Primary Care Provider] - Diet: Regular Addtl Attending Provider Instructions: Follow-up with your primary care physician within a week time and likely you will need labs CBC/CMP/magnesium/phosphorus. You will be discharged on antibiotic to complete the course for aspiration pneumonia. Probiotics will be added. Continue with home health PT/OT. Take your medications as prescribed. Please make sure that you are able to get your medications today by calling your pharmacy before you leave the hospital so that your treatment continuity is not broken. Pending Studies at Discharge: No Stand-Alone Forms: My [facility], Smoking Cessation Medications and DC Order Prescriptions: New Advanced Probiotic 625 mg (10 billion cell) Capsule 1 cap PO DAILY 7 Days Qty: 7 0RF guaifenesin [Mucinex] 600 mg Tablet Extended Release 12hr 600 mg PO Q12 5 Days Qty: 10 0RF amoxicillin-pot clavulanate 875-125 mg tablet 1 tab PO BID 3 Days Qty: 6 0RF Continued atenolol 25 mg Tablet 25 mg PO QAM potassium chloride 10 mEq Tablet Extended Release 10 meq PO BID tramadol 50 mg Tablet 50 mg PO Q6H PRN (Reason: Pain) ascorbic acid (vitamin C) [Vitamin C] 500 mg Tablet 500 mg PO BID lisinopril-hydrochlorothiazide 20-25 mg Tablet 1 tab PO QAM cholecalciferol (vitamin D3) [Vitamin D3] 1,000 unit Tablet 1,000 unit PO QPM omeprazole 20 mg Tablet,Delayed Release (Dr/Ec) 20 mg PO BID amlodipine 10 mg Tablet 10 mg PO QAM atorvastatin 20 mg tablet 20 mg PO QAM meloxicam 15 mg tablet 15 mg PO DAILY PRN (Reason: Pain) cyanocobalamin (vitamin B-12) [Vitamin B-12] 1,000 mcg/mL Solution 1,000 mcg IM MONTHLY pregabalin 75 mg capsule 75 mg PO TID Discharge Orders: Discharge Order (Routine); Ordered 03/09/24 Ordered By: Иван Jules Admission Data Admit Date/Time: 03/04/24 10:18 Attending Provider: Иван Jules Admit Provider: German Quintanilla Primary Care Provider: Julia Robert Other Providers: [facility]; [facility]; German Quintanilla
== END 2024-03-09 16:09 | disposition home health service (06) | DRG 871 ==
LOC: ED 07:29 → SUATTDRO 10:18 → EDINP 10:18 → 2W 12:54 → 3N 03-08 15:21

== ENCOUNTER 2024-12-20 11:13 | Inpatient (IN) ==
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
--- OUTSIDE RECORDS SUMMARY | 2024-12-20 11:20 | External Medical Summary | Summary of Care ---
Author Name Unknown Organization [facility] Address [address] [place] [address] Phone [phone] Care Team Providers Care Lean Leader Name Role Phone Lubna Robert PA-C Primary Care Provider + Reason for Visit * Reason Comments Medication Refill Encounter Details Date Type Department Care Team ([facility] st Contact Info) Description 11/20/2024 Refill Family [address] [phone] Lubna Robert PA-C [address] [place] [id number] HTN, goal below 140/90 Allergies No known active allergiesdocumented as of this encounter (statuses as of 11/20/2024) Medications Cholecalciferol (VITAMIN D) 1000 units TabletIndicatio ns:from ct clinic Take 1 Tablet by mouth every afternoon. Active Aspirin EC 81 MG Oral Tablet Delayed Release Take 1 Tablet by mouth in the morning. Active CPAP every night at bedtime. Active Atorvastatin Calcium 20 MG Oral Tablet (Lipitor)Indica tions:Hyperlipi demia with target LDL less than 100 TAKE ONE TABLET BY MOUTH EVERY MORNING 90 Tablet 3 10/06/2024 6:20 PM EST 4 Active Meloxicam 15 MG Oral Tablet (Mobic)Indicati ons:Generalized osteoarthritis, Chronic neck pain,Other spondylosis, lumbar region TAKE ONE TABLET BY MOUTH EVERY DAY NEEDED FOR MODERATE PAIN 100 Tablet 1 10/06/2024 6:20 PM EST 4 06/29/20 25 Active Omeprazole 20 MG Oral Capsule Delayed Release (PriLOSEC)Indic ations:Coreas' s esophagus without dysplasia TAKE ONE CAPSULE BY MOUTH TWICE A DAY ONE HOUR BEFORE A MEAL DIRECTED 180 Capsule 1 11/16/2024 10:44 AM EST 4 08/17/20 25 Active Potassium Chloride Tessa ER 10 MEQ Oral Tablet Extended ReleaseIndicati ons:Hypokalemia TAKE ONE TABLET BY MOUTH TWICE A DAY 180 Tablet 1 11/16/2024 10:44 AM EST 4 08/17/20 25 Active Atenolol 25 MG Oral Tablet (Tenormin) Take 1 Tablet by mouth in the morning. 90 Tablet 1 09/04/2024 2:10 PM EDT 4 Active Lisinopril-hydr oCHLOROthiazide 20-25 MG Oral TabletIndicatio ns:HTN, goal below 140/90 TAKE ONE TABLET BY MOUTH EVERY MORNING 90 Tablet 3 09/18/2024 11:00 AM EST 4 09/16/20 25 Active Pregabalin 75 MG Oral Capsule (Lyrica) Take 1 Capsule by mouth in the morning and 1 Capsule at noon and 1 Capsule before bedtime. 90 Capsule 2 10/26/2024 11:12 AM EST 4 Active traMADol HCl 50 MG Oral Tablet (Ultram)Indicat ions:Generalize d osteoarthritis, Chronic neck pain,Other spondylosis, lumbar region Take 1 Tablet by mouth every 6 hours as needed for Pain, Moderate. TAKE 1 TABLET BY MOUTH EVERY 6 HOURS, NEEDED FOR MODERATE PAIN. 60 Tablet 2 5 Active amLODIPine Besylate 10 MG Oral Tablet (Norvasc)Indica tions:HTN, goal below 140/90 TAKE ONE TABLET BY MOUTH EVERY DAY 90 Tablet 2 5 11/20/19 26 Active amLODIPine Besylate 10 MG Oral Tablet (Norvasc)Indica tions:HTN, goal below 140/90 TAKE ONE TABLET BY MOUTH EVERY DAY 90 Tablet 2 08/24/2024 1:11 PM EDT 4 11/20/19 25 Discontinu ed(Refill) Hospital, Clinic, or Other Facility Administered Medication Ordered Dose Route Frequency Start Date End Date Status Vitamin B-12 (Cyanocobalamin) inj 1,000 mcgIndications:B12 deficiency 1000 mcg IM [id number] 09/16/2024 08/18/2025 Active documented as of this encounter (statuses as of 11/20/2024) Active Problems Problem Noted Date Diagnosed Date [...] as of this encounter (statuses as of 11/20/2024) Resolved Problems Problem Noted Date Diagnosed Date [...] as of this encounter (statuses as of 11/20/2024) Immunizations Name Administration Dates Next Due COVID-19 [...] No 07/03/2024 Does the household have a [facility] source of income? (Household - for ages [...] Assessment Author Yes 05/12/2015 1:00 PM EDT Angela Driver NA * Do you have difficulty [...] of Assessment Author Yes 05/12/2015 1:00 PM EDAngela Chan NA documented as of this encounter Mental Status * Because of a physical, mental, or emotional condition, do you have serious difficulty concentrating, remembering, or making decisions? (5 years old or older) Answer Entry Date Author Yes 05/12/2015 1:00 PM EDT Angela Driver NA documented in this encounter Miscellaneous Notes * Telephone Encounter - Nichole Campbell RPh - 11/20/2024 8:06 AM ESTSigned Prescriptions: Disp Refills amLODIPine Besylate 10 MG Oral Tablet (Nor*90 Tab*2 Sig: TAKE ONE TABLET BY MOUTH EVERY DAYAuthorizing Provider: LUBNA ROBERT User: NICHOLE CAMPBELL---- documented in this encounter Plan of Treatment Upcoming Encounters Date Type Department Care Team (Latest Contact Info) Description 01/06/2025 10:30 AM EST Appointment Cardiac Studies [facility], [facility] [address] [place] [address] 01/15/2025 11:00 AM EDT Office Visit Cardiology, [facility] [address] [place] [address] Nevin King CRNP [address] [place] [address] 01/29/2025 12:00 PM EDT Office Visit Family [facility] [address] [place] [phone] Lubna Robert PA-C [address] [place] [address] 02/03/2025 10:30 AM EDT Office Visit Sleep Disorders [facility] [address] [facility] [place] [phone] Denise Pulido CRNP [address] [place] [address] 02/12/2025 8:35 AM EDT Hospital Encounter [facility], Operating Room [facility] [address] [place] [address] Rich Barriga, DO [address] [place] [phone] 02/12/2025 8:35 AM EDT - 02/12/2025 9:08 AM EDT Surgery [facility], Operating Room [facility] [address] [place] [phone] Rich Barriga, DO [address] [place] [address] INJECTION TRANSFORAMINAL EPIDURAL LUMBAR OR SACRAL 03/17/2025 3:00 PM EDT Office Visit Neurology [address] [phone] Akash Bauman MD [address] [facility] [place] [address] Scheduled Procedures Name Priority Associated Diagnoses Date/Ti [...] this encounter Medical Devices Implanted Type Area Shearing Machine Feeder Device Identifier Shelf Expiration Date Model / Serial / Lot Mesh Macro 6cm X 11 Cm Keyhole - [id number] Implanted:Qty: 1 on 07/16/2024 by Johann Benoit MD at OR [facility] Left: Abdomen COVIDIEN : [employer] SURG[employer] 09/03/2028 [id number] / / [id number] documented as of this encounter Visit Diagnoses Diagnosis HTN, goal below 140/90 Unspecified essential hypertension Lumbar radiculopathy Thoracic or lumbosacral neuritis or radiculitis, unspecified documented in this encounter Care Teams Lean Leader Relationship Specialty Start Date End Date Lubna Robert PA-C [address] [place], [place] [address] [address] PCP - General Physician Medical Parasitologist 05/11/19 documented as of this encounter
--- OUTSIDE RECORDS SUMMARY | 2024-12-20 11:20 | External Medical Summary | Summary of Care ---
Author Name Unknown Organization [facility] Address [address] [facility] [place] [address] Phone [phone] Care Team Providers Care Case Assembler Name Role Phone Julia Robert PA-C Primary Care Provider + Encounter Details Date Type Department Care Team (Late st Contact Info) Description 11/25/2024 Population Health External Data Unspecified Department Allergies No known active allergiesdocumented as of this encounter (statuses as of 11/25/2024) Medications Cholecalciferol (VITAMIN D) 1000 units TabletIndicatio ns:from [facility] clinic Take 1 Tablet by mouth every [...] 3 10/06/2024 6:20 PM EST 01/14/2024 Active Meloxicam 15 MG Oral Tablet (Mobic)Indicati [...] 180 Capsule 1 11/16/2024 10:44 AM EST 08/17/2024 08/17/20 25 Active Potassium Chloride Tessa ER 10 MEQ Oral Tablet Extended ReleaseIndicati ons:Hypokalemia TAKE ONE TABLET BY MOUTH TWICE A DAY 180 Tablet 1 11/16/2024 10:44 AM EST 08/17/2024 08/17/20 25 Active Atenolol 25 MG [...] 1 Capsule before bedtime. 90 Capsule 2 11/23/2024 8:13 AM EST 09/25/2024 Active traMADol HCl 50 MG Oral Tablet (Ultram)Indicat ions:Generalize d osteoarthritis, Chronic neck pain,Other spondylosis, lumbar region Take 1 Tablet by mouth every 6 hours as needed for Pain, Moderate. TAKE 1 TABLET BY MOUTH EVERY 6 HOURS, NEEDED FOR MODERATE PAIN. 60 Tablet 2 11/05/2024 Active amLODIPine Besylate 10 MG Oral Tablet (Norvasc)Indica tions:HTN, goal below 140/90 TAKE ONE TABLET BY MOUTH EVERY DAY 90 Tablet 2 11/25/2024 9:50 AM EST 11/20/2024 11/20/19 26 Active Hospital, Clinic, or Other Facility Administered Medication Ordered Dose Route Frequency Start Date End Date Status Vitamin B-12 (Cyanocobalamin) inj 1,000 mcgIndications:B12 deficiency 1000 mcg IM [id number] 09/16/2024 08/18/2025 Active documented as of this encounter (statuses as of 11/25/2024) Active Problems Problem Noted Date Diagnosed Date [...] as of this encounter (statuses as of 11/25/2024) Resolved Problems Problem Noted Date Diagnosed Date [...] as of this encounter (statuses as of 11/25/2024) Immunizations Name Administration Dates Next Due COVID-19 [...] 07/03/2024 Does the household have a re gular source of income? (Household - for ages [...] 1:00 PM EDT Angela Driver NA documented as of this encounter Mental Status * Because of a physical, mental, or emotional condition, do you have serious difficulty concentrating, remembering, or making decisions? (5 years old or older) Answer Entry Date Author Yes 05/12/2015 1:00 PM EDT Angela Driver NA documented in this encounter Plan of Treatment Upcoming Encounters Date Type Department Care Team (Latest Contact Info) Description 01/06/2025 10:30 AM EST Appointment Cardiac Studies [address] [place] [address] [address] [place] [address] 01/15/2025 11:00 AM EDT Office Visit Cardiology, [facility] [address] [place] [address] Nevin King CRNP [address] [place] [address] 01/29/2025 12:00 PM EDT Office Visit [facility] [address] [place] [phone] Julia Robert PA-C [address] [place] [address] 02/03/2025 10:30 AM EDT Office Visit Sleep Disorders Ctr [facility] [address] [place] [phone] Denise Pulido CRNP [address] [place] [address] 02/12/2025 8:35 AM EDT Hospital Encounter [facility], Operating Room [facility] [address] [place] [phone] Rich Barriga, [address] [place] [phone] 02/12/2025 8:35 AM EDT - 02/12/2025 9:08 AM EDT Surgery OR [facility], Operating Room [facility] [address] [place] [phone] Rich Barriga, DO [address] [place] [phone] INJECTION TRANSFORAMINAL EPIDURAL LUMBAR OR SACRAL 03/17/2025 3:00 PM EDT Office Visit Neurology [address] [place], [place] [phone] Akash Bauman MD [address] [facility] [place] [phone] Scheduled Procedures Name Priority Associated Diagnoses Date/Ti [...] Monitoring 07/01/2025 07/01/2024, 05/2018, 11/27/2017 Albumin/Creatinine Ratio 09/05/202509/05/2 022, 10/04/2021, 11/27/2017 Coreas's Esophagus Surveilance 11/13/2026 [...] this encounter Medical Devices Implanted Type Area Structural Engineer Device Identifier Shelf Expiration Date Model / Serial / Lot Mesh Macro 6cm X 11 Cm Keyhole - [id number] Implanted:Qty: 1 on 07/16/2024 by Johann Benoit MD at OR [facility] Left: Abdomen COVIDIEN : US SURGICAL 09/03/2028 [id number] / / [id number] documented as of this encounter Care Teams Case Assembler Relationship Specialty Start Date End Date Julia Robert PA-C [address] [place], [place] [address] [phone] PCP - General Physician Tool Room Attendant 05/11/19 documented as of this encounter
--- OUTSIDE RECORDS SUMMARY | 2024-12-20 11:20 | External Medical Summary | Summary of Care ---
Author Name Unknown Organization [facility] Address [address] [facility] [place] [address] Phone [phone] Care Team Providers Care Compounding Technician Name Role Phone Lubna Robert PA-C Primary Care Provider + Reason for Visit * Reason Comments Medication Refill Encounter Details Date Type Department Care Team ([facility] st Contact Info) Description 12/19/2024 Refill Family [address] [phone] Lubna Robert PA-C [address] [place] [phone] Allergies No known active allergiesdocumented as of this encounter (statuses as of 12/20/2024) Medications Cholecalciferol (VITAMIN D) 1000 units TabletIndicatio ns:from [facility] Take 1 Tablet by mouth every afternoon. Active Aspirin EC 81 MG Oral Tablet Delayed Release Take 1 Tablet by mouth in the morning. 3 Active CPAP every night at bedtime. Active [...] mouth in the morning. 90 Tablet 1 12/02/2024 9:08 AM EST 4 Active Lisinopril-hydr oCHLOROthiazide 20-25 MG Oral TabletIndicatio ns:HTN, goal below 140/90 TAKE ONE TABLET BY MOUTH EVERY MORNING 90 Tablet 3 12/16/2024 4:16 PM EST 4 09/16/20 25 Active traMADol HCl 50 MG Oral Tablet [...] 90 Tablet 2 11/25/2024 9:50 AM EST 5 11/20/19 26 Active Pregabalin 75 MG Oral Capsule (Lyrica) Take 1 Capsule by mouth in the morning and 1 Capsule at noon and 1 Capsule before bedtime. 90 Capsule 2 5 Active Pregabalin 75 MG Oral Capsule (Lyrica) Take 1 Capsule by mouth in the morning and 1 Capsule at noon and 1 Capsule before bedtime. 90 Capsule 2 11/23/2024 8:13 AM EST 4 12/19/19 25 Discontinu ed(Refill) Hospital, Clinic, or Other Facility Administered Medication Ordered Dose Route Frequency Start Date End Date Status Vitamin B-12 (Cyanocobalamin) inj 1,000 mcgIndications:B12 deficiency 1000 mcg IM [id number] 09/16/2024 08/18/2025 Active documented as of this encounter (statuses as of 12/20/2024) Active Problems Problem Noted Date Diagnosed Date [...] as of this encounter (statuses as of 12/20/2024) Resolved Problems Problem Noted Date Diagnosed Date [...] as of this encounter (statuses as of 12/20/2024) Immunizations Name Administration Dates Next Due COVID-19 mRNA, LNP-s, No Pre serve, 2-Dose Series (Moderna) 12/31/2020,11/24/2020 COVID-19, mRNA, LNP-s, PF, B ooster, 100mcg/0.5mg (Moderna) 05/04/2022,09/06/2021 Covid-19, Mrna, Lnp-s, Pf, B ivalent, 30 Mcg, IM, 12 yrs and above ([employer] 08/18/2024,08/22/2022 Pneumococcal Conjugate Vacc, 13 Valent (Prevnar) [...] No 07/03/2024 Does the household have a [facility] source of income? (Household - for ages [...] 07/03/2024 Transportation Needs Answer Date Record ed Do you have trouble getting a ride to medical visits or work? (Adult - for ages 18 years and over) Not on file 07/03/2024 Does your family have a hard [...] place to sleep at night? No 07/03/2024 Do you think you are at risk of becoming homeless? (Adult - for ages 18 years and over) Not on file 07/03/2024 Does your family worry about paying [...] ages 0-17 years) Not on file 07/03/2024 Food Insecurity Answer Date Recorded Within the past 12 months, y ou worried that your food would run out before you got the money to buy more. Never true 07/03/20 24 Within the past 12 months, t he food you bought just didn't last and you didn't have money to get more. Never true 07/03/2024 Do you need food for this week? No 07/03/2024 Sex and Gender Information Value Date [...] Miscellaneous Notes * Telephone Encounter - Lubna Robert PA-C - 12/20/2024 8:28 AM ESTSigned Prescriptions: Disp Refills Pregabalin 75 MG Oral Capsule (Lyrica) 90 Cap*2 Sig: Take 1 Capsule by mouth in the morning and 1 Capsule at noon and 1 Capsule before bedtime. Authorizing Provider: LUBNA ROBERT * Telephone Encounter - China Schultz RPh - 12/19/2024 3:08 PM ESTPending Prescriptions: Disp Refills Pregabalin 75 MG Oral Capsule (Lyrica) 90 Cap*2 Sig: Take 1 Capsule by mouth in the morning and 1 Capsule at noon and 1 Capsule before bedtime. * Telephone Encounter - China Schultz RPh - 12/19/2024 3:07 PM EST I have reviewed the patients controlled substance dispensing history in the Prescription Drug Monitoring Program in compliance with the [facility] regulations before prescribing a controlled substance. PDMP checked on 12/19/2024. Pending Prescriptions: Disp Refills Pregabalin 75 MG Oral Capsule (Lyrica) 90 Cap*2 Sig: Take 1 Capsule by mouth in the morning and 1 Capsule at noon and 1 Capsule before bedtime. Last Visit: 09/16/2024 (in office), Visit date not found (telemedicine) Next Visit: 01/29/2025 Date medication was last filled: 11/23/24 Date medication is due for refill: 12/22/24 Pharmacy: [facility] Is this request for a controlled substance? Yes and Urine Drug Screen Not completed Toxicology results: Results for orders placed or performed in visit on 01/27/19 OPIOIDS/BENZO COMPLIANCE MONITORING W/INTERP Result Value Pain Management Interpretation (NOTE) URINE DRUG SCREEN RESULT Amphetamine NEGATIVE Barbiturates NEGATIVE Benzodiazepines NEGATIVE THC-COOH Confirmation, U NEGATIVE Cocaine Metabolite NEGATIVE METHADONE METABOLITE NEGATIVE Morphine / Codeine NEGATIVE OXYCODONE NEGATIVE COMMENT THE ABOVE SCREENING RESULTS ARE PRESUMPTIVE AND CAN ONLY BE USED FOR MEDICAL PURPOSES. CONFIRMATORY TESTING IS AVAILABLE UPON REQUEST. Cutoff Concentration URINE VALID INTERP NORMAL CREATININE GERSON 68 *Note: Due to a large number of results and/or encounters for the requested time period, some results have not been displayed. A complete set of results can be found in Results Review. Please approve if appropriate. Thanks, China Schultz, PharmD Clinical Pharmacist [facility] ([facility]) [phone] 12/19/2024, 3:08 PM documented in this encounter Plan of Treatment Upcoming Encounters Date Type Department Care Team (Latest Contact Info) Description 01/06/2025 10:30 AM EST Appointment Cardiac Studies [facility] [address] [place] [address] 01/15/2025 11:00 AM EDT Office Visit Cardiology, [facility] 132 [facility] [place] [address] Nevin King CRNP 400 [facility] [place] [address] 01/29/2025 12:00 PM EDT Office Visit [facility] [address] [place] [phone] Lubna Robert PA-C [address] [place] [address] 02/03/2025 10:30 AM EDT Office Visit Sleep Disorders Ctr [facility] [address] [place] [phone] Denise Pulido CRNP [address] [place] [address] 02/12/2025 8:35 AM EDT Hospital Encounter OR [facility], Operating Room [facility] [address] [place] [phone] Rich Barriga, [address] [place] [phone] 02/12/2025 8:35 AM EDT - 02/12/2025 9:08 AM EDT Surgery OR [facility], Operating Room [facility] [address] [place] [phone] Rich Barriga, [address] [place] [phone] INJECTION TRANSFORAMINAL EPIDURAL LUMBAR OR SACRAL 03/17/2025 3:00 PM EDT Office Visit Neurology [address] [place], [place] [phone] Akash Bauman MD [address] [facility] [place] [address] Scheduled Procedures Name Priority [...] on patient's age to complete this topic Meningitis B Vaccine (Bexsero/Trumemba) Aged Out No longer eligible based on patient's age to complete this topic documented as of this encounter Medical Devices Implanted Type Area Administrative Processor Device Identifier Shelf Expiration Date Model / Serial / Lot Mesh Macro 6cm X 11 Cm [employer] - [id number] Implanted:Qty: 1 on 07/16/2024 by Johann Benoit MD at OR [facility] Left: Abdomen COVIDIEN : US SURGICAL 09/03/2028 [id number] / / [id number] documented as of this encounter Care Teams Compounding Technician Relationship Specialty Start Date End Date Lubna Robert PA-C [address] [place] [phone] PCP - General Physician Executive Assistant 05/11/19 documented as of this encounter
--- OUTSIDE RECORDS SUMMARY | 2024-12-20 11:20 | External Medical Summary | Summary of Care ---
Author Name Unknown Organization [facility] Address [address] [facility] [address] Phone [phone] Care Team Providers Care Furnace Fitter Name Role Phone Julia Robert PA-C Primary Care Provider + Reason for Visit * Reason Onset Date Comments Appointment 12/11/2024 Encounter Details Date Type Department Care Team (Late st Contact Info) Description 12/11/2024 Telephone Interventional Pain Center, [facility] [address] [place] [phone] Rich Barriga, [address] [place] [phone] Appointment Allergies No known active allergiesdocumented as of this encounter (statuses as of 12/11/2024) Medications Cholecalciferol (VITAMIN D) 1000 units TabletIndicatio [...] 90 Tablet 1 12/02/2024 9:08 AM EST 09/04/2024 Active Lisinopril-hydr oCHLOROthiazide 20-25 MG Oral [...] inj 1,000 mcgIndications:B12 deficiency 1000 mcg IM [id number] 09/16/2024 08/18/2025 Active documented as of this encounter (statuses as of 12/11/2024) Active Problems Problem Noted Date Diagnosed Date [...] as of this encounter (statuses as of 12/11/2024) Resolved Problems Problem Noted Date Diagnosed Date [...] as of this encounter (statuses as of 12/11/2024) Immunizations Name Administration Dates Next Due COVID-19 [...] 07/03/2024 Does the household have a [facility] source of income? (Household - for ages [...] encounter Miscellaneous Notes * Telephone Encounter - Julia Bond OSA - 12/11/2024 10:18 AM EST Left a voicemail to reschedule injection due to Dr. Barriga only doing procedures in the [place] office starting 02/02. documented in this encounter Plan of Treatment Upcoming Encounters Date Type Department Care Team (Latest Contact Info) Description 01/06/2025 10:30 AM EST Appointment Cardiac Studies [address] [place] [address] [address] [place] [address] 01/15/2025 11:00 AM EDT Office Visit Cardiology, [facility] 132 [facility] [place] [address] Nevin King CRNP [address] [place] [address] [place] [address] 01/29/2025 12:00 PM EDT Office Visit Family [facility] 68 [place] [phone] Julia Robert PA-C [address] [place] [address] 02/03/2025 10:30 AM EDT Office Visit Sleep Disorders [facility] 132 [facility] [place] [phone] Denise Pulido CRNP 132 [facility] [place] [address] 02/12/2025 8:35 AM EDT Hospital Encounter OR [facility], Operating Room [facility] [address] [place] [phone] Rich Barriga, DO [address] [place] [phone] 02/12/2025 8:35 AM EDT - 02/12/2025 9:08 AM EDT Surgery OR [facility], Operating Room [facility] [address] [place] [phone] Rich Barriga, DO [address] [place] [phone] INJECTION TRANSFORAMINAL EPIDURAL LUMBAR OR [facility]AL 03/17/2025 3:00 PM EDT Office Visit Neurology [address] [place] [phone] Akash Bauman MD [address] [facility] [place] [phone] Scheduled Procedures Name Priority Associated Diagnoses Date/Ti [...] this encounter Medical Devices Implanted Type Area Photographic Laboratory Technician Device Identifier Shelf Expiration Date Model / Serial / Lot Mesh Macro 6cm X 11 Cm Keyhole - [id number] Implanted:Qty: 1 on 07/16/2024 by Johann Benoit MD at OR [facility] Left: Abdomen COVIDIEN : US SURGICAL 09/03/2028 [id number] / / [id number] documented as of this encounter Care Teams Furnace Fitter Relationship Specialty Start Date End Date Julia Robert PA-C [address] [place] [address] [place] [address] PCP - General Physician Dual Hose Cementer 05/11/19 documented as of this encounter
--- NOTE | 2024-12-20 11:33 | Emergency Department Note ---
Impression & Plan GIB (gastrointestinal bleeding), Acute blood loss anemia, Generalized weakness ED Provider Note NAME: LINDA PAREKH AGE: 79 SEX: M : 1945 ARRIVES VIA: Ambulance INFORMANT: Patient ED PROVIDER(S): Alek Malcolm MD CHIEF COMPLAINT: Bloody diarrhea. PLAN: Disposition: Admit MEDICAL DECISION MAKING: The patient is a 79-year-old gentleman with a past medical history of hypertension, Dzldybi-Pobov-Ulvhq disease, GERD/Coreas's esophagus, spinal stenosis, OA, SONYA on CPAP who presents to the emergency department via EMS from home for 2 days of black/maroon-colored bloody diarrhea. He reports developing sore throat and mild congestion yesterday. Denies any fevers, chills, abdominal pain, vomiting. Patient is not on anticoagulation. On evaluation the patient is fatigued appearing no acute distress, afebrile with stable vital signs. He appears clinically dry. He exhibits moderate pallor. Rectal exam demonstrates black/maroon-colored stool that is Hemoccult positive. The patient was consented for blood transfusion on initial assessment. EKG without overt acute ischemia. CXR negative for acute cardiopulmonary process per my personal preliminary review/interpretation. WBC within normal limits. H/H 6.8/21.5 with MCV of 81. Platelets 119K. Similar to prior range values. Chemistry without metabolic acidosis. BUN is elevated 61 with normal creatinine consistent with suspected upper GI bleeding. LFTs are unremarkable. Initial high styptic troponin 31.2, nonspecific. Lipase is normal. UA without evidence of infection. Given the patient's acute blood loss anemia 2 units of PRBCs ordered for transfusion. Protonix bolus and drip initiated. CT of the abdomen/pelvis performed and was negative for acute abnormalities. Large hiatal hernia is present. Stable infrarenal AAA is noted. Patient agrees with plan for admission for further management. [facility], with Dr. Schmidt [facility] hospitalist who will evaluate the patient for admission. Further management per admitting team. Triage Nursing notes reviewed and agree them. Prior/external medical records reviewed Vital Signs: reviewed Differential diagnosis: Diverticulosis, AVM, coagulopathy, colitis, inflammatory bowel disease, malignancy, Farhana-Brower tear, esophagitis, peptic ulcer disease, variceal bleed, gastritis, epistaxis, fissure, hemorrhoids, as well as other pathologies. ER treatment provided: See below. Diagnostics interpreted by me: ECG: Normal sinus rhythm, 74 bpm, right bundle branch block, no ectopy, no overt ST elevation or depression, QTc 470, QRS 144. Cardiac Monitoring: An order for continuous cardiac monitoring was placed and demonstrated Normal sinus rhythm, 74 bpm, no ectopy. Laboratory studies: See below Imaging studies: See below Consultation(s): Dr. Schmidt [facility] hospitalist. HPI: The patient is a 79-year-old gentleman with a past medical history of hypertension, Yxjkfmn-Mhnez-Atopf disease, GERD/Coreas's esophagus, spinal stenosis, OA, SONYA on CPAP who presents to the emergency department via EMS from home for 2 days of black/maroon-colored bloody diarrhea. He reports developing sore throat and mild congestion yesterday. Denies any fevers, chills, abdominal pain, vomiting. Patient is not on anticoagulation. ROS: See above HPI for pertinent positives & negatives. A total of 10 systems reviewed and were otherwise negative. VITALS:See Below PHYSICAL EXAMINATION: GENERAL: Awake, alert, fatigued-appearing, in no distress HENT: Normocephalic, atraumatic. Oropharynx with dry mucous membranes and otherwise unremarkable. EYES: Normal conjunctiva. Sclera non-icteric. NECK: Supple. No nuchal rigidity. FROM. No JVD. RESPIRATORY: Clear to auscultation. CARDIAC: Regular rate, normal rhythm. Extremities warm and well perfused. Pulses equal. ABDOMEN: Soft, non-distended. No tenderness to palpation. No rebound or guarding. No masses. RECTAL: Black/maroon-colored stools are Hemoccult positive. MUSCULOSKELETAL: Chest examination reveals no tenderness. The back is symmetrical on inspection without obvious abnormality. There is no CVA tenderness to palpation. No joint edema. LOWER EXTREMITIES: Calves are equal size bilaterally and non-tender. No edema. No discoloration. NEURO: Normal sensorium. No sensory or motor deficits noted. SKIN: Moderate pallor. No rash or jaundice noted. ED COURSE: Critical Care: I have personally spent greater than 35 minutes of critical care time in the direct management of this patient. This includes bedside care, interpretation of diagnostic studies, and testing, discussion with consultants, patient, and family members, and other required patient management activities. This 35 minutes is in excess of all separately billable procedures. Alek Malcolm MD Past Med/Surg History Problem List Venous stasis dermatitis of both lower extremities Bilateral lower extremity edema Elevated troponin Peripheral neuropathy Chronic right hip pain Chronic neck pain SONYA on CPAP Coreas's esophagus Moderate aortic insufficiency Aortic root enlargement Acute blood loss anemia Acute GI bleeding Anemia (Acute) GIB (gastrointestinal bleeding) (Acute) Acute hypoxic respiratory failure (Acute) CMT (Fielywl-Nvyrn-Iawql disease) Sepsis (Acute) Hypertension SIRS (systemic inflammatory response syndrome) Aspiration pneumonia (Acute) Coreas esophagus Medical History Osteoarthritis Spinal stenosis Barretts esophagus GERD (gastroesophageal reflux disease) Charcot-Josselin disease Anemia Surgical History History of left knee surgery tendon repair at age 12 History of right inguinal hernia repair History of left inguinal hernia repair with left orchiectomy History of colonoscopy History of esophagogastroduodenoscopy (EGD) History of tooth extraction all teeth Family History Other No family history of adverse response to anesthesia Social History Smoking Status: Former smoker Tobacco Type: Cigarettes Second Hand Exposure: No; Do You Dip or Chew Tobacco: No; Tobacco Cessation Education Requested by Patient: No Hx Alcohol Use: No Hx Substance Use: No Preferred Language: Kuwaiti Communication Ability: Effective Closing Manager Required: No Beliefs That Will Affect Care: None Current Living Situation: Spouse Current Living Situation Comment: Daughter, RAVIN, Other Information That Helps Us Care for You: No Feels Safe at Home: Yes Safety Concerns: Feels Safe At This Time Assistive Devices: CPAP, Glasses and Walker Allergies Allergies Allergy/AdvReac Type Severity Reaction Status Date / Time No Known Allergies Allergy Verified 06/23/24 15:43 Home Meds Home Medications Medication Instructions Recorded Confirmed atenolol 25 mg tablet 25 mg PO QAM 05/29/19 12/20/24 cholecalciferol (vitamin D3) 25 1,000 unit PO QPM 05/29/19 12/20/24 mcg (1,000 unit) tablet (Vitamin D3) lisinopril 20 1 tab PO QAM 05/29/19 12/20/24 mg-hydrochlorothiazide 25 mg tablet omeprazole 20 mg tablet,delayed 20 mg PO BID 05/29/19 12/20/24 release potassium chloride 10 mEq 10 meq PO BID 05/29/19 12/20/24 tablet,extended release tramadol 50 mg tablet 50 mg PO Q6H PRN Pain 05/29/19 12/20/24 amlodipine 10 mg tablet 10 mg PO QAM 11/30/19 12/20/24 atorvastatin 20 mg tablet 20 mg PO QAM 03/04/24 12/20/24 cyanocobalamin (vitamin B-12) 1,000 mcg IM UD 03/04/24 12/20/24 1,000 mcg/mL injection solution meloxicam 15 mg tablet 15 mg PO DAILY Pain 03/04/24 12/20/24 pregabalin 75 mg capsule 75 mg PO TID 03/04/24 12/20/24 Results & Data (ED) Vital Signs Vital Signs - 24 hr 12/20/24 11:17 12/20/24 11:17 12/20/24 11:31 Temperature 36.7 C Temperature Source Oral Pulse Rate 73 Pulse Rate [Apical] 74 Pulse Strength Respiratory Rate 16 17 Respiratory Effort / Characteristics Non-Labored Spontaneous Respiratory Depth Normal Normal Respiratory Pattern Regular Blood Pressure 126/57 L Blood Pressure [Right Arm] 126/57 L Blood Pressure Mean 80 Blood Pressure Mean [Right Arm] 80 Blood Pressure Position Pulse Oximetry 95 94 94 Oxygen Delivery Method Room Air Room Air Room Air Sepsis Recent Fever Within 48 Hours No Sepsis New/Unexplained Change in Mental Status No Sepsis Action Taken by Nursing No Action Required 12/20/24 12:07 12/20/24 13:01 12/20/24 13:19 Temperature 36.7 C 36.6 C Temperature Source Oral Oral Pulse Rate 74 75 76 Pulse Rate [Apical] Pulse Strength Respiratory Rate 16 20 Respiratory Effort / Characteristics Respiratory Depth Respiratory Pattern Blood Pressure 125/69 131/72 Blood Pressure [Right Arm] Blood Pressure Mean 87 91 Blood Pressure Mean [Right Arm] Blood Pressure Position Pulse Oximetry 94 97 Oxygen Delivery Method Sepsis Recent Fever Within 48 Hours Sepsis New/Unexplained Change in Mental Status Sepsis Action Taken by Nursing 12/20/24 13:34 12/20/24 13:34 Temperature 36.8 C Temperature Source Oral Pulse Rate 78 80 Pulse Rate [Apical] Pulse Strength Normal Respiratory Rate 21 16 Respiratory Effort / Characteristics Respiratory Depth Respiratory Pattern Blood Pressure 100/69 120/66 Blood Pressure [Right Arm] Blood Pressure Mean 79 84 Blood Pressure Mean [Right Arm] Blood Pressure Position Lying Pulse Oximetry 94 96 Oxygen Delivery Method Sepsis Recent Fever Within 48 Hours Sepsis New/Unexplained Change in Mental Status Sepsis Action Taken by Nursing Laboratory Data Attestation: I reviewed the patient's lab results. 12/20/24 23:00 12/20/24 11:25 Lab Results 12/20/24 12/20/24 12/20/24 Range/Units 11:12 11:25 11:28 WBC 6.32 (4.8-10.8) K/ul RBC 2.65 L (4.70-6.10) M/uL Hgb 6.8 L* (14.0-18.0) g/dl POC Hgb (14.0-18.0) g/dl Hct 21.5 L (42.0-52.0) % POC Hct (42-52) % MCV 81.1 (80.0-100.0) fL MCH 25.7 (25.0-34.0) pg MCHC 31.6 L (32.0-36.0) g/dL RDW Std Deviation 43.5 (36.4-46.3) fL RDW Coeff of Daniel 14.8 H (11.5-14.5) % Plt Count 119 L (130-400) K/uL MPV 11.5 (9.4-12.4) fL Immature Gran % (Auto) 0.3 % Neut % (Auto) 68.9 % Lymph % (Auto) 24.5 % [place] % (Auto) 5.2 % Eos % (Auto) 0.5 % Baso % (Auto) 0.6 % Reticulocyte % (Auto) 1.98 (0.50-2.00) % Neut # (Auto) 4.35 (1.40-6.50) K/uL Lymph # (Auto) 1.55 (1.20-3.40) K/uL [place] # (Auto) 0.33 (0.11-0.59) K/uL Eos # (Auto) 0.03 (0.00-0.50) K/uL Baso # (Auto) 0.04 (0.00-0.20) K/uL Reticulocyte # 0.050 (0.020-0.100) 10^6/uL Immature Gran # (Auto) 0.02 (0.01-0.20) K/uL Polychromasia 1+ PT 11.8 (9.0-12.0) Seconds INR 1.1 (0.9-1.1) POC Sodium (135-144) mmol/L Sodium 143 (136-145) mmol/L POC Potassium (3.3-5.0) mmol/L Potassium 3.8 (3.5-5.1) mmol/L POC Chloride (101-112) mmol/L Chloride 109 H (98-107) mmol/L Carbon Dioxide 30 (21-32) mmol/L POC Total CO2 (24-31) mmol/L Anion Gap 4 (3-11) POC Anion Gap (16-25) mmol/L POC BUN (7-18) mg/dl BUN 61 H (6-23) mg/dl Creatinine 0.92 (0.6-1.4) mg/dl POC Creatinine (0.6-1.3) mg/dl Est Cr Clr Drug Dosing 51.0 ml/min eGFR 84.09 BUN/Creatinine Ratio 66.3 H (10-20) Glucose 100 H (70-99(Fasting)) mg/dl POC Glucose (other) (70-99) mg/dl Calcium 8.3 L (8.6-10.3) mg/dl POC Ioniz Calcium Eva (1.12-1.32) mmol/l Phosphorus 2.8 (2.5-4.9) mg/dl Magnesium 1.9 (1.7-2.4) mg/dl Iron (35-175) mcg/dl Unsaturated IBC (155-355) mcg/dl Transferrin (200-360) mg/dl Ferritin (8-388) ng/ml Total Bilirubin 0.3 (0.2-1.0) mg/dl Direct Bilirubin 0.1 (0-0.2) mg/dl AST 19 (13-39) U/L ALT 15 (7-52) U/L Alkaline Phosphatase 65 (34-104) U/L Troponin I High Sens 31.2 H (0-20) pg/ml Total Protein 4.9 L (6.0-8.3) gm/dl Albumin 2.8 L (3.4-5.0) gm/dl Globulin 2.1 L (2.5-4.0) gm/dl Albumin/Globulin Ratio 1.3 (0.9-2) Lipase 13 (11-82) U/L Urine Color Urine Appearance (Clear) Urine pH (4.5-7.5) Ur Specific [place] (1.000-1.030) Urine Protein (Negative) Urine Glucose (UA) (Negative) Urine Ketones (Negative) Urine Blood (Negative) Urine Nitrite (Negative) Urine Bilirubin (Negative) Urine Urobilinogen (Negative) Ur Leukocyte Esterase (Negative) Adenovirus (PCR) Not Detected (NotDetected) B. pertussis DNA (PCR) Not Detected (NotDetected) B.parapertussis DNA PCR Not Detected (NotDetected) C. pneumoniae DNA (PCR) Not Detected (NotDetected) Coronavirus OC43 (PCR) Not Detected (NotDetected) Coronavirus HKU1 (PCR) Not Detected (NotDetected) Coronavirus 229E (PCR) Not Detected (NotDetected) SARS-CoV-2 (PCR) Not Detected (NotDetected) Coronavirus NL63 (PCR) Not Detected (NotDetected) Human Metapneumovir PCR Not Detected (NotDetected) Influenza Type A (PCR) Not Detected (NotDetected) Influenza Type B (PCR) Not Detected (NotDetected) M. pneumoniae (PCR) Not Detected (NotDetected) Parainfluenza 1 (PCR) Not Detected (NotDetected) Parainfluenza 2 (PCR) Not Detected (NotDetected) Parainfluenza 3 (PCR) Not Detected (NotDetected) Parainfluenza 4 (PCR) Not Detected (NotDetected) RSV (PCR) Not Detected (NotDetected) Entero/Rhino (PCR) Not Detected (NotDetected) Blood Type O Negative Antibody Screen NEGATIVE Crossmatch See Detail 02/16/25 02/16/25 02/16/25 Range/Units 11:53 12:01 13:29 WBC (4.8-10.8) K/ul RBC (4.70-6.10) M/uL Hgb (14.0-18.0) g/dl POC Hgb 6.5 L* (14.0-18.0) g/dl Hct (42.0-52.0) % POC Hct 19 L* (42-52) % MCV (80.0-100.0) fL MCH (25.0-34.0) pg MCHC (32.0-36.0) g/dL RDW Std Deviation (36.4-46.3) fL RDW Coeff of Daniel (11.5-14.5) % Plt Count (130-400) K/uL MPV (9.4-12.4) fL Immature Gran % (Auto) % Neut % (Auto) % Lymph % (Auto) % [place] % (Auto) % Eos % (Auto) % Baso % (Auto) % Reticulocyte % (Auto) (0.50-2.00) % Neut # (Auto) (1.40-6.50) K/uL Lymph # (Auto) (1.20-3.40) K/uL [place] # (Auto) (0.11-0.59) K/uL Eos # (Auto) (0.00-0.50) K/uL Baso # (Auto) (0.00-0.20) K/uL Reticulocyte # (0.020-0.100) 10^6/uL Immature Gran # (Auto) (0.01-0.20) K/uL Polychromasia PT (9.0-12.0) Seconds INR (0.9-1.1) POC Sodium 143 (135-144) mmol/L Sodium (136-145) mmol/L POC Potassium 3.7 (3.3-5.0) mmol/L Potassium (3.5-5.1) mmol/L POC Chloride 105 (101-112) mmol/L Chloride (98-107) mmol/L Carbon Dioxide (21-32) mmol/L POC Total CO2 24 (24-31) mmol/L Anion Gap (3-11) POC Anion Gap 18.0 (16-25) mmol/L POC BUN 52 H (7-18) mg/dl BUN (6-23) mg/dl Creatinine (0.6-1.4) mg/dl POC Creatinine 1.1 (0.6-1.3) mg/dl Est Cr Clr Drug Dosing ml/min eGFR BUN/Creatinine Ratio (10-20) Glucose (70-99(Fasting)) mg/dl POC Glucose (other) 101 H (70-99) mg/dl Calcium (8.6-10.3) mg/dl POC Ioniz Calcium Eva 1.16 (1.12-1.32) mmol/l Phosphorus (2.5-4.9) mg/dl Magnesium (1.7-2.4) mg/dl Iron 39 (35-175) mcg/dl Unsaturated IBC 150 L (155-355) mcg/dl Transferrin 162 L (200-360) mg/dl Ferritin 46.4 (8-388) ng/ml Total Bilirubin (0.2-1.0) mg/dl Direct Bilirubin (0-0.2) mg/dl AST (13-39) U/L ALT (7-52) U/L Alkaline Phosphatase (34-104) U/L Troponin I High Sens 30.8 H (0-20) pg/ml Total Protein (6.0-8.3) gm/dl Albumin (3.4-5.0) gm/dl Globulin (2.5-4.0) gm/dl Albumin/Globulin Ratio (0.9-2) Lipase (11-82) U/L Urine Color Yellow Urine Appearance Clear (Clear) Urine pH 7.5 (4.5-7.5) Ur Specific [place] 1.015 (1.000-1.030) Urine Protein Negative (Negative) Urine Glucose (UA) Negative (Negative) Urine Ketones Negative (Negative) Urine Blood Negative (Negative) Urine Nitrite Negative (Negative) Urine Bilirubin Negative (Negative) Urine Urobilinogen Negative (Negative) Ur Leukocyte Esterase Negative (Negative) Adenovirus (PCR) (NotDetected) B. pertussis DNA (PCR) (NotDetected) B.parapertussis DNA PCR (NotDetected) C. pneumoniae DNA (PCR) (NotDetected) Coronavirus OC43 (PCR) (NotDetected) Coronavirus HKU1 (PCR) (NotDetected) Coronavirus 229E (PCR) (NotDetected) SARS-CoV-2 (PCR) (NotDetected) Coronavirus NL63 (PCR) (NotDetected) Human Metapneumovir PCR (NotDetected) Influenza Type A (PCR) (NotDetected) Influenza Type B (PCR) (NotDetected) M. pneumoniae (PCR) (NotDetected) Parainfluenza 1 (PCR) (NotDetected) Parainfluenza 2 (PCR) (NotDetected) Parainfluenza 3 (PCR) (NotDetected) Parainfluenza 4 (PCR) (NotDetected) RSV (PCR) (NotDetected) Entero/Rhino (PCR) (NotDetected) Blood Type Antibody Screen Crossmatch Administered Medications Pantoprazole Sodium 40 mg/ (Dextrose) 100 mls @ 20 mls/hr IV Q5H [facility] Stop: 01/19/25 11:44 Last Admin: 12/20/24 22:48 Dose: 8 mg/hr, 20 mls/hr Documented By: Infusion: 12/20/24 22:37 Dose: Infused Documented By: Admin: 12/20/24 17:37 Dose: 8 mg/hr, 20 mls/hr Documented By: Infusion: 12/20/24 17:37 Dose: Infused Documented By: Admin: 12/20/24 12:42 Dose: 8 mg/hr, 20 mls/hr Documented By: VLADIMIR Sodium Chloride (Nss) 1,000 mls @ 80 mls/hr IV .[id number] LILLIE Stop: 12/21/24 07:44 Last Admin: 12/20/24 19:37 Dose: 80 mls/hr Documented By: NAJMA Lactic Acid (Ammonium Lactate 12% Lotion 225 Gm Btl) 1 gm EXT TID LILLIE Stop: 01/19/25 20:59 Last Admin: 12/20/24 21:32 Dose: 1 gm Documented By: NAJMA Discontinued Medications Sodium Chloride (Nss) 500 mls @ 999 mls/hr IV .Q31M ONE Stop: 12/20/24 11:58 Last Infusion: 12/20/24 12:34 Dose: Infused Documented By: Admin: 12/20/24 11:58 Dose: 999 mls/hr Documented By: MADELEINE Pantoprazole Sodium 80 mg/ (Dextrose) 120 mls @ 480 mls/hr IV NOW ONE Stop: 12/20/24 11:43 Last Infusion: 12/20/24 12:34 Dose: Infused Documented By: Admin: 12/20/24 11:59 Dose: 480 mls/hr Documented By: MADELEINE Ioversol (Optiray 320 100ml) 95 ml IV ONCE ONE Stop: 12/20/24 12:38 Last Admin: 12/20/24 12:37 Dose: 95 ml Documented By: AMANDA Morphine Sulfate (Morphine Sulfate 2 Mg/Ml Carp) 2 mg IV NOW STA Stop: 12/20/24 15:32 Last Admin: 12/20/24 15:37 Dose: 2 mg Documented By: MADELEINE Pantoprazole Sodium (Pantoprazole Bolus/Drip) 1 each IV NOW STA Stop: 12/20/24 11:30 Last Admin: 12/20/24 12:00 Dose: Not Given Documented By: MADELEINE Imaging Data Radiologist's Impression: Abdomen/Pelvis CT 12/20/24 11:29 CT OF THE ABDOMEN AND PELVIS WITH CONTRAST CLINICAL HISTORY: GI bleed. COMPARISON STUDY: CTA of the abdomen and pelvis July 01, 2024. Abdominal aortic ultrasound November 12, 2024. TECHNIQUE: Following IV administration of 95 mL of Optiray, axial images of the abdomen and pelvis were obtained from the lung bases to the proximal femurs. Images were reviewed in the axial, sagittal, and coronal planes. IV contrast was administered without complication. Automated exposure control was utilized for the study. A dose lowering technique was utilized adhering to the principles of ALARA. CT DOSE: 307.09 mGy.cm FINDINGS: There are trace bilateral pleural effusions. Large hiatal hernia with intrathoracic stomach is present. A portion of the transverse colon extends into the hernia. There are several hepatic cysts. There are no suspicious hepatic lesions. No biliary or pancreatic ductal dilatation is present. Exam is compromised given a paucity of intra-abdominal fat. Spleen, adrenal glands and kidneys are unremarkable. There is a right lower pole renal cyst. No hydronephrosis. 3.2 cm infrarenal abdominal aortic aneurysm is again noted. There is extensive aortoiliac atherosclerotic plaque. There is no evidence for a bowel obstruction. There is extensive sigmoid diverticulosis without evidence for acute diverticulitis. No intraluminal contrast is identified to suggest active GI bleed by CT. There is no lymphadenopathy. There are no fluid collections. IMPRESSION: 1. No acute process within the abdomen or pelvis. 2. Sigmoid diverticulosis. No evidence for acute diverticulitis. 3. No bowel obstruction. 4. Large hiatal hernia. 5. No change in a 3.2 cm infrarenal abdominal aortic aneurysm. ACT 112: Negative or not required by law. Electronically signed by: David Jensen M.D. 12/20/2024 1:09 PM Discharge Plan Visit Data Chief Complaint: GI Bleed Stated Complaint: GI BLEED ED Provider: Alek Malcolm Discharge Problem: GIB (gastrointestinal bleeding), Acute blood loss anemia, Generalized weakness Patient Disposition: Admitted As Inpatient Discharge Instructions Interventions: ED Discharge Assessment Last Done: 12/20/24 18:53 Discharge Problem: GIB (gastrointestinal bleeding) Qualifiers: GI bleed type/associated pathology: unspecified gastrointestinal hemorrhage type Qualified Code(s): K92.2 - Gastrointestinal hemorrhage, unspecified
[2024-12-20 11:58] LABS: Hematocrit (blood only) 21.5 % (42.0-52.0); Hemoglobin 6.8 g/dl (14.0-18.0); INR 1.1 (0.9-1.1); Mean Corpuscular Hemoglobin 25.7 pg (25.0-34.0); Mean Corpuscular Hgb Conc 31.6 g/dL (32.0-36.0); Mean Corpuscular Volume 81.1 fL (80.0-100.0); Mean Platelet Volume 11.5 fL (9.4-12.4); Platelet Count 119 K/uL (130-400); Prothrombin Time 11.8 Seconds (9.0-12.0); RDW Coefficient of Variation 14.8 % (11.5-14.5); RDW Standard Deviation 43.5 fL (36.4-46.3); Red Blood Count 2.65 M/uL (4.70-6.10); White Blood Count 6.32 K/ul (4.8-10.8)
[2024-12-20] MEDS: SODIUM CHLORIDE 0.9% 500 ML IV ONE (11:58)
[2024-12-20] MEDS: PANTOprazole 80 MG in DEXTROSE 5% 100 ML IV ONE (11:59)
[2024-12-20] MEDS: PANTOPRAZOLE BOLUS/DRIP IV STA (12:00)
[2024-12-20 12:04] LABS: Appearance Urine Clear (Clear); Bilirubin Urine Negative (Negative); Blood Urine Negative (Negative); Color Urine Yellow; Glucose Urine UA Negative (Negative); Ketones Urine Negative (Negative); Leukocyte Esterase Urine Negative (Negative); Nitrite Urine Negative (Negative); Protein Urine Negative (Negative); Specific Gravity Urine 1.015 (1.000-1.030); Urobilinogen Urine Negative (Negative); pH Urine 7.5 (4.5-7.5)
[2024-12-20 12:11] LABS: Basophils # (auto) 0.04 K/uL (0.00-0.20); Basophils % (auto) 0.6 %; Eosinophils # (auto) 0.03 K/uL (0.00-0.50); Eosinophils % (auto) 0.5 %; Immature Granulocytes # (auto) 0.02 K/uL (0.01-0.20); Immature Granulocytes % (auto) 0.3 %; Lymphocytes # (auto) 1.55 K/uL (1.20-3.40); Lymphocytes % (auto) 24.5 %; Monocytes # (auto) 0.33 K/uL (0.11-0.59); Monocytes % (auto) 5.2 %; Neutrophils # (auto) 4.35 K/uL (1.40-6.50); Neutrophils % (auto) 68.9 %; Polychromasia 1+
[2024-12-20 12:13] LABS: iSTAT Creatinine 1.1 mg/dl (0.6-1.3); iSTAT Hemoglobin 6.5 g/dl (14.0-18.0); iSTAT Ionized Calcium 1.16 mmol/l (1.12-1.32); iSTAT Potassium 3.7 mmol/L (3.3-5.0)
[2024-12-20] MEDS ORDERED: SODIUM CHLORIDE 0.9% 50 ML IV PRN ×2 (12:17→23:54)
[2024-12-20] MEDS ORDERED: SODIUM CHLORIDE 0.9% 100 ML IV PRN ×2 (12:17→23:54)
[2024-12-20 12:18] LABS: Albumin Globulin Ratio 1.3 (0.9-2); Albumin Level 2.8 gm/dl (3.4-5.0); BUN Creatinine Ratio 66.3 (10-20); Bilirubin Direct 0.1 mg/dl (0-0.2); Bilirubin,Total 0.3 mg/dl (0.2-1.0); Calcium 8.3 mg/dl (8.6-10.3); Globulin 2.1 gm/dl (2.5-4.0); Magnesium 1.9 mg/dl (1.7-2.4); Phosphorus 2.8 mg/dl (2.5-4.9); Potassium 3.8 mmol/L (3.5-5.1); Total Protein 4.9 gm/dl (6.0-8.3)
--- NOTE | 2024-12-20 12:21 | XRay Report ---
XR chest 1V portable CLINICAL HISTORY: Chest pain, nonspecific COMPARISON STUDY: Chest radiograph June 23, 2024. FINDINGS: There is no pneumothorax or pleural effusion. No consolidation or evidence for pulmonary ed baldemar. Moderate cardiomegaly is unchanged. A large hiatal hernia is again noted. Patient is rotated. El evation of both humeral heads with degenerative changes within the shoulders are incidentally noted. IMPRESSION: 1. No acute cardiopulmonary findings. No change in appearance of the chest. 2. Large hiatal hernia. ACT 112: Negative or not required by law. Electronically signed by: David Jensen M.D. 12/20/2024 12:20 PM
[2024-12-20 12:23] LABS: Troponin I High Sensitivity 31.2 pg/ml (0-20)
[2024-12-20 12:35] LABS: Adenovirus PCR Not Detected (NotDetected); Bordetella parapertussis PCR Not Detected (NotDetected); Bordetella pertussis PCR Not Detected (NotDetected); Chlamydia pneumoniae PCR Not Detected (NotDetected); Coronavirus 229E PCR Not Detected (NotDetected); Coronavirus CoV-2 (COVID19)PCR Not Detected (NotDetected); Coronavirus HKU1 PCR Not Detected (NotDetected); Coronavirus NL63 PCR Not Detected (NotDetected); Coronavirus OC43PCR Not Detected (NotDetected); Human Metapneumovirus PCR Not Detected (NotDetected); Influenza A PCR Not Detected (NotDetected); Influenza B PCR Not Detected (NotDetected); Mycoplasma pneumoniae PCR Not Detected (NotDetected); Parainfluenza Virus 1 PCR Not Detected (NotDetected); Parainfluenza Virus 2 PCR Not Detected (NotDetected); Parainfluenza Virus 3 PCR Not Detected (NotDetected); Parainfluenza Virus 4 PCR Not Detected (NotDetected); Respiratory Syncytial VirusPCR Not Detected (NotDetected); Rhinovirus/Enterovirus PCR Not Detected (NotDetected)
[2024-12-20] MEDS: OPTIRAY 320 100ml IV ONE (12:37)
[2024-12-20] MEDS: PANTOprazole 40 MG in DEXTROSE 5% MINI-B 100 ML IV SCH (12:42)
--- NOTE | 2024-12-20 13:12 | CT Scan Report ---
CT OF THE ABDOMEN AND PELVIS WITH CONTRAST CLINICAL HISTORY: GI bleed. COMPARISON STUDY: CTA of the abdomen and pelvis July 01, 2024. Abdominal aortic ultrasound November 12, 2024. TECHNIQUE: Following IV administration of 95 mL of Optiray, axial images of the abdomen and pelvis we re obtained from the lung bases to the proximal femurs. Images were reviewed in the axial, sagittal, and coronal planes. IV contrast was administered without complication. Automated exposure control wa s utilized for the study. A dose lowering technique was utilized adhering to the principles of ALARA . CT DOSE: 307.09 mGy.cm FINDINGS: There are trace bilateral pleural effusions. Large hiatal hernia with intrathoracic stomach is present. A portion of the transverse colon extends into the hernia. There are several hepatic cys ts. There are no suspicious hepatic lesions. No biliary or pancreatic ductal dilatation is present. E xam is compromised given a paucity of intra-abdominal fat. Spleen, adrenal glands and kidneys are unr emarkable. There is a right lower pole renal cyst. No hydronephrosis. 3.2 cm infrarenal abdominal aor tic aneurysm is again noted. There is extensive aortoiliac atherosclerotic plaque. There is no eviden ce for a bowel obstruction. There is extensive sigmoid diverticulosis without evidence for acute dive rticulitis. No intraluminal contrast is identified to suggest active GI bleed by CT. There is no lymp hadenopathy. There are no fluid collections. IMPRESSION: 1. No acute process within the abdomen or pelvis. 2. Sigmoid diverticulosis. No evidence for acute diverticulitis. 3. No bowel obstruction. 4. Large hiatal hernia. 5. No change in a 3.2 cm infrarenal abdominal aortic aneurysm. ACT 112: Negative or not required by law. Electronically signed by: David Jensen M.D. 12/20/2024 1:09 PM
--- NOTE | 2024-12-20 13:43 | History & Physical Report ---
Date of Service December 20, 2024 Assessment & Plan (1) Acute GI bleeding: (2) Coreas's esophagus: (3) Acute blood loss anemia: Plan: Randall Purvis is an 79y/o M with PMHx significant for HTN, HLD, aortic root enlargement, moderate aortic insufficiency, infrarenal abdominal aortic aneurysm, RBBB, SONYA on CPAP, GERD, Coreas's esophagus, vitamin D deficiency, vitamin B12 deficiency, peripheral neuropathy, generalized osteoarthritis, peripheral neuropathy, chronic back pain, chronic right hip pain, Fobqizb-Aaknc-Wjkli disease and rheumatoid arthritis who presented to the ED via EMS from home due to melena x 2 days and is being admitted with an acute GI bl eed. EGD done in November 2023 which revealed a large hiatal hernia and esophageal mucosal changes classified as Coreas's stage C8-M8 per [place] criteria which were biopsied. Biopsies were consistent with Barretts esophagus and negative for dysplasia. FOBT positive. Hgb 6.8 on presentation. Type/crossed for 2U PRBCs. 1U PRBCs currently being transfused. NPO for now. S/p 0.5L NSS in ED. GI consult. Protonix bolus + drip started in ED - will continue. Continue to monitor H/H Q8H and 1 hour after each transfusion. Gentle IVF x 1 bag for now. (4) Elevated troponin: Plan: Likely demand ischemia ISO above. EKG reviewed and reassuring - chronic RBBB, no acute ST changes. Continue to trend troponin Q6H until flat. EKG with chest pain PRN. (5) Hypertension: Plan: Relatively hypotensive on admission ISO above. Hold home amlodipine, atenolol and lisinopril-HCTZ for now. Currently NPO status. (6) Aortic root enlargement: (7) Moderate aortic insufficiency: Plan: Resting echocardiogram done December 2023 with LVEF=60-64%, normal LV wall motion, grade I DD, mild to moderate AR, mild TR and mildly enlarged aortic root of 4.3cm. (8) Peripheral neuropathy: (9) CMT (Mkyfwtp-Hwkut-Kplrv disease): Plan: No recent falls or trauma although patient endorses feeling quite dizzy and lightheaded with ambulation since yesterday ISO above. Patient uses a cane for ambulation with BLE braces at baseline given history of Zbsasjx-Bxljv-Uhqsk disease. Will obtain PT/OT evaluations. Hold home Lyrica for now ISO NPO status. (10) Bilateral lower extremity edema: (11) Venous stasis dermatitis of both lower extremities: Plan: Noted mild BLE edema with venous stasis changes/dermatitis on exam. Patient endorses this is chronic and appears unchanged from baseline. Also notes edema bullae on BLE which have been monitored by his outpatient spiral gear generator. Wound care consulted. AmLactin ordered. Encourage TEDs use. (12) Chronic neck pain: (13) Chronic right hip pain: Plan: On Tramadol PRN at home - holding for now ISO NPO status. PRN IV morphine ordered for moderate-severe pain. (14) SONYA on CPAP: Plan: Chronic, stable. Continue CPAP HS. Can use home CPAP device. DVT Prophylaxis: SCDs/TEDs ISO acute blood loss anemia as per above. Code Status: FULL CODE PCP: Julia Robert PA-C Disposition: Admit to PCU/Telemetry for further inpatient evaluation and management. Patient seen in collaboration with Dr. Schmidt. Please see addendum. I spent a total of 50 minutes coordinating, documenting, and providing care for this patient excluding time spent in the performance of separately billed services or time spent by another provider/QHP. This included personally reviewing all current laboratories and imaging studies, medical reconciliation, outpatient chart review and discussion with specialists. This chart was completed in part utilizing Speech Voice Recognition Software. Grammatical errors, random word insertions, pronoun errors, and incomplete sentences are an occasional consequence of this system due to software limitations, ambient noise, and hardware issues. Any formal questions or concerns about the content, text, or information contained within the body of this dictation should be directly addressed to the provider for clarification. History of Present Illness Chief Complaint: Blood in Stools Primary Care Provider: uJlia Robert PA-C Randall Purvis is an 79y/o M with PMHx significant for HTN, HLD, aortic root enlargement, moderate aortic insufficiency, infrarenal abdominal aortic aneurysm, RBBB, SONYA on CPAP, GERD, Coreas's esophagus, vitamin D deficiency, vitamin B12 deficiency, peripheral neuropathy, generalized osteoarthritis, peripheral neuropathy, chronic back pain, chronic right hip pain, Xhfmmnl-Karzq-Dumfj disease and rheumatoid arthritis who presented to the ED via EMS from home due to melena x 2 days. History obtained from the patient, patient's son at bedside, discussion with ED provider and associated chart review. Patient endorses acute onset of dark stools yesterday morning. Notes stools are quite loose in consistency. Noticed some flecks of bright red blood in his sto ols this morning but they are overall quite dark, if not black, in coloration. Reports feeling somewhat short of breath since yesterday as well. No supplemental oxygen use at home. Uses CPAP at bedtime for SONYA. He feels significantly fatigued and "worn out" with notable generalized weakness. Endorses an intermittent, dry cough but otherwise denies any recorded fevers, chills or body aches. Patient currently lives at home with his whom recently underwent a knee replacement last Saturday. He has another son and his who are currently staying with them to assist his . Son at bedside notes he was quite pale in coloration this morning. No recent falls or trauma although patient endorses feeling quite dizzy and lightheaded with ambulation since yesterday. Patient uses a cane for ambulation with BLE braces at baseline given history of Bwzebbp-Cykkn-Xbfml disease. Denies any abdominal pain, nausea or vomiting. Patient recalls having to receive 2U of PRBCs back in 2018 after it was discovered his Hgb trended down to 7 at the [facility] unexpectedly. Patient was not having a GI bleed at the time. Does not recall any prior history of GI bleeds. Mentions he had a video capsule study and colonscopy done at that time which were completely unremarkable. Known history of Coreas's esophagus. He was started on iron supplement and he notes his Hgb had improved b ack to 14 where it has been until now. Has been off an iron supplement for approximately 2 years now. EGD done in November 2023 which revealed a large hiatal hernia and esophageal mucosal changes classified as Coreas's stage C8-M8 per [place] criteria which were biopsied. Biopsies were consistent with Barretts esophagus and negative for dysplasia. Resting echocardiogram done December 2023 with LVEF=60-64%, normal LV wall motion, grade I DD, mild to moderate AR, mild TR and mildly enlarged aortic root of 4.3cm. Allergies Allergy/AdvReac Type Severity Reaction Status Date / Time No Known Allergies Allergy Verified 06/23/24 15:43 Home Medications Medication Instructions Recorded Confirmed Type atenolol 25 mg tablet 25 mg PO QAM 05/29/19 12/20/24 History cholecalciferol (vitamin D3) 25 1,000 unit PO QPM 05/29/19 12/20/24 History mcg (1,000 unit) tablet (Vitamin D3) lisinopril 20 1 tab PO QAM 05/29/19 12/20/24 History mg-hydrochlorothiazide 25 mg tablet omeprazole 20 mg tablet,delayed 20 mg PO BID 05/29/19 12/20/24 History release potassium chloride 10 mEq 10 meq PO BID 05/29/19 12/20/24 History tablet,extended release tramadol 50 mg tablet 50 mg PO Q6H PRN Pain 05/29/19 12/20/24 History amlodipine 10 mg tablet 10 mg PO QAM 11/30/19 12/20/24 History atorvastatin 20 mg tablet 20 mg PO QAM 03/04/24 12/20/24 History cyanocobalamin (vitamin B-12) 1,000 mcg IM UD 03/04/24 12/20/24 History 1,000 mcg/mL injection solution meloxicam 15 mg tablet 15 mg PO DAILY Pain 03/04/24 12/20/24 History pregabalin 75 mg capsule 75 mg PO TID 03/04/24 12/20/24 History Past Med/Surg History Problem List Venous stasis dermatitis of both lower extremities Bilateral lower extremity edema Elevated troponin Peripheral neuropathy Chronic right hip pain Chronic neck pain SONYA on CPAP Coreas's esophagus Moderate aortic insufficiency Aortic root enlargement Acute blood loss anemia Acute GI bleeding Anemia (Acute) GIB (gastrointestinal bleeding) (Acute) Acute hypoxic respiratory failure (Acute) CMT (Bvtdoub-Jnarv-Kjxxp disease) Sepsis (Acute) Hypertension SIRS (systemic inflammatory response syndrome) Aspiration pneumonia (Acute) Coreas esophagus Medical History Osteoarthritis Spinal stenosis Barretts esophagus GERD (gastroesophageal reflux disease) Charcot-Josselin disease Anemia Surgical History History of left knee surgery tendon repair at age 12 History of right inguinal hernia repair History of left inguinal hernia repair with left orchiectomy History of colonoscopy History of esophagogastroduodenoscopy (EGD) History of tooth extraction all teeth Family History Other No family history of adverse response to anesthesia Social History Smoking Status: Never smoker Tobacco Type: Cigarettes Second Hand Exposure: No; Do You Dip or Chew Tobacco: No (quit 1990s); Hx Alcohol Use: No Hx Substance Use: No Preferred Language: Eritrean Communication Ability: Effective Vehicle Service Agent Required: No Beliefs That Will Affect Care: None Current Living Situation: Family Current Living Situation Comment: Daughter, RAVIN, Feels Safe at Home: Yes Assistive Devices: CPAP, Glasses and Walker Review of Systems Review of Systems: At least ten systems reviewed and negative, except as noted in the HPI. Physical Exam Physical Exam: General: WD/WN, NAD, sitting up in bed, very pleasant, conversing appropriately. A+Ox3. Fatigued-appearing. HEENT: Normocephalic, atraumatic. Conjunctivae normal. External ear and nose normal, oropharynx dry. Respiratory: Normal respiratory effort, lungs clear to auscultation, no wheeze/rales/rhonchi. No accessory muscle use. Cardiovascular: Regular rate, rhythm, normal peripheral pulses, non-pitting mild BLE edema. Vessels: No JVD. Abdomen/GI: Normal bowel sounds, soft, nondistended, nontender to palpation in all quadrants. Extremities/Musculoskeletal: No cyanosis or clubbing, extremities motor strength intact, moves all extremities. Neurologic: No overt focal deficits, CN's II-XI not formally tested but appear grossly intact bilaterally. Skin: Pale coloration, warm/dry. Petechiae noted on BLE. Few purpuric spots noted on central chest wall. Results & Data Results & Data Vital Signs (Past 12 Hours) Vital Signs Temp Pulse Pulse Resp BP BP Pulse Ox 12/20/24 13:34 36.8 C 78 21 100/69 94 12/20/24 13:19 36.6 C 76 20 131/72 97 12/20/24 13:01 36.7 C 75 16 125/69 94 12/20/24 12:07 74 12/20/24 11:31 94 12/20/24 11:17 74 17 126/57 L 94 12/20/24 11:17 36.7 C 73 16 126/57 L 95 O2 Del Method 12/20/24 13:34 12/20/24 13:19 12/20/24 13:01 12/20/24 12:07 12/20/24 11:31 Room Air 12/20/24 11:17 Room Air 12/20/24 11:17 Room Air Laboratory Results Short CBC 12/20/24 Range/Units 11:25 WBC 6.32 (4.8-10.8) K/ul Hgb 6.8 L* (14.0-18.0) g/dl Hct 21.5 L (42.0-52.0) % Plt Count 119 L (130-400) K/uL BMP 12/20/24 11:25 Sodium 143 Potassium 3.8 Chloride 109 H Carbon Dioxide 30 BUN 61 H Creatinine 0.92 Glucose 100 H Calcium 8.3 L Liver Function 12/20/24 Range/Units 11:25 Total Bilirubin 0.3 (0.2-1.0) mg/dl Direct Bilirubin 0.1 (0-0.2) mg/dl AST 19 (13-39) U/L ALT 15 (7-52) U/L Alkaline Phosphatase 65 (34-104) U/L Albumin 2.8 L (3.4-5.0) gm/dl Urine 12/20/24 Range/Units 11:53 Urine Color Yellow Urine Appearance Clear (Clear) Urine pH 7.5 (4.5-7.5) Ur Specific [place] 1.015 (1.000-1.030) Urine Protein Negative (Negative) Urine Glucose (UA) Negative (Negative) Diagnostic Findings Chest X-Ray 12/20/24 11:27 XR chest 1V portable CLINICAL HISTORY: Chest pain, nonspecific COMPARISON STUDY: Chest radiograph June 23, 2024. FINDINGS: There is no pneumothorax or pleural effusion. No consolidation or evid ence for pulmonary edema. Moderate cardiomegaly is unchanged. A large hiatal hernia is again noted. Patient is rotated. Elevation of both humeral heads with degenerative changes within the shoulders are incidentally noted. IMPRESSION: 1. No acute cardiopulmonary findings. No change in appearance of the chest. 2. Large hiatal hernia. ACT 112: Negative or not required by law. Electronically signed by: David Jensen M.D. 12/20/2024 12:20 PM Abdomen/Pelvis CT 12/20/24 11:29 CT OF THE ABDOMEN AND PELVIS WITH CONTRAST CLINICAL HISTORY: GI bleed. COMPARISON STUDY: CTA of the abdomen and pelvis July 01, 2024. Abdominal aortic ultrasound November 12, 2024. TECHNIQUE: Following IV administration of 95 mL of Optiray, axial images of the abdomen and pelvis were obtained from the lung bases to the proximal femurs. Images were reviewed in the axial, sagittal, and coronal planes. IV contrast was administered without complication. Automated exposure control was utilized for the study. A dose lowering technique was utilized adhering to the principles of ALARA. CT DOSE: 307.09 mGy.cm FINDINGS: There are trace bilateral pleural effusions. Large hiatal hernia with intrathoracic stomach is present. A portion of the transverse colon extends into the hernia. There are several hepatic cysts. There are no suspicious hepatic lesions. No biliary or pancreatic ductal dilatation is present. Exam is compromised given a paucity of intra-abdominal fat. Spleen, adrenal glands and kidneys are unremarkable. There is a right lower pole renal cyst. No hydronephrosis. 3.2 cm infrarenal abdominal aortic aneurysm is again noted. There is extensive aortoiliac atherosclerotic plaque. There is no evidence for a bowel obstruction. There is extensive sigmoid diverticulosis without evidence for acute diverticulitis. No intraluminal contrast is identified to suggest active GI bleed by CT. There is no lymphadenopathy. There are no fluid collectio ns. IMPRESSION: 1. No acute process within the abdomen or pelvis. 2. Sigmoid diverticulosis. No evidence for acute diverticulitis. 3. No bowel obstruction. 4. Large hiatal hernia. 5. No change in a 3.2 cm infrarenal abdominal aortic aneurysm. ACT 112: Negative or not required by law. Electronically signed by: David Jensen M.D. 12/20/2024 1:09 PM Medications Administered Pantoprazole Sodium 40 mg/ (Dextrose) 100 mls @ 20 mls/hr IV Q5H LILLIE Stop: 01/19/25 11:44 Last Admin: 12/20/24 12:42 Dose: 8 mg/hr, 20 mls/hr Documented By: SNS Discontinued Medications Sodium Chloride (Nss) 500 mls @ 999 mls/hr IV .Q31M ONE Stop: 12/20/24 11:58 Last Infusion: 12/20/24 12:34 Dose: Infused Documented By: Admin: 12/20/24 11:58 Dose: 999 mls/hr Documented By: MADELEINE Pantoprazole Sodium 80 mg/ (Dextrose) 120 mls @ 480 mls/hr IV NOW ONE Stop: 12/20/24 11:43 Last Infusion: 12/20/24 12:34 Dose: Infused Documented By: Admin: 12/20/24 11:59 Dose: 480 mls/hr Documented By: MADELEINE Ioversol (Optiray 320 100ml) 95 ml IV ONCE ONE Stop: 12/20/24 12:38 Last Admin: 12/20/24 12:37 Dose: 95 ml Documented By: AMANDA Morphine Sulfate (Morphine Sulfate 2 Mg/Ml Carp) 2 mg IV NOW STA Stop: 12/20/24 15:32 Last Admin: 12/20/24 15:37 Dose: 2 mg Documented By: MADELEINE Pantoprazole Sodium (Pantoprazole Bolus/Drip) 1 each IV NOW STA Stop: 12/20/24 11:30 Last Admin: 12/20/24 12:00 Dose: Not Given Documented By: MADELEINE Code Status & VTE Plan Code Status FULL CODE Supervising Physician Co-Signing Physician Notes Patient seen and examined at bedside. Patient states he is he had bright red blood per rectum this morning, blood-filled most of the toilet bowl. Before that he had been having black stools. Has been feeling more fatigued as of late. Patient appears comfortable on examination, still perhaps a bit dehydrated. Differential includes upper and lower GI bleeds. History suggestive of an upper GI bleed and perhaps a separate lower GI bleed. AVMs would be a further consideration. Treatment includes Protonix, blood transfusion with goal of hemoglobin of 7, GI consulted for consideration of EGD and subsequent colonoscopy. Fluid resuscitation will be for performed in light of need for blood products. Rest of plan per excellent OSMANY documentation. I have seen and discussed the case with the collaborating advanced practitioner. I agree with the above H&P. I have reviewed and confirmed the patients medical history, the findings on physical examination, and the patients diagnosis and treatment plan with Deidre SANTOS and agree with the information documented. I spent a total of 20 minutes coordinating, documenting, and providing care for this patient excluding time spent in the performance of separately billed ser vices. All of the aforementioned completed outside of collaborating with the assigned advanced practitioner for a full treatment plan. I have reviewed the advanced practitioner's documentation, and I agree with, and take responsibility for the plan of care (2) Coreas's esophagus Coreas's esophagus type: without dysplasia Qualified Code(s): K22.70 - Coreas's esophagus without dysplasia (5) Hypertension Hypertension type: unspecified Qualified Code(s): I10 - Essential (primary) hypertension (8) Peripheral neuropathy Peripheral neuropathy type: polyneuropathy, unspecified Qualified Code(s): G62.9 - Polyneuropathy, unspecified
[2024-12-20 14:13] LABS: Reticulocyte % 1.98 % (0.50-2.00); Reticulocytes # 0.05 10^6/uL (0.020-0.100)
[2024-12-20 14:22] LABS: Troponin I High Sensitivity 30.8 pg/ml (0-20)
[2024-12-20 14:34] LABS: Ferritin 46.4 ng/ml (8-388)
[2024-12-20] MEDS: MoRPHine SULFATE 2 MG/ML CARP IV STA (15:37)
[2024-12-20 17:01] LABS: Hematocrit (blood only) 20.6 % (42.0-52.0)
[2024-12-20] MEDS ORDERED: ACETAMINOPHEN 325 MG TAB PO PRN (19:22)
[2024-12-20] MEDS ORDERED: POLYETHYLENE (MIRALAX) 17 GM PACK PO PRN (19:22)
[2024-12-20] MEDS ORDERED: MoRPHine SULFATE 2 MG/ML CARP IV PRN (19:22)
[2024-12-20] MEDS ORDERED: MAGNESIUM HYDROXIDE SUSP 30 ML UDC PO PRN (19:22)
[2024-12-20] MEDS: SODIUM CHLORIDE 0.9% 1,000 ML IV SCH (19:37)
[2024-12-20 20:16] LABS: Hematocrit (blood only) 22.5 % (42.0-52.0); Hemoglobin 7.3 g/dl (14.0-18.0)
[2024-12-20] MEDS: AMMONIUM LACTATE 12% LOTION 225 GM BTL EXT SCH (21:32)
[2024-12-20 22:58] LABS: Adenovirus F 40/41 PCR Not Detected (NotDetected); Astrovirus PCR Not Detected (NotDetected); Campylobacter PCR Not Detected (NotDetected); Cryptosporidium PCR Not Detected (NotDetected); Cyclospora cayetanensis PCR Not Detected (NotDetected); Entamoeba histolytica PCR Not Detected (NotDetected); Enteroaggregative E.coli(EAEC) Not Detected (NotDetected); Enteropathogenic E.coli (EPEC) Not Detected (NotDetected); Enterotoxigenic E.coli (ETEC) Not Detected (NotDetected); Giardia lamblia PCR Not Detected (NotDetected); Norovirus GI/GII PCR Not Detected (NotDetected); Plesiomonas shigelloides PCR Not Detected (NotDetected); Rotavirus A PCR Not Detected (NotDetected); Salmonella PCR Not Detected (NotDetected); Sapovirus PCR Not Detected (NotDetected); Shiga-like Toxin E.coli (STEC) Not Detected (NotDetected); Shigella/Enteroinvasive E.coli Not Detected (NotDetected); Vibrio cholerae PCR Not Detected (NotDetected); Vibrio species PCR Not Detected (NotDetected); Yersinia enterocolitica PCR Not Detected (NotDetected)
[2024-12-20 23:31] LABS: Hematocrit (blood only) 19.2 % (42.0-52.0); Hemoglobin 6.3 g/dl (14.0-18.0)
--- NOTE | 2024-12-21 00:21 | Critical Care Consultation ---
Date of Consultation December 21, 2024 Assessment & Plan (1) GIB (gastrointestinal bleeding): (2) Acute blood loss anemia: (3) Hypertension: (4) SONYA on CPAP: (5) Elevated troponin: Plan Reason Critically Ill: 79 YOM presents to the hospital for concerns of UGIB, continued to have melanic stools on the floor and noted drop in HGB and blood pressure earlier, transferred to ICU for resuscitation and monitoring of hemodynamics and symptomatology. Neuro - No acute needs, HX Chronic pain with OA/RA CAM ICU: NEGATIVE - Patient denies any increase in NSAID use- states he has only been taking Tramadol - for his pain here, continue with Tylenol +/- adjuvants or narcotics if needed Cardiac - Blood loss anemia, elevated HsCTNI, HX: HTN, HLD, AAA - Hypotension reported following melanic BM on the floor- arrival BP in ICU 130/66- 106/61 - Patient with likely suspected UGIB with elevated BUN and Melanic stools- he currently denies abd pain and has not had any emesis - No noted history of hepatic failure or varices: + hx of Coreas's esophagitis - Obtain 18 G iV for access - Transfuse 2 units PRBC - Check iCA, Fibrinogen/INR, and Platelet count - Following transfusion of PRBC will check HGB to ensure not continuing to drop - IF becomes unstable or further evidence of shock/brisk bleed, will place NGT as well as obtain CTA of the abd/pelvis - Continue Protonix infusion - GI consultation walter Velez 13 - Elevated HsCTNI likely secondary to demand type II from anemia Respiratory - No acute needs at this time- HX of SONYA - Continue CPAP autoPAP GI - GI bleed unspecified, Hx GERD, Coreas's Esophagus - GI bleed unspecified suspected at this time as upper- see above for plan- GI coming in to scope patient now. - Last EGD , last colo- 2018 RENAL/LYTES - Elevated BUN - BUN elevated likely secondary to likely UGIB - No acute needs ENDO - NO acute needs HEME - acute blood loss anemia, HX STEVEN on iron - support as above - transfuse in setting of acute blood loss goal HGB > 8 - Platelets transfuse 1 unit with acute drop and likely acute bleed- transfuse 1 unit Platelet - Consider FFP to a 2:1 ratio if more PRBCs are needed - Fibrinogen 149- give 1 pool of cryo (7 units) ID - No concern for infectious etiology at this time LINES/IV ACCESS - PIV x4, suero Continue use of these lines DVT PROPHYLAXIS - SCDS, hold chemoprophylaxis in the setting of acute blood loss DISPO: ICU until hemodynamics and acute blood loss proven stable I have personally spent 40 minutes of critical care time in the direct management of this patient. This is a life/limb threatening event. This includes time spent evaluating patient, direct bedside care, chart review, placing orders, interpretation of diagnostic studies, discussion with consultants, patient, and family members, as well as other required patient management activities. This time is exclusive of all separately billable procedures, and teaching time and separate from and in addition to any other critical care service time. Thank you for allowing us to participate in the care of this patient. Please refer to my attending physician's documentation for any further recommendations. Supervising Physician Co-Signing Physician Notes I have personally evaluated and examined this patient. I agree with assessment and plan of Simeon KEBEDE. Please see clinical update note for additional details. This note represents my management after signout at 0 700. Patient has ongoing active gastrointestinal hemorrhage. Additional blood product given and trending labs, remains hemodynamically stable. Update 1115. Patient underwent colonoscopy. Discussed with GI they feel the ulcers are not indicative of patient's significant ongoing blood loss. Blood loss felt to be decreasing. Recommending transfer for IR for ongoing oozing and unable to localize source of bleeding as well as blood bank limitations at this institution. Updated 1145 [address] [facility] Dr. Muñoz with triage of patient, curent labs, vitals, and service line needs; [facility] to return our call when logistics developed. Update 1645: awaiting bed at the present time. Continuing close observation I have personally spent 40 minutes of critical care time in the direct management of this patient. This is a life/limb threatening event. This includes time spent evaluating patient, direct bedside care, chart review, placing orders, interpretation of diagnostic studies, discussion with consultants, patient, and/or family members regarding treatment decisions, as well as other required patient management activities. This time is exclusive of all separately billable procedures, and teaching time and separate from and in addition to any other critical care service time. 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 Initially admitted on 12/20/24 at 1330 for anemia in setting of suspected UGIB. Review of H&P notes reported melena/dark loose stools x2 days prior to admission. He was noted to anemic to 6.8 on arrival to the ER- he received 2units PRBC with increase in his HGB to 7.3 by 20:03 this evening. However was called by admitting hospitalist team for patient having 2 more melanic BMS with clots and subsequent drop in HGB to 6.3 and drop in blood pressure from previous 100-110s to 99/61. He is on a Protonix infusion at this time. GI was notified by primary service with request to transfer to ICU and follow hemodynamics and symptoms. Patient will receive 2 units PRBC now, will evaluate CA, as well as coags and Fibrinogen. He had a CT with IV contrast on admission which noted large hiatal hernia and AAA noted above at 3.2cm. No other acute process noted. CODE: FULL Allergies Allergy/AdvReac Type Severity Reaction Status Date / Time No Known Allergies Allergy Verified 06/23/24 15:43 Home Medications Medication Instructions Recorded Confirmed Type atenolol 25 mg tablet 25 mg PO QAM 05/29/19 12/20/24 History cholecalciferol (vitamin D3) 25 1,000 unit PO QPM 05/29/19 12/20/24 History mcg (1,000 unit) tablet (Vitamin D3) lisinopril 20 1 tab PO QAM 05/29/19 12/20/24 History mg-hydrochlorothiazide 25 mg tablet omeprazole 20 mg tablet,delayed 20 mg PO BID 05/29/19 12/20/24 History release potassium chloride 10 mEq 10 meq PO BID 05/29/19 12/20/24 History tablet,extended release tramadol 50 mg tablet 50 mg PO Q6H PRN Pain 05/29/19 12/20/24 History amlodipine 10 mg tablet 10 mg PO QAM 11/30/19 12/20/24 History atorvastatin 20 mg tablet 20 mg PO QAM 03/04/24 12/20/24 History cyanocobalamin (vitamin B-12) 1,000 mcg IM UD 03/04/24 12/20/24 History 1,000 mcg/mL injection solution meloxicam 15 mg tablet 15 mg PO DAILY Pain 03/04/24 12/20/24 History pregabalin 75 mg capsule 75 mg PO TID 03/04/24 12/20/24 History Patient History Medical History Osteoarthritis Spinal stenosis Barretts esophagus GERD (gastroesophageal reflux disease) Charcot-Josselin disease Anemia Surgical History History of left knee surgery tendon repair at age 12 History of right inguinal hernia repair History of left inguinal hernia repair with left orchiectomy History of colonoscopy History of esophagogastroduodenoscopy (EGD) History of tooth extraction all teeth Family History Other No family history of adverse response to anesthesia Social History Smoking Status: Former smoker Tobacco Type: Cigarettes Second Hand Exposure: No; Do You Dip or Chew Tobacco: No; Tobacco Cessation Education Requested by Patient: No Hx Alcohol Use: No Hx Substance Use: No Preferred Language: Urdu Communication Ability: Effective [employer] Required: No Beliefs That Will Affect Care: None Current Living Situation: Spouse Current Living Situation Comment: Daughter, RAVIN, Other Information That Helps Us Care for You: No Feels Safe at Home: Yes Safety Concerns: Feels Safe At This Time Assistive Devices: CPAP, Glasses and Walker Review of Systems Review of Systems: REVIEW OF SYSTEMS: Constitutional: No fever, sweats or chills Eyes: No diplopia, no worsening or blurred vision ENT: normal hearing, no trouble swallowing Respiratory: No cough, sputum, dyspnea at rest or on exertion Cardiovascular: No chest pain, tightness or palpitations Abdomen:(+) dark melanic stools, No pain, nausea, vomiting, Musculoskeletal: (+) chronic back and hip pain, NO calf pain, swelling Neurologic: (+) walks with walker No weakness, numbness/tingling, or balance problems Psychiatric: No anxiety or depression Skin: No rash or itch Physical Exam Physical Exam: PHYSICAL EXAM: General: awake, alert, no apparent distress Head: Normocephalic, atraumatic ENT: PERRLA, EOMI, no pharyngeal exudate, mucous membranes dry Neuro: AAO x 3, speech clear and appropriate, strength intact bilaterally 5/5, sensation intact and equal all extremities and dermatomes, no pronator drift Chest: equal rise and fall of the chest, no accessory muscle use, no heaves or thrills, Clear to auscultation, on room air, Cardiac: Regular rate and rhythm, telemetry reviewed- NSR no ectopy, skin warm dry, cap refill <3 seconds, peripheral pulses +2 no JVD, no murmur, + 2 edema to lower extremities GI: NABS x 4 quadrants, soft, nontender to palpation, no rebound, guarding or tenderness : Suero to gravity Extremities: Normal inspection, no peripheral edema or erythema, calfs nontender to palpation Psych: Normal mood and affect Skin: no rash or erythema Results & Data Results & Data Vital Signs (Past 12 Hours) Vital Signs Temp Pulse Pulse Resp BP BP Pulse Ox 12/20/24 23:05 79 12/20/24 22:53 36.4 C L 90 18 99/61 L 95 12/20/24 18:36 36.8 C 108 H 19 111/65 94 12/20/24 18:06 36.8 C 80 17 110/60 97 12/20/24 17:51 36.9 C 88 18 114/62 98 12/20/24 17:33 36.9 C 80 16 104/54 L 96 12/20/24 16:19 83 12/20/24 16:00 36.8 C 81 18 109/60 97 12/20/24 15:04 36.8 C 85 15 129/62 96 12/20/24 15:00 79 20 129/62 97 12/20/24 14:04 36.9 C 76 20 125/89 98 12/20/24 13:34 80 16 120/66 96 12/20/24 13:34 36.8 C 78 21 100/69 94 12/20/24 13:19 36.6 C 76 20 131/72 97 12/20/24 13:01 36.7 C 75 16 125/69 94 O2 Del Method 12/20/24 23:05 12/20/24 22:53 Nasal Cannula 12/20/24 18:36 12/20/24 18:06 12/20/24 17:51 12/20/24 17:33 12/20/24 16:19 12/20/24 16:00 12/20/24 15:04 12/20/24 15:00 Room Air 12/20/24 14:04 12/20/24 13:34 12/20/24 13:34 12/20/24 13:19 12/20/24 13:01 Laboratory Results Abnormal lab results 12/20/24 12/20/24 12/20/24 Range/Units 11:25 11:28 12:01 RBC 2.65 L (4.70-6.10) M/uL Hgb 6.8 L* (14.0-18.0) g/dl POC Hgb 6.5 L* (14.0-18.0) g/dl Hct 21.5 L (42.0-52.0) % POC Hct 19 L* (42-52) % MCHC 31.6 L (32.0-36.0) g/dL RDW Coeff of Daniel 14.8 H (11.5-14.5) % Plt Count 119 L (130-400) K/uL Chloride 109 H (98-107) mmol/L POC BUN 52 H (7-18) mg/dl BUN 61 H (6-23) mg/dl BUN/Creatinine Ratio 66.3 H (10-20) Glucose 100 H (70-99(Fasting)) mg/dl POC Glucose (other) 101 H (70-99) mg/dl Calcium 8.3 L (8.6-10.3) mg/dl Unsaturated IBC (155-355) mcg/dl Transferrin (200-360) mg/dl Troponin I High Sens 31.2 H (0-20) pg/ml Total Protein 4.9 L (6.0-8.3) gm/dl Albumin 2.8 L (3.4-5.0) gm/dl Globulin 2.1 L (2.5-4.0) gm/dl Crossmatch See Detail 12/20/24 12/20/24 12/20/24 Range/Units 13:29 15:07 16:03 RBC (4.70-6.10) M/uL Hgb 7.0 L (14.0-18.0) g/dl POC Hgb (14.0-18.0) g/dl Hct 20.6 L* (42.0-52.0) % POC Hct (42-52) % MCHC (32.0-36.0) g/dL RDW Coeff of Daniel (11.5-14.5) % Plt Count (130-400) K/uL Chloride (98-107) mmol/L POC BUN (7-18) mg/dl BUN (6-23) mg/dl BUN/Creatinine Ratio (10-20) Glucose (70-99(Fasting)) mg/dl POC Glucose (other) (70-99) mg/dl Calcium (8.6-10.3) mg/dl Unsaturated IBC 150 L (155-355) mcg/dl Transferrin 162 L (200-360) mg/dl Troponin I High Sens 30.8 H 26.3 H (0-20) pg/ml Total Protein (6.0-8.3) gm/dl Albumin (3.4-5.0) gm/dl Globulin (2.5-4.0) gm/dl Crossmatch 12/20/24 12/20/24 Range/Units 20:03 23:00 RBC (4.70-6.10) M/uL Hgb 7.3 L 6.3 L* (14.0-18.0) g/dl POC Hgb (14.0-18.0) g/dl Hct 22.5 L 19.2 L* (42.0-52.0) % POC Hct (42-52) % MCHC (32.0-36.0) g/dL RDW Coeff of Daniel (11.5-14.5) % Plt Count (130-400) K/uL Chloride (98-107) mmol/L POC BUN (7-18) mg/dl BUN (6-23) mg/dl BUN/Creatinine Ratio (10-20) Glucose (70-99(Fasting)) mg/dl POC Glucose (other) (70-99) mg/dl Calcium (8.6-10.3) mg/dl Unsaturated IBC (155-355) mcg/dl Transferrin (200-360) mg/dl Troponin I High Sens 30.3 H (0-20) pg/ml Total Protein (6.0-8.3) gm/dl Albumin (3.4-5.0) gm/dl Globulin (2.5-4.0) gm/dl Crossmatch Diagnostic Findings Chest X-Ray 12/20/24 11:27 XR chest 1V portable CLINICAL HISTORY: Chest pain, nonspecific COMPARISON STUDY: Chest radiograph June 23, 2024. FINDINGS: There is no pneumothorax or pleural effusion. No consolidation or evidence for pulmonary edema. Moderate cardiomegaly is unchanged. A large hiatal hernia is again noted. Patient is rotated. Elevation of both humeral heads with degenerative changes within the shoulders are incidentally noted. IMPRESSION: 1. No acute cardiopulmonary findings. No change in appearance of the chest. 2. Large hiatal hernia. ACT 112: Negative or not required by law. Electronically signed by: David Jensen M.D. 12/20/2024 12:20 PM Abdomen/Pelvis CT 12/20/24 11:29 CT OF THE ABDOMEN AND PELVIS WITH CONTRAST CLINICAL HISTORY: GI bleed. COMPARISON STUDY: CTA of the abdomen and pelvis July 01, 2024. Abdominal aortic ultrasound November 12, 2024. TECHNIQUE: Following IV administration of 95 mL of Optiray, axial images of the abdomen and pelvis were obtained from the lung bases to the proximal femurs. Images were reviewed in the axial, sagittal, and coronal planes. IV contrast was administered without complication. Automated exposure control was utilized for the study. A dose lowering technique was utilized adhering to the principles of ALARA. CT DOSE: 307.09 mGy.cm FINDINGS: There are trace bilateral pleural effusions. Large hiatal hernia with intrathoracic stomach is present. A portion of the transverse colon extends into the hernia. There are several hepatic cysts. There are no suspicious hepatic lesions. No biliary or pancreatic ductal dilatation is present. Exam is compromised given a paucity of intra-abdominal fat. Spleen, adrenal glands and kidneys are unremarkable. There is a right lower pole renal cyst. No hydronephrosis. 3.2 cm infrarenal abdominal aortic aneurysm is again noted. There is extensive aortoiliac atherosclerotic plaque. There is no evidence for a bowel obstruction. There is extensive sigmoid diverticulosis without evidence for acute diverticulitis. No intraluminal contrast is identified to suggest active GI bleed by CT. There is no lymphadenopathy. There are no fluid collections. IMPRESSION: 1. No acute process within the abdomen or pelvis. 2. Sigmoid diverticulosis. No evidence for acute diverticulitis. 3. No bowel obstruction. 4. Large hiatal hernia. 5. No change in a 3.2 cm infrarenal abdominal aortic aneurysm. ACT 112: Negative or not required by law. Electronically signed by: David Jensen M.D. 12/20/2024 1:09 PM Medications Administered Pantoprazole Sodium 40 mg/ (Dextrose) 100 mls @ 20 mls/hr IV Q5H LILLIE Stop: 01/19/25 11:44 Last Admin: 12/20/24 22:48 Dose: 8 mg/hr, 20 mls/hr Documented By: Infusion: 12/20/24 22:37 Dose: Infused Documented By: Admin: 12/20/24 17:37 Dose: 8 mg/hr, 20 mls/hr Documented By: Infusion: 12/20/24 17:37 Dose: Infused Documented By: Admin: 12/20/24 12:42 Dose: 8 mg/hr, 20 mls/hr Documented By: VLADIMIR Sodium Chloride (Nss) 1,000 mls @ 80 mls/hr IV .[id number] LILLIE Stop: 12/21/24 07:44 Last Admin: 12/20/24 19:37 Dose: 80 mls/hr Documented By: NAJMA Lactic Acid (Ammonium Lactate 12% Lotion 225 Gm Btl) 1 gm EXT TID LILLIE Stop: 01/19/25 20:59 Last Admin: 12/20/24 21:32 Dose: 1 gm Documented By: NAJMA Discontinued Medications Sodium Chloride (Nss) 500 mls @ 999 mls/hr IV .Q31M ONE Stop: 12/20/24 11:58 Last Infusion: 12/20/24 12:34 Dose: Infused Documented By: Admin: 12/20/24 11:58 Dose: 999 mls/hr Documented By: MADELEINE Pantoprazole Sodium 80 mg/ (Dextrose) 120 mls @ 480 mls/hr IV NOW ONE Stop: 12/20/24 11:43 Last Infusion: 12/20/24 12:34 Dose: Infused Documented By: Admin: 12/20/24 11:59 Dose: 480 mls/hr Documented By: MADELEINE Ioversol (Optiray 320 100ml) 95 ml IV ONCE ONE Stop: 12/20/24 12:38 Last Admin: 12/20/24 12:37 Dose: 95 ml Documented By: AMANDA Morphine Sulfate (Morphine Sulfate 2 Mg/Ml Carp) 2 mg IV NOW STA Stop: 12/20/24 15:32 Last Admin: 12/20/24 15:37 Dose: 2 mg Documented By: MADELEINE Pantoprazole Sodium (Pantoprazole Bolus/Drip) 1 each IV NOW STA Stop: 12/20/24 11:30 Last Admin: 12/20/24 12:00 Dose: Not Given Documented By: MADELEINE Coding Level of Care Code 85501 CRITICAL CARE 1ST 30-74M Additional Critical Care Time Additional 30min Critical Care Time: Yes - 31652 Diagnoses GIB (gastrointestinal bleeding) K92.2 Acute blood loss anemia D62 Hypertension, unspecified type I10 Hypertension type: unspecified SONYA on CPAP G47.33 Elevated troponin R79.89 Additional Codes Critical Care Time - Additional 30min Critical Care Time: Yes - ([id number]) (3) Hypertension Hypertension type: unspecified Qualified Code(s): I10 - Essential (primary) hypertension
[2024-12-21 00:44] LABS: Platelet Count 84 K/uL (130-400)
--- NOTE | 2024-12-21 00:54 | Anesthesiology Consultation ---
Date of Service December 21, 2024 Assessment & Plan Chart Review Chart Review: Acceptable Risk for Surgery and Patient NOT seen in Pre Admission Testing Consults Requested none History Surgery Operation Date: 12/21/24 01:00 Proposed Procedures p Esophagogastroduodenoscopy - Otis Holt MD Height/Weight Height: 5 ft 5 in Weight: 56.3 kg Allergies Allergy/AdvReac Type Severity Reaction Status Date / Time No Known Allergies Allergy Verified 06/23/24 15:43 Medications Home Medications Medication Instructions Recorded Confirmed Last Taken atenolol 25 mg tablet 25 mg PO QAM 05/29/19 12/20/24 03/03/24 cholecalciferol (vitamin D3) 25 1,000 unit PO QPM 05/29/19 12/20/24 03/03/24 mcg (1,000 unit) tablet (Vitamin D3) lisinopril 20 1 tab PO QAM 05/29/19 12/20/24 03/03/24 mg-hydrochlorothiazide 25 mg tablet omeprazole 20 mg tablet,delayed 20 mg PO BID 05/29/19 12/20/24 03/03/24 release potassium chloride 10 mEq 10 meq PO BID 05/29/19 12/20/24 03/03/24 tablet,extended release tramadol 50 mg tablet 50 mg PO Q6H PRN Pain 05/29/19 12/20/24 12/09/19 05:30 amlodipine 10 mg tablet 10 mg PO QAM 11/30/19 12/20/24 03/03/24 atorvastatin 20 mg tablet 20 mg PO QAM 03/04/24 12/20/24 03/03/24 cyanocobalamin (vitamin B-12) 1,000 mcg IM UD 03/04/24 12/20/24 Unknown 1,000 mcg/mL injection solution meloxicam 15 mg tablet 15 mg PO DAILY Pain 03/04/24 12/20/24 Unknown pregabalin 75 mg capsule 75 mg PO TID 03/04/24 12/20/24 03/03/24 Active Medications Generic Name Dose Route Start Last Admin Trade Name Freq PRN Reason Stop Dose Admin Pantoprazole Sodium 40 mg/ 100 mls @ 20 mls/hr 12/20/24 11:45 12/20/24 22:48 Dextrose IV 01/19/25 11:44 8 mg/hr Q5H LILLIE 20 mls/hr Administration 8 MG/HR Sodium Chloride 1,000 mls @ 80 mls/hr 12/20/24 19:15 12/20/24 19:37 Nss IV 12/21/24 07:44 80 mls/hr .[id number] LILLIE Administration Lactic Acid 1 gm 12/20/24 21:00 12/20/24 21:32 Ammonium Lactate 12% Lotion 225 Gm Btl EXT 01/19/25 20:59 1 gm TID LILLIE Administration Past Medical History Medical History Osteoarthritis Spinal stenosis Barretts esophagus GERD (gastroesophageal reflux disease) Charcot-Josselin disease Anemia Past Family History Family History Other No family history of adverse response to anesthesia Past Surgical History Surgical History History of left knee surgery tendon repair at age 12 History of right inguinal hernia repair History of left inguinal hernia repair with left orchiectomy History of colonoscopy History of esophagogastroduodenoscopy (EGD) History of tooth extraction all teeth Social History Smoking Status: Former smoker Do You Dip or Chew Tobacco: No Hx Alcohol Use: No Hx Substance Use: No substance use type: does not use Physical Exam Vital Signs Last Vital Signs Temp 36.8 C 12/21/24 00:50 Pulse 92 H 12/21/24 00:50 Resp 24 12/21/24 00:50 BP 130/66 12/21/24 00:50 Pulse Ox 95 12/21/24 00:50 O2 Del Method Nasal Cannula 12/20/24 22:53 Testing Laboratory Results 12/20/24 23:00 12/20/24 11:25 PT 11.8 Seconds (9.0-12.0) 12/20/24 11:25 INR 1.1 (0.9-1.1) 12/20/24 11:25 Urine Color Yellow 12/20/24 11:53 Urine Appearance Clear (Clear) 12/20/24 11:53 Urine pH 7.5 (4.5-7.5) 12/20/24 11:53 Ur Specific [place] 1.015 (1.000-1.030) 12/20/24 11:53 Urine Protein Negative (Negative) 12/20/24 11:53 Urine Glucose (UA) Negative (Negative) 12/20/24 11:53 Urine Ketones Negative (Negative) 12/20/24 11:53 Urine Nitrite Negative (Negative) 12/20/24 11:53 Ur Leukocyte Esterase Negative (Negative) 12/20/24 11:53 Blood Type O Negative 12/20/24 11:28 Antibody Screen NEGATIVE 12/20/24 11:28
[2024-12-21] MEDS ORDERED: PROPOFOL IV EMULSION 10 MG/ML 20 ML VIAL IV ONE ×2 (00:56→10:10)
[2024-12-21] MEDS ORDERED: fentaNYL citrate PF 100 MCG/2 ML VIAL ONE (00:56)
[2024-12-21] MEDS ORDERED: SODIUM CHLORIDE 0.9% 100 ML IV PRN ×3 (00:57→18:28)
[2024-12-21] MEDS ORDERED: SODIUM CHLORIDE 0.9% 50 ML IV PRN ×3 (00:57→18:28)
[2024-12-21] MEDS ORDERED: SUCCINYLCHOLINE CHLORIDE 20 MG/ML 10 ML VIAL IV ONE (00:58)
[2024-12-21] MEDS ORDERED: PHENYLEPHRINE HCL 10 MG/ML VIAL ONE (01:00)
[2024-12-21 01:03] LABS: Fibrinogen 149 mg/dl (184-400); INR 1.2 (0.9-1.1)
[2024-12-21] MEDS ORDERED: ARTIFICIAL TEARS OP OINT 3.5 GM TUBE ONE (01:03)
[2024-12-21] MEDS: CALCIUM GLUCONATE 1,000 MG/60 ML BAG IV SCH (01:09)
--- NOTE | 2024-12-21 01:18 | Gastrointestinal Consultation ---
Date of Consultation December 21, 2024 Assessment & Plan (1) Acute blood loss anemia: Active gastrointestinal bleeding. Continues to be unstable despite blood products. Has red blood and clots per rectum. All consistent with active bleeding. he has an elevated BUN to creatinine consistent with upper GI bleeding source. Platelets are falling consistent with consumption No known varices. Usual situation for peptic disease and patient on twice daily PPI therapy no blood thinners or regular NSAIDs. Differential would be a Dula Adeline's type lesion neoplasia less likely an AVM. Plan urgent endoscopy. (2) GERD (gastroesophageal reflux disease): (3) Barretts esophagus: (4) Moderate aortic insufficiency: (5) Acute GI bleeding: Plan Urgent endoscopy. He risks benefits explained informed consent obtained. Did discuss with patient's Zeina by phone the need for endoscopy tonight History of Present Illness Reason for Consultation: Gastrointestinal bleeding with hypotension Attending Physician: Saúl Schmidt MD History of Present Illness 79-year-old gentleman admitted earlier today with melanotic stools hemoglobin in the 6. Had a CTA done which did not show active bleeding. He was transfused admitted to the floor.On the floor he began to develop further melanotic and red stools per rectum with drop in his blood pressure and a fall and his H&H. With hemodynamic instability he was transferred to intensive care unit. GI is notified. Will plan urgent endoscopy Patient is not on blood thinners. And takes PPI omeprazole twice a day unusual situation evaluate for bleeding AVMs Dula Adeline's type lesions neoplasia Allergies Allergy/AdvReac Type Severity Reaction Status Date / Time No Known Allergies Allergy Verified 06/23/24 15:43 Home Medications Medication Instructions Recorded Confirmed Type atenolol 25 mg tablet 25 mg PO QAM 05/29/19 12/20/24 History cholecalciferol (vitamin D3) 25 1,000 unit PO QPM 05/29/19 12/20/24 History mcg (1,000 unit) tablet (Vitamin D3) lisinopril 20 1 tab PO QAM 05/29/19 12/20/24 History mg-hydrochlorothiazide 25 mg tablet omeprazole 20 mg tablet,delayed 20 mg PO BID 05/29/19 12/20/24 History release potassium chloride 10 mEq 10 meq PO BID 05/29/19 12/20/24 History tablet,extended release tramadol 50 mg tablet 50 mg PO Q6H PRN Pain 05/29/19 12/20/24 History amlodipine 10 mg tablet 10 mg PO QAM 11/30/19 12/20/24 History atorvastatin 20 mg tablet 20 mg PO QAM 03/04/24 12/20/24 History cyanocobalamin (vitamin B-12) 1,000 mcg IM UD 03/04/24 12/20/24 History 1,000 mcg/mL injection solution meloxicam 15 mg tablet 15 mg PO DAILY Pain 03/04/24 12/20/24 History pregabalin 75 mg capsule 75 mg PO TID 03/04/24 12/20/24 History Patient History Medical History Osteoarthritis Spinal stenosis Barretts esophagus GERD (gastroesophageal reflux disease) Charcot-Josselin disease Anemia Surgical History History of left knee surgery tendon repair at age 12 History of right inguinal hernia repair History of left inguinal hernia repair with left orchiectomy History of colonoscopy History of esophagogastroduodenoscopy (EGD) History of tooth extraction all teeth Family History Other No family history of adverse response to anesthesia Social History Smoking Status: Former smoker Tobacco Type: Cigarettes Second Hand Exposure: No; Do You Dip or Chew Tobacco: No; Tobacco Cessation Education Requested by Patient: No Hx Alcohol Use: No Hx Substance Use: No Preferred Language: French Communication Ability: Effective Export Freight 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 Notes leg pain. Currently denies chest pain increase shortness of breath. Review of systems otherwise as per admitting H&P Physical Exam Physical Exam: He patient examined intensive care unit. He appears quite pale and complains of feeling weak. ICU BP 101/60 Heart rate 99, O2 sats good. The eyes feel no jaundice Chest and heart exam as per admitting H&P no change Abdomen no surgical scars benign Exam otherwise negative Results & Data Vital Signs (Past 12 Hours) Vital Signs Temp Pulse Pulse Resp BP BP Pulse Ox 12/21/24 01:05 36.8 C 89 25 H 106/61 95 12/21/24 00:50 36.8 C 92 H 24 130/66 95 12/20/24 23:05 79 12/20/24 22:53 36.4 C L 90 18 99/61 L 95 12/20/24 18:36 36.8 C 108 H 19 111/65 94 12/20/24 18:06 36.8 C 80 17 110/60 97 12/20/24 17:51 36.9 C 88 18 114/62 98 12/20/24 17:33 36.9 C 80 16 104/54 L 96 12/20/24 16:19 83 12/20/24 16:00 36.8 C 81 18 109/60 97 12/20/24 15:04 36.8 C 85 15 129/62 96 12/20/24 15:00 79 20 129/62 97 12/20/24 14:04 36.9 C 76 20 125/89 98 12/20/24 13:34 80 16 120/66 96 12/20/24 13:34 36.8 C 78 21 100/69 94 12/20/24 13:19 36.6 C 76 20 131/72 97 O2 Del Method 12/21/24 01:05 12/21/24 00:50 12/20/24 23:05 12/20/24 22:53 Nasal Cannula 12/20/24 18:36 12/20/24 18:06 12/20/24 17:51 12/20/24 17:33 12/20/24 16:19 12/20/24 16:00 12/20/24 15:04 12/20/24 15:00 Room Air 12/20/24 14:04 12/20/24 13:34 12/20/24 13:34 12/20/24 13:19 PG Care Time/CCT Total # of Minutes Spent Total Time Spent with Patient: Total time spent is greater than 50% in coordination of care (as documented) at patient's floor/unit and/or counseling patient: Coding Level of Care Code 85925 INT INP/OBS CARE 2MIN Diagnoses Acute blood loss anemia D62 GERD (gastroesophageal reflux disease) K21.9 Barretts esophagus K22.70 Moderate aortic insufficiency I35.1 Acute GI bleeding K92.2
[2024-12-21] MEDS ORDERED: ROCURONIUM BROMIDE 10 MG/ML 5 ML VIAL IV ONE ×3 (01:28→10:14)
[2024-12-21] MEDS ORDERED: ETOMIDATE 2 MG/ML 20 ML VIAL IV ONE (01:35)
[2024-12-21] MEDS ORDERED: SUGAMMADEX SODIUM 200 MG/2 ML VIAL IV ONE ×2 (02:17→10:56)
--- NOTE | 2024-12-21 02:39 | Communication Note ---
Date of Service: December 21, 2024 EGD Large hiatal hernia. Long segment Coreas's. Small superficial ulcer at the GE junction. No stigmata of bleeding. Remainder the upper GI tract was normal. There was no blood or altered heme within the entirety upper GI tract including the duodenum out to the ligament of Treitz. An attempt was made to do a unprepped colonoscopy to see if we could get to the right colon intubate the TI to decide if this was right colon or small bowel origin unsuccessful due to black-maroon blood and stool. No visualization. Impression no definite source for bleeding in the upper GI tract. Prep for colonoscopy. If persistent or active hemorrhage consider repeat CTA
--- NOTE | 2024-12-21 02:46 | GI REPORT ---
[facility] Patient: LINDA PAREKH : 1945 Sex at : Male Age: 79 Years Procedure: Upper GI endoscopy Date: 12/21/2024 Attending Physician: Otis Holt MD Referring MD: Referred Self; Saúl Schmidt MD Indications: - Active GI bleeding, melena hematochezia Medications: - General Anesthesia Complications: - No immediate complications. Estimated Blood Loss: - No blood loss related to procedure Procedure: - The egd scope was introduced through the mouth and advanced to the third part of the duodenum. - The upper GI endoscopy was accomplished without difficulty. - The patient tolerated the procedure well. Findings: - There were esophageal mucosal changes present in the middle third of the esophagus and in the lower third of the esophagus suspicious for long-segment Coreas's esophagus. No biopsies this patient with bleeding - One superficial esophageal ulcer with no stigmata of recent bleeding was found at the gastroesophageal junction. The lesion was 3 mm in largest dimension. - A large hiatal hernia was present. - The entire examined stomach was normal. - The third portion of the duodenum was normal. - As there is no bleeding in the upper GI tract. We did attempt a lower endoscopy on prep. This did not reach much beyond the rectosigmoid junction due to very poor preparation stool dark blood adherent to the wall hampering lavage. Procedure abandoned Impression: - As there is no bleeding in the upper GI tract. We did attempt a lower endoscopy on prep. This did not reach much beyond the rectosigmoid junction due to very poor preparation stool dark blood adherent to the wall hampering lavage. Procedure abandoned - Esophageal mucosal changes suspicious for long-segment Coreas's esophagus. - No biopsies this patient with bleeding - Esophageal ulcer with no stigmata of recent bleeding. - Large hiatal hernia. - Normal stomach. - Normal third portion of the duodenum. - No specimens collected. - No clear source of bleeding. Potentially right colon or small bowel. Recommendation: - Prepping for potential colonoscopy. If evidence of continued active hemorrhage repeat CTA Procedure Code(s): - 11103, Esophagogastroduodenoscopy, flexible, transoral; diagnostic, including collection of specimen(s) by brushing or washing, when performed (separate procedure) Diagnosis Code(s): - K22.10, Ulcer of esophagus without bleeding - K44.9, Diaphragmatic hernia without obstruction or gangrene - K22.89, Other specified disease of esophagus CPT(R) - 2022 copyright [employer]. All Rights Reserved. The CPT codes, CCI edits and ICD codes generated are intended as suggestions and were generated based on input data. These codes are preliminary and upon invoice coder review may be revised to meet current compliance and payer requirements. The provider is responsible for the final determination of appropriate codes, and modifiers. Otis Holt MD This document has been electronically signed. Note Initiated:12/21/2024 Note Completed:12/21/2024 2:45 AM \\[id number]
--- NOTE | 2024-12-21 02:47 | Anesthesiology Progress Note ---
Date of Service December 21, 2024 Anesthesia Post Procedure Vital Signs Vital Signs: Temp Pulse Pulse Resp BP BP Pulse Ox 12/21/24 01:58 36.2 C L 12/21/24 01:47 36.3 C L 84 14 130/65 96 12/21/24 01:45 146/85 H 12/21/24 01:45 87 24 12/21/24 01:33 74 18 96 12/21/24 01:31 136/59 L 12/21/24 01:31 136/59 L 12/21/24 01:31 136/59 L 12/21/24 01:21 85 17 96 12/21/24 01:15 101/56 L 12/21/24 01:15 101/56 L 12/21/24 01:15 101/56 L 12/21/24 01:06 90 21 96 12/21/24 01:05 36.8 C 89 25 H 106/61 95 12/21/24 01:05 36.8 C 89 25 H 106/61 95 12/21/24 01:00 106/61 12/21/24 00:50 36.8 C 92 H 24 130/66 95 12/21/24 00:48 94 H 21 95 12/21/24 00:42 95 H 20 96 12/21/24 00:37 130/66 12/21/24 00:37 130/66 12/21/24 00:37 130/66 12/21/24 00:36 89 28 H 96 12/21/24 00:30 36.8 C 12/20/24 23:05 79 12/20/24 22:53 36.4 C L 90 18 99/61 L 95 12/20/24 18:36 36.8 C 108 H 19 111/65 94 12/20/24 18:06 36.8 C 80 17 110/60 97 12/20/24 17:51 36.9 C 88 18 114/62 98 12/20/24 17:33 36.9 C 80 16 104/54 L 96 12/20/24 16:19 83 12/20/24 16:00 36.8 C 81 18 109/60 97 12/20/24 15:04 36.8 C 85 15 129/62 96 12/20/24 15:00 79 20 129/62 97 12/20/24 14:04 36.9 C 76 20 125/89 98 12/20/24 13:34 80 16 120/66 96 12/20/24 13:34 36.8 C 78 21 100/69 94 12/20/24 13:19 36.6 C 76 20 131/72 97 12/20/24 13:01 36.7 C 75 16 125/69 94 12/20/24 12:07 74 12/20/24 11:31 94 12/20/24 11:17 74 17 126/57 L 94 12/20/24 11:17 36.7 C 73 16 126/57 L 95 O2 Del Method 12/21/24 01:58 12/21/24 01:47 12/21/24 01:45 12/21/24 01:45 12/21/24 01:33 12/21/24 01:31 12/21/24 01:31 12/21/24 01:31 12/21/24 01:21 12/21/24 01:15 12/21/24 01:15 12/21/24 01:15 12/21/24 01:06 12/21/24 01:05 12/21/24 01:05 12/21/24 01:00 12/21/24 00:50 12/21/24 00:48 12/21/24 00:42 12/21/24 00:37 12/21/24 00:37 12/21/24 00:37 12/21/24 00:36 12/21/24 00:30 12/20/24 23:05 12/20/24 22:53 Nasal Cannula 12/20/24 18:36 12/20/24 18:06 12/20/24 17:51 12/20/24 17:33 12/20/24 16:19 12/20/24 16:00 12/20/24 15:04 12/20/24 15:00 Room Air 12/20/24 14:04 12/20/24 13:34 12/20/24 13:34 12/20/24 13:19 12/20/24 13:01 12/20/24 12:07 12/20/24 11:31 Room Air 12/20/24 11:17 Room Air 12/20/24 11:17 Room Air Transfer of Care Handoff Completed per policy Notes Mental Status: alert / awake / arousable Patient Amnestic to Procedure: Yes Nausea / Vomiting: adequately controlled Pain: adequately controlled Airway Patency, RR, SpO2: stable & adequate BP & HR: stable & adequate Hydration State: stable & adequate Anesthetic Complications: no major complications apparent and Pt Satisfied with anesthetic care
[2024-12-21 04:25] LABS: Hematocrit (blood only) 24.5 % (42.0-52.0); Hemoglobin 8.2 g/dl (14.0-18.0); Mean Corpuscular Hemoglobin 28.2 pg (25.0-34.0); Mean Corpuscular Hgb Conc 33.5 g/dL (32.0-36.0); Mean Corpuscular Volume 84.2 fL (80.0-100.0); Mean Platelet Volume 11.2 fL (9.4-12.4); Platelet Count 82 K/uL (130-400); RDW Coefficient of Variation 15.1 % (11.5-14.5); RDW Standard Deviation 46.3 fL (36.4-46.3); Red Blood Count 2.91 M/uL (4.70-6.10); White Blood Count 8.33 K/ul (4.8-10.8)
[2024-12-21] MEDS: ONDANSETRON INJ 2 MG/ML 2 ML VIAL IV PRN (04:47)
[2024-12-21] MEDS: LAVAGE SOLUTION 4000ML PO SCH (04:48)
--- NOTE | 2024-12-21 06:38 | Communication Note ---
Date of Service: December 21, 2024 0630- Patient with another maroon colored liquid BM without clots. Patient has started his bowel prep, however this no clearing and he is about 1/2 through his prep. With the consistency of the color of the stools, will send for CTA of the abdomen and pelvis. - HGB level post EGD was reflexive of 2 units PRBC, will have another at 0700. Sumit KEBEDE ([facility]) CTA completed, reviewed report, requesting additional review, d/w radiology area concerning for possible active bleeding. H/H dropped, transfusing 2 additional units of pRBC.
[2024-12-21] MEDS: OPTIRAY 320 125ml IV ONE (07:08)
--- NOTE | 2024-12-21 07:44 | CT Scan Report ---
EXAM: CT angio abdomen pelvis w con CLINICAL HISTORY: eval for lower GI hemorrhage TECHNIQUE: Contrast enhanced thin slice CT angiography scan of the abdominal aorta was performed with intravenous contrast. Angiographic images were processed, 3D MIP images were acquired for interpretation. Contiguous axial images were obtained. Reformatted coronal and sagittal images were also reviewed. If IV contrast material had not been administered, the likelihood of detecting abnormalities relevant to the patients condition would have been substantially decreased. CT scan was performed according to ALARA (as low as reasonable achievable). COMPARISON: 01 Jul 2024 FINDINGS: Diffuse atherosclerotic calcifications are noted involving abdominal aorta and its major branches.-stable. Redemonstration of focal intraluminal hypodense septum is noted involving infrarenal abdominal aorta dividing the aortic lumen - suggest possibility of intimal tear/focal dissection.-stable. 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 Abdominal aorta is normal in course, calibre and opacification. Origin of coeliac artery, superior mesenteric artery , bilateral main renal and lumbar arteries are normal with no hemodynamically significant ostial stenosis noted. Bilateral common, external and internal iliac arteries are normal in course, caliber and opacification. Solid abdominal organs including liver, spleen, pancreas and bilateral kidneys reveal no significant abnormality. Bowel loops are grossly unremarkable. No evidence of ascites. Multiple small diverticula arising from anterior and left lateral wall of urinary bladder. Large rolling hiatus hernia-stable. Stable hepatic cyst. Colonic fecal and gaseous distension. Bilateral mild pleural effusion. IMPRESSION: 1. Diffuse atherosclerotic calcifications are noted involving abdominal aorta and its major branches.-stable. 2. Redemonstration of focal intraluminal hypodense septum is noted involving infrarenal abdominal aorta dividing the aortic lumen - suggest possibility of intimal tear/focal dissection.-stable. 3. 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 4. Large rolling hiatus hernia-stable. 5. Stable hepatic cyst. 6. Multiple urinary bladder diverticuli. 7. Bilateral mild pleural effusion -new finding. Electronically signed by Femi Bazzi 12-21-2024 07:43 AM
[2024-12-21 08:00] LABS: Total Protein 3.4 gm/dl (6.0-8.3)
[2024-12-21 08:01] LABS: Albumin Globulin Ratio 1.4 (0.9-2); BUN Creatinine Ratio 62.8 (10-20); Bilirubin,Total 0.7 mg/dl (0.2-1.0); Calcium 7.5 mg/dl (8.6-10.3); Creatinine Clr Calc Pharmacy 53.4 ml/min; Globulin 1.4 gm/dl (2.5-4.0); Magnesium 1.6 mg/dl (1.7-2.4); Phosphorus 3.2 mg/dl (2.5-4.9); Potassium 3.6 mmol/L (3.5-5.1)
--- NOTE | 2024-12-21 08:42 | Communication Note ---
Date of Service: December 21, 2024 Patient having significant bloody clots from rectum. Hb dropped again to 6.5 after 2units of prbc. Ordered another 2 more units of prbc. Notified GI and recommended ICU transfer. ICU accepted patient for transfer.
--- NOTE | 2024-12-21 09:55 | History & Physical Bridge Note ---
Date of Service December 21, 2024 History & Physical Bridge Note I have examined the patient, reviewed the History & Physical and in the interval since the performance of the History & Physical I have noted the following changes of clinical significance: patient had ongoing rectal bleeding overnight. Patient had CTA with rectal bleeding. - Reviewed case with Dr. Fernandez, Dr. Jensen, and Dr. Collazo. Will place patient on for an emergent colonoscopy today. Further recommendations to follow. Supervising Physician Co-Signing Physician Notes Patient is emergently bleeding at with bright red blood per rectum and needs an BERENICE flexible sigmoidoscopy. The CTA shows extravasation of blood right in the rectum. He does report constipation. High suspicion for stercoral ulcer with visible vessel that is bleeding. Plan for flex sig with APC versus clip versus Hemospray. [facility].
--- NOTE | 2024-12-21 10:05 | Anesthesiology Consultation ---
Date of Service December 21, 2024 Assessment & Plan Chart Review Chart Review: Acceptable Risk for Surgery and Patient NOT seen in Pre Admission Testing Consults Requested none ASA [id number] Proposed Anesthesia Anesthesia Type: General and MAC Risk / Benefits Reviewed With: PT / POA / Parent / Guardian, Accepts Plan and Informed Consent Obtained History Surgery Operation Date: 12/21/24 01:00 Proposed Procedures p Esophagogastroduodenoscopy - Otis Holt MD Operation Date: 12/21/24 08:00 Proposed Procedures p Colonoscopy - Kofi Collazo MD Height/Weight Height: 5 ft 5 in Weight: 55.1 kg Allergies Allergy/AdvReac Type Severity Reaction Status Date / Time No Known Allergies Allergy Verified 06/23/24 15:43 Medications Home Medications Medication Instructions Recorded Confirmed Last Taken atenolol 25 mg tablet 25 mg PO QAM 05/29/19 12/20/24 03/03/24 cholecalciferol (vitamin D3) 25 1,000 unit PO QPM 05/29/19 12/20/24 03/03/24 mcg (1,000 unit) tablet (Vitamin D3) lisinopril 20 1 tab PO QAM 05/29/19 12/20/24 03/03/24 mg-hydrochlorothiazide 25 mg tablet omeprazole 20 mg tablet,delayed 20 mg PO BID 05/29/19 12/20/24 03/03/24 release potassium chloride 10 mEq 10 meq PO BID 05/29/19 12/20/24 03/03/24 tablet,extended release tramadol 50 mg tablet 50 mg PO Q6H PRN Pain 05/29/19 12/20/24 12/09/19 05:30 amlodipine 10 mg tablet 10 mg PO QAM 11/30/19 12/20/24 03/03/24 atorvastatin 20 mg tablet 20 mg PO QAM 03/04/24 12/20/24 03/03/24 cyanocobalamin (vitamin B-12) 1,000 mcg IM UD 03/04/24 12/20/24 Unknown 1,000 mcg/mL injection solution meloxicam 15 mg tablet 15 mg PO DAILY Pain 03/04/24 12/20/24 Unknown pregabalin 75 mg capsule 75 mg PO TID 03/04/24 12/20/24 03/03/24 Active Medications Generic Name Dose Route Start Last Admin Trade Name Freq PRN Reason Stop Dose Admin Pantoprazole Sodium 40 mg/ 100 mls @ 20 mls/hr 12/20/24 11:45 12/21/24 04:35 Dextrose IV 01/19/25 11:44 8 mg/hr Q5H LILLIE 20 mls/hr Administration 8 MG/HR Lactic Acid 1 gm 12/20/24 21:00 12/21/24 07:56 Ammonium Lactate 12% Lotion 225 Gm Btl EXT 01/19/25 20:59 1 gm TID LILLIE Administration Ondansetron HCl 4 mg 12/20/24 19:22 12/21/24 04:47 Ondansetron Inj 2 Mg/Ml 2 Ml Vial IV 01/19/25 19:21 4 mg Q6H PRN Administration Nausea NPO Date Last Intake of Fluids: 12/19/24 Time Last Intake of Fluids: 08:00 Last Intake of Fluids Comment: NA Date Last Intake of Solids: 12/20/24 Last Intake of Solids Comment: NA Past Medical History Medical History Osteoarthritis Spinal stenosis Barretts esophagus GERD (gastroesophageal reflux disease) Charcot-Josselin disease Anemia Exercise / Class Metabolic Activity III < 4 Walking/Shop/Light housework Past Family History Family History Other No family history of adverse response to anesthesia Past Surgical History Surgical History History of left knee surgery tendon repair at age 12 History of right inguinal hernia repair History of left inguinal hernia repair with left orchiectomy History of colonoscopy History of esophagogastroduodenoscopy (EGD) History of tooth extraction all teeth Past Anesthesia History No Hx of Anesthesia Complications and No Family Hx of Anesthesia Complications History of PONV No Hx of PONV and No Hx of Motion Sickness Social History Smoking Status: Former smoker Do You Dip or Chew Tobacco: No Hx Alcohol Use: No Hx Substance Use: No substance use type: does not use Review of Systems ROS Unobtainable: All systems reviewed & are unremarkable except as noted in HPI & below Physical Exam Vital Signs Last Vital Signs Temp 36.8 C 12/21/24 09:11 Pulse 107 H 12/21/24 09:11 Resp 18 12/21/24 09:11 BP 116/59 L 12/21/24 09:11 Pulse Ox 92 12/21/24 09:11 O2 Del Method Room Air 12/21/24 03:05 ENMT Mouth: no TMJ abnormality Thyromental Distance: > or= 3.5 Finger Breadths Mallampati Class: II Neck normal visual inspection and trachea midline; neck extension not limited Respiratory normal respiratory effort Auscultation: lungs clear to auscultation bilaterally Cardiovascular Rate/Rhythm: regular rate and regular rhythm Heart Sounds: no murmur Musculoskeletal Spine: normal cervical ROM Extremities: full ROM of extremities Neurologic moves all extremities Psychiatric Orientation: alert and oriented x 3 Testing Laboratory Results 12/21/24 07:17 12/21/24 07:17 PT 13.0 Seconds (9.0-12.0) H 12/21/24 00:35 INR 1.2 (0.9-1.1) H 12/21/24 00:35 Urine Color Yellow 12/20/24 11:53 Urine Appearance Clear (Clear) 12/20/24 11:53 Urine pH 7.5 (4.5-7.5) 12/20/24 11:53 Ur Specific [place] 1.015 (1.000-1.030) 12/20/24 11:53 Urine Protein Negative (Negative) 12/20/24 11:53 Urine Glucose (UA) Negative (Negative) 12/20/24 11:53 Urine Ketones Negative (Negative) 12/20/24 11:53 Urine Nitrite Negative (Negative) 12/20/24 11:53 Ur Leukocyte Esterase Negative (Negative) 12/20/24 11:53 Blood Type O Negative 12/20/24 11:28 Antibody Screen NEGATIVE 12/20/24 11:28 Electrocardiogram Date: 12/20/24 Findings: + NSR @ and + RBBB
[2024-12-21] MEDS: MAGNESIUM SULFATE / D5W 1 GM/100 ML BAG IV ONE (10:06)
[2024-12-21] MEDS: ONDANSETRON INJ 2 MG/ML 2 ML VIAL IV STA (10:07)
[2024-12-21] MEDS ORDERED: LIDOCAINE 2% 2 ML VIAL/AMP(20MG/ML) INFIL ONE (10:10)
[2024-12-21] MEDS ORDERED: fentaNYL citrate PF 100 MCG/2 ML VIAL IV PRN (10:18)
[2024-12-21] MEDS ORDERED: ePHEDrine sulfate 50 MG/ML AMP IV PRN (10:18)
[2024-12-21] MEDS ORDERED: ATROPINE SULFATE 0.1 MG/ML 10ML SYR IV PRN (10:18)
[2024-12-21] MEDS ORDERED: ONDANSETRON INJ 2 MG/ML 2 ML VIAL IV PRN (10:18)
[2024-12-21] MEDS ORDERED: VASOPRESSIN 20 UNIT/ML VIAL ONE (10:46)
[2024-12-21] MEDS ORDERED: CALCIUM CHLORIDE 10% 10 ML SYR IV ONE (10:56)
[2024-12-21] MEDS ORDERED: PHENYLEPHRINE 100MCG/ML 5ML SYR ONE (10:58)
[2024-12-21] MEDS ORDERED: SODIUM CHLORIDE 0.9% PF INJ 10 ML VIAL ONE ×2 (10:58)
[2024-12-21] MEDS ORDERED: ePHEDrine sulfate 50 MG/5 ML SYR ONE (10:58)
[2024-12-21] MEDS ORDERED: ONDANSETRON INJ 2 MG/ML 2 ML VIAL ONE (11:00)
--- NOTE | 2024-12-21 11:06 | Communication Note ---
Date of Service: December 21, 2024 Colonoscopy done emergently as active bleeding and a positive CTA scan. There was maroon blood with clots that was most prominent in the left colon and rectum. Much of it was suctioned. In the left colon especially in the sigmoid and descending colon multiple diverticulosis with old clots were noted. The right colon appeared normal and the cecum appeared normal some blood had refluxed to the right colon. The appendiceal orifice was identified and looked normal the terminal ileum was completely normal and no blood was noted. On the way back, in the rectum, 3 small ulcers were seen in the rectum. 1 had a small vessel on it but these 3 ulcers were tiny 3 to 4 mm. Due to his significant amount of bleeding, decision was made to clip all 3 ulcers. At the end of the procedure no active bleeding was noted. Unfortunately, I am not convinced that this is a stercoral ulcer bleed from these 3 small ulcers. He does have sigmoid and descending diverticulosis with quite a bit of old blood around him. This bleeding could also be coming from left-sided diverticulosis. The good news is he stopped bleeding and I was able to suction most of the old blood out. I do think he needs transfer to a facility that has IR backup in case he rebleeds and needs to undergo IR guided embolization. [facility]
--- NOTE | 2024-12-21 11:13 | GI REPORT ---
[facility] Patient: LINDA PAREKH : 1945 Sex at : Male Age: 79 Years Procedure: Colonoscopy Date: 12/21/2024 Attending Physician: Kofi Collazo MD Referring MD: Referred Self Indications: - Rectal bleeding - + CTA and hematochezia with hypotension Medications: - Monitored Anesthesia Care Complications: - No immediate complications., No immediate complications. Estimated blood loss: Minimal. Estimated Blood Loss: - Estimated blood loss: None. - Estimated blood loss was minimal. Procedure: - Prior to the procedure, a History and Physical was performed, and patient medications and allergies were reviewed. The patient's tolerance of previous anesthesia was also reviewed. The risks and benefits of the procedure and the sedation options and risks were discussed with the patient. All questions were answered, and informed consent was obtained. Prior Anticoagulants: The patient has taken no anticoagulant or antiplatelet agents. ASA Grade Assessment: IV - A patient with severe systemic disease that is a constant threat to life. After reviewing the risks and benefits, the patient was deemed in satisfactory condition to undergo the procedure. - The pediatric colonoscope was introduced through the anus and advanced to the terminal ileum, with identification of the appendiceal orifice and ileocecal valve. - The colonoscopy was performed without difficulty. - The patient tolerated the procedure well. - The quality of the bowel preparation was fair. - The terminal ileum, ileocecal valve, appendiceal orifice, and rectum were photographed. - The colonoscopy was performed with ease. Findings: - The terminal ileum appeared normal. - The exam was otherwise without abnormality on direct and retroflexion views. - Clotted blood was found in the entire colon. Fluid aspiration was performed. Most blood noted around Left colon but some old blood in right colon. - A few 4 mm ulcers were found in the rectum. No bleeding was present. Stigmata of recent bleeding were present. 1 ulcer with visible vessel, other two were clean based. For hemostasis, three hemostatic clips were successfully placed. There was no bleeding during, or at the end, of the procedure. Impression: - Preparation of the colon was fair. - The examined portion of the ileum was normal. - The examination was otherwise normal on direct and retroflexion views. - Blood in the entire examined colon. Fluid aspiration performed. - Most blood noted around Left colon but some old blood in right colon. - A few ulcers in the rectum. Clips were placed. - 1 ulcer with visible vessel, other two were clean based. Recommendation: - Discharge patient to home (ambulatory). - Resume previous diet. - Continue present medications. - Return to referring physician as previously scheduled. - Patient has a contact number available for emergencies. The signs and symptoms of potential delayed complications were discussed with the patient. Return to normal activities tomorrow. Written discharge instructions were provided to the patient. - No repeat colonoscopy due to current age (66 years or older). - NO active bleeding but amount of blood appears too much for just rectal ulcer bleeding. Suspect diverticulosis. Suggest transfer to facility with IR in case rebleeds. Procedure Code(s): - 99355, Colonoscopy, flexible; with control of bleeding, any method Diagnosis Code(s): - K62.5, Hemorrhage of anus and rectum - K92.2, Gastrointestinal hemorrhage, unspecified - K62.6, Ulcer of anus and rectum CPT(R) - 2022 copyright [employer]. All Rights Reserved. The CPT codes, CCI edits and ICD codes generated are intended as suggestions and were generated based on input data. These codes are preliminary and upon winter intern review may be revised to meet current compliance and payer requirements. The provider is responsible for the final determination of appropriate codes, and modifiers. Kofi Collazo MD This document has been electronically signed. Note Initiated:12/21/2024 Note Completed:12/21/2024 11:12 AM \\[email or web address]\[email or web address]\[id number]
--- NOTE | 2024-12-21 11:37 | Anesthesiology Progress Note ---
Date of Service December 21, 2024 Anesthesia Post Procedure Vital Signs Vital Signs: Temp Pulse Pulse Resp BP BP Pulse Ox 12/21/24 11:25 36.7 C 85 18 140/79 96 12/21/24 11:15 36.5 C 82 17 150/63 H 98 12/21/24 10:12 37.7 C H 99 H 18 132/65 100 12/21/24 09:42 37.7 C H 110 H 18 106/79 93 12/21/24 09:27 37.7 C H 124 H 18 125/74 97 12/21/24 09:11 36.8 C 107 H 18 116/59 L 92 12/21/24 08:23 37.3 C 12/21/24 08:18 107 H 22 94 12/21/24 08:00 122/61 12/21/24 07:39 85 19 92 12/21/24 07:33 86 24 94 12/21/24 07:30 120/59 L 12/21/24 07:25 111/63 12/21/24 07:24 91 H 20 95 12/21/24 05:30 36.9 C 110 H 22 139/71 98 12/21/24 05:24 36.9 C 106 H 19 144/69 H 100 12/21/24 05:23 36.9 C 106 H 19 144/69 H 100 12/21/24 05:03 36.8 C 98 H 22 114/71 94 12/21/24 04:54 36.8 C 98 H 22 114/71 94 12/21/24 04:39 37 C 94 H 23 110/85 95 12/21/24 04:24 37.1 C 100 H 21 132/67 95 12/21/24 04:23 36.7 C 94 H 16 132/67 98 12/21/24 04:14 36.6 C 82 24 136/68 97 12/21/24 04:08 36.6 C 82 24 136/68 97 12/21/24 04:06 82 24 97 12/21/24 04:00 114/74 12/21/24 03:57 93 H 24 12/21/24 03:54 81 24 12/21/24 03:51 106/67 12/21/24 03:51 106/67 12/21/24 03:50 36.7 C 80 18 114/74 95 12/21/24 03:35 36.7 C 79 18 132/68 94 12/21/24 03:30 81 24 96 12/21/24 03:30 126/93 12/21/24 03:20 140/83 12/21/24 03:20 140/83 12/21/24 03:19 36.7 C 79 18 132/68 94 12/21/24 03:18 82 21 95 12/21/24 03:10 132/68 12/21/24 03:10 132/68 12/21/24 03:05 36.8 C 73 15 132/68 95 12/21/24 03:00 128/66 12/21/24 02:55 36.7 C 77 16 128/66 95 12/21/24 02:45 132/61 12/21/24 02:45 132/61 12/21/24 02:45 36.7 C 77 23 133/67 95 12/21/24 02:43 133/67 12/21/24 02:43 133/67 12/21/24 01:58 36.2 C L 12/21/24 01:53 36.3 C L 84 14 130/65 96 12/21/24 01:47 36.3 C L 84 14 130/65 96 12/21/24 01:45 146/85 H 12/21/24 01:45 87 24 12/21/24 01:33 74 18 96 12/21/24 01:31 136/59 L 12/21/24 01:31 136/59 L 12/21/24 01:31 136/59 L 12/21/24 01:21 85 17 96 12/21/24 01:15 101/56 L 12/21/24 01:15 101/56 L 12/21/24 01:15 101/56 L 12/21/24 01:06 90 21 96 12/21/24 01:05 36.8 C 89 25 H 106/61 95 12/21/24 01:05 36.8 C 89 25 H 106/61 95 12/21/24 01:00 106/61 12/21/24 00:50 36.8 C 92 H 24 130/66 95 12/21/24 00:48 94 H 21 95 12/21/24 00:42 95 H 20 96 12/21/24 00:37 130/66 02/17/25 00:37 130/66 12/21/24 00:37 130/66 12/21/24 00:36 89 28 H 96 12/21/24 00:30 36.8 C 12/20/24 23:05 79 12/20/24 22:53 36.4 C L 90 18 99/61 L 95 12/20/24 18:36 36.8 C 108 H 19 111/65 94 12/20/24 18:06 36.8 C 80 17 110/60 97 12/20/24 17:51 36.9 C 88 18 114/62 98 12/20/24 17:33 36.9 C 80 16 104/54 L 96 12/20/24 16:19 83 12/20/24 16:00 36.8 C 81 18 109/60 97 12/20/24 15:04 36.8 C 85 15 129/62 96 12/20/24 15:00 79 20 129/62 97 12/20/24 14:04 36.9 C 76 20 125/89 98 12/20/24 13:34 80 16 120/66 96 12/20/24 13:34 36.8 C 78 21 100/69 94 12/20/24 13:19 36.6 C 76 20 131/72 97 12/20/24 13:01 36.7 C 75 16 125/69 94 12/20/24 12:07 74 O2 Del Method O2 Flow Rate 12/21/24 11:25 Oxymask 4 12/21/24 11:15 Oxymask 8 12/21/24 10:12 12/21/24 09:42 12/21/24 09:27 12/21/24 09:11 12/21/24 08:23 12/21/24 08:18 12/21/24 08:00 12/21/24 07:39 12/21/24 07:33 12/21/24 07:30 12/21/24 07:25 12/21/24 07:24 12/21/24 05:30 12/21/24 05:24 12/21/24 05:23 12/21/24 05:03 12/21/24 04:54 12/21/24 04:39 12/21/24 04:24 12/21/24 04:23 12/21/24 04:14 12/21/24 04:08 12/21/24 04:06 12/21/24 04:00 12/21/24 03:57 12/21/24 03:54 12/21/24 03:51 12/21/24 03:51 12/21/24 03:50 12/21/24 03:35 12/21/24 03:30 12/21/24 03:30 12/21/24 03:20 12/21/24 03:20 12/21/24 03:19 12/21/24 03:18 12/21/24 03:10 12/21/24 03:10 12/21/24 03:05 Room Air 12/21/24 03:00 12/21/24 02:55 Room Air 12/21/24 02:45 12/21/24 02:45 12/21/24 02:45 Room Air 12/21/24 02:43 12/21/24 02:43 12/21/24 01:58 12/21/24 01:53 12/21/24 01:47 12/21/24 01:45 12/21/24 01:45 12/21/24 01:33 12/21/24 01:31 12/21/24 01:31 12/21/24 01:31 12/21/24 01:21 12/21/24 01:15 12/21/24 01:15 12/21/24 01:15 12/21/24 01:06 12/21/24 01:05 12/21/24 01:05 12/21/24 01:00 12/21/24 00:50 12/21/24 00:48 12/21/24 00:42 12/21/24 00:37 12/21/24 00:37 12/21/24 00:37 12/21/24 00:36 12/21/24 00:30 12/20/24 23:05 12/20/24 22:53 Nasal Cannula 12/20/24 18:36 12/20/24 18:06 12/20/24 17:51 12/20/24 17:33 12/20/24 16:19 12/20/24 16:00 12/20/24 15:04 12/20/24 15:00 Room Air 12/20/24 14:04 12/20/24 13:34 12/20/24 13:34 12/20/24 13:19 12/20/24 13:01 12/20/24 12:07 Transfer of Care Handoff Completed per policy Notes Mental Status: alert / awake / arousable Patient Amnestic to Procedure: Yes Nausea / Vomiting: adequately controlled Pain: adequately controlled Airway Patency, RR, SpO2: stable & adequate BP & HR: stable & adequate Hydration State: stable & adequate Anesthetic Complications: no major complications apparent and Pt Satisfied with anesthetic care
--- NOTE | 2024-12-21 12:03 | Hospitalist Progress Note ---
Date of Service December 21, 2024 Assessment & Plan (1) Acute GI bleeding: (2) Coreas's esophagus: (3) Acute blood loss anemia: Plan: Randall Purvis is an 79y/o M with PMHx significant for HTN, HLD, aortic root enlargement, moderate aortic insufficiency, infrarenal abdominal aortic aneurysm, RBBB, SONYA on CPAP, GERD, Coreas's esophagus, vitamin D deficiency, vitamin B12 deficiency, peripheral neuropathy, generalized osteoarthritis, peripheral neuropathy, chronic back pain, chronic right hip pain, Hbmkjnp-Guosp-Rfpuc disease and rheumatoid arthritis who presented to the ED via EMS from home due to melena x 2 days and is being admitted with an acute GI bl eed. EGD done in November 2023 which revealed a large hiatal hernia and esophageal mucosal changes classified as Coreas's stage C8-M8 per [place] criteria which were biopsied. Biopsies were consistent with Barretts esophagus and negative for dysplasia. Plan: -transfer to higher level of care -transfusion target Hgb>7 -continue protonix drip -appreciate ICU care (4) Elevated troponin: Plan: Likely demand ischemia ISO above. EKG reviewed and reassuring - chronic RBBB, no acute ST changes. Plan: -Continue to trend troponin Q6H until flat. EKG with chest pain PRN. (5) Hypertension: Plan: -hold home BP meds (6) Aortic root enlargement: (7) Moderate aortic insufficiency: Plan: Resting echocardiogram done December 2023 with LVEF=60-64%, normal LV wall motion, grade I DD, mild to moderate AR, mild TR and mildly enlarged aortic root of 4.3cm. (8) Peripheral neuropathy: (9) CMT (Pufldxu-Vmshr-Utpfg disease): Plan: -No recent falls or trauma although patient endorses feeling quite dizzy and lightheaded with ambulation since yesterday ISO above. Patient uses a cane for ambulation with BLE braces at baseline given history of Uedxtno-Qaqdh-Xhsnl disease Plan: -PT/OT evaluations. Hold home Lyrica for now ISO NPO status. (10) Bilateral lower extremity edema: (11) Venous stasis dermatitis of both lower extremities: Plan: Noted mild BLE edema with venous stasis changes/dermatitis on exam. Patient endorses this is chronic and appears unchanged from baseline. 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 Plan: -Wound care consulted. AmLactin ordered. Encourage TEDs use. (12) Chronic neck pain: (13) Chronic right hip pain: Plan: -On Tramadol PRN at home Plan: -holding for now ISO NPO status. PRN IV morphine ordered for moderate-severe pain. (14) SONYA on CPAP: Plan: Chronic, stable. Continue CPAP HS. Can use home CPAP device. Plan 1. Family updated on plan of care 2x today. I spent a total of 60 minutes in direct patient care, including qpws-ii-vrwf time with the patient and/or family, reviewing medical records, ordering and reviewing diagnostic tests, and coordinating care with other healthcare providers. This time includes: history taking, physical examination, medical decision making, counseling, ECG interpretation, imaging interpretation, lab interpretation, orders, and education, excluding time spent in the performance of separately billed services. Admission and Anticipated Discharge Date Admission Date: December 20, 2024 Subjective Patient seen and examined at bedside. Transferred to ICU overnight due to frequency of blood transfusions and active bleed. Received EGD without finding source of bleed, colonoscopy attempted but unable to be completed due to no bowel prep. Patient states he does not feel well overall. Continues to bleed. Of note, patient requires higher level of care for more advanced interventions per ICU and GI teams. Engaging transfer process. Review of Systems Review of Systems: CONSTITUTIONAL: fatigue, weakness, cold EYES: Patient denies any visual symptoms. EARS, NOSE, AND THROAT: No difficulties with hearing. No symptoms of rhinitis or sore throat. CARDIOVASCULAR: Patient denies chest pains, palpitations, orthopnea and paroxysmal nocturnal dyspnea. RESPIRATORY: No dyspnea on exertion, no wheezing or cough. GI: No nausea, vomiting, diarrhea, constipation, abdominal pain, hematochezia or melena. : No urinary hesitancy or dribbling. No nocturia or urinary frequency. No abnormal urethral discharge. MUSCULOSKELETAL: No myalgias or arthralgias. NEUROLOGIC: No chronic headaches, no seizures. Patient denies numbness, tingling or weakness. PSYCHIATRIC: Patient denies problems with mood disturbance. No problems with anxiety. ENDOCRINE: No excessive urination or excessive thirst. DERMATOLOGIC: Patient denies any rashes or skin changes. Physical Exam Physical Exam: Gen: A&O 3 NAD HEENT: NCAT, EOMI, not icteric. External ears normal. No rhinorrhea. Moist mucous membranes. Neck: Supple, full range of motion, no observable masses, No meningeal sign. Lungs: No Respiratory distress. CV: RRR, no edema. Abdomen: Soft, nondistended, No rebound tenderness. MSK: No joint swelling, no redness. Skin: very pale, poor cap refill noted Neuro: Normal Gait, Grossly intact. Psych: Appropriate for situation. Results & Data Results & Data Vital Signs (Past 12 Hours) Vital Signs Temp Pulse Pulse Resp BP BP Pulse Ox 12/21/24 11:36 36.8 C 90 20 151/64 H 99 12/21/24 11:25 36.7 C 85 18 140/79 96 12/21/24 11:15 36.5 C 82 17 150/63 H 98 12/21/24 10:12 37.7 C H 99 H 18 132/65 100 12/21/24 09:42 37.7 C H 110 H 18 106/79 93 12/21/24 09:27 37.7 C H 124 H 18 125/74 97 12/21/24 09:11 36.8 C 107 H 18 116/59 L 92 12/21/24 08:23 37.3 C 12/21/24 08:18 107 H 22 94 12/21/24 08:00 122/61 12/21/24 07:39 85 19 92 12/21/24 07:33 86 24 94 12/21/24 07:30 120/59 L 12/21/24 07:25 111/63 12/21/24 07:24 91 H 20 95 12/21/24 05:30 36.9 C 110 H 22 139/71 98 12/21/24 05:24 36.9 C 106 H 19 144/69 H 100 12/21/24 05:23 36.9 C 106 H 19 144/69 H 100 12/21/24 05:03 36.8 C 98 H 22 114/71 94 12/21/24 04:54 36.8 C 98 H 22 114/71 94 12/21/24 04:39 37 C 94 H 23 110/85 95 12/21/24 04:24 37.1 C 100 H 21 132/67 95 12/21/24 04:23 36.7 C 94 H 16 132/67 98 02/17/25 04:14 36.6 C 82 24 136/68 97 12/21/24 04:08 36.6 C 82 24 136/68 97 12/21/24 04:06 82 24 97 12/21/24 04:00 114/74 12/21/24 03:57 93 H 24 12/21/24 03:54 81 24 12/21/24 03:51 106/67 12/21/24 03:51 106/67 12/21/24 03:50 36.7 C 80 18 114/74 95 12/21/24 03:35 36.7 C 79 18 132/68 94 12/21/24 03:30 81 24 96 12/21/24 03:30 126/93 12/21/24 03:20 140/83 12/21/24 03:20 140/83 12/21/24 03:19 36.7 C 79 18 132/68 94 12/21/24 03:18 82 21 95 12/21/24 03:10 132/68 12/21/24 03:10 132/68 12/21/24 03:05 36.8 C 73 15 132/68 95 12/21/24 03:00 128/66 12/21/24 02:55 36.7 C 77 16 128/66 95 12/21/24 02:45 132/61 12/21/24 02:45 132/61 12/21/24 02:45 36.7 C 77 23 133/67 95 12/21/24 02:43 133/67 12/21/24 02:43 133/67 12/21/24 01:58 36.2 C L 12/21/24 01:53 36.3 C L 84 14 130/65 96 12/21/24 01:47 36.3 C L 84 14 130/65 96 12/21/24 01:45 146/85 H 12/21/24 01:45 87 24 12/21/24 01:33 74 18 96 12/21/24 01:31 136/59 L 12/21/24 01:31 136/59 L 12/21/24 01:31 136/59 L 12/21/24 01:21 85 17 96 12/21/24 01:15 101/56 L 12/21/24 01:15 101/56 L 12/21/24 01:15 101/56 L 12/21/24 01:06 90 21 96 12/21/24 01:05 36.8 C 89 25 H 106/61 95 12/21/24 01:05 36.8 C 89 25 H 106/61 95 12/21/24 01:00 106/61 12/21/24 00:50 36.8 C 92 H 24 130/66 95 12/21/24 00:48 94 H 21 95 12/21/24 00:42 95 H 20 96 12/21/24 00:37 130/66 12/21/24 00:37 130/66 12/21/24 00:37 130/66 12/21/24 00:36 89 28 H 96 12/21/24 00:30 36.8 C O2 Del Method O2 Flow Rate 12/21/24 11:36 Oxymask 2 12/21/24 11:25 Oxymask 4 12/21/24 11:15 Oxymask 8 12/21/24 10:12 12/21/24 09:42 12/21/24 09:27 12/21/24 09:11 12/21/24 08:23 12/21/24 08:18 12/21/24 08:00 12/21/24 07:39 12/21/24 07:33 12/21/24 07:30 12/21/24 07:25 12/21/24 07:24 12/21/24 05:30 12/21/24 05:24 12/21/24 05:23 12/21/24 05:03 12/21/24 04:54 12/21/24 04:39 12/21/24 04:24 12/21/24 04:23 12/21/24 04:14 12/21/24 04:08 12/21/24 04:06 12/21/24 04:00 12/21/24 03:57 12/21/24 03:54 12/21/24 03:51 12/21/24 03:51 12/21/24 03:50 12/21/24 03:35 12/21/24 03:30 12/21/24 03:30 12/21/24 03:20 12/21/24 03:20 12/21/24 03:19 12/21/24 03:18 12/21/24 03:10 12/21/24 03:10 12/21/24 03:05 Room Air 12/21/24 03:00 12/21/24 02:55 Room Air 12/21/24 02:45 12/21/24 02:45 12/21/24 02:45 Room Air 12/21/24 02:43 12/21/24 02:43 12/21/24 01:58 12/21/24 01:53 12/21/24 01:47 12/21/24 01:45 12/21/24 01:45 12/21/24 01:33 12/21/24 01:31 12/21/24 01:31 12/21/24 01:31 12/21/24 01:21 12/21/24 01:15 12/21/24 01:15 12/21/24 01:15 12/21/24 01:06 12/21/24 01:05 12/21/24 01:05 12/21/24 01:00 12/21/24 00:50 12/21/24 00:48 12/21/24 00:42 12/21/24 00:37 12/21/24 00:37 12/21/24 00:37 12/21/24 00:36 12/21/24 00:30 Laboratory Results -personally reviewed, Hgb continues to drop despite frequent transfusions Diagnostic Findings Abdomen/Pelvis CTA 12/21/24 06:35 EXAM: CT angio abdomen pelvis w con CLINICAL HISTORY: eval for lower GI hemorrhage TECHNIQUE: Contrast enhanced thin slice CT angiography scan of the abdominal aorta was performed with intravenous contrast. Angiographic images were processed, 3D MIP images were acquired for interpretation. Contiguous axial images were obtained. Reformatted coronal and sagittal images were also reviewed. If IV contrast material had not been administered, the likelihood of detecting abnormalities relevant to the patients condition would have been substantially decreased. CT scan was performed according to ALARA (as low as reasonable achievable). COMPARISON: 01 Jul 2024 FINDINGS: Diffuse atherosclerotic calcifications are noted involving abdominal aorta and its major branches.-stable. Redemonstration of focal intraluminal hypodense septum is noted involving infrarenal abdominal aorta dividing the aortic lumen - suggest possibility of intimal tear/focal dissection.-stable. 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 Abdominal aorta is normal in course, calibre and opacification. Origin of coeliac artery, superior mesenteric artery , bilateral main renal and lumbar arteries are normal with no hemodynamically significant ostial stenosis noted. Bilateral common, external and internal iliac arteries are normal in course, caliber and opacification. Solid abdominal organs including liver, spleen, pancreas and bilateral kidneys reveal no significant abnormality. Bowel loops are grossly unremarkable. No evidence of ascites. Multiple small diverticula arising from anterior and left lateral wall of urinary bladder. Large rolling hiatus hernia-stable. Stable hepatic cyst. Colonic fecal and gaseous distension. Bilateral mild pleural effusion. IMPRESSION: 1. Diffuse atherosclerotic calcifications are noted involving abdominal aorta and its major branches.-stable. 2. Redemonstration of focal intraluminal hypodense septum is noted involving infrarenal abdominal aorta dividing the aortic lumen - suggest possibility of intimal tear/focal dissection.-stable. 3. 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 4. Large rolling hiatus hernia-stable. 5. Stable hepatic cyst. 6. Multiple urinary bladder diverticuli. 7. Bilateral mild pleural effusion -new finding. Electronically signed by Femi Bazzi 12-21-2024 07:43 AM Medications Administered Pantoprazole Sodium 40 mg/ (Dextrose) 100 mls @ 20 mls/hr IV Q5H LILLIE Stop: 01/19/25 11:44 Last Admin: 12/21/24 10:22 Dose: 8 mg/hr, 20 mls/hr Documented By: Infusion: 12/21/24 09:35 Dose: Infused Documented By: Admin: 12/21/24 04:35 Dose: 8 mg/hr, 20 mls/hr Documented By: Infusion: 12/21/24 03:48 Dose: Infused Documented By: Admin: 12/20/24 22:48 Dose: 8 mg/hr, 20 mls/hr Documented By: Infusion: 12/20/24 22:37 Dose: Infused Documented By: Admin: 12/20/24 17:37 Dose: 8 mg/hr, 20 mls/hr Documented By: Infusion: 12/20/24 17:37 Dose: Infused Documented By: Admin: 12/20/24 12:42 Dose: 8 mg/hr, 20 mls/hr Documented By: VLADIMIR Lactic Acid (Ammonium Lactate 12% Lotion 225 Gm Btl) 1 gm EXT TID LILLIE Stop: 01/19/25 20:59 Last Admin: 12/21/24 07:56 Dose: 1 gm Documented By: Admin: 12/20/24 21:32 Dose: 1 gm Documented By: NAJMA Ondansetron HCl (Ondansetron Inj 2 Mg/Ml 2 Ml Vial) 4 mg IV Q6H PRN PRN Reason: Nausea Stop: 01/19/25 19:21 Last Admin: 12/21/24 04:47 Dose: 4 mg Documented By: MIGUEL (2) Coreas's esophagus Coreas's esophagus type: without dysplasia Qualified Code(s): K22.70 - Coreas's esophagus without dysplasia (5) Hypertension Hypertension type: unspecified Qualified Code(s): I10 - Essential (primary) hypertension (8) Peripheral neuropathy Peripheral neuropathy type: polyneuropathy, unspecified Qualified Code(s): G62.9 - Polyneuropathy, unspecified
--- NOTE | 2024-12-21 12:54 | Electrocardiogram Report ---
Test Reason : Blood Pressure : */* mmHG Vent. Rate : 74 BPM Atrial Rate : 74 BPM P-R Int : 188 ms QRS Dur : 144 ms QT Int : 424 ms P-R-T Axes : 82 82 57 degrees QTcB Int : 470 ms Normal sinus rhythm Right bundle branch block Abnormal ECG When compared with ECG of 01-Jul-2024 13:46, No significant change was found Confirmed by Michael Fox ([id number]) on 12/21/2024 12:54:17 PM Referred By: REFERRED SELF Confirmed By: Michael Fox
--- NOTE | 2024-12-21 18:37 | Communication Note ---
Date of Service: December 21, 2024 1800- patient had another large bowel movement that was again maroon, liquid without any clots. This was followed again by tachycardia with HR increased to 125 from 90 bpm. BP decreased from 130s to 110/70s and HGB drawn before BM was downtrending to 7.6. Patient denies any pain. with this information, request has been made for life flight air. I have spoken to DR. Donaldson who did speak to ICU accepting and ICU accepting will be Dr. Aditya Abdalla for ICU and patient has been accepted to [facility], we are awaiting bed and ETA information at this time. Patient will receive another unit of PRBC at this time. 1924: Ground transport being arranged with ETA ~2129. 2049: Ground assets diverted, will re-evaluate air and ground when available and expect update following for ETA. Patient with no further episodes of Bleeding or changes in hemodynamics at this time. 2117: [facility] via air will be transferring patient ETA 38 minutes. - No further change in status. Primary medical service updated and discharge order will be placed by them. Total transfusions at this time since admission- 7 units PRBC, 2 GM CA, 1 sixpack platelet, 1 dose (7unit) cryoprecipitate Sumit KEBEDE ([facility])
[2024-12-21] MEDS: ACETAMINOPHEN 1,000 MG/100 ML VIAL IV STA (20:13)
--- NOTE | 2024-12-21 21:22 | Discharge Summary ---
Date of Service December 21, 2024 Admission HPI Per Admitting Provider Randall Purvis is an 79y/o M with PMHx significant for HTN, HLD, aortic root enlargement, moderate aortic insufficiency, infrarenal abdominal aortic aneurysm, RBBB, SONYA on CPAP, GERD, Coreas's esophagus, vitamin D deficiency, vitamin B12 deficiency, peripheral neuropathy, generalized osteoarthritis, peripheral neuropathy, chronic back pain, chronic right hip pain, Lbaywkm-Egaev-Pncmw disease and rheumatoid arthritis who presented to the ED via EMS from home due to melena x 2 days. History obtained from the patient, patient's son at bedside, discussion with ED provider and associated chart review. Patient endorses acute onset of dark stools yesterday morning. Notes stools are quite loose in consistency. Noticed some flecks of bright red blood in his stools this morning but they are overall quite dark, if not black, in coloration. Reports feeling somewhat short of breath since yesterday as well. No supplemental oxygen use at home. Uses CPAP at bedtime for SONYA. He feels significantly fatigued and "worn out" with notable generalized weakness. Endorses an intermittent, dry cough but otherwise denies any recorded fevers, chills or body aches. Patient currently lives at home with his whom recently underwent a knee replacement last Saturday. He has another son and his who are currently staying with them to assist his . Son at bedside notes he was quite pale in coloration this morning. No recent falls or trauma although patient endorses feeling quite dizzy and lightheaded with ambulation since yesterday. Patient uses a cane for ambulation with BLE braces at baseline given history of Puxotta-Ymlkp-Fydll disease. Denies any abdominal pain, nausea or vomiting. Patient recalls having to receive 2U of PRBCs back in 2018 after it was discovered his Hgb trended down to 7 at the [facility] unexpectedly. Patient was not having a GI bleed at the time. Does not recall any prior history of GI bleeds. Mentions he had a video capsule study and colonscopy done at that time which were completely unremarkable. Known history of Coreas's esophagus. He was started on iron supplement and he notes his Hgb had improved back to 14 where it has been until now. Has been off an iron supplement for approximately 2 years now. EGD done in November 2023 which revealed a large hiatal hernia and esophageal mucosal changes classified as Coreas's stage C8-M8 per [place] criteria which were biopsied. Biopsies were consistent with Barretts esophagus and negative for dysplasia. Resting echocardiogram done December 2023 with LVEF=60-64%, normal LV wall motion, grade I DD, mild to moderate AR, mild TR and mildly enlarged aortic root of 4.3cm. Principal Diagnosis Acute GI bleed Discharge Data Allergies Allergy/AdvReac Type Severity Reaction Status Date / Time No Known Allergies Allergy Verified 06/23/24 15:43 Consultations 12/20/24 13:33 ED Decision to Admit Stat 12/20/24 13:44 Consult Gastroenterology Routine 12/21/24 00:29 Consult Field Seismologist Routine Procedures Performed Operation Date: 12/21/24 08:00 Actual Procedures p Colonoscopy Hemostasis - Kofi Collazo MD Ordered Studies 12/20/24 11:29 CT abd pelvis IV con only Stat 12/21/24 06:35 CT angio abdomen pelvis w con Stat Hospital Course (1) Acute GI bleedinM was admitted for acute GI bleeding yesterday Dec 20 2024..Initial Hb 6.8 . received 2 units prbc Hb came up to 7.3. Patient was passing lot of bloody clots from rectum and recheck hb dropped to 6.3. Ordered two more units prbc and after discussing with GI transferred to ICU. Repeat labs showed platelets dropping to 82. PT 13.0, INR 1.2 Fibrinogen 149.GI came in last night and did EGD. GI NOtes after EGD: "Large hiatal hernia. Long segment Coreas's. Small superficial ulcer at the GE junction. No stigmata of bleeding. Remainder the upper GI tract was normal. There was no blood or altered heme within the entirety upper GI tract including the duodenum out to the ligament of Treitz. An attempt was made to do a unprepped colonoscopy to see if we could get to the right colon intubate the TI to decide if this was right colon or small bowel origin unsuccessful due to black-maroon blood and stool. No visualization. Impression no definite source for bleeding in the upper GI tract. Prep for colonoscopy. If persistent or active hemorrhage consider repeat CTA." Patient continue to bleed and repeat hb today am was 6.6. Gi decided for emergent colonoscopy for active bleeding and positive CTA scan. GI Notes after colonoscopy: "There was maroon blood with clots that was most prominent in the left colon and rectum. Much of it was suctioned. In the left colon especially in the sigmoid and descending colon multiple diverticulosis with old clots were noted. The right colon appeared normal and the cecum appe ared normal some blood had refluxed to the right colon. The appendiceal orifice was identified and looked normal the terminal ileum was completely normal and no blood was noted. On the way back, in the rectum, 3 small ulcers were seen in the rectum. 1 had a small vessel on it but these 3 ulcers were tiny 3 to 4 mm. Due to his significant amount of bleeding, decision was made to clip all 3 ulce rs. At the end of the procedure no active bleeding was noted. Unfortunately, I am not convinced that this is a stercoral ulcer bleed from these 3 small ulcers. He does have sigmoid and descending diverticulosis with quite a bit of old blood around him. This bleeding could also be coming from left-sided diverticulosis. The good news is he stopped bleeding and I was able to suction most of the old blood out. I do think he needs transfer to a facility that has IR backup in case he rebleeds and needs to undergo IR guided embolization." At 1800 today 12/21/24 patient seemed to had large maroon colored bowel movement associated with tachycardia. Before Bowel movement Hb was down trending from 8.5 to 7.6. ICU then called [facility] and was accepted in transfer. Patient will be life flighted. So Far received 7 units PRBC, 2 GM CA, 1 sixpack platelet, 1 dose (7unit) cryoprecipitate during this admission. Appreciate Critical care Help. Last Progress Notes by Am provider : 1) Acute GI bleeding: (2) Coreas's esophagus: (3) Acute blood loss anemia: Plan: Randall Purvis is an 79y/o M with PMHx significant for HTN, HLD, aortic root enlargement, moderate aortic insufficiency, infrarenal abdominal aortic aneurysm, RBBB, SONYA on CPAP, GERD, Coreas's esophagus, vitamin D deficiency, vitamin B12 deficiency, peripheral neuropathy, generalized osteoarthritis, peripheral neuropathy, chronic back pain, chronic right hip pain, Nlmmxxz-Tysrp-Eheln disease and rheumatoid arthritis who presented to the ED via EMS from home due to melena x 2 days and is being admitted with an acute GI bleed. EGD done in November 2023 which revealed a large hiatal hernia and esophageal mucosal changes classified as Coreas's stage C8-M8 per [place] criteria which were biopsied. Biopsies were consistent with Barretts esophagus and negative for dysplasia. Plan: -transfer to higher level of care -transfusion target Hgb>7 -continue protonix drip -appreciate ICU care (4) Elevated troponin: Plan: Likely demand ischemia ISO above. EKG reviewed and reassuring - chronic RBBB, no acute ST changes. Plan: -Continue to trend troponin Q6H until flat. EKG with chest pain PRN. (5) Hypertension: Plan: -hold home BP meds (6) Aortic root enlargement: (7) Moderate aortic insufficiency: Plan: Resting echocardiogram done December 2023 with LVEF=60-64%, normal LV wall motion, grade I DD, mild to moderate AR, mild TR and mildly enlarged aortic root of 4.3cm. (8) Peripheral neuropathy: (9) CMT (Qqzlmln-Txfgh-Ekens disease): Plan: -No recent falls or trauma although patient endorses feeling quite dizzy and lightheaded with ambulation since yesterday ISO above. Patient uses a cane for ambulation with BLE braces at baseline given history of Rcodwug-Ltazn-Ennrm disease Plan: -PT/OT evaluations. Hold home Lyrica for now ISO NPO status. (10) Bilateral lower extremity edema: (11) Venous stasis dermatitis of both lower extremities: Plan: Noted mild BLE edema with venous stasis changes/dermatitis on exam. Patient endorses this is chronic and appears unchanged from baseline. Also notes edema bullae on BLE which have been monitored by his outpatient land resource specialist. Plan: -Wound care consulted. AmLactin ordered. Encourage TEDs use. (12) Chronic neck pain: (13) Chronic right hip pain: Plan: -On Tramadol PRN at home Plan: -holding for now ISO NPO status. PRN IV morphine ordered for moderate-severe pain. (14) SONYA on CPAP: Plan: Chronic, stable. Continue CPAP HS. Can use home CPAP device. Total Time Total Time Spent Total Time Spent (In Minutes): 25minutes Discharge Plan Discharge Items Patient Disposition: Transfer Acute Care Hospital Reason For Visit: GI BLEED Discharge Diagnosis: 1. Acute Blood Loss Anemia 2. Rectal Ulcers 3. Upper GI Bleed, not resolved 4. Acute Hypoxic Respiratory Failure 2/2 fluid resuscitation Activity: Per Instructions section Lifting: Gradually increase as tolerated Exercise/Sports: Gradually increase as tolerated Non-emergency contact: Primary Care Provider and Hand Spinner Call non-emergency contact if: you have any medication questions Follow-up/Referrals: Julia Robert, DANIELLE [Primary Care Provider] - Diet: Clear liquid Addtl Attending Provider Instructions: 1. Transfer to [facility] for further workup and stabilization. Pending Studies at Discharge: Yes Studies:: GI procedures Stand-Alone Forms: [employer] [facility] [place] [employer], Smoking Cessation Skilled Items Patient informed of condition?: Yes DNR: No Discharge Level of Care: Other Communicable Disease: No Discharge Prognosis: Stable Lines: Peripheral IV Urinary Catheter: No Medications and DC Order Prescriptions: Continued tramadol 50 mg Tablet 50 mg PO Q6H PRN (Reason: Pain) cholecalciferol (vitamin D3) [Vitamin D3] 1,000 unit Tablet 1,000 unit PO QPM atorvastatin 20 mg tablet 20 mg PO QAM cyanocobalamin (vitamin B-12) 1,000 mcg/mL Solution 1,000 mcg IM UD Rx Instructions: monthly. Hasnt had shot in awhile pregabalin 75 mg capsule 75 mg PO TID Rx Instructions: needs to get filled Held atenolol 25 mg Tablet 25 mg PO QAM Hold Instructions: Resume on 12/26/24. lisinopril-hydrochlorothiazide 20-25 mg Tablet 1 tab PO QAM Hold Instructions: Resume on 12/26/24. omeprazole 20 mg Tablet,Delayed Release (Dr/Ec) 20 mg PO BID Hold Instructions: Resume on 12/26/24. amlodipine 10 mg Tablet 10 mg PO QAM Hold Instructions: Resume on 12/26/24. Discontinued potassium chloride 10 mEq Tablet Extended Release 10 meq PO BID meloxicam 15 mg tablet 15 mg PO DAILY Discharge Orders: Discharge Order (Routine); Ordered 12/21/24 Ordered By: Pedro Pablo Gastelum Admission Data Admit Date/Time: 12/20/24 13:44 Attending Provider: Saúl Schmidt Admit Provider: Saúl Schmidt Primary Care Provider: Julia Robert Other Providers: Saúl Schmidt; Otis Holt; Jeremy Osborn; [facility]
[2024-12-21 22:24] VITALS: RESP 20; TEMP 100.2; O2SAT 97
[2024-12-21 23:44] VITALS: BP 151/64; PULSE 90
--- NOTE | 2024-12-23 08:50 | Coding Query ---
PRESENT ON ADMISSION QUERY To promote full compliance with coding requirements relating to pateint care, physician participation is requested in all cases of marketing operations associate uncertainty. Please assist us with the question(s) below: Please place an X within the parenthesis (x). The following diagnosis listed in this patient's medical record require physician assistance to determine if they were present on admission (POA) or not. Please advise for each diagnosis whether it was present on admission, not present on admission, or if it was clinically undetermined. 1. Acute Hypoxic Respiratory Failure 2/2 fluid resuscitation - (documented on Discharge Summary) ( ) Present On Admission (x ) Not Present On Admission ( ) Clinically Undetermined Thank you Ayleen Montoya *Definition of the present on admission (POA)-Present on admission is defined as present at the time the order for inpatient admission occurs. Conditions that develop during an outpatient encounter prior to a written order for inpatient admission (including emergency department, observation, or outpatient surgery) are considered present on admission. MTDD
== END 2024-12-21 22:20 | disposition short-term general hospital (02) | DRG 344 ==
LOC: ED 11:13 → 2S 13:44 → 1E 12-21 00:27

== ENCOUNTER 2025-07-27 07:28 | Inpatient (IN) ==
--- NOTE | 2025-07-27 08:39 | XRay Report ---
XR chest 1V portable CLINICAL HISTORY: weakness COMPARISON STUDY: 12/20/2024 FINDINGS: There is stable cardiomegaly with mild pulmonary vascular congestion. There is interval keli ateral lung base opacity with blunting of the costophrenic angles. No pneumothorax. IMPRESSION: 1. CHF with possible small bilateral pleural effusions. 2. Associated lung base consolidation could represent atelectasis or pneumonia. ACT 112: Negative or not required by law. Electronically signed by: Yonatan Diego M.D. 07/27/2025 8:37 AM
[2025-07-27 08:58] LABS: Alanine Aminotransferase 14 U/L (7-52); Albumin Globulin Ratio 1.1 (0.9-2); Albumin Level 3.7 gm/dl (3.4-5.0); Alkaline Phosphatase 116 U/L (34-104); Anion Gap 11 (3-11); Bilirubin,Total 1.0 mg/dl (0.2-1.0); Blood Urea Nitrogen 27 mg/dl (6-23); Calcium 9.3 mg/dl (8.6-10.3); Carbon Dioxide 26 mmol/L (21-32); Chloride 106 mmol/L (98-107); Globulin 3.3 gm/dl (2.5-4.0); Glucose 104 mg/dl (70-99(Fasting)); Potassium 4.1 mmol/L (3.5-5.1); Sodium 143 mmol/L (136-145); Total Protein 7.0 gm/dl (6.0-8.3)
[2025-07-27 09:13] LABS: Thyroid Stimulating Hormone 2.101 uIu/ml (0.300-4.500)
[2025-07-27 09:28] LABS: Anisocytosis Present; Hematocrit (blood only) 40.7 % (42.0-52.0); Hemoglobin 12.3 g/dl (14.0-18.0); Immature Granulocytes # (auto) 0.03 K/uL (0.01-0.20); Immature Granulocytes % (auto) 0.3 %; Mean Corpuscular Hemoglobin 22.2 pg (25.0-34.0); Mean Corpuscular Volume 73.3 fL (80.0-100.0); RDW Standard Deviation 49.6 fL (36.4-46.3); Red Blood Count 5.55 M/uL (4.70-6.10); White Blood Count 9.03 K/ul (4.8-10.8)
--- NOTE | 2025-07-27 10:32 | Emergency Department Note ---
Impression & Plan Acute CHF ED Provider Note NAME: LINDA PAREKH AGE: 80 SEX: M : 1945 ARRIVES VIA: Walk-In INFORMANT: Patient, ED PROVIDER(S): Nelia Smart MD CHIEF COMPLAINT: Shortness of breath HPI: This is a 80-year-old male presenting for shortness of breath, chest tightness. Patient notes that he has had chest tightness with the past 1 day. He notes his lower abdomen feels somewhat tight. No pain. Reports no previous chest pain. Reports no nausea or vomiting. No pleurisy. No leg swelling. He does report taking fluid pills occasionally. He states he is shortness of breath with exertion specifically. It is occasionally positional as well, worse with laying flat. ROS: See above HPI for pertinent positives & negatives. A total of 10 systems reviewed and were otherwise negative. PAST MEDICAL HISTORY: See Below PAST SURGICAL HISTORY: See Below FAMILY HISTORY: See Below SOCIAL HISTORY: See Below HOME MEDICATIONS: See Below ALLERGIES: See Below VITALS: See Below PHYSICAL EXAMINATION: General: resting comfortably in no acute distress Head: Normocephalic and atraumatic Eyes: Normal inspection, extraocular muscles intact Ear, nose, throat: Normal external exam Neck: Normal range of motion Respiratory: lungs clear to auscultation bilaterally Cardiovascular: Regular rate/rhythm, no murmur GI: soft, nontender, no guarding or rebound Extremities: nontender, moves all extremities Neuro: The patient awake and alert, appropriately conversive, no focal deficits, symmetric faces Skin: Warm, dry, and intact MEDICAL DECISION MAKING: This is a an 80-year-old male presenting for shortness of breath/chest tightness. Patient is clinically well, will do screening ACS workup. Consider CHF, pneumonia, PE. -Bloodwork is reviewed showing no significant leukocytosis, anemia, electrolyte or creatinine abnormality -Troponin is elevated at over 73 -Chest x-ray with signs of CHF. The patient's current symptoms, will admit the patient due to his hypoxia, CHF and need for fluid diuresis Differential diagnosis: CHF, pneumonia, PE, URI Diagnostics interpreted by me: ECG: ECG independently interpreted by me with sinus tachycardia, rate of 101, right bundle branch block normal MO, normal QRS, normal QTc, no ST segment elevations consistent with STEMI criteria Cardiac Monitoring: An order was placed for continuous cardiac monitoring. The monitor shows a rate of 103 with sinus rhythm. Past Med/Surg History Problem List (Updated 07/27/25 @ 16:57 by Nelia Smart MD) RBBB Aortic root dilatation Aortic insufficiency SVT (supraventricular tachycardia) Pleural effusion Systolic dysfunction Heart failure, systolic, with acute decompensation Acute CHF (Acute) Elevated troponin Coreas's esophagus Moderate aortic insufficiency Aortic root enlargement CMT (Aryjkhx-Jyeym-Lkfgw disease) Medical History Coreas esophagus Aspiration pneumonia SIRS (systemic inflammatory response syndrome) Hypertension Sepsis Acute hypoxic respiratory failure GIB (gastrointestinal bleeding) Acute blood loss anemia Chronic right hip pain Peripheral neuropathy Bilateral lower extremity edema Acute GI bleeding Venous stasis dermatitis of both lower extremities Chronic neck pain SONYA on CPAP Osteoarthritis Spinal stenosis Barretts esophagus GERD (gastroesophageal reflux disease) Charcot-Josselin disease Anemia Surgical History History of left knee surgery tendon repair at age 12 History of right inguinal hernia repair History of left inguinal hernia repair with left orchiectomy History of colonoscopy History of esophagogastroduodenoscopy (EGD) History of tooth extraction all teeth Family History Other No family history of adverse response to anesthesia Social History Smoking Status: Former smoker Tobacco Type: Cigarettes Second Hand Exposure: No; Do You Dip or Chew Tobacco: No; Hx Alcohol Use: No Hx Substance Use: No Preferred Language: Gambian Communication Ability: Effective Natural Sciences Department Chair Required: No Beliefs That Will Affect Care: None Current Living Situation: Spouse and Family Current Living Situation Comment: Daughter, RAVIN, Feels Safe at Home: Yes Safety Concerns: Feels Safe At This Time Assistive Devices: Cane, CPAP, Glasses and Walker Assistive Devices Comment: glasses and cane at bedside Allergies Allergies Allergy/AdvReac Type Severity Reaction Status Date / Time NSAIDS (Non-Steroidal Allergy Severe GI Bleed Unverified 07/27/25 10:03 Anti-Inflamma Home Meds Home Medications Medication Instructions Recorded Confirmed cholecalciferol (vitamin D3) 25 1,000 unit PO QPM 05/29/19 07/27/25 mcg (1,000 unit) tablet (Vitamin D3) omeprazole 20 mg tablet,delayed 20 mg PO BID 05/29/19 07/27/25 release potassium chloride 10 mEq 10 meq PO BID 05/29/19 07/27/25 tablet,extended release tramadol 50 mg tablet 50 mg PO TID PRN Pain 05/29/19 07/27/25 atorvastatin 20 mg tablet 20 mg PO QAM 03/04/24 07/27/25 cyanocobalamin (vitamin B-12) 1,000 mcg IM MONTHLY 03/04/24 07/27/25 1,000 mcg/mL injection solution ferrous sulfate 325 mg (65 mg 325 mg PO UD 07/27/25 07/27/25 iron) tablet furosemide 20 mg tablet 40 mg PO QAM 07/27/25 07/27/25 pregabalin 100 mg capsule 100 mg PO TID 07/27/25 07/27/25 Results & Data (ED) Vital Signs Vital Signs - 24 hr 07/27/25 07:38 07/27/25 08:19 07/27/25 08:23 Temperature 36.2 C L Temperature Source Skin Pulse Rate 92 H 89 Pulse Rate [Apical] Respiratory Rate 22 Respiratory Effort / Characteristics Spontaneous Respiratory Depth Normal Blood Pressure 142/87 H Blood Pressure [Right Arm] Blood Pressure Mean 105 Blood Pressure Mean [Right Arm] Blood Pressure Position Sitting Blood Pressure Position [Right Arm] Pulse Oximetry 95 95 Oxygen Delivery Method Room Air Room Air Sepsis Recent Fever Within 48 Hours No Sepsis New/Unexplained Change in Mental Status N/A Sepsis Action Taken by Nursing No Action Required 07/27/25 08:23 07/27/25 09:30 07/27/25 11:00 Temperature Temperature Source Pulse Rate Pulse Rate [Apical] 83 86 Respiratory Rate 12 12 Respiratory Effort / Characteristics Non-Labored Spontaneous Non-Labored Spontaneous Respiratory Depth Normal Normal Blood Pressure Blood Pressure [Right Arm] 143/85 H 139/85 Blood Pressure Mean Blood Pressure Mean [Right Arm] 104 103 Blood Pressure Position Blood Pressure Position [Right Arm] Semi-fowlers Semi-fowlers Pulse Oximetry 96 96 95 Oxygen Delivery Method Room Air Room Air Room Air Sepsis Recent Fever Within 48 Hours Sepsis New/Unexplained Change in Mental Status Sepsis Action Taken by Nursing Laboratory Data 07/27/25 08:17 07/27/25 08:17 Lab Results 07/27/25 07/27/25 07/27/25 Range/Units 08:17 10:21 11:23 WBC 9.03 (4.8-10.8) K/ul RBC 5.55 (4.70-6.10) M/uL Hgb 12.3 L (14.0-18.0) g/dl Hct 40.7 L (42.0-52.0) % MCV 73.3 L (80.0-100.0) fL MCH 22.2 L (25.0-34.0) pg MCHC 30.2 L (32.0-36.0) g/dL RDW Std Deviation 49.6 H (36.4-46.3) fL RDW Coeff of Daniel 20.1 H (11.5-14.5) % Plt Count (130-400) K/uL MPV (9.4-12.4) fL Immature Gran % (Auto) 0.3 % Neut % (Auto) 78.5 % Lymph % (Auto) 14.4 % [place] % (Auto) 5.8 % Eos % (Auto) 0.1 % Baso % (Auto) 0.9 % Neut # (Auto) 7.09 H (1.40-6.50) K/uL Lymph # (Auto) 1.30 (1.20-3.40) K/uL [place] # (Auto) 0.52 (0.11-0.59) K/uL Eos # (Auto) 0.01 (0.00-0.50) K/uL Baso # (Auto) 0.08 (0.00-0.20) K/uL Immature Gran # (Auto) 0.03 (0.01-0.20) K/uL Anisocytosis Present Sodium 143 (136-145) mmol/L Potassium 4.1 (3.5-5.1) mmol/L Chloride 106 (98-107) mmol/L Carbon Dioxide 26 (21-32) mmol/L Anion Gap 11 (3-11) BUN 27 H (6-23) mg/dl Creatinine 0.98 (0.6-1.4) mg/dl Est Cr Clr Drug Dosing Not Reportable eGFR 77.47 BUN/Creatinine Ratio 27.6 H (10-20) Glucose 104 H (70-99(Fasting)) mg/dl Calcium 9.3 (8.6-10.3) mg/dl Total Bilirubin 1.0 (0.2-1.0) mg/dl AST 19 (13-39) U/L ALT 14 (7-52) U/L Alkaline Phosphatase 116 H (34-104) U/L Troponin I High Sens 73.8 H* 69.2 H* (0-20) pg/ml B-Natriuretic Peptide 2207 H (0-100) pg/ml Total Protein 7.0 (6.0-8.3) gm/dl Albumin 3.7 (3.4-5.0) gm/dl Globulin 3.3 (2.5-4.0) gm/dl Albumin/Globulin Ratio 1.1 (0.9-2) TSH 2.101 (0.300-4.500) uIu/ml Administered Medications Pregabalin (Pregabalin 100 Mg Cap) 100 mg PO TID LILLIE Stop: 08/26/25 14:59 Last Admin: 07/27/25 14:59 Dose: 100 mg Documented By: SUPERVISOR TUBING Discontinued Medications Furosemide (Furosemide 40 Mg/4 Ml Vial) 40 mg IV ONE ONE Stop: 07/27/25 12:03 Last Admin: 07/27/25 12:12 Dose: 40 mg Documented By: MMF Imaging Data Radiologist's Impression: Chest X-Ray 07/27/25 08:07 XR chest 1V portable CLINICAL HISTORY: weakness COMPARISON STUDY: 12/20/2024 FINDINGS: There is stable cardiomegaly with mild pulmonary vascular congestion. There is interval bilateral lung base opacity with blunting of the costophrenic angles. No pneumothorax. IMPRESSION: 1. CHF with possible small bilateral pleural effusions. 2. Associated lung base consolidation could represent atelectasis or pneumonia. ACT 112: Negative or not required by law. Electronically signed by: Yonatan Diego M.D. 07/27/2025 8:37 AM Discharge Plan Visit Data Chief Complaint: Weakness Stated Complaint: WEAKNESS, SOB ED Provider: Nelia Smart Discharge Problem: Acute CHF Patient Disposition: Admitted As Inpatient Condition: Fair Discharge Instructions Interventions: ED Discharge Assessment Last Done: 07/27/25 14:05
--- NOTE | 2025-07-27 10:50 | History & Physical Report ---
Date of Service July 27, 2025 Assessment & Plan (1) Acute CHF: (2) Elevated troponin: (3) Moderate aortic insufficiency: (4) Aortic root enlargement: (5) CMT (Aououjb-Jguql-Sbizt disease): (6) Coreas's esophagus: Plan 80 year old male with PMH significant for mild to moderate aortic regurgitation, enlarged aortic root, AAA, hypertension, hyperlipidemia, Coreas's esophagus, GERD, Charcot Josselin Tooth muscular atrophy, SONYA on CPAP, chronic blood loss anemia, history of GI bleed, and chronic pain who presents to the ED on 07/27/2025 with SOB and abdominal tightness x4-5 days. Acute CHF Patient presenting with SOB and abdominal tightness x4-5 days CXR revealed CHF with possible small bilateral pleural effusions and associated lung base consolidation could represent atelectasis or PNA No leukocytosis and respiratory symptoms suggesting PNA BNP 2207 IV lasix 40mg x1 in the ED Monitor I&Os, daily weights, low salt diet Echo ordered Cardiology consult: appreciate recs Aortic regurgitation Enlarged aortic root AAA History of abnormal echo Follows with [facility] Abnormal echo in 2021 with wall motion abnormality and RV dilation with normal systolic function, improved in 2022 Last echo in January 2025 revealed LVEF 60-64%, mild to moderate aortic regurgitation, mildly enlarged aortic root Elevated troponin Initial 73.8 with repeat 69 Likely secondary to CHF Repeat at 1600 for completeness Decreased pedal pulse Right pedal pulse decreased compared to right Arterial ultrasound pending Hyperlipidemia Continue atorvastatin Coreas's esophagus GERD Continue PPI Chronic pain Charcot Josselin Tooth muscular atrophy Continue pregabalin and tramadol Chronic blood loss anemia Hgb stable at 12.3 Continue ferrous sulfate DVT Prophylaxis: SQ Heparin Code Status: FULL CODE - As per discussion at bedside with the patient. PCP: Marianne Syed Disposition: admit to [facility] Patient seen in collaboration with Dr Diop. Please see addendum. I spent a total of 75 minutes coordinating, documenting and providing care for this patient excluding time spent in the performance of separately billed services or time spent by another provider/QHP. Admission and Anticipated Discharge Date Admission Date: 07/27/2025 History of Present Illness Chief Complaint: SOB Primary Care Provider: Marianne Syed MD 80 year old male with PMH significant for mild to moderate aortic regurgitation, enlarged aortic root, AAA, hypertension, hyperlipidemia, Coreas's esophagus, GERD, Charcot Josselin Tooth muscular atrophy, SONYA on CPAP, chronic blood loss anemia, history of GI bleed, and chronic pain who presents to the ED on 07/27/2025 with SOB and abdominal tightness x4-5 days. Patient reports he has been feeling SOB and having upper quadrant abdominal tightness for the last 4-5 days that has been progressively worsening. Also reports difficulty breathing at night where he wakes up in the middle of the night short of breath. He takes lasix daily but reports that he does not take it every day because of having to urinate. Skips on days he has to be out of the house. Does not weight himself regularly. Reports he does not eat salt but notes he had ham yesterday. Denies fevers, chills, cough, congestion, chest pain, N/V/D, hematuria or hematochezia. Notes he is weak and fatigued. Falls often but denies hitting his head or suffering any injuries. Walks with a cane and needs to have sneakers on. Allergies Allergy/AdvReac Type Severity Reaction Status Date / Time NSAIDS (Non-Steroidal Allergy Severe GI Bleed Unverified 07/27/25 10:03 Anti-Inflamma Home Medications Medication Instructions Recorded Confirmed Type cholecalciferol (vitamin D3) 25 1,000 unit PO QPM 05/29/19 07/27/25 History mcg (1,000 unit) tablet (Vitamin D3) omeprazole 20 mg tablet,delayed 20 mg PO BID 05/29/19 07/27/25 History release potassium chloride 10 mEq 10 meq PO BID 05/29/19 07/27/25 History tablet,extended release tramadol 50 mg tablet 50 mg PO TID PRN Pain 05/29/19 07/27/25 History atorvastatin 20 mg tablet 20 mg PO QAM 03/04/24 07/27/25 History cyanocobalamin (vitamin B-12) 1,000 mcg IM MONTHLY 03/04/24 07/27/25 History 1,000 mcg/mL injection solution ferrous sulfate 325 mg (65 mg 325 mg PO UD 07/27/25 07/27/25 History iron) tablet furosemide 20 mg tablet 40 mg PO QAM 07/27/25 07/27/25 History pregabalin 100 mg capsule 100 mg PO TID 07/27/25 07/27/25 History Past Med/Surg History Problem List (Updated 07/27/25 @ 16:57 by Nelia Smart MD) RBBB Aortic root dilatation Aortic insufficiency SVT (supraventricular tachycardia) Pleural effusion Systolic dysfunction Heart failure, systolic, with acute decompensation Acute CHF (Acute) Elevated troponin Coreas's esophagus Moderate aortic insufficiency Aortic root enlargement CMT (Ckvtiho-Azrmx-Edadi disease) Medical History Coreas esophagus Aspiration pneumonia SIRS (systemic inflammatory response syndrome) Hypertension Sepsis Acute hypoxic respiratory failure GIB (gastrointestinal bleeding) Acute blood loss anemia Chronic right hip pain Peripheral neuropathy Bilateral lower extremity edema Acute GI bleeding Venous stasis dermatitis of both lower extremities Chronic neck pain SONYA on CPAP Osteoarthritis Spinal stenosis Barretts esophagus GERD (gastroesophageal reflux disease) Charcot-Josselin disease Anemia Surgical History History of left knee surgery tendon repair at age 12 History of right inguinal hernia repair History of left inguinal hernia repair with left orchiectomy History of colonoscopy History of esophagogastroduodenoscopy (EGD) History of tooth extraction all teeth Family History Other No family history of adverse response to anesthesia Social History Smoking Status: Former smoker Tobacco Type: Cigarettes Second Hand Exposure: No; Do You Dip or Chew Tobacco: No; Hx Alcohol Use: No Hx Substance Use: No Preferred Language: Lebanese Communication Ability: Effective Cable Engineer Required: No Beliefs That Will Affect Care: None Current Living Situation: Spouse and Family Current Living Situation Comment: Daughter, RAVIN, Feels Safe at Home: Yes Safety Concerns: Feels Safe At This Time Assistive Devices: Cane, CPAP, Glasses and Walker Assistive Devices Comment: glasses and cane at bedside Review of Systems Review of Systems: All systems reviewed & are unremarkable except as noted in HPI & below Physical Exam Physical Exam: General/Psych: frail, sitting up in bed, NAD, conversing easily, flat affect Head: normocephalic, atraumatic Eyes: normal inspection, PERRL, conjunctivae pink ENT: external ear and nose normal, oropharynx normal Neck: normal visual inspection, trachea midline Respiratory: normal respiratory effort, lungs with crackles bilaterally, no accessory muscle use Cardiovascular: regular rate and rhythm, no murmur/rub/gallop Extremities: no cyanosis or clubbing, decreased right pedal pulse, normal left pedal and bilateral radial pulses, no BLE edema Abdomen/GI: normal bowel sounds, soft, nontender, no hepatosplenomegaly Neurologic/MSK: A+Ox3, CN's II-XI intact bilaterally, motor strength 5/5, moves all extremities Skin: no rashes, normal color, warm and dry Results & Data Results & Data Vital Signs (Past 12 Hours) Vital Signs Temp Pulse Pulse Resp BP BP Pulse Ox 07/27/25 09:30 83 12 143/85 H 96 07/27/25 08:23 96 07/27/25 08:23 95 07/27/25 08:19 89 07/27/25 07:38 36.2 C L 92 H 22 142/87 H 95 O2 Del Method 07/27/25 09:30 Room Air 07/27/25 08:23 Room Air 07/27/25 08:23 Room Air 07/27/25 08:19 07/27/25 07:38 Room Air Laboratory Results Short CBC 07/27/25 Range/Units 08:17 WBC 9.03 (4.8-10.8) K/ul Hgb 12.3 L (14.0-18.0) g/dl Hct 40.7 L (42.0-52.0) % Plt Count (130-400) K/uL BMP 07/27/25 08:17 Sodium 143 Potassium 4.1 Chloride 106 Carbon Dioxide 26 BUN 27 H Creatinine 0.98 Glucose 104 H Calcium 9.3 Liver Function 07/27/25 Range/Units 08:17 Total Bilirubin 1.0 (0.2-1.0) mg/dl AST 19 (13-39) U/L ALT 14 (7-52) U/L Alkaline Phosphatase 116 H (34-104) U/L Albumin 3.7 (3.4-5.0) gm/dl Urine 07/27/25 Range/Units 12:37 Urine Color Yellow Urine Appearance Clear (Clear) Urine pH 6.0 (4.5-7.5) Ur Specific Susan 1.022 (1.000-1.030) Urine Protein Trace H (Negative) Urine Glucose (UA) Negative (Negative) I have independently reviewed and interpreted patient's admitting labs including CBC, CMP, troponin, BNP, TSH, UA. Diagnostic Findings Chest X-Ray 07/27/25 08:07 XR chest 1V portable CLINICAL HISTORY: weakness COMPARISON STUDY: 12/20/2024 FINDINGS: There is stable cardiomegaly with mild pulmonary vascular congestion. There is interval bilateral lung base opacity with blunting of the costophrenic angles. No pneumothorax. IMPRESSION: 1. CHF with possible small bilateral pleural effusions. 2. Associated lung base consolidation could represent atelectasis or pneumonia. ACT 112: Negative or not required by law. Electronically signed by: Yonatan Diego M.D. 07/27/2025 8:37 AM Code Status & VTE Plan Code Status Full Code (6) Coreas's esophagus Coreas's esophagus type: without dysplasia Qualified Code(s): K22.70 - Coreas's esophagus without dysplasia
[2025-07-27] MEDS: FUROSEMIDE 40 MG/4 ML VIAL IV ONE ×2 (12:12→21:03)
--- NOTE | 2025-07-27 12:14 | Communication Note ---
Date of Service: July 27, 2025 Attending Addendum: Case reviewed with the advanced practitioner. I have personally performed a history and physical examination on the patient. I have reviewed the advanced practitioner's documentation on the date of service referenced in note, and I agree with, and take responsibility for the plan of care. please refer to her notes for full details patient seen and examined, records reviewed by myself as well on exam, patient seen resting in bed, comfortable, not in distress Does report feeling uncomfortable due to mild dyspnea No chest pain, palpitations, nausea or vomiting No fevers or chills, cough, sputum production no other symptoms VS noted and reviewed oriented x 3, not in distress, speaks in sentences with no effort nor accessory muscle use normal rate, regular rhythm, no murmurs positive mild crackles bilaterally, no wheezing non distended, soft, nontender no bipedal edema, erythema, warmth no neuro deficits all labs, imaging noted and reviewed ASSESSMENT AND PLAN> Volume overload in the setting of moderate aortic insufficiency Follows with [facility] cardiology for moderate aortic insufficiency and enlarged aorta Last echo as of January 06, 2025 showing preserved LVEF 6060 to 64%, mild to moderate aortic regurgitation, mildly enlarged aortic root 4.3 cm Patient reports he has not been regularly taking his Lasix 40 p.o. daily chest x-ray showing CHF pattern with possible small bilateral pleural effusion Lasix 40 mg IV 1 dose now Update echocardiogram Cardiology consult other diagnoses and plan of care as per advanced practitioner's notes I spent a total of 40 minutes coordinating, documenting, and providing care for this patient, excluding time spent in the performance of separately billed services or time spent by another provider/QHP. Chandan Diop MD
[2025-07-27 12:52] LABS: Appearance Urine Clear (Clear); Bacteria Urine Automated None Seen (None Seen); Cast Urine Automated 0-2 /lpf (0-2); Epithelial Cell Urine Auto 0-2 /hpf (0-2); Glucose Urine UA Negative (Negative); RBC Urine Automated 0-2 /hpf (0-2); WBC Urine Automated 0-5 /hpf (0-5)
[2025-07-27] MEDS ORDERED: ACETAMINOPHEN 325 MG TAB PO PRN (14:31)
[2025-07-27] MEDS ORDERED: POLYETHYLENE (MIRALAX) 17 GM PACK PO PRN (14:31)
[2025-07-27] MEDS ORDERED: ALUMINUM/MAGNESIUM SUSP 30 ML UDC PO PRN (14:31)
[2025-07-27] MEDS ORDERED: ONDANSETRON INJ 2 MG/ML 2 ML VIAL IV PRN (14:31)
[2025-07-27] MEDS: PREGABALIN 100 MG CAP PO SCH (14:59)
--- NOTE | 2025-07-27 15:51 | Cardiology Consultation ---
Date of Consultation July 27, 2025 Assessment & Plan (1) Heart failure, systolic, with acute decompensation: (2) Systolic dysfunction: (3) Pleural effusion: (4) SVT (supraventricular tachycardia): (5) Aortic insufficiency: (6) Aortic root dilatation: (7) Elevated troponin: (8) RBBB: Plan 80 year old male admitted to [facility] on 07/27/2025 with acute, significant dyspnea and epigastric/substernal chest tightness progressive over the past 1.5 weeks. History and examination with evidence of acute decompensated congestive heart failure, suspected new onset severe LV systolic dysfunction. EKG with diffuse ST-T wave abnormality. High sensitivity troponin elevated. Resting echocardiography pending. NYHA Class IV. Stage C. QRS duration 138 ms with right bundle branch block. Patient with known history of mild to moderate aortic insufficiency, enlarged aortic root. 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 * Continuous telemetry monitoring when hospitalized. * Eventual diagnostic cardiac catheterization when euvolemic (? Saturday AM) Supervising Physician Co-Signing Physician Notes Patient seen and examined. Past medical history, surgical history, social history and family history have been reviewed. The medical record and all the above studies have been reviewed. Case DW OSMANY including management. Acute HFrEF Severe CM - ischemic vs non-ischemic PSVT -> likely PAT Mild to moderate aortic insufficiency Elevated troponin Aortic root aneurysm Infrarenal abdominal aortic aneurysm 07/27/25 ECHO Interpretation Summary Left ventricular systolic function is severely reduced. Diastolic dysfunction, Grade II (pseudonormalization pattern). Mild to moderate aortic regurgitation. Aortic valve sclerosis moderate, without significant aortic valvular stenosis. Mild pulmonic valvular regurgitation. There is mild mitral regurgitation. There is mild to moderate tricuspid regurgitation. Right ventricular systolic pressure is elevated at 30-40mmHg. Left Ventricular Ejection Fraction = 20-25%. Mild aortic root dilatation. correct and f/u electrolytes f/u renal function IV diuretics GDMT for HFrEF keeping HR between 60 to 100 BPM and systolic BP between 100-140 mmHg avoid hypovolemia keep patient euvolemic DVT prophylaxis keep LE elevated when sitting 1.5 L / 24 hr fluid restriction strict I&Os salt restriction statin ASA cardiac cath when CHF status is optimized and patient is able to lay supine History of Present Illness Reason for Consultation: Congestive heart failure Requesting Physician: [facility] Hospitalist Service, Karla KEBEDE Attending Physician: [facility], Dr. Chandan Diop MD History of Present Illness Randall Purvis is a very pleasant soft-spoken 80-year-old [place] who presented to the [facility] ER in the morning of July 27, 2025 with complaints of shortness of breath as well as chest tightness. Patient notes developing shortness of breath and pressure in the epigastric/substernal region approximately 1.5 weeks ago. He describes having progressive difficulty breathing, difficulty taking a deep breath, shortness of breath at nighttime t hat became quite severe, to the point of awakening "panting and fighting for air." Notes chronically taking furosemide in the morning though occasionally missing doses when away from home due to excessive urination. Notes significant difficulty when attempting to stand to utilize the restroom earlier today due to shortness of breath, hyperventilating. Chest x-ray on presentation revealed congestive heart failure with possible small bilateral pleural effusions. Patient received 40 mg IV furosemide in the ER with good diuresis reported by the patient, urinating x 6. I's and O's not accurately recorded. EKG on presentation revealed sinus tachycardia with right bundle branch block, with diffuse STT wave abnormality, QTc prolonged at 503 ms. QRS duration 138 ms. Laboratory work revealed elevated high-sensitivity troponin, 73.8 pg/mL then 69.2 pg/mL. B natruretic peptide elevated at 2207 pg/mL. Creatinine 0.98 mg/dL. CBC with mild anemia, hemoglobin 12.3, with hypochromic microcytic indices. 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 No activity related chest pain. 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 No current edema, last about one year ago, aided by utilization of compression stockings. Patient notes dizziness and near syncope with exertional dyspnea. No syncope. No fevers. No chills. No night sweats. No rash. No tick bites. No recent travel. No epistaxis. No hemoptysis. No melena. No hematochezia. No hematuria. Past Medical and Surgical History: Zewteym-Ouuns-Hcjnn muscular atrophy Rheumatoid arthritis Aortic insufficiency Aortic root aneurysm Infrarenal abdominal aortic aneurysm Imaging with diffuse atherosclerotic calcifications Prior echocardiography in 2021 with small size apical wall motion abnormality, RV dilatation Right bundle branch block Large hiatal hernia Chronic blood loss, iron deficiency anemia, history of GI bleed GERD Coreas's esophagus Obstructive sleep apnea History of tobacco use Hypertension Dyslipidemia Pulmonary nodule, right middle lobe Torn distal left bicep Hepatic cyst Diverticuli History of left knee surgery 3 prior hernia repair Removal of left testicle, hydrocele Hemorrhoidectomy Lumbar spinal injection Family History: Positive for CAD in mother and father Social History: Former smoker having quit in 1969. Reformed smokeless tobacco user having quit in the remote past. No illegal/illicit drug use. [place], followed by the [employer] administration. 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 Two grown children without cardiac issues. Allergies Allergy/AdvReac Type Severity Reaction Status Date / Time NSAIDS (Non-Steroidal Allergy Severe GI Bleed Unverified 07/27/25 10:03 Anti-Inflamma Home Medications Medication Instructions Recorded Confirmed Type cholecalciferol (vitamin D3) 25 1,000 unit PO QPM 05/29/19 07/27/25 History mcg (1,000 unit) tablet (Vitamin D3) omeprazole 20 mg tablet,delayed 20 mg PO BID 05/29/19 07/27/25 History release potassium chloride 10 mEq 10 meq PO BID 05/29/19 07/27/25 History tablet,extended release tramadol 50 mg tablet 50 mg PO TID PRN Pain 05/29/19 07/27/25 History atorvastatin 20 mg tablet 20 mg PO QAM 03/04/24 07/27/25 History cyanocobalamin (vitamin B-12) 1,000 mcg IM MONTHLY 03/04/24 07/27/25 History 1,000 mcg/mL injection solution ferrous sulfate 325 mg (65 mg 325 mg PO UD 07/27/25 07/27/25 History iron) tablet furosemide 20 mg tablet 40 mg PO QAM 07/27/25 07/27/25 History pregabalin 100 mg capsule 100 mg PO TID 07/27/25 07/27/25 History Patient History Medical History Coreas esophagus Aspiration pneumonia SIRS (systemic inflammatory response syndrome) Hypertension Sepsis Acute hypoxic respiratory failure GIB (gastrointestinal bleeding) Acute blood loss anemia Chronic right hip pain Peripheral neuropathy Bilateral lower extremity edema Acute GI bleeding Venous stasis dermatitis of both lower extremities Chronic neck pain SONYA on CPAP Osteoarthritis Spinal stenosis Barretts esophagus GERD (gastroesophageal reflux disease) Charcot-Josselin disease Anemia Surgical History History of left knee surgery tendon repair at age 12 History of right inguinal hernia repair History of left inguinal hernia repair with left orchiectomy History of colonoscopy History of esophagogastroduodenoscopy (EGD) History of tooth extraction all teeth Family History Other No family history of adverse response to anesthesia Social History Smoking Status: Former smoker Tobacco Type: Cigarettes Second Hand Exposure: No; Do You Dip or Chew Tobacco: No; Hx Alcohol Use: No Hx Substance Use: No Preferred Language: Gambian Communication Ability: Effective Pleater Required: No Beliefs That Will Affect Care: None Current Living Situation: Spouse and Family Current Living Situation Comment: Daughter, RAVIN, Feels Safe at Home: Yes Safety Concerns: Feels Safe At This Time Assistive Devices: Cane, CPAP, Glasses and Walker Assistive Devices Comment: glasses and cane at bedside Review of Systems Review of Systems: Complete review of systems is otherwise as stated above, negative, or noncontributory. Physical Exam Physical Exam: General: Pleasant. Comfortable. Cooperative. Mildly tachypneic with conversation. HENT: Normocephalic. Atraumatic. Eyes: PER. Conjunctiva pink, sclera clear. Neck: 10 cm of JVD. + Hepatojugular reflux. Transmitted murmur to the carotids. Heart: Slightly irregular, with occasional ectopic beat, heart rate around 100 bpm. Grade II/ systolic murmur. No rub. PMI is displaced laterally. Lungs: Diminished. Decreased. Bibasilar rales. No wheeze. Abdomen: +BS. Soft. Nontender. No masses or organomegaly. Extremities: No significant lower extremity peripheral edema. No cyanosis. Limited neurological examination is without focal deficits. Pulses: Dorsalis pedis pulse was 3/4 on the left and 1/4 on the right Results & Data Vital Signs (Past 12 Hours) Vital Signs Temp Pulse Pulse Resp BP BP Pulse Ox 07/27/25 15:12 95 07/27/25 14:32 07/27/25 14:32 36.4 C L 103 H 22 121/77 96 07/27/25 14:29 95 H 07/27/25 14:05 90 21 138/108 H 96 07/27/25 13:00 97 H 24 158/97 H 96 07/27/25 12:29 137 H 07/27/25 11:00 86 12 139/85 95 07/27/25 09:30 83 12 143/85 H 96 07/27/25 08:23 96 07/27/25 08:23 95 07/27/25 08:19 89 07/27/25 07:38 36.2 C L 92 H 22 142/87 H 95 O2 Del Method O2 Flow Rate 07/27/25 15:12 Nasal Cannula 2 07/27/25 14:32 Room Air 07/27/25 14:32 Room Air 07/27/25 14:29 07/27/25 14:05 Room Air 07/27/25 13:00 Room Air 07/27/25 12:29 07/27/25 11:00 Room Air 07/27/25 09:30 Room Air 07/27/25 08:23 Room Air 07/27/25 08:23 Room Air 07/27/25 08:19 07/27/25 07:38 Room Air Laboratory Results Cardiac Enzymes 07/27/25 07/27/25 07/27/25 Range/Units 08:17 10:21 11:23 AST 19 (13-39) U/L Troponin I High Sens 73.8 H* 69.2 H* (0-20) pg/ml B-Natriuretic Peptide 2207 H (0-100) pg/ml Coagulation 07/27/25 Range/Units 11:23 B-Natriuretic Peptide 2207 H (0-100) pg/ml CBC 07/27/25 Range/Units 08:17 WBC 9.03 (4.8-10.8) K/ul RBC 5.55 (4.70-6.10) M/uL Hgb 12.3 L (14.0-18.0) g/dl Hct 40.7 L (42.0-52.0) % Plt Count (130-400) K/uL Neut # (Auto) 7.09 H (1.40-6.50) K/uL Lymph # (Auto) 1.30 (1.20-3.40) K/uL [place] # (Auto) 0.52 (0.11-0.59) K/uL Eos # (Auto) 0.01 (0.00-0.50) K/uL Baso # (Auto) 0.08 (0.00-0.20) K/uL Comprehensive Metabolic Panel 07/27/25 Range/Units 08:17 Sodium 143 (136-145) mmol/L Potassium 4.1 (3.5-5.1) mmol/L Chloride 106 (98-107) mmol/L Carbon Dioxide 26 (21-32) mmol/L BUN 27 H (6-23) mg/dl Creatinine 0.98 (0.6-1.4) mg/dl Glucose 104 H (70-99(Fasting)) mg/dl Calcium 9.3 (8.6-10.3) mg/dl AST 19 (13-39) U/L ALT 14 (7-52) U/L Alkaline Phosphatase 116 H (34-104) U/L Total Protein 7.0 (6.0-8.3) gm/dl Albumin 3.7 (3.4-5.0) gm/dl Intake and Output 07/27/25 07/27/25 07/27/25 06:59 14:59 22:59 Output Total 150 / 150 Balance -150 / -150 Output: Urine 150 / 150 Other: Weight 51.8 kg Weight Measurement Method Built in [facility] Patient Weight 07/28/25 06:59 Weight 51.8 kg Diagnostic Findings December 27, 2023 TTE Interpretation Summary (as per Dr. Calvillo): The qualitative LV ejection fraction is 60-64% (normal). The left ventricular wall motion is normal. The left ventricular diastolic function is mildly abnormal (grade I). The aortic valve has three leaflets. Mild aortic valve sclerosis is present. Mild to moderate aortic regurgitation. Mild tricuspid regurgitation is present. There is no evidence of pulmonary hypertension. The aortic root is mildly enlarged, 4.3 cm. Compared to study dated January 01, 2023, aortic root diameter has mildly increased, previously measuring 4.2 cm January 06, 2025 TTE Interpretation Summary (as per Dr. Belle): The qualitative LV ejection fraction is 60-64% (normal). No LV segmental wall motion abnormalities. The right ventricular systolic function is qualitatively normal. Mild to moderate aortic regurgitation is present. The aortic root is mildly enlarged (43 mm). The proximal ascending thoracic aorta is normal sized. Admission chest x-ray with cardiomegaly, mild pulmonary vascular congestion, small bilateral pleural effusions. Telemetry: Sinus/sinus tachycardia. PAC's. 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 PG Care Time/CCT Total # of Minutes Spent Total Time Spent with Patient: Total time spent is greater than 50% in coordination of care (as documented) at patient's floor/unit and/or counseling patient.I spent a total of 80 minutes on the date of service in preparation, delivery, and documentation of the care provided to this patient excluding any time spent in the performance of separately billed services. This visit was a split-shared visit with the substantive portion of the medical decision making performed by the supervising chief electrician/billing provider. Coding Level of Care Code 50529 IN/OBS CONSULT LVL 5,80M Diagnoses Heart failure, systolic, with acute decompensation I50.23 Systolic dysfunction I51.9 Pleural effusion J90 SVT (supraventricular tachycardia) I47.10 Aortic insufficiency I35.1 Aortic root dilatation I77.810 Elevated troponin R79.89 RBBB I45.10
--- NOTE | 2025-07-27 17:38 | XCELERA ---
[id number] \\[id number]___[id number]
[2025-07-27] MEDS: POTASSIUM CHLORIDE 10 MEQ TABCR PO SCH (21:03)
[2025-07-27] MEDS: HEPARIN SOD 5,000 UNIT/0.5 ML VIAL SQ SCH (21:04)
[2025-07-27] MEDS: METOPROLOL SUCC 25MG EXT REL TAB PO SCH (21:05)
[2025-07-27] MEDS: CHOLECALCIFEROL 25 MCG (1000 UNITS) TAB PO SCH (21:06)
[2025-07-27] MEDS: POTASSIUM CHLORIDE CRTAB 20 MEQ TABCR PO ONE (21:19)
--- NOTE | 2025-07-28 00:36 | Ultrasound Report ---
Exam(s): US ARTERIAL RIGHT LOWER EXTREMITY EXAM: US Duplex Right Lower Extremity Arteries CLINICAL HISTORY: Reason for exam: Decreased pedal pulse. TECHNIQUE: Real-time duplex ultrasound scan of the right lower extremity arteries integrating B-mode two-dimensional vascular structure, Doppler spectral analysis and color flow Doppler imaging. COMPARISON: No relevant prior studies available. FINDINGS: Arterial plaque is noted throughout. Right common femoral artery: No occlusion or significant stenosis on color flow and spectral Doppler imaging. Triphasic waveforms were noted. Right superficial femoral artery: No occlusion or significant stenosis on color flow and spectral Doppler imaging. Triphasic waveforms were noted. Right popliteal artery: No occlusion or significant stenosis on color flow and spectral Doppler imaging. Triphasic waveforms were noted. Right calf/foot arteries: No occlusion on color flow and spectral Doppler imaging. Triphasic and biphasic waveforms were noted in the peroneal and posterior tibial arteries. Monophasic waveforms were noted in the anterior tibial artery. Biphasic waveforms were noted in the dorsalis pedis artery. The right LALITHA was 1.06 Soft tissues: Unremarkable. IMPRESSION: There appears to be significant arterial stenotic disease in the right anterior tibial artery Electronically signed by: Ajit Mueller MD 07/28/25 00:35 AM
[2025-07-28 08:01] LABS: Hematocrit (blood only) 37.3 % (42.0-52.0); Hemoglobin 11.8 g/dl (14.0-18.0); Mean Corpuscular Hemoglobin 23.3 pg (25.0-34.0); Mean Corpuscular Volume 73.6 fL (80.0-100.0); RDW Standard Deviation 49.5 fL (36.4-46.3); Red Blood Count 5.07 M/uL (4.70-6.10); White Blood Count 5.99 K/ul (4.8-10.8)
[2025-07-28 08:07] LABS: Anion Gap 11.0 (3-11); Blood Urea Nitrogen 31.0 mg/dl (6-23); Calcium 9.1 mg/dl (8.6-10.3); Carbon Dioxide 29.0 mmol/L (21-32); Chloride 104.0 mmol/L (98-107); Creatinine Clr Calc Pharmacy 38.6 ml/min; Glucose 56.0 mg/dl (70-99(Fasting)); Potassium 3.9 mmol/L (3.5-5.1); Sodium 144.0 mmol/L (136-145)
[2025-07-28] MEDS: FUROSEMIDE 40 MG/4 ML VIAL IV ONE (08:29)
[2025-07-28] MEDS: ATORVASTATIN 20 MG TAB PO SCH (08:31)
[2025-07-28] MEDS: SPIRONOLACTONE 12.5 MG TAB PO SCH (08:31)
[2025-07-28] MEDS: ASPIRIN 81 MG ECTAB PO SCH (09:01)
--- NOTE | 2025-07-28 11:55 | Cardiology Progress Note ---
Date of Service July 28, 2025 Assessment & Plan (1) Heart failure, systolic, with acute decompensation: (2) Systolic dysfunction: (3) Pleural effusion: (4) SVT (supraventricular tachycardia): (5) Aortic insufficiency: (6) Aortic root dilatation: (7) Elevated troponin: (8) RBBB: Plan 80 year old male admitted to [facility] on 07/27/2025 with acute, significant dyspnea and epigastric/substernal chest tightness progressive over the past 1.5 weeks. History and examination with evidence of acute decompensated congestive heart failure, suspected new onset severe LV systolic dysfunction. EKG with diffuse ST-T wave abnormality. High sensitivity troponin elevated. Resting ec hocardiography pending. NYHA Class IV. Stage C. QRS duration 138 ms with right bundle branch block. Patient with known history of mild to moderate aortic insufficiency, enlarged aortic root. 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 followed by Vascular Surgery Acute HFrEF Severe CM - ischemic vs non-ischemic PSVT -> likely PAT Mild to moderate aortic insufficiency Elevated troponin Aortic root aneurysm Infrarenal abdominal aortic aneurysm repeat CXR Cardiac cath on 07/29/26 - DW patient -> he understands and agrees to proceed correct and f/u electrolytes f/u renal function diuretics GDMT for HFrEF keeping HR between 60 to 100 BPM and systolic BP between 100-140 mmHg -> to be optimized after card cath avoid hypovolemia keep patient euvolemic DVT prophylaxis keep LE elevated when sitting 1.5 L / 24 hr fluid restriction strict I&Os salt restriction statin ASA Admission and Anticipated Discharge Date Admission Date: July 27, 2025 Subjective Patient on exam is lying in bed in NAD; no c/o cp, sob, palpitations, dizziness, LOC, cough, fever, nausea, vomiting; breathing is better; able to lay supine; feels better Review of Systems Review of Systems: Complete review of systems is otherwise as stated above, negative, or noncontributory. Physical Exam Physical Exam: General: Pleasant. Comfortable. HENT: Normocephalic. Atraumatic. Eyes: Conjunctiva pink, anicteric sclerae. Neck: no JVD. soft, NT Heart: S1S2 Grade II/ systolic murmur. No rub. PMI is displaced laterally. Lungs: minimal left basilar rales No wheeze. Abdomen: +BS. Soft. Nontender. No masses or organomegaly. Extremities: No significant lower extremity peripheral edema. No cyanosis. Limited neurological examination is without focal deficits. Results & Data Vital Signs (Past 12 Hours) Vital Signs Temp Pulse Pulse Resp BP Pulse Ox O2 Del Method 07/28/25 11:05 36.4 C L 73 16 127/54 L 98 Room Air 07/28/25 09:08 Room Air 07/28/25 07:53 36.4 C L 77 16 129/85 100 Nasal Cannula 07/28/25 05:28 72 07/28/25 03:41 36.3 C L 69 18 121/66 99 Nasal Cannula 07/28/25 00:08 36.6 C 84 20 113/75 99 Nasal Cannula O2 Flow Rate 07/28/25 11:05 07/28/25 09:08 07/28/25 07:53 3 07/28/25 05:28 07/28/25 03:41 2 07/28/25 00:08 3 Vital Signs Temp 36.4 C L 07/28/25 11:05 Pulse 73 07/28/25 11:05 Resp 16 07/28/25 11:05 BP 127/54 L 07/28/25 11:05 Pulse Ox 98 07/28/25 11:05 O2 Del Method Room Air 07/28/25 11:05 O2 Flow Rate 3 07/28/25 07:53 Intake & Output 07/27/25 07/28/25 07/28/25 18:59 06:59 18:59 Intake Total 400 / 400 Output Total 275 / 1475 1200 / 1475 Balance -275 / -1075 -800 / -1075 Weight 51.8 kg 51.8 kg Intake: Oral 400 / 400 Output: Urine 150 / 550 400 / 550 Urine Amount (Catheter) 125 / 925 800 / 925 Walton/Indwelling 125 / 925 800 / 925 Other: Weight Measurement Method Built in [facility] Results Laboratory Results - last 48 hr 07/27/25 07/27/25 07/27/25 08:17 10:21 11:23 WBC 9.03 RBC 5.55 Hgb 12.3 L Hct 40.7 L MCV 73.3 L MCH 22.2 L MCHC 30.2 L RDW Std Deviation 49.6 H RDW Coeff of Daniel 20.1 H Plt Count MPV Immature Gran % (Auto) 0.3 Neut % (Auto) 78.5 Lymph % (Auto) 14.4 Atkinson % (Auto) 5.8 Eos % (Auto) 0.1 Baso % (Auto) 0.9 Neut # (Auto) 7.09 H Lymph # (Auto) 1.30 Atkinson # (Auto) 0.52 Eos # (Auto) 0.01 Baso # (Auto) 0.08 Immature Gran # (Auto) 0.03 Anisocytosis Present Sodium 143 Potassium 4.1 Chloride 106 Carbon Dioxide 26 Anion Gap 11 BUN 27 H Creatinine 0.98 Est Cr Clr Drug Dosing Not Reportable eGFR 77.47 BUN/Creatinine Ratio 27.6 H Glucose 104 H Calcium 9.3 Total Bilirubin 1.0 AST 19 ALT 14 Alkaline Phosphatase 116 H Troponin I High Sens 73.8 H* 69.2 H* B-Natriuretic Peptide 2207 H Total Protein 7.0 Albumin 3.7 Globulin 3.3 Albumin/Globulin Ratio 1.1 TSH 2.101 Urine Color Urine Appearance Urine pH Ur Specific [place] Urine Protein Urine Glucose (UA) Urine Ketones Urine Blood Urine Nitrite Urine Bilirubin Urine Urobilinogen Ur Leukocyte Esterase Urine WBC (Auto) Urine RBC (Auto) U Hyaline Cast (Auto) U Epithel Cells (Auto) Urine Bacteria (Auto) Urine Comment 07/27/25 07/27/25 07/28/25 12:37 15:54 06:01 WBC 5.99 RBC 5.07 Hgb 11.8 L Hct 37.3 L MCV 73.6 L MCH 23.3 L MCHC 31.6 L RDW Std Deviation 49.5 H RDW Coeff of Daniel 19.3 H Plt Count MPV Not Reportable Immature Gran % (Auto) Neut % (Auto) Lymph % (Auto) Atkinson % (Auto) Eos % (Auto) Baso % (Auto) Neut # (Auto) Lymph # (Auto) Atkinson # (Auto) Eos # (Auto) Baso # (Auto) Immature Gran # (Auto) Anisocytosis Sodium 144 Potassium 3.9 Chloride 104 Carbon Dioxide 29 Anion Gap 11 BUN 31 H Creatinine 1.10 Est Cr Clr Drug Dosing 38.6 eGFR 67.44 BUN/Creatinine Ratio 28.2 H Glucose 56 L Calcium 9.1 Total Bilirubin AST ALT Alkaline Phosphatase Troponin I High Sens 84.0 H* D 111.2 H* D B-Natriuretic Peptide Total Protein Albumin Globulin Albumin/Globulin Ratio TSH Urine Color Yellow Urine Appearance Clear Urine pH 6.0 Ur Specific [place] 1.022 Urine Protein Trace H Urine Glucose (UA) Negative Urine Ketones 1+ H Urine Blood Negative Urine Nitrite Negative Urine Bilirubin Negative Urine Urobilinogen Negative Ur Leukocyte Esterase Negative Urine WBC (Auto) 0-5 Urine RBC (Auto) 0-2 U Hyaline Cast (Auto) 0-2 U Epithel Cells (Auto) 0-2 Urine Bacteria (Auto) None Seen Urine Comment Diagnostic Findings Laboratory Results WBC 5.99 K/ul (4.8-10.8) 07/28/25 06:01 RBC 5.07 M/uL (4.70-6.10) 07/28/25 06:01 Hgb 11.8 g/dl (14.0-18.0) L 07/28/25 06:01 Hct 37.3 % (42.0-52.0) L 07/28/25 06:01 MCV 73.6 fL (80.0-100.0) L 07/28/25 06:01 MCH 23.3 pg (25.0-34.0) L 07/28/25 06:01 MCHC 31.6 g/dL (32.0-36.0) L 07/28/25 06:01 RDW Std Deviation 49.5 fL (36.4-46.3) H 07/28/25 06:01 RDW Coeff of Daniel 19.3 % (11.5-14.5) H 07/28/25 06:01 Plt Count K/uL (130-400) 07/28/25 06:01 MPV Not Reportable 07/28/25 06:01 Immature Gran % (Auto) 0.3 % 07/27/25 08:17 Neut % (Auto) 78.5 % 07/27/25 08:17 Lymph % (Auto) 14.4 % 07/27/25 08:17 Atkinson % (Auto) 5.8 % 07/27/25 08:17 Eos % (Auto) 0.1 % 07/27/25 08:17 Baso % (Auto) 0.9 % 07/27/25 08:17 Neut # (Auto) 7.09 K/uL (1.40-6.50) H 07/27/25 08:17 Lymph # (Auto) 1.30 K/uL (1.20-3.40) 07/27/25 08:17 Atkinson # (Auto) 0.52 K/uL (0.11-0.59) 07/27/25 08:17 Eos # (Auto) 0.01 K/uL (0.00-0.50) 07/27/25 08:17 Baso # (Auto) 0.08 K/uL (0.00-0.20) 07/27/25 08:17 Immature Gran # (Auto) 0.03 K/uL (0.01-0.20) 07/27/25 08:17 Anisocytosis Present 07/27/25 08:17 Sodium 144 mmol/L (136-145) 07/28/25 06:01 Potassium 3.9 mmol/L (3.5-5.1) 07/28/25 06:01 Chloride 104 mmol/L (98-107) 07/28/25 06:01 Carbon Dioxide 29 mmol/L (21-32) 07/28/25 06:01 Anion Gap 11 (3-11) 07/28/25 06:01 BUN 31 mg/dl (6-23) H 07/28/25 06:01 Creatinine 1.10 mg/dl (0.6-1.4) 07/28/25 06:01 Est Cr Clr Drug Dosing 38.6 ml/min 07/28/25 06:01 eGFR 67.44 07/28/25 06:01 BUN/Creatinine Ratio 28.2 (10-20) H 07/28/25 06:01 Glucose 56 mg/dl (70-99(Fasting)) L 07/28/25 06:01 Calcium 9.1 mg/dl (8.6-10.3) 07/28/25 06:01 Total Bilirubin 1.0 mg/dl (0.2-1.0) 07/27/25 08:17 AST 19 U/L (13-39) 07/27/25 08:17 ALT 14 U/L (7-52) 07/27/25 08:17 Alkaline Phosphatase 116 U/L (34-104) H 07/27/25 08:17 Troponin I High Sens 111.2 pg/ml (0-20) H* D 07/28/25 06:01 B-Natriuretic Peptide 2207 pg/ml (0-100) H 07/27/25 11:23 Total Protein 7.0 gm/dl (6.0-8.3) 07/27/25 08:17 Albumin 3.7 gm/dl (3.4-5.0) 07/27/25 08:17 Globulin 3.3 gm/dl (2.5-4.0) 07/27/25 08:17 Albumin/Globulin Ratio 1.1 (0.9-2) 07/27/25 08:17 TSH 2.101 uIu/ml (0.300-4.500) 07/27/25 08:17 Urine Color Yellow 07/27/25 12:37 Urine Appearance Clear (Clear) 07/27/25 12:37 Urine pH 6.0 (4.5-7.5) 07/27/25 12:37 Ur Specific [place] 1.022 (1.000-1.030) 07/27/25 12:37 Urine Protein Trace (Negative) H 07/27/25 12:37 Urine Glucose (UA) Negative (Negative) 07/27/25 12:37 Urine Ketones 1+ (Negative) H 07/27/25 12:37 Urine Blood Negative (Negative) 07/27/25 12:37 Urine Nitrite Negative (Negative) 07/27/25 12:37 Urine Bilirubin Negative (Negative) 07/27/25 12:37 Urine Urobilinogen Negative (Negative) 07/27/25 12:37 Ur Leukocyte Esterase Negative (Negative) 07/27/25 12:37 Urine WBC (Auto) 0-5 /hpf (0-5) 07/27/25 12:37 Urine RBC (Auto) 0-2 /hpf (0-2) 07/27/25 12:37 U Hyaline Cast (Auto) 0-2 /lpf (0-2) 07/27/25 12:37 U Epithel Cells (Auto) 0-2 /hpf (0-2) 07/27/25 12:37 Urine Bacteria (Auto) None Seen (None Seen) 07/27/25 12:37 Urine Comment 07/27/25 12:37 Impressions Chest X-Ray 07/27/25 08:07 XR chest 1V portable CLINICAL HISTORY: weakness COMPARISON STUDY: 12/20/2024 FINDINGS: There is stable cardiomegaly with mild pulmonary vascular congestion. There is interval bilateral lung base opacity with blunting of the costophrenic angles. No pneumothorax. IMPRESSION: 1. CHF with possible small bilateral pleural effusions. 2. Associated lung base consolidation could represent atelectasis or pneumonia. ACT 112: Negative or not required by law. Electronically signed by: Yonatan Diego M.D. 07/27/2025 8:37 AM Duplex Scan Lower Extremity Artery 07/27/25 12:19 Exam(s): US ARTERIAL RIGHT LOWER EXTREMITY EXAM: US Duplex Right Lower Extremity Arteries CLINICAL HISTORY: Reason for exam: Decreased pedal pulse. TECHNIQUE: Real-time duplex ultrasound scan of the right lower extremity arteries integrating B-mode two-dimensional vascular structure, Doppler spectral analysis and color flow Doppler imaging. COMPARISON: No relevant prior studies available. FINDINGS: Arterial plaque is noted throughout. Right common femoral artery: No occlusion or significant stenosis on color flow and spectral Doppler imaging. Triphasic waveforms were noted. Right superficial femoral artery: No occlusion or significant stenosis on color flow and spectral Doppler imaging. Triphasic waveforms were noted. Right popliteal artery: No occlusion or significant stenosis on color flow and spectral Doppler imaging. Triphasic waveforms were noted. Right calf/foot arteries: No occlusion on color flow and spectral Doppler imaging. Triphasic and biphasic waveforms were noted in the peroneal and posterior tibial arteries. Monophasic waveforms were noted in the anterior tibial artery. Biphasic waveforms were noted in the dorsalis pedis artery. The right LALITHA was 1.06 Soft tissues: Unremarkable. IMPRESSION: There appears to be significant arterial stenotic disease in the right anterior tibial artery Electronically signed by: Ajit Mueller MD 07/28/25 00:35 AM 07/27/25 ECHO Interpretation Summary Left ventricular systolic function is severely reduced. Diastolic dysfunction, Grade II (pseudonormalization pattern). Mild to moderate aortic regurgitation. Aortic valve sclerosis moderate, without significant aortic valvular stenosis. Mild pulmonic valvular regurgitation. There is mild mitral regurgitation. There is mild to moderate tricuspid regurgitation. Right ventricular systolic pressure is elevated at 30-40mmHg. Left Ventricular Ejection Fraction = 20-25%. Mild aortic root dilatation. Medications Administered Home Medications Medication Instructions Recorded Confirmed Last Taken cholecalciferol (vitamin D3) 25 1,000 unit PO QPM 05/29/19 07/27/2524 mcg (1,000 unit) tablet (Vitamin D3) omeprazole 20 mg tablet,delayed 20 mg PO BID 05/29/19 07/27/25 07/27/25 release potassium chloride 10 mEq 10 meq PO BID 05/29/19 07/27/25 07/27/25 tablet,extended release tramadol 50 mg tablet 50 mg PO TID PRN Pain 05/29/19 07/27/25 07/27/25 atorvastatin 20 mg tablet 20 mg PO QAM 03/04/24 07/27/25 07/27/25 cyanocobalamin (vitamin B-12) 1,000 mcg IM MONTHLY 03/04/24 07/27/25 07/13/25 1,000 mcg/mL injection solution ferrous sulfate 325 mg (65 mg 325 mg PO UD 07/27/25 07/27/25 Unknown iron) tablet furosemide 20 mg tablet 40 mg PO QAM 07/27/25 07/27/25 07/26/25 pregabalin 100 mg capsule 100 mg PO TID 07/27/25 07/27/25 07/27/25 Active Medications Generic Name Dose Route Start Last Admin Trade Name Freq PRN Reason Stop Dose Admin Aspirin 81 mg 07/28/25 09:00 07/28/25 09:01 Aspirin 81 Mg Ectab PO 08/27/25 08:59 81 mg QAM LILLIE Administration Atorvastatin Calcium 20 mg 07/28/25 09:00 07/28/25 08:31 Atorvastatin 20 Mg Tab PO 08/27/25 08:59 20 mg QAM LILLIE Administration Heparin Sodium (Porcine) 5,000 units 07/27/25 21:00 07/28/25 08:30 Heparin Sod 5,000 Unit/0.5 Ml Vial SQ 08/26/25 20:59 5,000 units Q12 LILLIE Administration Metoprolol Succinate 12.5 mg 07/27/25 21:00 07/28/25 08:30 Metoprolol Succ 25mg Ext Rel Tab PO 08/26/25 20:59 12.5 mg BID LILLIE Administration Pantoprazole Sodium 40 mg 07/27/25 21:00 07/28/25 08:30 Pantoprazole 40 Mg Tab PO 08/26/25 20:59 40 mg BID LILLIE Administration Potassium Chloride 10 meq 07/27/25 21:00 07/28/25 08:29 Potassium Chloride 10 Meq Tabcr PO 08/26/25 20:59 10 meq BID LILLIE Administration Pregabalin 100 mg 07/27/25 15:00 07/28/25 08:29 Pregabalin 100 Mg Cap PO 08/26/25 14:59 100 mg TID LILLIE Administration Spironolactone 12.5 mg 07/28/25 09:00 07/28/25 08:31 Spironolactone 12.5 Mg Tab PO 08/27/25 08:59 12.5 mg DAILY LILLIE Administration Tramadol HCl 50 mg 07/27/25 14:31 07/28/25 08:35 Tramadol Hcl 50 Mg Tablet PO 08/26/25 14:30 50 mg TID PRN Administration Pain Vitamin D 25 mcg 07/27/25 21:00 07/27/25 21:06 Cholecalciferol 25 Mcg (1000 Units) Tab PO 08/26/25 20:59 25 mcg QPM LILLIE Administration PG Care Time/CCT Total # of Minutes Spent Total Time Spent with Patient: Total time spent is greater than 50% in coordination of care (as documented) at patient's floor/unit and/or counseling patient: Coding Level of Care Code 00108 SUB INP/OBS CARE 3/50MIN Diagnoses Heart failure, systolic, with acute decompensation I50.23 Systolic dysfunction I51.9 Pleural effusion J90 SVT (supraventricular tachycardia) I47.10 Aortic insufficiency I35.1 Aortic root dilatation I77.810 Elevated troponin R79.89 RBBB I45.10
--- NOTE | 2025-07-28 11:59 | Hospitalist Progress Note ---
Date of Service July 28, 2025 Assessment & Plan (1) Acute CHF: (2) Elevated troponin: (3) Moderate aortic insufficiency: (4) Aortic root enlargement: (5) CMT (Dpusukh-Synrp-Tfvyb disease): (6) Coreas's esophagus: Plan 80 year old male with PMH significant for mild to moderate aortic regurgitation, enlarged aortic root, AAA, hypertension, hyperlipidemia, Coreas's esophagus, GERD, Charcot Josselin Tooth muscular atrophy, SONYA on CPAP, chronic blood loss anemia, history of GI bleed, and chronic pain who presents to the ED on 07/27/2025 with SOB and abdominal tightness x4-5 days. Acute on chronic systolic heart failure NSTEMI Patient presenting with SOB and abdominal tightness x4-5 days CXR revealed CHF with possible small bilateral pleural effusions and associated lung base consolidation could represent atelectasis or PNA BNP 2207 High sensitivity troponin on admission of 73.8 on admission, uptrended Echocardiogram during admission shows EF of 20 to 25%; grade 2 diastolic dysfunction. Last echo in January 2025 revealed LVEF 60-64%, mild to moderate aortic regurgitation, mildly enlarged aortic root Patient being diuresed with IV Lasix With improvement in shortness of breath. 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 No signs or symptoms of acute ischemia including pain/change in color/ulcer. Discussed the result with the patient; follow-up with vascular surgery as outpatient continue on aspirin and lipitor Chronic blood loss anemia Hgb stable at 12.3 Continue ferrous sulfate DVT Prophylaxis: SQ Heparin Code Status: FULL CODE - PCP: Marianne Syed Plan time spent evaluating patient, direct bedside care, chart review, placing orders, interpretation of diagnostic studies, discussion with consultants, patient, and family members, as well as other required patient management activities is 50 minutes Please note the above document was generated using voice recognition software. It may contain grammatical, syntax or spelling errors. Any formal questions or concerns about the content, text or information contained within the body of this dictation should be directly addressed to the provider for clarification Admission and Anticipated Discharge Date Admission Date: July 27, 2025 Subjective Patient seen and examined at bedside. He reports that his breathing is much better compared to previous day. He is saturating well on room air. No significant events overnight. Review of Systems Review of Systems: All systems reviewed & are unremarkable except as noted in Subjective Physical Exam Physical Exam: General/Psych: frail, sitting up in bed, Respiratory: normal respiratory effort, lungs with crackles bilaterally, no accessory muscle use Cardiovascular: regular rate and rhythm, no murmur/rub/gallop Extremities: no cyanosis or clubbing,normal bilateral pedal pulse Abdomen/GI: normal bowel sounds, soft, nontender, no hepatosplenomegaly Neurologic/MSK: A+Ox3, CN's II-XI intact bilaterally, motor strength 5/5, moves all extremities Skin: no rashes, normal color, warm and dry Results & Data Results & Data Vital Signs (Past 12 Hours) Vital Signs Temp Pulse Pulse Resp BP Pulse Ox O2 Del Method 07/28/25 11:05 36.4 C L 73 16 127/54 L 98 Room Air 07/28/25 09:08 Room Air 07/28/25 07:53 36.4 C L 77 16 129/85 100 Nasal Cannula 07/28/25 05:28 72 07/28/25 03:41 36.3 C L 69 18 121/66 99 Nasal Cannula 07/28/25 00:08 36.6 C 84 20 113/75 99 Nasal Cannula O2 Flow Rate 07/28/25 11:05 07/28/25 09:08 07/28/25 07:53 3 07/28/25 05:28 07/28/25 03:41 2 07/28/25 00:08 3 (6) Coreas's esophagus Coreas's esophagus type: without dysplasia Qualified Code(s): K22.70 - Coreas's esophagus without dysplasia
--- NOTE | 2025-07-28 12:22 | XRay Report ---
XR chest 1V portable CLINICAL HISTORY: CHF COMPARISON STUDY: 07/27/2025 FINDINGS: There is stable cardiomegaly with mild pulmonary vascular congestion. Stable opacity in the lung bases with blunting of the costophrenic angles consistent with consolidation and possible small pleural effusions. No pneumothorax. IMPRESSION: Stable exam. ACT 112: Negative or not required by law. Electronically signed by: Yonatan Diego M.D. 07/28/2025 12:21 PM
[2025-07-29 07:51] LABS: Hematocrit (blood only) 36.5 % (42.0-52.0); Hemoglobin 11.4 g/dl (14.0-18.0); Mean Corpuscular Hemoglobin 22.7 pg (25.0-34.0); Mean Corpuscular Volume 72.6 fL (80.0-100.0); RDW Standard Deviation 49.1 fL (36.4-46.3); Red Blood Count 5.03 M/uL (4.70-6.10); White Blood Count 6.26 K/ul (4.8-10.8)
[2025-07-29 08:18] LABS: Acanthocytes 1+; Hypersegmented Neutrophils 1+; Immature Granulocytes # (auto) 0.01 K/uL (0.01-0.20); Immature Granulocytes % (auto) 0.2 %; Ovalocytes 1+; Polychromasia 1+
[2025-07-29 08:36] LABS: Anion Gap 9.0 (3-11); Blood Urea Nitrogen 49.0 mg/dl (6-23); Calcium 8.9 mg/dl (8.6-10.3); Carbon Dioxide 30.0 mmol/L (21-32); Chloride 103.0 mmol/L (98-107); Creatinine Clr Calc Pharmacy 26.6 ml/min; Glucose 78.0 mg/dl (70-99(Fasting)); Potassium 3.7 mmol/L (3.5-5.1); Sodium 142.0 mmol/L (136-145)
--- NOTE | 2025-07-29 09:42 | Hospitalist Progress Note ---
Date of Service July 29, 2025 Assessment & Plan (1) Acute CHF: (2) Elevated troponin: (3) Moderate aortic insufficiency: (4) Aortic root enlargement: (5) CMT (Bvhggzc-Hbmsa-Doukw disease): (6) Coreas's esophagus: Plan 80 year old male with PMH significant for mild to moderate aortic regurgitation, enlarged aortic root, AAA, hypertension, hyperlipidemia, Coreas's esophagus, GERD, Charcot Josselin Tooth muscular atrophy, SONYA on CPAP, chronic blood loss anemia, history of GI bleed, and chronic pain who presents to the ED on 07/27/2025 with SOB and abdominal tightness x4-5 days. Acute on chronic systolic heart failure NSTEMI Patient presenting with SOB and abdominal tightness x4-5 days CXR revealed CHF with possible small bilateral pleural effusions and associated lung base consolidation could represent atelectasis or PNA BNP 2207 High sensitivity troponin on admission of 73.8 on admission, uptrended Echocardiogram during admission shows EF of 20 to 25%; grade 2 diastolic dysfunction. Last echo in January 2025 revealed LVEF 60-64%, mild to moderate aortic regurgitation, mildly enlarged aortic root Patient diuresed with IV Lasix with improvement in his shortness of breath Plan for cardiac cath. 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 No signs or symptoms of acute ischemia including pain/change in color/ulcer. Discussed the result with the patient; follow-up with vascular surgery as outpatient continue on aspirin and lipitor Chronic blood loss anemia Hb stable Continue ferrous sulfate DVT Prophylaxis: SQ Heparin Code Status: FULL CODE - PCP: Marianne Syed Plan time spent evaluating patient, direct bedside care, chart review, placing orders, interpretation of diagnostic studies, discussion with consultants, patient, and family members, as well as other required patient management activities is 50 minutes Please note the above document was generated using voice recognition software. It may contain grammatical, syntax or spelling errors. Any formal questions or concerns about the content, text or information contained within the body of this dictation should be directly addressed to the provider for clarification Admission and Anticipated Discharge Date Admission Date: July 27, 2025 Subjective Patient seen and examined at bedside. He reports that he is feeling much better with shortness of breath. He is able to lie flat without any difficulty. No chest pain. No significant events overnight Review of Systems Review of Systems: All systems reviewed & are unremarkable except as noted in Subjective Physical Exam Physical Exam: General/Psych: frail, sitting up in bed, Respiratory: Bilateral vascular breath sound Cardiovascular: regular rate and rhythm, no murmur/rub/gallop Extremities: no cyanosis or clubbing,normal bilateral pedal pulse Abdomen/GI: normal bowel sounds, soft, nontender, no hepatosplenomegaly Neurologic/MSK: A+Ox3, CN's II-XI intact bilaterally, motor strength 5/5, moves all extremities Skin: no rashes, normal color, warm and dry Results & Data Results & Data Vital Signs (Past 12 Hours) Vital Signs Temp Pulse Pulse Resp BP Pulse Ox O2 Del Method 07/29/25 08:04 36.4 C L 59 L 16 108/63 96 Room Air 07/29/25 07:57 36.5 C 63 20 109/64 93 Room Air 07/29/25 05:26 60 07/29/25 03:26 36.8 C 62 16 116/62 98 Room Air 07/28/25 23:47 36.3 C L 61 18 100/51 L 95 Room Air 07/28/25 22:39 72 (6) Coreas's esophagus Coreas's esophagus type: without dysplasia Qualified Code(s): K22.70 - Coreas's esophagus without dysplasia
--- NOTE | 2025-07-29 10:30 | Pre Anesthesia Assessment ---
Date of Service July 29, 2025 Pre Sedation Assessment Vital Signs Temp Pulse Pulse Pulse Resp BP Pulse Ox 07/29/25 10:15 98.2 F 68 18 125/80 95 07/29/25 08:04 97.5 F L 59 L 16 108/63 96 07/29/25 07:57 97.7 F 63 20 109/64 93 07/29/25 05:26 60 07/29/25 03:26 98.2 F 62 16 116/62 98 07/28/25 23:47 97.3 F L 61 18 100/51 L 95 07/28/25 22:39 72 07/28/25 20:00 07/28/25 19:17 97.9 F 74 20 125/75 99 07/28/25 15:35 97.5 F L 74 16 103/66 98 07/28/25 13:12 75 07/28/25 11:05 97.5 F L 73 16 127/54 L 98 O2 Del Method 07/29/25 10:15 Room Air 07/29/25 08:04 Room Air 07/29/25 07:57 Room Air 07/29/25 05:26 07/29/25 03:26 Room Air 07/28/25 23:47 Room Air 07/28/25 22:39 07/28/25 20:00 Room Air 07/28/25 19:17 Room Air 07/28/25 15:35 Room Air 07/28/25 13:12 07/28/25 11:05 Room Air Cardiovascular + regular rate Respiratory + respiratory effort normal Pre-Sedation Airway Assessment Smoking Status: Former smoker Hx Sleep Apnea: No Hx Difficult Intubation: No Short, Thick Neck: No Oral Cavity: + Dental Abnormalities Mallampati Class: III ASA: ASA3 Procedure Planning Contraindications for Sedation: none Current Medications Reviewed: Yes Notes The planned sedation has been discussed with the patient. Informed Consent was obtained. I have identified the patient, determined the appropriateness of sedation and have assessed the patient immediately prior to the procedure. All medicine(s) and interventions are by my order.
[2025-07-29] MEDS: OPTIRAY 350 ONE (10:41)
[2025-07-29] MEDS: MIDAZOLAM HCL 1 MG/ML 2ML VIAL ONE (11:10)
[2025-07-29] MEDS: IODIXANOL (VISIPAQUE) 320 MG/ML 100ML IV ONE (11:10)
[2025-07-29] MEDS: HEPARIN (PORCINE) 1000 UNIT/ML 10 ML (CATH LAB USE ONLY) ONE (11:10)
[2025-07-29] MEDS: NITROGLYCERIN/D5W 100MCG/ML 20ML SYR ONE (11:10)
--- NOTE | 2025-07-29 11:49 | Post Anesthesia Assessment ---
Date of Service July 29, 2025 Post Sedation Assessment Vital Signs Temp Pulse Pulse Pulse Resp BP BP 07/29/25 11:30 58 L 16 109/66 07/29/25 10:15 98.2 F 68 18 125/80 07/29/25 08:04 97.5 F L 59 L 16 108/63 07/29/25 07:57 97.7 F 63 20 109/64 07/29/25 05:26 60 07/29/25 03:26 98.2 F 62 16 116/62 07/28/25 23:47 97.3 F L 61 18 100/51 L 07/28/25 22:39 72 07/28/25 20:00 07/28/25 19:17 97.9 F 74 20 125/75 07/28/25 15:35 97.5 F L 74 16 103/66 07/28/25 13:12 75 Pulse Ox O2 Del Method 07/29/25 11:30 93 Room Air 07/29/25 10:15 95 Room Air 07/29/25 08:04 96 Room Air 07/29/25 07:57 93 Room Air 07/29/25 05:26 07/29/25 03:26 98 Room Air 07/28/25 23:47 95 Room Air 07/28/25 22:39 07/28/25 20:00 Room Air 07/28/25 19:17 99 Room Air 07/28/25 15:35 98 Room Air 07/28/25 13:12 Recovery Score Activity: Moves 4 extremities Respiration: Deep Breath/Cough Circulation: +/-20% PreAnes Value Consciousness: Fully Awake Oxygen Saturation: > 92% On Room Air Post Anesthesia Score: 10 Discharge Sedation Level of Care: Fast Track Phase II
--- NOTE | 2025-07-29 12:31 | Cardiac Catheterization ---
[facility] Data: Food And Beverage Manager Cardiac Status Clinical evaluation leading to the procedure CAD Presenation: Sx unlikely to be ischemic Diagnostic Physicians Name: Michael Amaya MD Closure Device Recommendations: Medical Therapy and/or Counseling Cardiac Cath Procedure Full Procedure Date July 29, 2025 Pre-Procedure Diagnosis Pre-Procedure Diagnosis: Cardiomyopathy AUC Score AUC Score: 7 Post-Procedure Diagnosis Post-Procedure Diagnosis: Moderate CAD Procedure(s) Performed Procedure(s) Performed: Coronary Angiography, Left Heart Cath and Ultrasound Guided Vascular Access Infantry Indirect Fire Crewmember Michael Amaya MD Compliance Representative(s) Showers Estimated Blood Loss Estimated Blood Loss: 15 Medication(s) Medication(s): Fentanyl, Heparin, Lidocaine 1%, Nicardipine, Nitroglycerin and Versed Summary of Findings Indication: Cardiomyopathy Access: 6 Fr slender right radial artery under ultrasound guidance Catheters: [place], JL 4, JR4 Findings: LM -normal caliber, long vessel, luminal irregularities LAD -large caliber (essentially so vessel supplying heart), 30-40% mid segment s tenosis, distal vessel without significant disease and continues around apex with large caliber vessel extending in PDA distribution supplying inferior wall of heart. Small to medium D3 with focal 90% stenosis. Circumflex -very small, No significant disease. No evidence of anomalous circumflex. RCA -small, nondominant, 50 to 60% mid segment stenosis. LVEDP -3 Arterial Closure: TR band Summary: 1. Mild coronary disease in major epicardial vessels -LAD (essentially sole vessel to heart) has 30-40% mid segment stenosis 2. Small branch vessel disease D3 90% focal mid stenosis 2. Normal/low intracardiac filling pressure (LVEDP 3) Recommendations: Continued GDMT for nonischemic cardiomyopathy Medical management of small branch vessel disease. Continued ASCVD risk factor modification. Diuretics per Dr. Perez Hemodynamics Rest Ao:: 82/39/58 Final Ao: 85/50/76 LV: 83/3 Recommendations Recommendations: Medical Therapy and/or Counseling Radiation Exposure (mGy) 817 Contrast (mls) 60 Anesthesia Moderate 9323-4121 Procedural Complication(s) None Disposition Food And Beverage Manager Holding/Recovery I attest to the content of the Intraoperative Record and any orders documented therein. Any exceptions are noted below. PiperG Card Cath Procedure Codes Cardiac Catheterization Procedure 1: Cardiovascular Cath Procedures: 98001 Coronaries and LHC (+/-LV) Therapeutic Services & Ancillary Procedure 1: Cardiovascular Tx and Anc Procedures: 51475 Ultrasonic Guidance Vascular Access Moderate Sedation Procedure 1: Sedation/Anesthesia: 64362 Mod Sedation by the same physician;Init15 Min Child Age 5 & Up PG Care Time/CCT Total # of Minutes Spent Total Time Spent with Patient: Total time spent is greater than 50% in coordination of care (as documented) at patient's floor/unit and/or counseling patient:
--- NOTE | 2025-07-29 16:44 | Cardiology Progress Note ---
Date of Service July 29, 2025 Assessment & Plan (1) Heart failure, systolic, with acute decompensation: (2) Systolic dysfunction: (3) Pleural effusion: (4) SVT (supraventricular tachycardia): (5) Aortic insufficiency: (6) Aortic root dilatation: (7) Elevated troponin: (8) RBBB: Plan 80 year old male admitted to [facility] on 07/27/2025 with acute, significant dyspnea and epigastric/substernal chest tightness progressive over the past 1.5 weeks. History and examination with evidence of acute decompensated congestive heart failure, suspected new onset severe LV systolic dysfunction. EKG with diffuse ST-T wave abnormality. High sensitivity troponin elevated. Resting ec hocardiography pending. NYHA Class IV. Stage C. QRS duration 138 ms with right bundle branch block. Patient with known history of mild to moderate aortic insufficiency, enlarged aortic root. 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 Small to medium D3 with focal 90% stenosis. Circumflex -very small, No significant disease. No evidence of anomalous circumflex. RCA -small, nondominant, 50 to 60% mid segment stenosis. LVEDP -3 Arterial Closure: TR band Summary: 1. Mild coronary disease in major epicardial vessels -LAD (essentially sole vessel to heart) has 30-40% mid segment stenosis 2. Small branch vessel disease D3 90% focal mid stenosis 2. Normal/low intracardiac filling pressure (LVEDP 3) Recommendations: Continued GDMT for nonischemic cardiomyopathy Medical management of small branch vessel disease. Continued ASCVD risk factor modification. Diuretics per Dr. Perez Hemodynamics Rest Ao:: 82/39/58 Final Ao: 85/50/76 LV: 83/3 start Entresto start Coreg correct and f/u electrolytes f/u renal function hold diuretics for now -> patient is hypovolemic GDMT for HFrEF keeping HR between 60 to 100 BPM and systolic BP between 100-140 mmHg avoid hypovolemia keep patient euvolemic DVT prophylaxis keep LE elevated when sitting 1.5 L / 24 hr fluid restriction strict I&Os salt restriction statin ASA maximize medical management as tolerated f/u in cardiology clinic post discharge with f/u ECHO as indicated as outpatient Admission and Anticipated Discharge Date Admission Date: July 27, 2025 Subjective Patient on exam is sitting in bed in NAD; no c/o cp, sob, palpitations, dizziness, LOC; s/p crd cath - results reviewed with patient Review of Systems Review of Systems: Complete review of systems is otherwise as stated above, negative, or noncontributory. Physical Exam Physical Exam: General: Pleasant. Comfortable. HENT: Normocephalic. Atraumatic. Eyes: Conjunctiva pink, anicteric sclerae. Neck: no JVD. soft, NT Heart: S1S2 Grade II/ systolic murmur. No rub. Lungs: minimal left basilar rales No wheeze. Abdomen: +BS. Soft. Nontender. No masses or organomegaly. Extremities: No significant lower extremity peripheral edema. No cyanosis. Limited neurological examination is without focal deficits. Results & Data Vital Signs (Past 12 Hours) Vital Signs Temp Pulse Pulse Resp BP BP BP 07/29/25 13:10 37 C 07/29/25 13:00 67 20 07/29/25 12:33 68 20 105/63 07/29/25 12:00 59 L 16 106/63 07/29/25 11:45 58 L 16 113/65 07/29/25 11:30 58 L 16 109/66 07/29/25 10:15 36.8 C 68 18 125/80 07/29/25 08:04 36.4 C L 59 L 16 108/63 07/29/25 07:57 36.5 C 63 20 109/64 07/29/25 05:26 60 Pulse Ox O2 Del Method 07/29/25 13:10 07/29/25 13:00 07/29/25 12:33 07/29/25 12:00 93 Room Air 07/29/25 11:45 93 Room Air 07/29/25 11:30 93 Room Air 07/29/25 10:15 95 Room Air 07/29/25 08:04 96 Room Air 07/29/25 07:57 93 Room Air 07/29/25 05:26 Vital Signs Temp 37 C 07/29/25 13:10 Pulse 67 07/29/25 13:00 Resp 20 07/29/25 13:00 BP 105/63 07/29/25 12:33 Pulse Ox 93 07/29/25 12:00 O2 Del Method Room Air 07/29/25 12:00 O2 Flow Rate 3 07/28/25 07:53 Intake & Output 07/28/25 07/29/25 07/29/25 18:59 06:59 18:59 Intake Total 240 / 240 Output Total 750 / 1050 300 / 1050 300 / 300 Balance -750 / -810 -60 / -810 -300 / -300 Weight 46.675 kg Intake: Oral 240 / 240 Output: Urine Amount (Catheter) 750 / 1050 300 / 1050 300 / 300 [place]/Indwelling 750 / 1050 300 / 1050 300 / 300 Other: Weight Measurement Method Built in [facility] Laboratory Results Laboratory Results - last 48 hr 07/27/25 07/28/25 07/29/25 15:54 06:01 06:59 WBC 5.99 6.26 RBC 5.07 5.03 Hgb 11.8 L 11.4 L Hct 37.3 L 36.5 L MCV 73.6 L 72.6 L MCH 23.3 L 22.7 L MCHC 31.6 L 31.2 L RDW Std Deviation 49.5 H 49.1 H RDW Coeff of Daniel 19.3 H 19.7 H Plt Count MPV Not Reportable 10.3 Immature Gran % (Auto) 0.2 Neut % (Auto) 53.7 Lymph % (Auto) 34.7 [place]edar % (Auto) 9.3 Eos % (Auto) 1.1 Baso % (Auto) 1.0 Neut # (Auto) 3.37 Lymph # (Auto) 2.17 Cedar # (Auto) 0.58 Eos # (Auto) 0.07 Baso # (Auto) 0.06 Immature Gran # (Auto) 0.01 Hypersegmented Neuts 1+ Polychromasia 1+ Ovalocytes 1+ Acanthocytes (Spur) 1+ Sodium 144 142 Potassium 3.9 3.7 Chloride 104 103 Carbon Dioxide 29 30 Anion Gap 11 9 BUN 31 H 49 H Creatinine 1.10 1.44 H D Est Cr Clr Drug Dosing 38.6 26.6 eGFR 67.44 48.82 BUN/Creatinine Ratio 28.2 H 34.0 H Glucose 56 L 78 Calcium 9.1 8.9 Troponin I High Sens 84.0 H* D 111.2 H* D Diagnostic Findings Laboratory Results WBC 6.26 K/ul (4.8-10.8) 07/29/25 06:59 RBC 5.03 M/uL (4.70-6.10) 07/29/25 06:59 Hgb 11.4 g/dl (14.0-18.0) L 07/29/25 06:59 Hct 36.5 % (42.0-52.0) L 07/29/25 06:59 MCV 72.6 fL (80.0-100.0) L 07/29/25 06:59 MCH 22.7 pg (25.0-34.0) L 07/29/25 06:59 MCHC 31.2 g/dL (32.0-36.0) L 07/29/25 06:59 RDW Std Deviation 49.1 fL (36.4-46.3) H 07/29/25 06:59 RDW Coeff of Daniel 19.7 % (11.5-14.5) H 07/29/25 06:59 Plt Count K/uL (130-400) 07/29/25 06:59 MPV 10.3 fL (9.4-12.4) 07/29/25 06:59 Immature Gran % (Auto) 0.2 % 07/29/25 06:59 Neut % (Auto) 53.7 % 07/29/25 06:59 Lymph % (Auto) 34.7 % 07/29/25 06:59 [place]edar % (Auto) 9.3 % 07/29/25 06:59 Eos % (Auto) 1.1 % 07/29/25 06:59 Baso % (Auto) 1.0 % 07/29/25 06:59 Neut # (Auto) 3.37 K/uL (1.40-6.50) 07/29/25 06:59 Lymph # (Auto) 2.17 K/uL (1.20-3.40) 07/29/25 06:59 Cedar # (Auto) 0.58 K/uL (0.11-0.59) 07/29/25 06:59 Eos # (Auto) 0.07 K/uL (0.00-0.50) 07/29/25 06:59 Baso # (Auto) 0.06 K/uL (0.00-0.20) 07/29/25 06:59 Immature Gran # (Auto) 0.01 K/uL (0.01-0.20) 07/29/25 06:59 Hypersegmented Neuts 1+ 07/29/25 06:59 Polychromasia 1+ 07/29/25 06:59 Anisocytosis Present 07/27/25 08:17 Ovalocytes 1+ 07/29/25 06:59 Acanthocytes (Spur) 1+ 07/29/25 06:59 Sodium 142 mmol/L (136-145) 07/29/25 06:59 Potassium 3.7 mmol/L (3.5-5.1) 07/29/25 06:59 Chloride 103 mmol/L (98-107) 07/29/25 06:59 Carbon Dioxide 30 mmol/L (21-32) 07/29/25 06:59 Anion Gap 9 (3-11) 07/29/25 06:59 BUN 49 mg/dl (6-23) H 07/29/25 06:59 Creatinine 1.44 mg/dl (0.6-1.4) H D 07/29/25 06:59 Est Cr Clr Drug Dosing 26.6 ml/min 07/29/25 06:59 eGFR 48.82 07/29/25 06:59 BUN/Creatinine Ratio 34.0 (10-20) H 07/29/25 06:59 Glucose 78 mg/dl (70-99(Fasting)) 07/29/25 06:59 Calcium 8.9 mg/dl (8.6-10.3) 07/29/25 06:59 Total Bilirubin 1.0 mg/dl (0.2-1.0) 07/27/25 08:17 AST 19 U/L (13-39) 07/27/25 08:17 ALT 14 U/L (7-52) 07/27/25 08:17 Alkaline Phosphatase 116 U/L (34-104) H 07/27/25 08:17 Troponin I High Sens 111.2 pg/ml (0-20) H* D 07/28/25 06:01 B-Natriuretic Peptide 2207 pg/ml (0-100) H 07/27/25 11:23 Total Protein 7.0 gm/dl (6.0-8.3) 07/27/25 08:17 Albumin 3.7 gm/dl (3.4-5.0) 07/27/25 08:17 Globulin 3.3 gm/dl (2.5-4.0) 07/27/25 08:17 Albumin/Globulin Ratio 1.1 (0.9-2) 07/27/25 08:17 TSH 2.101 uIu/ml (0.300-4.500) 07/27/25 08:17 Urine Color Yellow 07/27/25 12:37 Urine Appearance Clear (Clear) 07/27/25 12:37 Urine pH 6.0 (4.5-7.5) 07/27/25 12:37 Ur Specific [place] 1.022 (1.000-1.030) 07/27/25 12:37 Urine Protein Trace (Negative) H 07/27/25 12:37 Urine Glucose (UA) Negative (Negative) 07/27/25 12:37 Urine Ketones 1+ (Negative) H 07/27/25 12:37 Urine Blood Negative (Negative) 07/27/25 12:37 Urine Nitrite Negative (Negative) 07/27/25 12:37 Urine Bilirubin Negative (Negative) 07/27/25 12:37 Urine Urobilinogen Negative (Negative) 07/27/25 12:37 Ur Leukocyte Esterase Negative (Negative) 07/27/25 12:37 Urine WBC (Auto) 0-5 /hpf (0-5) 07/27/25 12:37 Urine RBC (Auto) 0-2 /hpf (0-2) 07/27/25 12:37 U Hyaline Cast (Auto) 0-2 /lpf (0-2) 07/27/25 12:37 U Epithel Cells (Auto) 0-2 /hpf (0-2) 07/27/25 12:37 Urine Bacteria (Auto) None Seen (None Seen) 07/27/25 12:37 Urine Comment 07/27/25 12:37 Impressions Duplex Scan Lower Extremity Artery 07/27/25 12:19 Exam(s): US ARTERIAL RIGHT LOWER EXTREMITY EXAM: US Duplex Right Lower Extremity Arteries CLINICAL HISTORY: Reason for exam: Decreased pedal pulse. TECHNIQUE: Real-time duplex ultrasound scan of the right lower extremity arteries integrating B-mode two-dimensional vascular structure, Doppler spectral analysis and color flow Doppler imaging. COMPARISON: No relevant prior studies available. FINDINGS: Arterial plaque is noted throughout. Right common femoral artery: No occlusion or significant stenosis on color flow and spectral Doppler imaging. Triphasic waveforms were noted. Right superficial femoral artery: No occlusion or significant stenosis on color flow and spectral Doppler imaging. Triphasic waveforms were noted. Right popliteal artery: No occlusion or significant stenosis on color flow and spectral Doppler imaging. Triphasic waveforms were noted. Right calf/foot arteries: No occlusion on color flow and spectral Doppler imaging. Triphasic and biphasic waveforms were noted in the peroneal and posterior tibial arteries. Monophasic waveforms were noted in the anterior tibial artery. Biphasic waveforms were noted in the dorsalis pedis artery. The right LALITHA was 1.06 Soft tissues: Unremarkable. IMPRESSION: There appears to be significant arterial stenotic disease in the right anterior tibial artery Electronically signed by: Ajit Mueller MD 07/28/25 00:35 AM Chest X-Ray 07/28/25 11:58 XR chest 1V portable CLINICAL HISTORY: CHF COMPARISON STUDY: 07/27/2025 FINDINGS: There is stable cardiomegaly with mild pulmonary vascular congestion. Stable opacity in the lung bases with blunting of the costophrenic angles consistent with consolidation and possible small pleural effusions. No pneumothorax. IMPRESSION: Stable exam. ACT 112: Negative or not required by law. Electronically signed by: Yonatan Diego M.D. 07/28/2025 12:21 PM 07/27/25 ECHO Interpretation Summary Left ventricular systolic function is severely reduced. Diastolic dysfunction, Grade II (pseudonormalization pattern). Mild to moderate aortic regurgitation. Aortic valve sclerosis moderate, without significant aortic valvular stenosis. Mild pulmonic valvular regurgitation. There is mild mitral regurgitation. There is mild to moderate tricuspid regurgitation. Right ventricular systolic pressure is elevated at 30-40mmHg. Left Ventricular Ejection Fraction = 20-25%. Mild aortic root dilatation. Cardiac Cath Procedure Full Procedure Date July 29, 2025 Pre-Procedure Diagnosis Pre-Procedure Diagnosis: Cardiomyopathy AUC Score AUC Score: 7 Post-Procedure Diagnosis Post-Procedure Diagnosis: Moderate CAD Procedure(s) Performed Procedure(s) Performed: Coronary Angiography, Left Heart Cath and Ultrasound Guided Vascular Access Jail Officer Michael Amaya MD Tunneller(s) Showers Estimated Blood Loss Estimated Blood Loss: 15 Medication(s) Medication(s): Fentanyl, Heparin, Lidocaine 1%, Nicardipine, Nitroglycerin and Versed Summary of Findings Indication: Cardiomyopathy Access: 6 Fr slender right radial artery under ultrasound guidance Catheters: [place], JL 4, JR4 Findings: LM -normal caliber, long vessel, luminal irregularities LAD -large caliber (essentially so vessel supplying heart), 30-40% mid segment stenosis, distal vessel without significant disease and continues around apex with large caliber vessel extending in PDA distribution supplying inferior wall of heart. Small to medium D3 with focal 90% stenosis. Circumflex -very small, No significant disease. No evidence of anomalous circumflex. RCA -small, nondominant, 50 to 60% mid segment stenosis. LVEDP -3 Arterial Closure: TR band Summary: 1. Mild coronary disease in major epicardial vessels -LAD (essentially sole vessel to heart) has 30-40% mid segment stenosis 2. Small branch vessel disease D3 90% focal mid stenosis 2. Normal/low intracardiac filling pressure (LVEDP 3) Recommendations: Continued GDMT for nonischemic cardiomyopathy Medical management of small branch vessel disease. Continued ASCVD risk factor modification. Diuretics per Dr. Perez Hemodynamics Rest Ao:: 82/39/58 Final Ao: 85/50/76 LV: 83/3 Recommendations Recommendations: Medical Therapy and/or Counseling Radiation Exposure (mGy) 817 Contrast (mls) 60 Anesthesia Moderate 2735-7306 Procedural Complication(s) None Disposition Snake Charmer Holding/Recovery Medications Administered Home Medications Medication Instructions Recorded Confirmed Last Taken cholecalciferol (vitamin D3) 25 1,000 unit PO QPM 05/29/19 07/27/25 03/03/24 mcg (1,000 unit) tablet (Vitamin D3) omeprazole 20 mg tablet,delayed 20 mg PO BID 05/29/19 07/27/25 07/27/25 release potassium chloride 10 mEq 10 meq PO BID 05/29/19 07/27/25 07/27/25 tablet,extended release tramadol 50 mg tablet 50 mg PO TID PRN Pain 05/29/19 07/27/25 07/27/25 atorvastatin 20 mg tablet 20 mg PO QAM 03/04/24 07/27/25 07/27/25 cyanocobalamin (vitamin B-12) 1,000 mcg IM MONTHLY 03/04/24 07/27/25 07/13/25 1,000 mcg/mL injection solution ferrous sulfate 325 mg (65 mg 325 mg PO UD 07/27/25 07/27/25 Unknown iron) tablet furosemide 20 mg tablet 40 mg PO QAM 07/27/25 07/27/25 07/26/25 pregabalin 100 mg capsule 100 mg PO TID 07/27/25 07/27/25 07/27/25 Active Medications Generic Name Dose Route Start Last Admin Trade Name Freq PRN Reason Stop Dose Admin Aspirin 81 mg 07/28/25 09:00 07/29/25 09:46 Aspirin 81 Mg Ectab PO 08/27/25 08:59 81 mg QAM LILLIE Administration Atorvastatin Calcium 20 mg 07/28/25 09:00 07/29/25 09:46 Atorvastatin 20 Mg Tab PO 08/27/25 08:59 20 mg QAM LILLIE Administration Heparin Sodium (Porcine) 5,000 units 07/27/25 21:00 07/29/25 09:47 Heparin Sod 5,000 Unit/0.5 Ml Vial SQ 08/26/25 20:59 5,000 units Q12 LILLIE Administration Pantoprazole Sodium 40 mg 07/27/25 21:00 07/29/25 09:46 Pantoprazole 40 Mg Tab PO 08/26/25 20:59 40 mg BID LILLEI Administration Pregabalin 100 mg 07/27/25 15:00 07/29/25 16:20 Pregabalin 100 Mg Cap PO 08/26/25 14:59 Not Given TID LILLIE Tramadol HCl 50 mg 07/27/25 14:31 07/28/25 20:19 Tramadol Hcl 50 Mg Tablet PO 08/26/25 14:30 50 mg TID PRN Administration Pain Vitamin D 25 mcg 07/27/25 21:00 07/28/25 20:18 Cholecalciferol 25 Mcg (1000 Units) Tab PO 08/26/25 20:59 25 mcg QPM LILLIE Administration PG Care Time/CCT Total # of Minutes Spent Total Time Spent with Patient: Total time spent is greater than 50% in coordination of care (as documented) at patient's floor/unit and/or counseling patient: Coding Level of Care Code 85739 SUB INP/OBS CARE 350MIN Diagnoses Heart failure, systolic, with acute decompensation I50.23 Systolic dysfunction I51.9 Pleural effusion J90 SVT (supraventricular tachycardia) I47.10 Aortic insufficiency I35.1 Aortic root dilatation I77.810 Elevated troponin R79.89 RBBB I45.10
[2025-07-29] MEDS: VALSARTAN/SACUBITRIL 26/24MG TAB PO SCH (22:10)
[2025-07-30 06:18] LABS: Anion Gap 8.0 (3-11); Blood Urea Nitrogen 45.0 mg/dl (6-23); Calcium 8.7 mg/dl (8.6-10.3); Carbon Dioxide 27.0 mmol/L (21-32); Chloride 104.0 mmol/L (98-107); Creatinine Clr Calc Pharmacy 31.1 ml/min; Glucose 82.0 mg/dl (70-99(Fasting)); Potassium 3.7 mmol/L (3.5-5.1); Sodium 139.0 mmol/L (136-145)
[2025-07-30 07:37] LABS: Hematocrit (blood only) 36.2 % (42.0-52.0); Hemoglobin 11.3 g/dl (14.0-18.0); Immature Granulocytes # (auto) 0.04 K/uL (0.01-0.20); Immature Granulocytes % (auto) 0.7 %; Mean Corpuscular Hemoglobin 22.3 pg (25.0-34.0); Mean Corpuscular Volume 71.5 fL (80.0-100.0); RDW Standard Deviation 48.5 fL (36.4-46.3); Red Blood Count 5.06 M/uL (4.70-6.10); White Blood Count 6.14 K/ul (4.8-10.8)
[2025-07-30 10:27] VITALS: RESP 18; TEMP 97.9; O2SAT 97
--- NOTE | 2025-07-30 11:13 | Cardiology Progress Note ---
Date of Service July 30, 2025 Assessment & Plan (1) Heart failure, systolic, with acute decompensation: (2) Systolic dysfunction: (3) Pleural effusion: (4) SVT (supraventricular tachycardia): (5) Aortic insufficiency: (6) Aortic root dilatation: (7) Elevated troponin: (8) RBBB: Plan 80 year old male admitted to [facility] on 07/27/2025 with acute, significant dyspnea and epigastric/substernal chest tightness progressive over the past 1.5 weeks. History and examination with evidence of acute decompensated congestive heart failure, suspected new onset severe LV systolic dysfunction. EKG with diffuse ST-T wave abnormality. High sensitivity troponin elevated. Resting ec hocardiography pending. NYHA Class IV. Stage C. QRS duration 138 ms with right bundle branch block. Patient with known history of mild to moderate aortic insufficiency, enlarged aortic root. 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 Small to medium D3 with focal 90% stenosis. Circumflex -very small, No significant disease. No evidence of anomalous circumflex. RCA -small, nondominant, 50 to 60% mid segment stenosis. LVEDP -3 Arterial Closure: TR band Summary: 1. Mild coronary disease in major epicardial vessels -LAD (essentially sole vessel to heart) has 30-40% mid segment stenosis 2. Small branch vessel disease D3 90% focal mid stenosis 2. Normal/low intracardiac filling pressure (LVEDP 3) Hemodynamics Rest Ao:: 82/39/58 Final Ao: 85/50/76 LV: 83/3 cont Entresto cont Coreg correct and f/u electrolytes f/u renal function GDMT for HFrEF keeping HR between 60 to 100 BPM and systolic BP between 100-140 mmHg avoid hypovolemia keep patient euvolemic DVT prophylaxis keep LE elevated when sitting 1.5 L / 24 hr fluid restriction strict I&Os salt restriction statin ASA maximize medical management as tolerated f/u in cardiology clinic post discharge with f/u ECHO after med management optimization as outpatient stable from card standpoint for discharge DW patient Admission and Anticipated Discharge Date Admission Date: July 27, 2025 Subjective Patient on exam is sitting in bed. ambulatory with PT in no NAD; no c/o cp, sob, palpitations, dizziness, LOC Review of Systems Review of Systems: Complete review of systems is otherwise as stated above, negative, or noncontributory. Physical Exam Physical Exam: General: Pleasant. Comfortable. HENT: Normocephalic. Atraumatic. Eyes: Conjunctiva pink, anicteric sclerae. Neck: no JVD. soft, NT Heart: S1S2 Grade II/ systolic murmur. No rub. Lungs: minimal left basilar rales No wheeze. Abdomen: +BS. Soft. Nontender. No masses or organomegaly. Extremities: No significant lower extremity peripheral edema. No cyanosis. Limited neurological examination is without focal deficits. Results & Data Vital Signs (Past 12 Hours) Vital Signs Temp Pulse Pulse Resp BP Pulse Ox O2 Del Method 07/30/25 10:26 36.6 C 73 18 100/63 97 Room Air 07/30/25 07:08 36.9 C 66 20 122/63 95 Room Air 07/30/25 07:00 60 07/30/25 05:00 64 07/30/25 03:37 36.5 C 69 16 116/67 98 Room Air Laboratory Results Laboratory Results - last 48 hr 07/29/25 07/30/25 06:59 05:16 WBC 6.26 6.14 RBC 5.03 5.06 Hgb 11.4 L 11.3 L Hct 36.5 L 36.2 L MCV 72.6 L 71.5 L MCH 22.7 L 22.3 L MCHC 31.2 L 31.2 L RDW Std Deviation 49.1 H 48.5 H RDW Coeff of Daniel 19.7 H 19.7 H Plt Count MPV Immature Gran % (Auto) 0.2 0.7 Neut % (Auto) 53.7 62.8 Lymph % (Auto) 34.7 26.2 [place] % (Auto) 9.3 8.8 Eos % (Auto) 1.1 0.8 Baso % (Auto) 1.0 0.7 Neut # (Auto) 3.37 3.86 Lymph # (Auto) 2.17 1.61 [place] # (Auto) 0.58 0.54 Eos # (Auto) 0.07 0.05 Baso # (Auto) 0.06 0.04 Immature Gran # (Auto) 0.01 0.04 Hypersegmented Neuts 1+ Polychromasia 1+ Ovalocytes 1+ Acanthocytes (Spur) 1+ Sodium 142 139 Potassium 3.7 3.7 Chloride 103 104 Carbon Dioxide 30 27 Anion Gap 9 8 BUN 49 H 45 H Creatinine 1.44 H D 1.23 Est Cr Clr Drug Dosing 26.6 31.1 eGFR 48.82 58.98 BUN/Creatinine Ratio 34.0 H 36.6 H Glucose 78 82 Calcium 8.9 8.7 Diagnostic Findings Laboratory Results WBC 6.14 K/ul (4.8-10.8) 07/30/25 05:16 RBC 5.06 M/uL (4.70-6.10) 07/30/25 05:16 Hgb 11.3 g/dl (14.0-18.0) L 07/30/25 05:16 Hct 36.2 % (42.0-52.0) L 07/30/25 05:16 MCV 71.5 fL (80.0-100.0) L 07/30/25 05:16 MCH 22.3 pg (25.0-34.0) L 07/30/25 05:16 MCHC 31.2 g/dL (32.0-36.0) L 07/30/25 05:16 RDW Std Deviation 48.5 fL (36.4-46.3) H 07/30/25 05:16 RDW Coeff of Daniel 19.7 % (11.5-14.5) H 07/30/25 05:16 Plt Count K/uL (130-400) 07/30/25 05:16 MPV fL (9.4-12.4) 07/30/25 05:16 Immature Gran % (Auto) 0.7 % 07/30/25 05:16 Neut % (Auto) 62.8 % 07/30/25 05:16 Lymph % (Auto) 26.2 % 07/30/25 05:16 [place] % (Auto) 8.8 % 07/30/25 05:16 Eos % (Auto) 0.8 % 07/30/25 05:16 Baso % (Auto) 0.7 % 07/30/25 05:16 Neut # (Auto) 3.86 K/uL (1.40-6.50) 07/30/25 05:16 Lymph # (Auto) 1.61 K/uL (1.20-3.40) 07/30/25 05:16 [place] # (Auto) 0.54 K/uL (0.11-0.59) 07/30/25 05:16 Eos # (Auto) 0.05 K/uL (0.00-0.50) 07/30/25 05:16 Baso # (Auto) 0.04 K/uL (0.00-0.20) 07/30/25 05:16 Immature Gran # (Auto) 0.04 K/uL (0.01-0.20) 07/30/25 05:16 Hypersegmented Neuts 1+ 07/29/25 06:59 Polychromasia 1+ 07/29/25 06:59 Anisocytosis Present 07/27/25 08:17 Ovalocytes 1+ 07/29/25 06:59 Acanthocytes (Spur) 1+ 07/29/25 06:59 Sodium 139 mmol/L (136-145) 07/30/25 05:16 Potassium 3.7 mmol/L (3.5-5.1) 07/30/25 05:16 Chloride 104 mmol/L (98-107) 07/30/25 05:16 Carbon Dioxide 27 mmol/L (21-32) 07/30/25 05:16 Anion Gap 8 (3-11) 07/30/25 05:16 BUN 45 mg/dl (6-23) H 07/30/25 05:16 Creatinine 1.23 mg/dl (0.6-1.4) 07/30/25 05:16 Est Cr Clr Drug Dosing 31.1 ml/min 07/30/25 05:16 eGFR 58.98 07/30/25 05:16 BUN/Creatinine Ratio 36.6 (10-20) H 07/30/25 05:16 Glucose 82 mg/dl (70-99(Fasting)) 07/30/25 05:16 Calcium 8.7 mg/dl (8.6-10.3) 07/30/25 05:16 Total Bilirubin 1.0 mg/dl (0.2-1.0) 07/27/25 08:17 AST 19 U/L (13-39) 07/27/25 08:17 ALT 14 U/L (7-52) 07/27/25 08:17 Alkaline Phosphatase 116 U/L (34-104) H 07/27/25 08:17 Troponin I High Sens 111.2 pg/ml (0-20) H* D 07/28/25 06:01 B-Natriuretic Peptide 2207 pg/ml (0-100) H 07/27/25 11:23 Total Protein 7.0 gm/dl (6.0-8.3) 07/27/25 08:17 Albumin 3.7 gm/dl (3.4-5.0) 07/27/25 08:17 Globulin 3.3 gm/dl (2.5-4.0) 07/27/25 08:17 Albumin/Globulin Ratio 1.1 (0.9-2) 07/27/25 08:17 TSH 2.101 uIu/ml (0.300-4.500) 07/27/25 08:17 Urine Color Yellow 07/27/25 12:37 Urine Appearance Clear (Clear) 07/27/25 12:37 Urine pH 6.0 (4.5-7.5) 07/27/25 12:37 Ur Specific [place] 1.022 (1.000-1.030) 07/27/25 12:37 Urine Protein Trace (Negative) H 07/27/25 12:37 Urine Glucose (UA) Negative (Negative) 07/27/25 12:37 Urine Ketones 1+ (Negative) H 07/27/25 12:37 Urine Blood Negative (Negative) 07/27/25 12:37 Urine Nitrite Negative (Negative) 07/27/25 12:37 Urine Bilirubin Negative (Negative) 07/27/25 12:37 Urine Urobilinogen Negative (Negative) 07/27/25 12:37 Ur Leukocyte Esterase Negative (Negative) 07/27/25 12:37 Urine WBC (Auto) 0-5 /hpf (0-5) 07/27/25 12:37 Urine RBC (Auto) 0-2 /hpf (0-2) 07/27/25 12:37 U Hyaline Cast (Auto) 0-2 /lpf (0-2) 07/27/25 12:37 U Epithel Cells (Auto) 0-2 /hpf (0-2) 07/27/25 12:37 Urine Bacteria (Auto) None Seen (None Seen) 07/27/25 12:37 Urine Comment 07/27/25 12:37 Impressions Duplex Scan Lower Extremity Artery 07/27/25 12:19 Exam(s): US ARTERIAL RIGHT LOWER EXTREMITY EXAM: US Duplex Right Lower Extremity Arteries CLINICAL HISTORY: Reason for exam: Decreased pedal pulse. TECHNIQUE: Real-time duplex ultrasound scan of the right lower extremity arteries integrating B-mode two-dimensional vascular structure, Doppler spectral analysis and color flow Doppler imaging. COMPARISON: No relevant prior studies available. FINDINGS: Arterial plaque is noted throughout. Right common femoral artery: No occlusion or significant stenosis on color flow and spectral Doppler imaging. Triphasic waveforms were noted. Right superficial femoral artery: No occlusion or significant stenosis on color flow and spectral Doppler imaging. Triphasic waveforms were noted. Right popliteal artery: No occlusion or significant stenosis on color flow and spectral Doppler imaging. Triphasic waveforms were noted. Right calf/foot arteries: No occlusion on color flow and spectral Doppler imaging. Triphasic and biphasic waveforms were noted in the peroneal and posterior tibial arteries. Monophasic waveforms were noted in the anterior tibial artery. Biphasic waveforms were noted in the dorsalis pedis artery. The right LALITHA was 1.06 Soft tissues: Unremarkable. IMPRESSION: There appears to be significant arterial stenotic disease in the right anterior tibial artery Electronically signed by: Ajit Mueller MD 07/28/25 00:35 AM Chest X-Ray 07/28/25 11:58 XR chest 1V portable CLINICAL HISTORY: CHF COMPARISON STUDY: 07/27/2025 FINDINGS: There is stable cardiomegaly with mild pulmonary vascular congestion. Stable opacity in the lung bases with blunting of the costophrenic angles consistent with consolidation and possible small pleural effusions. No pneumothorax. IMPRESSION: Stable exam. ACT 112: Negative or not required by law. Electronically signed by: Yonatan Diego M.D. 07/28/2025 12:21 PM 07/27/25 ECHO Interpretation Summary Left ventricular systolic function is severely reduced. Diastolic dysfunction, Grade II (pseudonormalization pattern). Mild to moderate aortic regurgitation. Aortic valve sclerosis moderate, without significant aortic valvular stenosis. Mild pulmonic valvular regurgitation. There is mild mitral regurgitation. There is mild to moderate tricuspid regurgitation. Right ventricular systolic pressure is elevated at 30-40mmHg. Left Ventricular Ejection Fraction = 20-25%. Mild aortic root dilatation. Medications Administered Home Medications Medication Instructions Recorded Confirmed Last Taken cholecalciferol (vitamin D3) 25 1,000 unit PO QPM 05/29/19 07/27/25 03/03/24 mcg (1,000 unit) tablet (Vitamin D3) omeprazole 20 mg tablet,delayed 20 mg PO BID 05/29/19 07/27/25 07/27/25 release potassium chloride 10 mEq 10 meq PO BID 05/29/19 07/27/25 07/27/25 tablet,extended release tramadol 50 mg tablet 50 mg PO TID PRN Pain 05/29/19 07/27/25 07/27/25 atorvastatin 20 mg tablet 20 mg PO QAM 03/04/24 07/27/25 07/27/25 cyanocobalamin (vitamin B-12) 1,000 mcg IM MONTHLY 03/04/24 07/27/25 07/13/25 1,000 mcg/mL injection solution ferrous sulfate 325 mg (65 mg 325 mg PO UD 07/27/25 07/27/25 Unknown iron) tablet furosemide 20 mg tablet 40 mg PO QAM 07/27/25 07/27/25 07/26/25 pregabalin 100 mg capsule 100 mg PO TID 07/27/25 07/27/25 07/27/25 aspirin 81 mg tablet,delayed 81 mg PO QAM #30 tabs 07/30/25 Unknown release carvedilol 3.125 mg tablet 3.125 mg PO BIDM #60 tabs 07/30/25 Unknown sacubitril 24 mg-valsartan 26 mg 1 tab PO BID #60 tabs 07/30/25 Unknown tablet (Entresto) torsemide 20 mg tablet 20 mg PO DAILY #30 tabs 07/30/25 Unknown Active Medications Generic Name Dose Route Start Last Admin Trade Name Freq PRN Reason Stop Dose Admin Aspirin 81 mg 07/28/25 09:00 07/30/25 09:35 Aspirin 81 Mg Ectab PO 08/27/25 08:59 81 mg QAM LILLIE Administration Atorvastatin Calcium 20 mg 07/28/25 09:00 07/30/25 09:35 Atorvastatin 20 Mg Tab PO 08/27/25 08:59 20 mg QAM LILLIE Administration Carvedilol 3.125 mg 07/29/25 17:00 07/30/25 09:32 Carvedilol 3.125 Mg Tab PO 08/28/25 16:59 3.125 mg BIDM LILLIE Administration Heparin Sodium (Porcine) 5,000 units 07/27/25 21:00 07/30/25 09:35 Heparin Sod 5,000 Unit/0.5 Ml Vial SQ 08/26/25 20:59 5,000 units Q12 LILLIE Administration Pantoprazole Sodium 40 mg 07/27/25 21:00 07/30/25 09:32 Pantoprazole 40 Mg Tab PO 08/26/25 20:59 40 mg BID LILLIE Administration Pregabalin 100 mg 07/27/25 15:00 07/30/25 09:34 Pregabalin 100 Mg Cap PO 08/26/25 14:59 100 mg TID LILLIE Administration Sacubitril/Valsartan 1 tab 07/29/25 21:00 07/30/25 09:35 Valsartan/Sacubitril 26/24mg Tab PO 08/28/25 20:59 1 tab BID LILLIE Administration Tramadol HCl 50 mg 07/27/25 14:31 07/28/25 20:19 Tramadol Hcl 50 Mg Tablet PO 08/26/25 14:30 50 mg TID PRN Administration Pain Vitamin D 25 mcg 07/27/25 21:00 07/29/25 22:29 Cholecalciferol 25 Mcg (1000 Units) Tab PO 08/26/25 20:59 25 mcg QPM LILLIE Administration PG Care Time/CCT Total # of Minutes Spent Total Time Spent with Patient: Total time spent is greater than 50% in coordination of care (as documented) at patient's floor/unit and/or counseling patient: Coding Level of Care Code 45636 SUB INP/OBS CARE 3/50MIN Diagnoses Heart failure, systolic, with acute decompensation I50.23 Systolic dysfunction I51.9 Pleural effusion J90 SVT (supraventricular tachycardia) I47.10 Aortic insufficiency I35.1 Aortic root dilatation I77.810 Elevated troponin R79.89 RBBB I45.10
--- NOTE | 2025-07-30 11:26 | Discharge Summary ---
Date of Service July 30, 2025 Admission HPI Per Admitting Provider 80 year old male with PMH significant for mild to moderate aortic regurgitation, enlarged aortic root, AAA, hypertension, hyperlipidemia, Coreas's esophagus, GERD, Charcot Josselin Tooth muscular atrophy, SONYA on CPAP, chronic blood loss anemia, history of GI bleed, and chronic pain who presents to the ED on 07/27/2025 with SOB and abdominal tightness x4-5 days. Patient reports he has been feeling SOB and having upper quadrant abdominal tightness for the last 4-5 days that has been progressively worsening. Also reports difficulty breathing at night where he wakes up in the middle of the night short of breath. He takes lasix daily but reports that he does not take it every day because of having to urinate. Skips on days he has to be out of the house. Does not weight himself regularly. Reports he does not eat salt but notes he had ham yesterday. Denies fevers, chills, cough, congestion, chest pain, N/V/D, hematuria or hematochezia. Notes he is weak and fatigued. Falls often but denies hitting his head or s uffering any injuries. Walks with a cane and needs to have sneakers on. Admission Exam Per Admitting Provider General/Psych: frail, sitting up in bed, NAD, conversing easily, flat affect Head: normocephalic, atraumatic Eyes: normal inspection, PERRL, conjunctivae pink ENT: external ear and nose normal, oropharynx normal Neck: normal visual inspection, trachea midline Respiratory: normal respiratory effort, lungs with crackles bilaterally, no accessory muscle use Cardiovascular: regular rate and rhythm, no murmur/rub/gallop Extremities: no cyanosis or clubbing, decreased right pedal pulse, normal left pedal and bilateral radial pulses, no BLE edema Abdomen/GI: normal bowel sounds, soft, nontender, no hepatosplenomegaly Neurologic/MSK: A+Ox3, CN's II-XI intact bilaterally, motor strength 5/5, moves all extremities Skin: no rashes, normal color, warm and dry Principal Diagnosis Acute on chronic systolic heart failure NSTEMI Non-ischemic Cardiomyopathy Discharge Exam Constitutional: WD/WN, vitals as above, NAD, sitting up in bed, pleasant, conversing easily Respiratory: normal respiratory effort, lungs clear to auscultation, no wheeze, rales, rhonchi. Normal insp/exp effort, no accessory muscle use Cardiovascular: RRR, no murmur, no edema Vessels: no JVD or carotid bruit Chest: normal inspection of chest Abdomen: normal bowel sounds, soft, nontender, no hepatosplenomegaly Musculoskeletal: no cyanosis or clubbing, extremities motor strength 5/5 Skin: no rashes, warm and dry normal turgor Neurologic: PERRL, EOMI, accommodation nl, no face palsy, no dysarthria CN's II- XI intact bilaterally and moves all extremities Psychiatric: A+Ox3, euthymic affect Discharge Data Allergies Allergy/AdvReac Type Severity Reaction Status Date / Time NSAIDS (Non-Steroidal Allergy Severe GI Bleed Unverified 07/27/25 10:03 Anti-Inflamma Consultations 07/27/25 11:06 ED Decision to Admit Stat 07/27/25 14:31 Consult Cardiology Routine Procedures Performed Operation Date: 07/29/25 12:00 Actual Procedures p Cineradiography w/Routine Exam - Michael Amaya MD p Cath, Left with Cors and Vent - Michael Amaya MD Ordered Studies 07/27/25 12:19 US arterial duplex LE RT Urgent 07/28/25 10:44 CL Cath Imgs for PACS use only Routine 07/29/25 06:26 CL Cath Imgs for PACS use only Routine Hospital Course (1) Acute CHF: (2) NSTEMI (non-ST elevated myocardial infarction): (3) Non-ischemic cardiomyopathy: Plan 80 year old male with PMH significant for mild to moderate aortic regurgitation, enlarged aortic root, AAA, hypertension, hyperlipidemia, Coreas's esophagus, GERD, Charcot Josselin Tooth muscular atrophy, SONYA on CPAP, chronic blood loss anemia, history of GI bleed, and chronic pain who presents to the ED on 07/27/2025 with SOB and abdominal tightness x4-5 days. Acute on chronic systolic heart failure NSTEMI Patient presenting with SOB and abdominal tightness x4-5 days CXR revealed CHF with possible small bilateral pleural effusions and associated lung base consolidation could represent atelectasis or PNA BNP 2207 High sensitivity troponin on admission of 73.8 on admission, uptrended Echocardiogram during admission shows EF of 20 to 25%; grade 2 diastolic dysfunction. Last echo in January 2025 revealed LVEF 60-64%, mild to moderate aortic regurgitation, mildly enlarged aortic root Patient diuresed with IV Lasix with improvement in his shortness of breath Patient underwent left heart cath on 07/29; found to have mild coronary artery disease. Patient was recommended GDMT for nonischemic cardiomyopathy. He was started on aspirin, Entresto and Coreg. Lasix was changed to torsemide at time of the discharge. Patient was discharged home with instruction to follow-up with PCP and cardiology. He will need BMP when he follows up with his primary care doctor. Hyperlipidemia Continue atorvastatin Coreas's esophagus GERD Continue PPI Chronic pain Charcot Josselin Tooth muscular atrophy Continue pregabalin and tramadol Right anterior tibial artery stenosis seen in the duplex scan; dorsalis pedis is palpable and biphasic waveform noted in dorsal pedis artery. No signs or symptoms of acute ischemia including pain/change in color/ulcer. Discussed the result with the patient; follow-up with vascular surgery as outpatient continue on aspirin and lipitor Please note the above document was generated using voice recognition software. It may contain grammatical, syntax or spelling errors. Any formal questions or concerns about the content, text or information contained within the body of this dictation should be directly addressed to the provider for clarification Total Time Total Time Spent Total Time Spent (In Minutes): 45 Total Time Includes: Examination of the Patient, Discharge Planning, Medication Reconciliation, Communication With Other Providers and Other Discharge Plan Discharge Items Patient Disposition: Home - Self-Care Reason For Visit: CHF Discharge Diagnosis: Acute on chronic systolic heart failure NSTEMI Condition on Discharge: Fair Activity: Resume your previous activity Non-emergency contact: Primary Care Provider Call non-emergency contact if: you have any medication questions and your symptoms worsen Follow-up/Referrals: Eric Nugent DO [Audio Experience Expert] - 08/10/25 10:30 am Marianne Syed MD [Primary Care Provider] - (Date & Time 08/04/2025 3:40 PM Provider: Marianne Syed MD [facility] ) Diet: Regular Addtl Attending Provider Instructions: You were admitted to the hospital due to shortness of breath. Echocardiogram of the heart heart showed lower heart fun compared to the echocardiogram from January 2025. You were evaluated by cardiology; they recommend following medication changes; Stop taking Lasix/furosemide. You are prescribed torsemide 20 mg once a day instead of that. Start taking Coreg 3.125 twice a day. Start taking Entresto twice a day. Appointment has been set up with your PCP for follow up. Pending Studies at Discharge: No Stand-Alone Forms: My [facility], Smoking Cessation Medications and DC Order Prescriptions: New aspirin 81 mg Tablet,Delayed Release (Dr/Ec) 81 mg PO QAM Qty: 30 0RF carvedilol 3.125 mg Tablet 3.125 mg PO BIDM Qty: 60 0RF sacubitril-valsartan [Entresto] 24-26 mg Tablet 1 tab PO BID Qty: 60 0RF torsemide 20 mg tablet 20 mg PO DAILY Qty: 30 0RF Continued potassium chloride 10 mEq Tablet Extended Release 10 meq PO BID tramadol 50 mg Tablet 50 mg PO TID PRN (Reason: Pain) cholecalciferol (vitamin D3) [Vitamin D3] 1,000 unit Tablet 1,000 unit PO QPM omeprazole 20 mg Tablet,Delayed Release (Dr/Ec) 20 mg PO BID atorvastatin 20 mg tablet 20 mg PO QAM cyanocobalamin (vitamin B-12) 1,000 mcg/mL Solution 1,000 mcg IM MONTHLY pregabalin 100 mg capsule 100 mg PO TID ferrous sulfate 325 mg (65 mg iron) Tablet 325 mg PO UD Rx Instructions: every other day Discontinued furosemide 20 mg tablet 40 mg PO QAM Discharge Orders: Discharge Order (Routine); Ordered 07/30/25 Ordered By: Epi Amezcua Admission Data Admit Date/Time: 07/27/25 12:22 Attending Provider: Epi Amezcua Admit Provider: Chandan Diop Primary Care Provider: Marianne Syed Other Providers: [facility]; Chandan Diop; William Perez
[2025-07-30 15:10] VITALS: BP 125/80; PULSE 74
== END 2025-07-30 15:31 | disposition home health service (06) | DRG 280 ==
LOC: ED 07:28 → SUATTDRO 12:22 → 2N 12:22 → 2E 07-29 12:18